=== PATIENT | female | born 1970 | race Caucasian/White ===

== ENCOUNTER 2017-12-21 13:07 | Emergency (ER) | payer MEDICAID, MEDICARE ==
[~2017-12-21] VITALS: Ht 167.6 cm; Wt 68.0 kg
[~2017-12-21 13:07] MED LIST: ACHD5005 PO; ALBU8.5H2 IH; ARIP15TA4 PO; AZIT-21 PO; BCL10T PO; CYCL10TA9 PO; DCS100C PO; DIAZ-345 PO; DICL75TA2 PO; DOXY100C2 PO; DULO30CA3 PO; GABA800T PO; GBPN100C PO; GEMF600T3 PO; MELO15TA14 PO; METH4TAB PO; METO25TA PO; MORP30TA28 PO; MORP50CA PO; NITR-65 PO; OMEP20CA12 PO; ONDA8TAB13 PO; OXYC1TAB12 PO; PHEN-640 PO; POLY119P PO; QUET100T PO; VENL100T PO; [UNRECOGNIZED DRUG - OTHER] PO
[2017-12-21] MEDS ORDERED: HYDROcodone/APAP 5 MG/325 MG (LORTAB) TAB PO ONE (14:00)
--- NOTE | 2017-12-21 14:09 | ED Neck-Back Pain/Injury ---
General Chief Complaint: Head/Cervical Problems Stated Complaint: NECK PAIN Nursing Triage Note: PT PRESENTS TO ER WITH COMPLAINT OF NECK PAIN. PT STATES SHE HAD NECK SX TWO YEARS AGO. STATES SHE IS DROPPING THINGS OUT OF HER RIGHT HAND. FEELS LIKE THERE IS A BUZZING IN HER NECK. Nursing Sepsis Screen: No Definite Risk Source of Information: Patient Exam Limitations: No Limitations History of Present Illness Date Seen by Provider: Dec 21, 2017 Time Seen by Provider: 14:05 Initial Comments Patient is a 47-year-old female who presents to the emergency room with chronic neck pain. She has numbness and tingling to her right arm and she is dropping things out of her hand. She states this is always an issue has become worse over the past month. She reports that she did injure her neck approximately a month and half ago when she fell down 5 stairs landing on her right side hitting her neck. She reports that she was seen by her primary care physician and has been referred to pain management for the chronic neck pain for the past 2 days has become worse and intolerable. Location: C-Spine Timing/Duration: Other (chronic) Pain/Injury Location: Neck Radiation: Other (right arm) Method of Injury: Fall Modifying Factors: Improves With Movement Associated Symptoms: denies symptoms Allergies and Home Medications Allergies Coded Allergies: amoxicillin trihydrate (Verified Allergy, Unknown, 06/22/14) RASH, BUT IS ABLE TO TAKE PCN INJECTION baclofen (Unverified Allergy, Unknown, RASH, 11/02/14) paroxetine HCl (Verified Allergy, Unknown, 06/22/14) potassium clavulanate (Verified Allergy, Unknown, 06/22/14) RASH, BUT IS ABLE TO TAKE PCN INJECTION Home Medications Aripiprazole 15 Mg Tablet, 15 MG PO HS, (Reported) Cyclobenzaprine Hcl 10 Mg Tablet, 10 MG PO TID, (Reported) Docusate Sodium 100 Mg Cap, 200 MG PO BID, (Reported) TAKE 2 (100MG) TABS Duloxetine Hcl 30 Mg Cap, 60 MG PO BID, (Reported) TAKE 2 (30MG) TABS Gabapentin 800 Mg Tablet, 800 MG PO QID, (Reported) Gemfibrozil 600 Mg Tablet, 600 MG PO BID, (Reported) Hydrocodone Bit/Acetaminophen 1 Each Tablet, 2 EACH PO Q6H PRN for PAIN, ( Reported) Hydrocodone Bit/Acetaminophen 1 Tab Tab, 1 EACH PO Q6H PRN for PAIN Prescribed by: MOLLY FORTE on 12/21/17 1456 Omeprazole 20 Mg Capsule.dr, 20 MG PO BID Prescribed by: STALIN CARMONA on 09/20/15 1404 Ondansetron 8 Mg Tab.rapdis, 8 MG PO Q6H PRN for NAUSEA Prescribed by: GERARDO COLON on 06/27/14 1334 Phenazopyridine HCl 200 Mg Tablet, 1 TAB PO Q8H PRN for PAIN Prescribed by: GERARDO COLON on 01/15/16 1314 Polyethylene Glycol 119 Gm Btl, 17 GM PO DAILY, (Reported) Prednisone 20 Mg Tab, 40 MG PO DAILY Prescribed by: RIGO DAS on 12/22/17 2137 Quetiapine Fumarate 100 Mg Tablet, 200 MG PO HS, (Reported) Patient Home Medication List Home Medication List Reviewed: Yes Constitutional: see HPI; No chills, No fever, No malaise, No weakness Musculoskeletal: see HPI, neck pain (right-sided neck pain, numbness that shoots down the right arm.) All Other Systems Reviewed Negative Unless Noted: Yes Past Lsdotgf-Bugtzw-Nzzofr Hx Past Med/Social Hx: Reviewed Nursing Past Med/Soc Hx Patient Social History Alcohol Use: Denies Use Recreational Drug Use: No Smoking Status: Current Everyday Smoker Type Used: Cigarettes Former Smoker, Quit: Jan 27, 2015 Recent Foreign Travel: No Contact w/Someone Who Travel: No Recent Infectious Disease Expo: No Recent Hopitalizations: No Immunizations Up To Date Tetanus Booster (TDap): More than 5yrs PED Vaccines UTD: Yes Past Medical History Surgeries: Yes (lumbar spine sx x2, neck sx x1, breast augmentation, tummy tuck , R carpal t) Breast, 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, Orthopedic Respiratory: Yes Asthma Cardiac: Yes (hx of TACHYCARDIA) Irregular Heartbeat Neurological: Yes (LUMBAR STENOSIS) 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: 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 Gastrointestinal: Yes Chronic Constipation, Gall Bladder Disease Musculoskeletal: Yes Back Injury, Chronic Back Pain Endocrine: No Loss of Vision: Bilateral Cancer: No Psychosocial: Yes Depression Integumentary: No Blood Disorders: Yes (HEP C) Adverse Reaction/Blood Tranf: No Family Medical History Reviewed Nursing Family Hx Aphasia Arthritis 19 MOTHER Cardiovascular disease 19 MOTHER Diabetes mellitus 19 MOTHER FH: Meniere's disease 19 FATHER FH: atrial fibrillation 19 MOTHER FH: back pain 19 FATHER 19 MOTHER FHx: AAA 19 MOTHER Hypertension 19 FATHER 19 MOTHER Osteoporosis 19 MOTHER Thyroid disease G8 SISTER No Pertinent Family Hx Physical Exam Vital Signs Vital Signs - First Documented 12/21/17 13:19 Pulse 104 Resp 20 B/P (MAP) 122/92 (102) Pulse Ox 96 O2 Delivery Room Air Capillary Refill : Less Than 3 Seconds Height, Weight, BMI Height: 5'6.00" Weight: 150lbs. 0.0oz. 68.001434gx; 24.2 BMI Method:Stated General Appearance: No Apparent Distress, WD/WN Neck: Full Range of Motion, Normal Inspection, Supple, Tender Lateral (right lateral), Tender Midline Cardiovascular: Regular Rate, Rhythm, No Edema, No Gallop, No JVD, No Murmur, Normal Peripheral Pulses Respiratory: Chest Non Tender, Lungs Clear, Normal Breath Sounds, No Accessory Muscle Use, No Respiratory Distress Extremity: Normal Capillary Refill, Normal Inspection, Normal Range of Motion, Non Tender, No Calf Tenderness, No Pedal Edema, Other Neurologic/Psychiatric: Alert, Oriented x3, Normal Mood/Affect Progress/Results/Core Measures Results/Orders My Orders Orders - MOLLY FORTE Ct Cervical Spine Wo (12/21/17 13:54) Hydrocodone/Apap 5/325 Tablet (Lortab 5 (12/21/17 14:00) Medications Given in ED Vital Signs/I&O 12/21/17 12/21/17 13:19 15:17 Pulse 104 104 Resp 20 20 B/P (MAP) 122/92 (102) 122/92 (102) Pulse Ox 96 96 O2 Delivery Room Air Blood Pressure Mean: 102 Progress Progress Note : Progress Note I seen and evaluated the patient. I have told her that there are no changes seen on imaging studies. She agrees with close follow-up with her pain doctor and her primary care physician. She agrees with plans of discharge. 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 TECHNIQUE: Multiple contiguous axial images were obtained through the cervical spine without the use of intravenous contrast. Sagittal and coronal reformations were then performed. INDICATION: The patient sustained a fall 4 weeks ago and has persistent left-sided neck pain and some tingling. Exam compared to 09/20/2015 ACDF C5-C6 and C7 is a redemonstrated finding. Bony alignment across, above and below the levels of fusion stable. No osseous or hardware fracture deformity is identified. No findings to suggest hardware loosening or migration. The plate has appeared well opposed to the anterior cortices. No displacement of the interbody device. Interbody device does appear to be incorporated into the adjacent articular endplates however endplate fusion is partial and posteriorly at the C5-6 level and not identified at the C6-C7 level. This is unchanged. No fracture or traumatic malalignment. The facet is stable. IMPRESSION: Unchanged postsurgical changes of mid to lower ACDF, incomplete fusion of the 6-7 level stable. No fracture, malalignment, hardware disruption or acute abnormality. No change from previous. No substantial stenosis apparent. Dictated by: Dictated on workstation # [id number] Dict: 12/21/17 1439 Trans: 12/21/17 1656 Interpreted by: CARRINGTON HENDRIX Electronically signed by: CARRINGTON HENDRIX 12/21/17 1656 Departure Impression Primary Impression: Chronic neck pain Disposition: 01 HOME, SELF-CARE Condition: Stable/Unchanged Departure-Patient Inst. Decision time for Depature: 14:51 Referrals: JAVIER REEDER DO (PCP) Primary Care Physician Patient Instructions: Chronic Neck Pain (DC) Add. Discharge Instructions: Take medication as directed. Keep your appointment with pain management as scheduled on 01/01/18. Follow-up with your doctor within 1 week for recheck. Return back to the emergency room for any concerns as needed. All discharge instructions reviewed with patient and/or family. Voiced understanding. Scripts Hydrocodone Bit/Acetaminophen (Hydrocodone/Acetaminophen 5/325mg Tablet) 1 Tab Tab 1 EACH PO Q6H PRN for PAIN, #10 TAB Prov: MOLLY FORTE 12/21/17 MOLLY FORTE Dec 21, 2017 14:09
--- NOTE | 2017-12-21 14:44 | Diagnostic Imaging Report ---
PROCEDURE: CT cervical spine without contrast. TECHNIQUE: Multiple contiguous axial images were obtained through the cervical spine without the use of intravenous contrast. Sagittal and coronal reformations were then performed. INDICATION: The patient sustained a fall 4 weeks ago and has persistent left-sided neck pain and some tingling. Exam compared to 09/20/2015 ACDF C5-C6 and C7 is a redemonstrated finding. Bony alignment across, above and below the levels of fusion stable. No osseous or hardware fracture deformity is identified. No findings to suggest hardware loosening or migration. The plate has appeared well opposed to the anterior cortices. No displacement of the interbody device. Interbody device does appear to be incorporated into the adjacent articular endplates however endplate fusion is partial and posteriorly at the C5-6 level and not identified at the C6-C7 level. This is unchanged. No fracture or traumatic malalignment. The facet is stable. IMPRESSION: Unchanged postsurgical changes of mid to lower ACDF, incomplete fusion of the 6-7 level stable. No fracture, malalignment, hardware disruption or acute abnormality. No change from previous. No substantial stenosis apparent. Dictated by: Dictated on workstation # [id number]
[2017-12-21] MEDS ORDERED: ACHD5005 PO (14:56)
[2017-12-21 15:17] VITALS: BP 122/92
[2017-12-22] MEDS ORDERED: METH-313 PO (21:37)
[2017-12-22] MEDS ORDERED: PRD20T PO (21:37)
== END 2017-12-21 15:17 | disposition home or self-care (01) ==
LOC: EDUNIT# 13:07 → ER 13:09
DX: M54.2 Cervicalgia (principal); G89.18 Other acute postprocedural pain; J45.909 Unspecified asthma, uncomplicated; F32.9 Major depressive disorder, single episode, unspecified; B19.20 Unspecified viral hepatitis C without hepatic coma; F17.210 Nicotine dependence, cigarettes, uncomplicated; Z95.1 Presence of aortocoronary bypass graft; Z87.19 Personal history of other diseases of the digestive system; Z82.49 Family history of ischemic heart disease and other diseases of the circulatory system; Z90.710 Acquired absence of both cervix and uterus; Z88.1 Allergy status to other antibiotic agents; Z88.8 Allergy status to other drugs, medicaments and biological substances
CPT/HCPCS: 72125

== ENCOUNTER 2017-12-22 18:15 | Emergency (ER) | payer MEDICARE ==
[2017-12-22] MEDS ORDERED: PRD20T PO (21:37)
[2017-12-22] MEDS ORDERED: METH-313 PO (21:37)
== END 2017-12-22 18:37 | disposition left against medical advice (07) ==
LOC: EDUNIT# 18:15 → ER 18:16
DX: M54.9 Dorsalgia, unspecified (principal)

== ENCOUNTER 2017-12-22 20:21 | Emergency (ER) | payer MEDICARE ==
[~2017-12-22] VITALS: Ht 167.6 cm; Wt 68.0 kg
--- NOTE | 2017-12-22 20:54 | ED Back Pain ---
General Chief Complaint: Back Problems Stated Complaint: BACK PAIN Nursing Triage Note: c/o worsening chronic back pain Nursing Sepsis Screen: No Definite Risk Source of Information: Patient Exam Limitations: No Limitations History of Present Illness Date Seen by Provider: Dec 22, 2017 Time Seen by Provider: 20:51 Initial Comments to ER with midline low back pain. This radiates down both legs as an aching sensation. She has a history of chronic neck and back pain. She was seen here yesterday for worsening neck pain. She was given 10 hydrocodone she states she' s been taking them but they've not been helping. She has a spinal stimulator in place She denies any recent trauma to the back.She states that normally she does not take anything for pain. Location: Lumbar Spine, Paraspinous Muscles Timing/Duration: 1-2 Days Severity: Moderate Pain/Injury Location: Back Associated Symptoms: lower back pain Allergies and Home Medications Allergies Coded Allergies: amoxicillin trihydrate (Verified Allergy, Unknown, 06/22/14) RASH, BUT IS ABLE TO TAKE PCN INJECTION baclofen (Unverified Allergy, Unknown, RASH, 11/02/14) paroxetine HCl (Verified Allergy, Unknown, 06/22/14) potassium clavulanate (Verified Allergy, Unknown, 06/22/14) RASH, BUT IS ABLE TO TAKE PCN INJECTION Home Medications Aripiprazole 15 Mg Tablet, 15 MG PO HS, (Reported) Cyclobenzaprine Hcl 10 Mg Tablet, 10 MG PO TID, (Reported) Docusate Sodium 100 Mg Cap, 200 MG PO BID, (Reported) TAKE 2 (100MG) TABS Duloxetine Hcl 30 Mg Cap, 60 MG PO BID, (Reported) TAKE 2 (30MG) TABS Gabapentin 800 Mg Tablet, 800 MG PO QID, (Reported) Gemfibrozil 600 Mg Tablet, 600 MG PO BID, (Reported) Hydrocodone Bit/Acetaminophen 1 Each Tablet, 2 EACH PO Q6H PRN for PAIN, ( Reported) Hydrocodone Bit/Acetaminophen 1 Tab Tab, 1 EACH PO Q6H PRN for PAIN Prescribed by: MOLLY FORTE on 12/21/17 1456 Methocarbamol 750 Mg Tablet, 750 MG PO Q6H PRN for PAIN-SEVERE Prescribed by: RIGO DAS on 12/22/172136 Omeprazole 20 Mg Capsule.dr, 20 MG PO BID Prescribed by: STALIN CARMONA on 09/20/15 1404 Ondansetron 8 Mg Tab.rapdis, 8 MG PO Q6H PRN for NAUSEA Prescribed by: GERARDO COLON on 06/27/14 1334 Phenazopyridine HCl 200 Mg Tablet, 1 TAB PO Q8H PRN for PAIN Prescribed by: GERARDO COLON on 01/15/16 1314 Polyethylene Glycol 119 Gm Btl, 17 GM PO DAILY, (Reported) Prednisone 20 Mg Tab, 40 MG PO DAILY Prescribed by: RIGO DAS on 12/22/17 2137 Quetiapine Fumarate 100 Mg Tablet, 200 MG PO HS, (Reported) Patient Home Medication List Home Medication List Reviewed: Yes Constitutional: see HPI EENTM: see HPI Respiratory: no symptoms reported Cardiovascular: no symptoms reported Musculoskeletal: see HPI, back pain Skin: no symptoms reported Psychiatric/Neurological: No Symptoms Reported Past Nbnimdq-Zpkxgx-Dqooae Hx Patient Social History Alcohol Use: Denies Use Recreational Drug Use: No Smoking Status: Former Smoker Type Used: Cigarettes Former Smoker, Quit: Jan 27, 2015 Recent Foreign Travel: No Contact w/Someone Who Travel: No Recent Infectious Disease Expo: No Recent Hopitalizations: No Physical Abuse: No Sexual Abuse: No Immunizations Up To Date Tetanus Booster (TDap): More than 5yrs PED Vaccines UTD: Yes Past Medical History Surgeries: Yes (lumbar spine sx x2, neck sx x1, breast augmentation, tummy tuck , R carpal t) Breast, 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, Orthopedic Respiratory: Yes Asthma Cardiac: Yes (hx of TACHYCARDIA) Irregular Heartbeat Neurological: Yes (LUMBAR STENOSIS) 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 Gastrointestinal: Yes Chronic Constipation, Gall Bladder Disease Musculoskeletal: Yes Back Injury, Chronic Back Pain Endocrine: No Loss of Vision: Bilateral Cancer: No Psychosocial: Yes Depression Nursing Suicide Risk Score: 0 Integumentary: No Blood Disorders: Yes (HEP C) Adverse Reaction/Blood Tranf: No Family Medical History Aphasia Arthritis 19 MOTHER Cardiovascular disease 19 MOTHER Diabetes mellitus 19 MOTHER FH: Meniere's disease 19 FATHER FH: atrial fibrillation 19 MOTHER FH: back pain 19 FATHER 19 MOTHER FHx: AAA 19 MOTHER Hypertension 19 FATHER 19 MOTHER Osteoporosis 19 MOTHER Thyroid disease G8 SISTER No Pertinent Family Hx Physical Exam Vital Signs Vital Signs - First Documented 12/22/17 20:36 Temp 98.5 Pulse 109 Resp 18 B/P (MAP) 132/92 (105) Pulse Ox 98 Capillary Refill : Less Than 3 Seconds Height, Weight, BMI Height: 5'6.00" Weight: 150lbs. 0.0oz. 68.587481nk; 24.2 BMI Method:Stated General Appearance: No Apparent Distress, WD/WN, Other (tearful) HEENT: PERRL/EOMI, TMs Normal Respiratory: No Accessory Muscle Use, No Respiratory Distress Gastrointestinal: Normal Bowel Sounds, Non Tender, Soft Back: Normal Inspection Extremity: Normal Capillary Refill, Normal Inspection Neurologic/Psychiatric: Alert, Oriented x3 Skin: Normal Color, Warm/Dry Progress/Results/Core Measures Results/Orders Lab Results Laboratory Tests Test 12/22/17 19:55 12/22/17 21:00 Range/Units Urine Color YELLOW Urine Clarity CLEAR Urine pH 6 5-9 Urine Specific [place] 1.010 L 1.016-1.022 Urine Protein NEGATIVE NEGATIVE Urine Glucose (UA) NEGATIVE NEGATIVE Urine Ketones NEGATIVE NEGATIVE Urine Nitrite NEGATIVE NEGATIVE Urine Bilirubin NEGATIVE NEGATIVE Urine Urobilinogen NORMAL NORMAL MG/DL Urine Leukocyte Esterase NEGATIVE NEGATIVE Urine RBC (Auto) NEGATIVE NEGATIVE Urine RBC NONE /HPF Urine WBC 0-2 /HPF Urine Squamous Epithelial Cells 0-2 /HPF Urine Renal Epithelial Cells NONE /HPF Urine Crystals NONE /LPF Urine Bacteria NEGATIVE /HPF Urine Casts NONE /LPF Urine Mucus NEGATIVE /LPF Urine Culture Indicated NO Urine Opiates Screen POSITIVE H NEGATIVE Urine Oxycodone Screen NEGATIVE NEGATIVE Urine Methadone Screen NEGATIVE NEGATIVE Urine Propoxyphene Screen NEGATIVE NEGATIVE Urine Barbiturates Screen NEGATIVE NEGATIVE Ur Tricyclic Antidepressants Screen POSITIVE H NEGATIVE Urine Phencyclidine Screen NEGATIVE NEGATIVE Urine Amphetamines Screen NEGATIVE NEGATIVE Urine Methamphetamines Screen NEGATIVE NEGATIVE Urine Benzodiazepines Screen NEGATIVE NEGATIVE Urine Cocaine Screen NEGATIVE NEGATIVE Urine Cannabinoids Screen NEGATIVE NEGATIVE White Blood Count 4.8 4.3-11.0 10^3/uL Red Blood Count 4.60 4.35-5.85 10^6/uL Hemoglobin 13.9 11.5-16.0 G/DL Hematocrit 41 35-52 % Mean Corpuscular Volume 90 80-99 FL Mean Corpuscular Hemoglobin 30 25-34 PG Mean Corpuscular Hemoglobin Concent 34 32-36 G/DL Red Cell Distribution Width 13.6 10.0-14.5 % Platelet Count 229 130-400 10^3/uL Mean Platelet Volume 9.0 7.4-10.4 FL Neutrophils (%) (Auto) 46 42-75 % Lymphocytes (%) (Auto) 42 12-44 % Monocytes (%) (Auto) 9 0-12 % Eosinophils (%) (Auto) 3 0-10 % Basophils (%) (Auto) 0 0-10 % Neutrophils # (Auto) 2.2 1.8-7.8 X 10^3 Lymphocytes # (Auto) 2.1 1.0-4.0 X 10^3 Monocytes # (Auto) 0.4 0.0-1.0 X 10^3 Eosinophils # (Auto) 0.1 0.0-0.3 10^3/uL Basophils # (Auto) 0.0 0.0-0.1 10^3/uL Sodium Level 139 135-145 MMOL/L Potassium Level 4.2 3.6-5.0 MMOL/L Chloride Level 103 98-107 MMOL/L Carbon Dioxide Level 25 21-32 MMOL/L Anion Gap 11 5-14 MMOL/L Blood Urea Nitrogen 10 7-18 MG/DL Creatinine 0.75 0.60-1.30 MG/DL Estimat Glomerular Filtration Rate > 60 BUN/Creatinine Ratio 13 Glucose Level 100 70-105 MG/DL Calcium Level 9.8 8.5-10.1 MG/DL My Orders Orders - RIGO DAS APRN Drug Screen Stat (Urine) (12/22/17 20:46) Ua Culture If Indicated (12/22/17 20:46) Cbc With Automated Diff (12/22/17 20:50) Erythrocyte Sedimentation Rate (12/22/17 20:50) Basic Metabolic Panel (12/22/17 20:50) Ketorolac Injection (Toradol Injection) (12/22/17 21:00) Orphenadrine Injection (Norflex Injectio (12/22/17 21:00) Medications Given in ED Current Medications Medications Dose Ordered Sig/Michael Route Start Time Stop Time Status Last Admin Dose Admin Ketorolac Tromethamine 60 mg ONCE ONCE IM 12/22/17 21:00 12/22/17 21:01 DC 12/22/17 20:59 60 MG Orphenadrine Citrate 60 mg ONCE ONCE IM 12/22/17 21:00 12/22/17 21:01 DC 12/22/17 20:59 60 MG Vital Signs/I&O 12/22/17 20:36 Temp 98.5 Pulse 109 Resp 18 B/P (MAP) 132/92 (105) Pulse Ox 98 Blood Pressure Mean: 105 Departure Communication (Admissions) 2144- resting in bed sleeping at this time. Impression Primary Impression: Chronic back pain Disposition: HOME, SELF-CARE Condition: Stable Departure-Patient Inst. Decision time for Depature: 21:36 Referrals: JAVIER REEDER DO (PCP/Family) Primary Care Physician Patient Instructions: Low Back Pain (DC) Add. Discharge Instructions: 11. Medication as directed 2. Follow-up with your doctor later this week for recheck 3.All discharge instructions reviewed with patient and/or family. Voiced understanding. Scripts Prednisone (Prednisone) 20 Mg Tab 40 MG PO DAILY, #8 TAB Prov: RIGO DAS APRN 12/22/17 RIGO DAS APRN Dec 22, 2017 20:53
[2017-12-22] MEDS ORDERED: ORPHENADRINE 60 MG/2 ML (NORFLEX) AMP IM ONE (21:00)
[2017-12-22] MEDS ORDERED: KETOROLAC 60 MG/2 ML VIAL IM ONE (21:00)
[2017-12-22 21:13] LABS: BILIRUBIN,URINE NEGATIVE (NEGATIVE); CLARITY,URINE CLEAR; COLOR,URINE YELLOW; GLUCOSE, URINE (UA) NEGATIVE (NEGATIVE); KETONES,URINE NEGATIVE (NEGATIVE); LEUKOCYTE ESTERASE ,URINE NEGATIVE (NEGATIVE); NITRITE,URINE NEGATIVE (NEGATIVE); PH,URINE 6 (5-9); PROTEIN,URINE NEGATIVE (NEGATIVE); UROBILINOGEN,URINE NORMAL (NORMAL)
[2017-12-22 21:14] LABS: BASOPHILS % (AUTO) 0 % (0-10); EOSINOPHILS # (AUTO) 0.1 10^3/uL (0.0-0.3); EOSINOPHILS % (AUTO) 3 % (0-10); HEMATOCRIT 41 % (35-52); HEMOGLOBIN 13.9 G/DL (11.5-16.0); LYMPHOCYTES # (AUTO) 2.1 X 10^3 (1.0-4.0); LYMPHOCYTES % (AUTO) 42 % (12-44); MEAN CORPUSCULAR HEMOGLOBIN 30 PG (25-34); MEAN CORPUSCULAR HGB CONC 34 G/DL (32-36); MEAN CORPUSCULAR VOLUME 90 FL (80-99); MONOCYTES # (AUTO) 0.4 X 10^3 (0.0-1.0); MONOCYTES % (AUTO) 9 % (0-12); NEUTROPHILS # (AUTO) 2.2 X 10^3 (1.8-7.8); NEUTROPHILS % (AUTO) 46 % (42-75); PLATELET COUNT 229 10^3/uL (130-400); RED CELL DISTRIBUTION WIDTH 13.6 % (10.0-14.5); WHITE BLOOD COUNT 4.8 10^3/uL (4.3-11.0)
[2017-12-22 21:23] LABS: BACTERIA,URINE NEGATIVE /HPF; SQUAMOUS EPITHELIAL CELL,UR 0-2 /HPF; WBC,URINE 0-2 /HPF
[2017-12-22 21:27] LABS: AMPHETAMINE SCREEN, URINE NEGATIVE (NEGATIVE); BARBITURATE SCREEN URINE NEGATIVE (NEGATIVE); BENZODIAZEPINES SCREEN URINE NEGATIVE (NEGATIVE); CANNABINOID SCREEN, URINE NEGATIVE (NEGATIVE); COCAINE SCREEN URINE NEGATIVE (NEGATIVE); METHADONE STAT NEGATIVE (NEGATIVE); METHAMPHETAMINE SCREEN URINE S NEGATIVE (NEGATIVE); OPIATE SCREEN URINE POSITIVE (NEGATIVE); OXYCODONE STAT NEGATIVE (NEGATIVE); PROPOXYPHENE STAT NEGATIVE (NEGATIVE); TRICYCLIC ANTIDEPRESSANTS SCRE POSITIVE (NEGATIVE)
[2017-12-22 21:31] LABS: BUN/CREATININE RATIO 13; CALCIUM 9.8 MG/DL (8.5-10.1); CARBON DIOXIDE 25 MMOL/L (21-32); CHLORIDE 103 MMOL/L (98-107); CREATININE SERUM 0.75 MG/DL (0.60-1.30); GFR ESTIMATED > 60; GLUCOSE 100 MG/DL (70-105); POTASSIUM 4.2 MMOL/L (3.6-5.0); SODIUM 139 MMOL/L (135-145)
[2017-12-22] MEDS ORDERED: PRD20T PO (21:37)
[2017-12-22] MEDS ORDERED: METH-313 PO (21:37)
[2017-12-22 21:44] VITALS: BP 132/92
[2017-12-22 21:44] LABS: ERYTHROCYTE SEDIMENTATION RATE 6 MM/HR (0-20)
== END 2017-12-22 21:45 | disposition home or self-care (01) ==
LOC: EDUNIT# 20:21 → ER 20:22
DX: M54.5 Low back pain (principal); G89.29 Other chronic pain; J45.909 Unspecified asthma, uncomplicated; F32.9 Major depressive disorder, single episode, unspecified; Z87.19 Personal history of other diseases of the digestive system; Z90.710 Acquired absence of both cervix and uterus; Z87.891 Personal history of nicotine dependence; Z88.1 Allergy status to other antibiotic agents; Z88.8 Allergy status to other drugs, medicaments and biological substances
CPT/HCPCS: 36415; 80048; 80306; 81000; 85025; 85652; 96372; 99284

== ENCOUNTER 2018-02-14 06:54 | Day surgery (SDC) | payer MEDICARE ==
[2018-02-14] VITALS (7 sets, daily range): BP systolic 91–101; BP diastolic 72–80
[~2018-02-14] VITALS: Ht 170.2 cm; Wt 65.8 kg
[~2018-02-14 06:54] MED LIST changes: +METH-313 PO; +PRD20T PO
--- OUTSIDE RECORDS SUMMARY | 2018-02-14 07:04 | XMS REPORT ---
Author Author JUSTIN ASTUDILLO [facility] e[employer] Address Unknown Phone Unavailable Care Team Providers Care Concrete Precast [place]oulder Name Role Phone JUSTIN ASTUDILLO Unavailable Allergies No Known Allergies Problems Problem Type Condition Code Onset Dates Condition Status Problem Hepatitis C antibody test positive R76.8 Active Assessment Generalized anxiety disorder F41.1 Active Problem Controlled substance agreement terminated Z92.89 Active Assessment Major depressive disorder, recurrent episode, severe, with psychotic behavior F33.3 Active Medications Medication Code System Code Instructions Start Date End Date Status Dosage Cymbalta [facility] [address]-36 60 MG Orally Twice a day Feb 10, 2015 1 capsule Abilify [facility] [address]-21 10 MG Orally Once a day December 08, 2015 1 tablet Lopid [facility] [address]-11 600 mg Jul 10, 2014 1 Tablet by Oral route 2 times per day Hydrocodone-Acetaminophen [facility] [address]-81 10-325 MG Orally every 6 hrs 1 tablet as needed Bitoin Plus/Calcium/Vit D3 [facility] [address]65 - Orally not defined Cholecalciferol [facility] [address]-50 1000 UNIT Orally Once a day 1 capsule Prazosin HCl [facility] [address]-14 1 MG Orally Once a day Mar 01, 2016 1 capsule at bedtime Seroquel XR [facility] [address]-01 150 MG Orally Once a day 1 tablet in the evening Prevacid [facility] [address]-12 15 MG Orally Once a day 1 capsule Folic Acid [facility] [address]-04 1 MG Orally Once a day 1 tablet Gabapentin [facility] [address]-40 800 mg Orally 4 times a day Jul 10, 2014 1 Tablet by Oral route 4 times per day Multi Vitamin Daily [facility] [address] - Orally Once a day 1 tablet MiraLax [facility] [address]-26 17 gm/dose Orally Once a day 17 grams mixed in 8 oz of water or juice cyclobenzaprine [facility] [address]-33 10 mg by oral route 2 times a day August 26, 2014 1 Tablet by Oral route 3 times per day PRN Mobic [facility] [address]-99 15 MG Orally Once a day 1 tablet Ondansetron [facility] [address]-27 8 MG Orally not defined Procedures Procedure Coding System Code Date MH Office Visit, Est Pt., Level 3 CPT-4 18356 Mar 01, 2016 Vital Signs Date/Time: Mar 01, 2016 Cardiac Monitoring Heart Rate 104 bpm Weight 160 lbs Height 66 in BMI 25.82 Index Blood Pressure Diastolic 64 mmHg Blood Pressure Systolic 128 mmHg Results No Known Results Summary Purpose eClinical[employer] Submission
--- OUTSIDE RECORDS SUMMARY | 2018-02-14 07:04 | XMS REPORT ---
Author Author EVELIA SAMANO Organization [facility] Address [address] [place] [address] Care Team Providers Care Perforator Operator Name Role Phone EVELIA SAMANO Unavailable PROBLEMS Type Condition ICD9-CM Code [id number] Code Onset Dates Condition Status SNOMED Code Problem Major depressive disorder, recurrent episode, severe, with psychotic behavior F33.3 Active 545379593 Problem Major depressive disorder, recurrent, severe with psychotic symptoms F33.3 Active 71743704 Problem Controlled substance agreement terminated Z92.89 Active 875922889 Problem Hepatitis C antibody test positive R76.8 Active 951343625 Problem Major depressive disorder, recurrent episode, moderate F33.1 Active 314440404 Problem Generalized anxiety disorder F41.1 Active 63027113 ALLERGIES Unknown Allergies SOCIAL HISTORY No smoking Hx information available PLAN OF CARE Activity Details Follow Up 4 Weeks Reason:depression, anxiety VITAL SIGNS MEDICATIONS Unknown Medications RESULTS No Results PROCEDURES Procedure Date Ordered Related Diagnosis Body Site Psychotherapy, patient &/family, 30 minutes, established patient May 01, 2016 IMMUNIZATIONS No Known Immunizations
--- OUTSIDE RECORDS SUMMARY | 2018-02-14 07:04 | XMS REPORT ---
Author Author ANDRZEJ LIN [facility] Address [address] [place] [address] Phone Unavailable Care Team Providers Care Retail Shift Leader Name Role Phone ANDRZEJ LIN Unavailable Unavailable PROBLEMS Type Condition ICD9-CM Code HLN50-NO Code Onset Dates Condition Status SNOMED Code Problem Hepatitis C antibody test positive R76.8 Active 298140247 Problem Generalized anxiety disorder F41.1 Active 85386961 Problem Controlled substance agreement terminated Z92.89 Active 273890715 Problem Mood disorder F39 Active 61654933 Problem Methamphetamine use disorder, moderate F15.20 Active 838996031 Problem Major depressive disorder, recurrent, severe with psychotic symptoms F33.3 Active 27236811 Problem Major depressive disorder, recurrent episode, moderate F33.1 Active 858841902 Problem Opiate abuse, episodic F11.10 Active 4137829 Problem Major depressive disorder, recurrent episode, severe, with psychotic behavior F33.3 Active 794573415 ALLERGIES Substance Reaction Event Type Date Status Tizanidine HCl hives Drug Allergy Sep, Active Paxil hives Drug Allergy Sep, Active Baclofen blistering rash Drug Allergy Sep, Active Augmentin rash Drug Allergy Sep, Active Bee stings Unknown Non Drug Allergy Sep, Active Hydrocodone Failed UDS Non Drug Allergy Sep, Active Benzodiazepines Failed UDS Non Drug Allergy Sep, Active ENCOUNTERS Encounter Location Date Diagnosis [facility] [address] [address] Jan, [facility] [id number] [place] [address] Dec, Methamphetamine use disorder, moderate F15.20 ; Opiate abuse , episodic F11.10 and Mood disorder F39 [facility] [address] [address] Sep, Sore throat J02.9 [facility] [address] [address] Apr, [facility] [id number] [place] [address] 3842 Apr, [facility] [address] [address] Mar, High risk medication use Z79.899 ; Methamphetamine use disorder, moderate F15.20 and Opiate abuse, episodic F11.10 [facility] [address] [address] Dec, [place] [id number] [place] [address]190- [address] Dec, Generalized anxiety disorder F41.1 and Major depressive disorder, recurrent episode, severe, with psychotic behavior F33.3 [facility] [address] [address] Nov, Abdominal pain R10.9 and Acute cystitis with hematuria N30.01 [facility] [address] [address] October, Major depressive disorder, recurrent, severe with psychotic symptoms F33.3 and Generalized anxiety disorder F41.1 [place] [address] [address] Sep, Generalized anxiety disorder F41.1 and Major depressive disorder, recurrent, severe with psychotic symptoms F33.3 [facility] [address] [address] Sep, Generalized anxiety disorder F41.1 and Major depressive disorder, recurrent, severe with psychotic symptoms F33.3 [place] [address] [place] [address]78- [address] Aug, Major depressive disorder, recurrent episode, moderate F33.1 and Generalized anxiety disorder F41.1 [place] [id number] [place] [address]8862- [address]145 Aug, Major depressive disorder, recurrent episode, moderate F33.1 and Generalized anxiety disorder F41.1 [facility] [id number] [place] [address] Jul, Urinary frequency R35.0 and Gastroenteritis and colitis, viral A08.4 [place] [address] [address] Jul, Major depressive disorder, recurrent episode, moderate F33.1 and Generalized anxiety disorder F41.1 [facility] [id number] [place] [address] Jun, Bronchitis J40 [place] [address] [address] May, Major depressive disorder, recurrent episode, severe, with psychotic behavior F33.3 and Generalized anxiety disorder F41.1 [place] [address] [address] Apr, Major depressive disorder, recurrent episode, severe, with psychotic behavior F33.3 and Generalized anxiety disorder F41.1 [place] [id number] [place] [address] 69283- 1145 Apr, Generalized anxiety disorder F41.1 and Major depressive disorder, recurrent episode, severe, with psychotic behavior F33.3 [place] [id number] [place] [address] 84368- 8523 Apr, Severe episode of recurrent major depressive disorder, with psychotic features F33.3 [facility] [id number] [place] [address] Apr, Bronchitis J40 [place] [address] [address]- [address] 31 Mar, 2016 [facility] [id number] [place] [address]63 14 Mar, 2016 Vaginal discharge N89.8 and Trichomonas infection A59.9 [place] [address] [address] Mar, Severe episode of recurrent major depressive disorder, with psychotic features F33.3 [facility] [id number] [place] [address] 59053- 5947 Feb, Generalized anxiety disorder F41.1 and Major depressive disorder, recurrent episode, severe, with psychotic behavior F33.3 [facility] [id number] [place] [address] 54131- 9798 Feb, Severe episode of recurrent major depressive disorder, with psychotic features F33.3 [place] [id number] [place] [address] 05393- 5289 Jan, Severe episode of recurrent major depressive disorder, with psychotic features F33.3 [place] [id number] [place] [address] 86467- 2369 Dec, Generalized anxiety disorder F41.1 and Major depressive disorder, recurrent episode, severe, with psychotic behavior F33.3 [place] [address] [place] [address] 50038- 2326 Nov, Major depressive disorder, recurrent episode, severe, with psychotic behavior F33.3 [place] [id number] [place] [address] 03257- 6264 Nov, Major depressive disorder, recurrent episode, severe, with psychotic behavior F33.3 [place] [address] [place] [address] 34907- 5360 Sep, Controlled substance agreement terminated Z92.89 [facility] [address] [place] [address]23- [address]84 Sep, Major depressive disorder, recurrent episode, severe, with psychotic behavior F33.3 [facility] [address] [place] [address] 07758- 8829 Sep, Major depressive disorder, recurrent episode, severe, with psychotic behavior F33.3 [place] [id number] [place] [address] 23558- 5752 Sep, Generalized anxiety disorder F41.1 and Major depressive disorder, recurrent, severe with psychotic symptoms F33.3 [facility] [id number] [place] [address] 39581- 8991 Sep, [facility] [id number] [place] [address] 50786- 6996 Sep, Major depressive disorder, recurrent episode, severe, with psychotic behavior F33.3 [facility] [id number] [place] [address] 24163- 3247 Aug, Major depressive disorder, recurrent, severe with psychotic symptoms F33.3 and Generalized anxiety disorder F41.1 [place] [id number] [place] [address] 79941- 9685 Jun, Generalized anxiety disorder F41.1 and Major depressive disorder, recurrent, severe with psychotic symptoms F33.3 [place] [address] [address]137- [address] Jun, [facility] [id number] [place] [address] 70375- 1800 Mar, [facility] [id number] [place] [address] 35880- 1490 Mar, Generalized anxiety disorder F41.1 and Major depressive disorder, recurrent, severe with psychotic symptoms F33.3 [facility] [id number] [place] [address] 82176- 1020 Feb, Generalized anxiety disorder 300.02 ; Major depression, recurrent 296.30 and 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 [facility] [id number] [place] [address] 60225- 9558 October, Major depressive disorder, recurrent episode, moderate 296.32 and Generalized anxiety disorder 300.02 [facility] [id number] [place] [address] 61232- 9479 Sep, [facility] [address] [address] Sep, [facility] [place] [facility] [address] [id number] [place] [address] Aug, [facility] [place] [facility] [address] [id number] [place] [address]- 96[address] Aug, [facility] [place] [facility] [address] [facility] [id number] [place] [address]- [address] 16 Jul, 2014 [facility] [place] [facility] [address] [id number] [place] [address]- 5293 16 Jul, 2014 [facility] [place] [facility] [address] [id number] [place] [address]- [address]245 Jul, 2014 [facility] [place] [facility] [address] [facility] [id number] [place] [address]- [address]309 Jul, 2014 [facility] [place] [facility] [address] [facility] [id number] [place] [address]- 9839 Jul, 2014 [facility] [place] [facility] [address] [facility] [id number] [place] [address]- 9[address] 06 Jul, 2014 [facility] [place] [facility] [address] [facility] [id number] [place] [address]- 77[address] 06 Jul, 2014 [facility] [place] [facility] [address] [facility] [id number] [place] [address]- 6971 Feb, [facility] [place] [facility] [address] [facility] [id number] [place] [address]- 8164 Feb, [facility] [place] [facility] [address] [facility] [id number] [place] [address]- 2065 Nov, [facility] [place] [facility] [address] [id number] [place] [address]- 3045 Nov, [facility] [place] [facility] [address] [facility] [id number] [place] [address]- 1547 Sep, [facility] [place] [facility] [address] [facility] [id number] [place] [address]- 9458 Aug, [facility] [place] [facility] [address] [id number] [place] [address]- 5328 Aug, [facility] [place] [facility] [address] [id number] [place] [address]- 1115 Aug, [facility] [place] [facility] [address] [id number] [place] [address]- 0509 Aug, [facility] [place] [facility] [address] [id number] [place] [address]- 1034 Jul, [facility] [place] [facility] [address] [id number] [place] [address]- 4606 Jul, 2013 [facility] [place] [facility] [address] [id number] [place] [address]- 6517 Jul, 2013 [facility] [place] [facility] [address] [facility] [id number] [place] [address]- 1308 Jul, 2013 [facility] [place] [facility] [address] [id number] [place] [address]- 7014 Jul, [facility] [place] [facility] [address] [id number] [place] [address]- 9896 Jul, [facility] [place] [facility] [address] [facility] [id number] [place] [address]- 1904 Mar, [facility] [place] [facility] [address] [id number] [address] 8434 Mar, [facility] [place] [facility] [address] [id number] [place] [address]- 2484 08 Mar, 2013 [facility] [place] [facility] [address] [id number] [place] [address]- 7028 Mar, [facility] [place] [facility] [address] [id number] [place] [address]- 0383 12 Feb, 2013 [facility] [place] [facility] [address] [id number] [place] [address]- 3459 11 Feb, 2013 [facility] [place] [facility] [address] [id number] [place] [address]- [address] Jan, IMMUNIZATIONS No Known Immunizations SOCIAL HISTORY Never Assessed REASON FOR VISIT sore throat Pt has had a sore throat for 2-3 days, has had some sinus drainage and some fever [facility] [place] PLAN OF CARE VITAL SIGNS Height 66 in 2017-09-10 Weight 150.6 lbs 2017-09-10 Temperature 98.7 degrees Fahrenheit 2017-09-10 Heart Rate 88 bpm 2017-09-10 Respiratory Rate 18 2017-09-10 BMI 24.30 kg/m2 2017-09-10 Blood pressure systolic 120 mmHg 2017-09-10 Blood pressure diastolic 70 mmHg 2017-09-10 MEDICATIONS Medication Instructions Dosage Frequency Start Date End Date Duration Status Prevacid 15 MG Orally Once a day 1 capsule 24h Active Seroquel 25 MG Orally three times a day as needed for anxiety 1 tablet Dec, 30 days Active Estrace 0.1 MG/GM Active Flonase 50 MCG/DOSE Nasally Once a day 1 spray in each nostril 24h Active Prazosin HCl 1 MG Orally Once a day 1 capsule at bedtime 24h 30 days Active Azithromycin 250 MG Orally Once a day 2 tablets on the first day, then 1 tablet daily for 4 days 24h Sep, Sep, 5 day(s) Active Butrans 5 MCG/HR 1 patch to skin Not-Taking Folic Acid 1 MG Orally Once a day 1 tablet 24h Not-Taking Benztropine Mesylate 1 MG Orally Once a day 1 tablet at bedtime 24h Dec 30 days Active Seroquel 300 MG Orally at bedtime 1 tablet Sep, 30 days Active BusPIRone HCl 10 mg Orally as needed Three times a day 1 tablet 8h Sep, 30 days Active Lopid 600 mg 1 Tablet by Oral route 2 times per day Jul, Active Biotin Plus/Calcium/Vit D3 - Not-Taking Gabapentin 800 mg Orally 4 times a day 1 Tablet by Oral route 4 times per day 6h Jul, Active Loratadine 10 MG Orally Once a day 1 tablet 24h Active Multi Vitamin Daily - Orally Once a day 1 tablet 24h Not-Taking cyclobenzaprine 10 mg by oral route 2 times a day 1 Tablet by Oral route 3 times per day PRN 12h Aug, Active Cymbalta 60 MG Orally every morning 2 capsules Feb, 30 days Active RESULTS Name Result Date Reference Range STREP A (IN HOUSE) 2017-09-10 STREP A positive Control + Lot # [id number] Exp date 03-15-2020 PROCEDURES Procedure Date Ordered Result Body Site STREP A ASSAY W/OPTIC September 10, 2017 INSTRUCTIONS MEDICATIONS ADMINISTERED No Known Medications MEDICAL (GENERAL) HISTORY Type Description Date Medical History depression Medical History anxiety Medical History hyperlipidemia Medical History degenerative disc disease Medical History bulging disc(s) Medical History herniated disc Medical History spinal stenosis Medical History cholelithiasis Medical History hepatitis C Medical History Major depressive disorder, recurrent episode, severe, with psychotic behavior Surgical History Back Surgery Spinal Fusion and Rods in back 11/2014 Surgical History Carpal Tunnel Release--right hand 01/2015 Surgical History hysterectomy, vaginal 1992 Surgical History oopherectomy 2001 Surgical History breast augmentation Surgical History laminectomy Surgical History Neurotransmitter placed 03/2016 Hospitalization History surgery Hospitalization History [facility]
--- OUTSIDE RECORDS SUMMARY | 2018-02-14 07:04 | XMS REPORT ---
Author Author JUSTIN Caban Organization [facility] Address Unknown Care Team Providers Care Brewery Technician Name Role Phone JUSTIN Caban Unavailable PROBLEMS Type Condition ICD9-CM Code [id number] Code Onset Dates Condition Status SNOMED Code Problem Controlled substance agreement terminated Z92.89 Active 209177413 Problem Hepatitis C antibody test positive R76.8 Active 505322152 Problem Methamphetamine use disorder, moderate F15.20 Active 818301747 Problem Opiate abuse, episodic F11.10 Active 5266325 Problem Major depressive disorder, recurrent episode, moderate F33.1 Active 653564050 Problem Generalized anxiety disorder F41.1 Active 02598232 Problem Major depressive disorder, recurrent episode, severe, with psychotic behavior F33.3 Active 187032791 Problem Major depressive disorder, recurrent, severe with psychotic symptoms F33.3 Active 53111362 ALLERGIES No Information ENCOUNTERS Encounter Location Date Diagnosis [facility] [address] [address] Apr, [facility] [address] [address] Apr, [facility] [address] [address] Mar, High risk medication use Z79.899 ; Methamphetamine use disorder, moderate F15.20 and Opiate abuse, episodic F11.10 [facility] [address] [address] Dec, [facility] [address] [address] Dec, Generalized anxiety disorder F41.1 and Major depressive disorder, recurrent episode, severe, with psychotic behavior F33.3 [facility] [address] [place] [address] 15 Nov, 2016 Abdominal pain R10.9 and Acute cystitis with hematuria N30.01 [place] [address] [address] October, Major depressive disorder, recurrent, severe with psychotic symptoms F33.3 and Generalized anxiety disorder F41.1 [place] [address] [address] Sep, Generalized anxiety disorder F41.1 and Major depressive disorder, recurrent, severe with psychotic symptoms F33.3 [place] [address] [address] Sep, Generalized anxiety disorder F41.1 and Major depressive disorder, recurrent, severe with psychotic symptoms F33.3 [place] [address] [address] Aug, Major depressive disorder, recurrent episode, moderate F33.1 and Generalized anxiety disorder F41.1 [place] [address] [place] [id number] [place] [address] Aug, Major depressive disorder, recurrent episode, moderate F33.1 and Generalized anxiety disorder F41.1 [facility] [place] [address] [place] [id number] [place] [address] Jul, Urinary frequency R35.0 and Gastroenteritis and colitis, viral A08.4 [place] [address] [place] [id number] [place] [address] Jul, Major depressive disorder, recurrent episode, moderate F33.1 and Generalized anxiety disorder F41.1 [facility] [address] [place] [id number] [place] [address] Jun, Bronchitis J40 [place] [address] [address] [place] [id number] [place] [address] May, Major depressive disorder, recurrent episode, severe, with psychotic behavior F33.3 and Generalized anxiety disorder F41.1 [place] [address] [address] Apr, Major depressive disorder, recurrent episode, severe, with psychotic behavior F33.3 and Generalized anxiety disorder F41.1 [facility] [address] [place] [id number] [place] [address] Apr, Generalized anxiety disorder F41.1 and Major depressive disorder, recurrent episode, severe, with psychotic behavior F33.3 [place] [address] [place] [id number] [place] [address] Apr, Severe episode of recurrent major depressive disorder, with psychotic features F33.3 [facility] [address] [place] [id number] [place] [address] Apr, Bronchitis J40 [facility] [address] [place] [id number] [place] [address] Mar, [facility] [address] [place] [id number] [place] [address] Mar, Vaginal discharge N89.8 and Trichomonas infection A59.9 [place] [address] [address] [place] [id number] [place] [address] Mar, Severe episode of recurrent major depressive disorder, with psychotic features F33.3 [place] [address] [place] [address] Feb, Generalized anxiety disorder F41.1 and Major depressive disorder, recurrent episode, severe, with psychotic behavior F33.3 [facility] [id number] [place] [address] Feb, Severe episode of recurrent major depressive disorder, with psychotic features F33.3 [place] [address] [place] [id number] [place] [address] Jan, Severe episode of recurrent major depressive disorder, with psychotic features F33.3 [place] [id number] [place] [address] Dec, Generalized anxiety disorder F41.1 and Major depressive disorder, recurrent episode, severe, with psychotic behavior F33.3 [facility] [address] [place] [address] Nov, Major depressive disorder, recurrent episode, severe, with psychotic behavior F33.3 [facility] [address] [place] [id number] [place] [address] Nov, Major depressive disorder, recurrent episode, severe, with psychotic behavior F33.3 [facility] [address] [place] [id number] [place] [address] Sep, Controlled substance agreement terminated Z92.89 [facility] [address] [place] [id number] [place] [address] Sep, Major depressive disorder, recurrent episode, severe, with psychotic behavior F33.3 [facility] [address] [place] [id number] [place] [address] Sep, Major depressive disorder, recurrent episode, severe, with psychotic behavior F33.3 [facility] [address] [place] [id number] [place] [address] Sep, Generalized anxiety disorder F41.1 and Major depressive disorder, recurrent, severe with psychotic symptoms F33.3 [facility] [address] [place] [address] Sep, [facility] [address] [place] [id number] [place] [address] Sep, Major depressive disorder, recurrent episode, severe, with psychotic behavior F33.3 [facility] [address] [place] [address] Aug, Major depressive disorder, recurrent, severe with psychotic symptoms F33.3 and Generalized anxiety disorder F41.1 [facility] [address] [place] [address] Jun, Generalized anxiety disorder F41.1 and Major depressive disorder, recurrent, severe with psychotic symptoms F33.3 [facility] [address] [address] Jun, [facility] [address] [place] [id number] [place] [address] 1652[address] Mar, [facility] [address] [address] Mar, Generalized anxiety disorder F41.1 and Major depressive disorder, recurrent, severe with psychotic symptoms F33.3 [facility] [address] [place] [id number] [place] [address] 0732[address] Feb, Generalized anxiety disorder 300.02 ; Major depression, recurrent 296.30 and 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 [facility] [address] [place] [id number] [place] [address] 6648[address] October, Major depressive disorder, recurrent episode, moderate 296.32 and Generalized anxiety disorder 300.02 [facility] [address] [place] [id number] [place] [address] Sep, [facility] [id number] [place] [address] Sep, [facility] [id number] [place] [address] Aug, [facility] [address] [address] Aug, [facility] [id number] [place] [address] Jul, [facility] [address] [address] Jul, [facility] [address] [place] [id number] [place] [address] 304[address] Jul, [facility] [address] Jul, [facility] [address] [place] [id number] [place] [address] Jul, [facility] [place] [facility] [address] [id number] [place] [address] Jul, [facility] [place] [facility] [address] [id number] [place] [address] Jul, [facility] [place] [facility] [address] [facility] [id number] [place] [address] Feb, [facility] [place] [facility] [address] [id number] [place] [address] Feb, [facility] [place] [facility] [address] [id number] [place] [address] Nov, [facility] [place] [facility] [address] [facility] [id number] [place] [address] Nov, [facility] [place] [facility] [address] [facility] [id number] [place] [address] Sep, [facility] [place] [facility] [address] [facility] [id number] [place] [address] Aug, [facility] [place] [facility] [address] [facility] [id number] [place] [address] Aug, [facility] [place] [facility] [address] [facility] [id number] [place] [address] Aug, [facility] [place] [facility] [address] [facility] [id number] [place] [address] Aug, [facility] [place] [facility] [address] [facility] [id number] [place] [address] Jul, [facility] [place] [facility] [address] [id number] [place] [address] Jul, [facility] [place] [facility] [address] [facility] [id number] [place] [address] Jul, [facility] [place] [facility] [address] [facility] [id number] [place] [address] Jul, [facility] [address] [facility] [id number] [address] Jul, [facility] [address] [place] [id number] [address] Jul, [facility] [address] [place] [id number] [address] Mar, [facility] [address], [place] [address] Mar, [facility] [address] [place] [address] Mar, [facility] [address] [place] [address] Mar, [facility] [address] [place] [address] Feb, [facility] [address], [place] [address] Feb, [facility] [address] [place] [id number] [address] Jan, IMMUNIZATIONS No Known Immunizations SOCIAL HISTORY Never Assessed REASON FOR VISIT f/u PLAN OF CARE Activity Details Follow Up 2 Months Reason: VITAL SIGNS Height 66 in 2016-12-11 Weight 149.8 lbs 2016-12-11 Heart Rate 84 bpm 2016-12-11 Respiratory Rate 18 2016-12-11 BMI 24.18 kg/m2 2016-12-11 Blood pressure systolic 118 mmHg 2016-12-11 Blood pressure diastolic 78 mmHg 2016-12-11 MEDICATIONS Medication Instructions Dosage Frequency Start Date End Date Duration Status Seroquel 200 MG Orally Once a day 1 tablet at bedtime 24h Sep, 30 days Active cyclobenzaprine 10 mg by oral route 2 times a day 1 Tablet by Oral route 3 times per day PRN 12h Aug, Active BusPIRone HCl 10 MG Orally as needed Three times a day 1 tablet 8h 10 Sep, 2016 30 days Active Lopid 600 mg 1 Tablet by Oral route 2 times per day Jul, Active Prevacid 15 MG Orally Once a day 1 capsule 24h Active Estrace 0.1 MG/GM Active Cymbalta 60 MG Orally Twice a day 1 capsule 12h Feb, 30 days Active Prazosin HCl 1 MG Orally Once a day 1 capsule at bedtime 24h 30 days Active Loratadine 10 MG Orally Once a day 1 tablet 24h Active Gabapentin 800 mg Orally 4 times a day 1 Tablet by Oral route 4 times per day 6h Jul, Active Seroquel 25 MG Orally as needed for anxiety twice a day 1 tablet 12h Dec 30 day(s) Active Benztropine Mesylate 1 MG Orally Once a day 1 tablet at bedtime 24h Dec 30 day(s) Active Abilify 15 MG Orally Once a day 1 tablet 24h Dec, 30 day(s) Active Flonase 50 MCG/DOSE Nasally Once a day 1 spray in each nostril 24h Active Abilify 10 MG Orally Once a day 1 tablet 24h Dec, 30 days Active RESULTS No Results PROCEDURES No Known procedures INSTRUCTIONS MEDICATIONS ADMINISTERED No Known Medications MEDICAL [...] placed 03/2016 Hospitalization History surgery Hospitalization History [facility]
--- OUTSIDE RECORDS SUMMARY | 2018-02-14 07:04 | XMS REPORT ---
Author Author JUSTIN ASTUDILLO [facility] eClinicalWorks Address Unknown Phone Unavailable Care Team Providers Care Ship'S Electronic Warfare Officer Name Role Phone JUSTIN ASTUDILLO CP Unavailable Allergies, Adverse Reactions, Alerts Substance Reaction Event Type Paxil hives Drug Allergy Baclofen blistering rash Drug Allergy Augmentin rash Drug Allergy Hydrocodone Failed UDS Non Drug Allergy Benzodiazepines Failed UDS Non Drug Allergy Problems Problem Type Condition Code Onset Dates Condition Status Problem Other, multiple, and unspecified sites, insect bite, nonvenomous, infected 919.5 Active Problem Unspecified disorder of skin and subcutaneous tissue 709.9 Active Problem Other specified disease of hair and hair follicles 704.8 Active Assessment Major depressive disorder, recurrent, severe with psychotic symptoms F33.3 Active Assessment Generalized anxiety disorder F41.1 Active Problem Depressive disorder, not elsewhere classified 311 Active Problem Unspecified fall E888.9 Active Problem Anxiety state, unspecified 300.00 Active Problem Major depressive disorder, recurrent episode, moderate 296.32 Active Problem Generalized anxiety disorder 300.02 Active Problem Sciatica 724.3 Active Problem Unspecified backache 724.5 Active Medications Medication Code System Code Instructions Start Date End Date Status Dosage cyclobenzaprine [facility] [address]-97 10 mg August 26, 2014 1 Tablet by Oral route 3 times per day PRN Diazepam [facility] [address]-65 5 mg August 26, 2014 1 Tablet by Oral route 2 times [address] [facility] [address]-84 1 % Mar 10, 2013 apply 2 gram to the affected area(s) by topical route 4 times per day Gabap[address] [facility] [address]-07 800 mg Jul 10, 2014 1 Tablet by Oral route 4 times per day L[address]id [facility] [address]-25 600 mg Jul 10, 2014 1 Tablet by Oral route 2 times [address] [facility] [address]-67 15 MG Orally Once a day [address] [facility] [address]-47 100 MG Orally Once a day August 26, 2014 1 1/[address] [facility] [address]-03 10-325 mg August 13, 2013 1 Tablet by Oral route 4 times per day C[address] [facility] [address]-80 60 MG Orally Twice a day Feb 10, 2015 1 capsule morphine [place] 0 50 mg August 26, 2014 1 Capsule by Oral route 1 time per day Procedures Procedure Coding System Code Date Office Visit, Est Pt., Level 3 CPT-4 22308 Mar 05, 2015 Vital Signs Date/Time: Mar 05, 2015 Cardiac Monitoring Heart Rate 88 bpm Weight 161 lbs Height 66 in BMI 25.98 Index Blood Pressure Diastolic 66 mmHg Blood Pressure Systolic 100 mmHg Results No Known Results Summary Purpose eClinicalWorks Submission
--- OUTSIDE RECORDS SUMMARY | 2018-02-14 07:04 | XMS REPORT ---
Author Author YOBANI MARLENA Organization [facility] Address [address] [place] [address] Care Team Providers Care Data Processing Specialist Name Role Phone LESLYDELIA BROWNA Unavailable PROBLEMS Type Condition ICD9-CM Code AIH99-CE Code Onset Dates Condition Status SNOMED Code Problem Hepatitis C antibody test positive R76.8 Active 004470970 Problem Generalized anxiety disorder F41.1 Active 38941412 Problem Controlled substance agreement terminated Z92.89 Active 407800683 Problem Mood disorder F39 Active 97995402 Problem Methamphetamine use disorder, moderate F15.20 Active 677329065 Problem Major depressive disorder, recurrent, severe with psychotic symptoms F33.3 Active 43568183 Problem Major depressive disorder, recurrent episode, moderate F33.1 Active 627238343 Problem Opiate abuse, episodic F11.10 Active 7387082 Problem Major depressive disorder, recurrent episode, severe, with psychotic behavior F33.3 Active 582891230 ALLERGIES Substance Reaction Event Type Date Status Tizanidine HCl hives Drug Allergy Dec, Active Paxil hives Drug Allergy Dec, Active Baclofen blistering rash Drug Allergy Dec, Active Augmentin rash Drug Allergy Dec, Active Bee stings Unknown Non Drug Allergy Dec, Active Hydrocodone Failed UDS Non Drug Allergy Dec, Active Benzodiazepines Failed UDS Non Drug Allergy Dec, Active ENCOUNTERS Encounter Location Date Diagnosis [facility] [address] [facility] [id number] [address] Dec, Methamphetamine use disorder, moderate F15.20 ; Opiate abuse , episodic F11.10 and Mood disorder F39 [facility] [address] [facility] [id number], [place] [address] Sep, Sore throat J02.9 [facility] [address] [id number] [address] Apr, [facility] [address] [address] Apr, [place] [id number] [place] [address] Mar, High risk medication use Z79.899 ; Methamphetamine use disorder, moderate F15.20 and Opiate abuse, episodic F11.10 [place] [id number] [place] [address] Dec, [place] [id number] [place] [address] Dec, Generalized anxiety disorder F41.1 and Major depressive disorder, recurrent episode, severe, with psychotic behavior F33.3 [facility] [id number] [place] [address] Nov, Abdominal pain R10.9 and Acute cystitis with hematuria N30.01 [place] [address] [place] [address] October, Major depressive disorder, recurrent, severe with psychotic symptoms F33.3 and Generalized anxiety disorder F41.1 [place] [id number] [place] [address]35[address] 2614 Sep, Generalized anxiety disorder F41.1 and Major depressive disorder, recurrent, severe with psychotic symptoms F33.3 [place] [address] [address] Sep, Generalized anxiety disorder F41.1 and Major depressive disorder, recurrent, severe with psychotic symptoms F33.3 [place] [address] [place] [address] Aug, Major depressive disorder, recurrent episode, moderate F33.1 and Generalized anxiety disorder F41.1 [place] [address] [place] [address] Aug, Major depressive disorder, recurrent episode, moderate F33.1 and Generalized anxiety disorder F41.1 [facility] [address] [place] [address] 25 Jul, 2016 Urinary frequency R35.0 and Gastroenteritis and colitis, viral A08.4 [place] [id number] [place] [address] 08142- [address] 07 Jul, 2016 Major depressive disorder, recurrent episode, moderate F33.1 and Generalized anxiety disorder F41.1 [facility] [address] [address] Jun, Bronchitis J40 [place] [id number] [place] [address]23- [address] May, Major depressive disorder, recurrent episode, severe, with psychotic behavior F33.3 and Generalized anxiety disorder F41.1 [place] [id number] [place] [address] 29246- 5266 Apr, Major depressive disorder, recurrent episode, severe, with psychotic behavior F33.3 and Generalized anxiety disorder F41.1 [place] [id number] [place] [address]80- 8790 Apr, Generalized anxiety disorder F41.1 and Major depressive disorder, recurrent episode, severe, with psychotic behavior F33.3 [place] [id number] [place] [address]70- 6665 Apr, Severe episode of recurrent major depressive disorder, with psychotic features F33.3 [facility] [id number] [place] [address] 02 Apr, 2016 Bronchitis J40 [place] [id number] [place] [address] 83354- [address] 31 Mar, 2016 [facility] [id number] [place] [address] 14 Mar, 2016 Vaginal discharge N89.8 and Trichomonas infection A59.9 [place] [id number] [place] [address]43[address]678 Mar, Severe episode of recurrent major depressive disorder, with psychotic features F33.3 [facility] [address] [place] [address] 65682- [address] Feb, Generalized anxiety disorder F41.1 and Major depressive disorder, recurrent episode, severe, with psychotic behavior F33.3 [facility] [id number] [place] [address] 63569- [address]85 Feb, Severe episode of recurrent major depressive disorder, with psychotic features F33.3 [facility] [id number] [place] [address]80- 1217 Jan, Severe episode of recurrent major depressive disorder, with psychotic features F33.3 [facility] [id number] [place] [address] 7[address]59- [address]394 Dec, Generalized anxiety disorder F41.1 and Major depressive disorder, recurrent episode, severe, with psychotic behavior F33.3 [place] [id number] [place] [address] 6[address]- [address]199 Nov, Major depressive disorder, recurrent episode, severe, with psychotic behavior F33.3 [place] [id number] [place] [address] 77869- [address] Nov, Major depressive disorder, recurrent episode, severe, with psychotic behavior F33.3 [facility] [id number] [place] [address]27- 7436 Sep, Controlled substance agreement terminated Z92.89 [facility] [id number] [place] [address] 28842- 4717 Sep, Major depressive disorder, recurrent episode, severe, with psychotic behavior F33.3 [facility] [id number] [place] [address] 17649- 7836 Sep, Major depressive disorder, recurrent episode, severe, with psychotic behavior F33.3 [facility] [address] [place] [address] 24078- 4163 Sep, Generalized anxiety disorder F41.1 and Major depressive disorder, recurrent, severe with psychotic symptoms F33.3 [facility] [address] [address] Sep, [facility] [id number] [place] [address]46- 489[address] Sep, Major depressive disorder, recurrent episode, severe, with psychotic behavior F33.3 [facility] [id number] [place] [address] 58152- 6099 Aug, Major depressive disorder, recurrent, severe with psychotic symptoms F33.3 and Generalized anxiety disorder F41.1 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 [id number] [place] [address]1300- [address] Jun, [facility] [id number] [place] [address]- 1413 Mar, [facility] [id number] [place] [address] 85525- 9183 Mar, Generalized anxiety disorder F41.1 and Major depressive disorder, recurrent, severe with psychotic symptoms F33.3 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 [address] [place] [address] 89201- 8704 October, Major depressive disorder, recurrent episode, moderate 296.32 and Generalized anxiety disorder 300.02 [facility] [id number] [place] [address] 82499- [address]285 14 Sep, 2014 [facility] [id number] [place] [address] 95441- 8501 Sep, [facility] [id number] [place] [address], [place] [address] Aug, [facility] [place] [facility] [address] [id number] [place] [address]- [address] Aug, 2014 [facility] [place] [facility] [address] [id number] [place] 16 Jul, 2014 [facility] [place] [facility] [address] [id number] [place] [address]- 79[address] 16 Jul, 2014 [facility] [place] [facility] [address] [id number] [place] [address]- 7[address] Jul, 2014 [facility] [place] [facility] [address] [id number] [place] [address]- 8296 Jul, 2014 [facility] [place] [facility] [address] [facility] [id number] [place] [address]- 4[address] Jul, 2014 [facility] [place] [facility] [address] [facility] [id number] [place] [address]- 8815 Jul, 2014 [facility] [place] [facility] [address] [id number] [place] [address]- 2414 06 Jul, 2014 [facility] [place] [facility] [address] [facility] [id number] [place] [address]- [address]65 Feb, [facility] [place] [facility] [address] [facility] [id number] [place] [address]- [address] Feb, [facility] [place] [facility] [address] [id number] [place] [address]- 6570 Nov, [facility] [place] [facility] [address] [id number] [place] [address]- 2544 Nov, [facility] [place] [facility] [address] [id number] [place] [address]- 4720 Sep, [facility] [place] [facility] [address] [id number] [place] [address]- 7646 Aug, [facility] [place] [facility] [address] [id number] [place] [address]- 9498 Aug, [facility] [address] [facility] [id number] [place] [address]- 7986 Aug, [facility] [address] [facility] [id number] [place] [address]- 0846 Aug, [facility] [address] [facility] [id number] [place] [address]- 0656 Jul, [facility] [address] [facility] [id number] [place] [address]- 3256 Jul, [facility] [address] [facility] [id number] [place] [address]- 0066 Jul, [facility] [address] [facility] [id number] [place] [address]- 2928 Jul, [facility] [address] [facility] [id number] [place] [address]- 2005 Jul, [facility] [address] [facility] [id number] [place] [address]- 8770 Jul, [facility] [address] [facility] [id number] [place] [address]- 6[address] Mar, [facility] [address] [facility] [id number] [place] [address]- 7250 Mar, [facility] [address] [facility] [id number], [place] [address] Mar, [facility] [address] [facility] [id number], [place] [address]- 75[address] Mar, [facility] [address] [facility] [id number], [place] [address] Feb, [facility] [address] [facility] [id number], [place] [address] Feb, [facility] [address] [id number], [place] [address] Jan, IMMUNIZATIONS No Known Immunizations SOCIAL HISTORY Never Assessed REASON FOR VISIT blake/twila Bennett MA PLAN OF CARE Activity Details Follow Up 4 Weeks Reason: VITAL SIGNS Height 66 in 2017-12-10 Weight 147.8 lbs 2017-12-10 Heart Rate 109 bpm 2017-12-10 Respiratory Rate 20 2017-12-10 Oximetry on room air:99 % 2017-12-10 BMI 23.85 kg/m2 2017-12-10 Blood pressure systolic 128 mmHg 2017-12-10 Blood pressure diastolic 72 mmHg 2017-12-10 MEDICATIONS Medication Instructions Dosage Frequency Start Date End Date Duration Status Gabapentin 800 mg Orally 4 times a day 1 Tablet by Oral route 4 times per day 6h Jul, Active Benztropine Mesylate 1 MG Orally Once a day 1 tablet at bedtime 24h Dec Active Lidoderm Active Estrace 0.1 MG/GM Active Loratadine 10 MG Orally Once a day 1 tablet 24h Active Tizanidine HCl Active BusPIRone HCl 10 MG Orally Three times a day 1 tablet 8h Sep, Active Butrans 5 MCG/HR 1 patch to skin Not-Taking Multi Vitamin Daily - Orally Once a day 1 tablet 24h Not-Taking Seroquel 300 MG Orally at bedtime 1 tablet Sep, 30 days Not- Taking cyclobenzaprine 10 mg by oral route 2 times a day 1 Tablet by Oral route 3 times per day PRN 12h Aug, Not-Taking Prazosin HCl 1 MG Orally Once a day 1 capsule at bedtime 24h 30 days Not-Taking Abilify 5 MG Orally Once a day 1 tablet 24h Dec, 30 day(s) Active Folic Acid 1 MG Orally Once a day 1 tablet 24h Not-Taking Flonase 50 MCG/DOSE Nasally Once a day 1 spray in each nostril 24h Active Prevacid 15 MG Orally Once a day 1 capsule 24h Active Seroquel 25 MG Orally three times a day as needed for anxiety 1 tablet Dec, 30 days Not-Taking Cymbalta 60 MG Orally every morning 2 capsules Feb, Active Lopid 600 mg 1 Tablet by Oral route 2 times per day Jul, Active Biotin Plus/Calcium/Vit D3 - Not-Taking RESULTS No Results PROCEDURES Procedure Date Ordered Result Body Site [facility] VISIT ESTABLISHED PATIENT December 10, 2017 INSTRUCTIONS MEDICATIONS ADMINISTERED No Known [...] placed 03/2016 Hospitalization History surgery Hospitalization History [facility]
--- OUTSIDE RECORDS SUMMARY | 2018-02-14 07:05 | XMS REPORT ---
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 Active 46301600 Problem Controlled substance agreement terminated Z92.89 Active 807226985 Problem Hepatitis C antibody test positive R76.8 Active 799577085 Problem Major depressive disorder, recurrent episode, moderate F33.1 Active 922766084 Problem Generalized anxiety disorder F41.1 Active 30532830 ALLERGIES Unknown Allergies SOCIAL HISTORY No smoking Hx information available PLAN OF CARE Activity Details Follow Up 4 Weeks Reason:depression, anxiety VITAL SIGNS MEDICATIONS Unknown Medications RESULTS No Results PROCEDURES Procedure Date Ordered Related Diagnosis Body Site Psychotherapy, patient &/family, 30 minutes, established patient May 31, 2016 IMMUNIZATIONS No Known Immunizations
--- OUTSIDE RECORDS SUMMARY | 2018-02-14 07:05 | XMS REPORT ---
Author Author EVELIA SAMANO Organization [facility] Address [address] [place] [address] Care Team Providers Care Fire Crew Specialist Name Role Phone EVELIA SAMANO Unavailable PROBLEMS Type Condition ICD9-CM Code [id number] Code Onset Dates Condition Status SNOMED Code Problem Major depressive disorder, recurrent episode, severe, with psychotic behavior F33.3 Active 598517951 Problem Major depressive disorder, recurrent, severe with psychotic symptoms F33.3 Active 37059790 Problem Controlled substance agreement terminated Z92.89 Active 242211276 Problem Hepatitis C antibody test positive R76.8 Active 151798278 Problem Major depressive disorder, recurrent episode, moderate F33.1 Active 227620209 Problem Generalized anxiety disorder F41.1 Active 82326375 ALLERGIES Unknown Allergies SOCIAL HISTORY No smoking Hx information available PLAN OF CARE Activity Details Follow Up 4 Weeks Reason:depression & anxiety VITAL SIGNS MEDICATIONS Unknown Medications RESULTS No Results PROCEDURES Procedure Date Ordered Related Diagnosis Body Site Psychotherapy, patient &/family, 30 minutes, established patient Jul 11, 2016 IMMUNIZATIONS No Known Immunizations
--- OUTSIDE RECORDS SUMMARY | 2018-02-14 07:05 | XMS REPORT ---
Author Author EVELIA SAMANO Organization [employer] Address Unknown Phone Unavailable Care Team Providers Care Natural Gas Engineer Name Role Phone EVELIA SAMANO CP Unavailable Allergies No Known Allergies Problems Problem Type Condition Code Onset Dates Condition Status Problem Major depressive disorder, recurrent episode, severe, with psychotic behavior F33.3 Active Problem Controlled substance agreement terminated Z92.89 Active Problem Generalized anxiety disorder F41.1 Active Problem Hepatitis C antibody test positive R76.8 Active Assessment Severe episode of recurrent major depressive disorder, with psychotic features F33.3 Active Medications No Known Medications Procedures Procedure Coding System Code Date Psychotherapy, patient &/family, 30 minutes, established patient CPT-4 40982 Apr 14, 2016 Results No Known Results Summary Purpose [employer] Submission
--- OUTSIDE RECORDS SUMMARY | 2018-02-14 07:05 | XMS REPORT ---
Author Author JUSTIN ASTUDILLO Organization [employer] Address Unknown Phone Unavailable Care Team Providers Care Landscape And Yardwork Laborer Name Role Phone JUSTIN ASTUDILLO Unavailable Allergies No Known Allergies Problems Problem Type Condition Code Onset Dates Condition Status Problem Other, multiple, and unspecified sites, insect bite, nonvenomous, infected 919.5 Active Problem Unspecified disorder of skin and subcutaneous tissue 709.9 Active Problem Other specified disease of hair and hair follicles 704.8 Active Problem Depressive disorder, not elsewhere classified 311 Active Problem Unspecified fall E888.9 Active Problem Anxiety state, unspecified 300.00 Active Problem Major depressive disorder, recurrent episode, moderate 296.32 Active Problem Generalized anxiety disorder 300.02 Active Problem Sciatica 724.3 Active Problem Unspecified backache 724.5 Active Medications Medication Code System Code Instructions Start Date End Date Status Dosage Cymbalta [facility] [address]-74 60 MG Orally Twice a day Feb 10, 2015 1 capsule Results No Known Results Summary Purpose [employer] Submission
--- OUTSIDE RECORDS SUMMARY | 2018-02-14 07:05 | XMS REPORT ---
Author Author LEIA STRANGE [facility] [employer] Address Unknown Phone Unavailable Care Team Providers Care Senior Advocate Name Role Phone LEIA STRANGE Unavailable Allergies, Adverse Reactions, Alerts Substance Reaction Event Type Paxil hives Drug Allergy Baclofen blistering rash Drug Allergy Augmentin rash Drug Allergy Hydrocodone Failed UDS Non Drug Allergy Benzodiazepines Failed UDS Non Drug Allergy Bee stings Info Not Available Non Drug Allergy Problems Problem Type Condition Code Onset Dates Condition Status Problem Other, multiple, and unspecified sites, insect bite, nonvenomous, infected 919.5 Active Assessment Controlled substance agreement terminated Z92.89 Active Problem Major depressive disorder, recurrent episode, severe, with psychotic behavior F33.3 Active Problem Unspecified fall E888.9 Active Problem Controlled substance agreement terminated Z92.89 Active Problem Unspecified disorder of skin and subcutaneous tissue 709.9 Active Problem Other specified disease of hair and hair follicles 704.8 Active Problem Sciatica 724.3 Active Problem Unspecified backache 724.5 Active Medications Medication Code System Code Instructions Start Date End Date Status Dosage Percocet [facility] [address]-17 10-325 mg August 13, 2013 1 Tablet by Oral route 4 times per day cyclobenzaprine [facility] [address]-55 10 mg August 26, 2014 1 Tablet by Oral route 3 times per day PRN Seroquel [facility] [address]-04 200 MG Orally Once a day September 22, 2015 1 tablet at bedtime Cymbalta [facility] [address]-96 60 MG Orally Twice a day Feb 10, 2015 1 capsule Lopid [facility] [address]-74 600 mg Jul 10, 2014 1 Tablet by Oral route 2 times per day Omeprazole [facility] [address]-02 20 mg Orally twice a day 1 capsule Valium [facility] [address]-49 10 mg Orally Once a day at bedtime 1 tablet Gabapentin [facility] [address]-95 800 mg Jul 10, 2014 1 Tablet by Oral route 4 times per day [facility] [address]-86 15 MG Orally Once a day 1 tablet Procedures Procedure Coding System Code Date Office Visit, Est Pt., Level 3 CPT-4 77964 September 28, 2015 Vital Signs Date/Time: September 28, 2015 Temperature 98.4 F Weight 145.1 lbs Height 66 in BMI 23.42 Index Blood Pressure Diastolic 72 mmHg Blood Pressure Systolic 100 mmHg Cardiac Monitoring Heart Rate 82 bpm Results No Known Results Summary Purpose [employer] Submission
--- OUTSIDE RECORDS SUMMARY | 2018-02-14 07:05 | XMS REPORT ---
Author Author JUSTIN ELIZALDE [employer] Address Unknown Phone Unavailable Care Team Providers Care Creative Engagement Director Name Role Phone JUSTIN ELIZALDE Unavailable Allergies, Adverse Reactions, Alerts Substance Reaction Event Type Paxil hives Drug Allergy Baclofen blistering rash Drug Allergy Augmentin rash Drug Allergy Bee stings Info Not Available Non Drug Allergy Hydrocodone Failed UDS Non Drug Allergy Benzodiazepines Failed UDS Non Drug Allergy Problems Problem Type Condition Code Onset Dates Condition Status Problem Controlled substance agreement terminated Z92.89 Active Problem Hepatitis C antibody test positive R76.8 Active Problem Severe episode of recurrent major depressive disorder, with psychotic features F33.3 Active Assessment Vaginal discharge N89.8 Active Assessment Trichomonas infection A59.9 Active Medications Medication Code System Code Instructions Start Date End Date Status Dosage Hydrocodone-Acetaminophen [facility] [address]-89 10-325 MG Orally every 6 hrs 1 tablet as needed Mobic [facility] [address]-54 15 MG Orally Once a day 1 tablet Cholecalciferol [facility] [address]-44 1000 UNIT Orally Once a day 1 capsule Ondansetron [facility] [address]-98 8 MG Orally not defined Butrans [facility] [address]-43 15 MCG/HR Transdermal 1 patch to skin Bitoin Plus/Calcium/Vit D3 [facility] [address] - Orally not defined Lopid [facility] [address]-42 600 mg Jul 10, 2014 1 Tablet by Oral route 2 times per day Cefdinir [facility] [address]-14 300 MG Orally every 12 hrs 1 capsule Multi Vitamin Daily [facility] 483[address] - Orally Once a day 1 tablet Abilify [facility] [address]-75 10 MG Orally Once a day December 08, 2015 1 tablet Seroquel XR [facility] [address]-74 150 MG Orally Once a day 1 tablet in the evening Prazosin HCl [facility] [address]-88 1 MG Orally Once a day Mar 01, 2016 1 capsule at bedtime Cymbalta [facility] [address]-47 60 MG Orally Twice a day Feb 10, 2015 1 capsule cyclobenzaprine [facility] [address]-79 10 mg by oral route 2 times a day August 26, 2014 1 Tablet by Oral route 3 times per day PRN Prevacid [facility] [address]-01 15 MG Orally Once a day 1 capsule Flagyl [facility] [address]-22 500 MG Orally one time dose Mar 17, 2016 Mar 18, 2016 4 tablet Gabapentin [facility] [address]-34 800 mg Orally 4 times a day Jul 10, 2014 1 Tablet by Oral route 4 times per day MiraLax [facility] [address]-64 17 gm/dose Orally Once a day 17 grams mixed in 8 oz of water or juice Folic Acid [facility] [address]-00 1 MG Orally Once a day 1 tablet Procedures Procedure Coding System Code Date LAB NOT BILLED BY [facility] CPT-4 NOBLL Mar 17, 2016 No Charge CPT-4 74685 Mar 17, 2016 AVILA VAG, DNA, DIR PROBE CPT-4 89243 Mar 17, 2016 Office Visit, Est Pt., Level 3 CPT-4 21466 Mar 17, 2016 Vital Signs Date/Time: Mar 17, 2016 Cardiac Monitoring Heart Rate 94 bpm Weight 156.4 lbs Height 66 in BMI 25.24 Index Blood Pressure Diastolic 70 mmHg Blood Pressure Systolic 100 mmHg Results Name Result Date Reference Range Unit Abnormality Flag CULTURE, GENITAL ----Genital Culture, Routine Final report [id number] TRICHOMONAS (IN HOUSE) ----TRICHOMONAS positive [id number] ----Control + [id number] ----Lot # [id number] ----Exp date [id number] BACTERIAL VAGINOSIS (IN HOUSE) ----Exp date [id number] ----Control + [id number] ----Lot # [id number] ----RESULTS negative [id number] Summary Purpose eClinicalWorks Submission
--- OUTSIDE RECORDS SUMMARY | 2018-02-14 07:05 | XMS REPORT ---
Author Author EVELIA SAMANO Organization [facility] Address [address] [place] [address] Care Team Providers Care License Distributor Name Role Phone EVELIA SAMANO Unavailable PROBLEMS Type Condition ICD9-CM Code [id number] Code Onset Dates Condition Status SNOMED Code Problem Major depressive disorder, recurrent episode, severe, with psychotic behavior F33.3 Active 830124819 Problem Major depressive disorder, recurrent, severe with psychotic symptoms F33.3 Active 36838144 Problem Controlled substance agreement terminated Z92.89 Active 967155057 Problem Hepatitis C antibody test positive R76.8 Active 693494618 Problem Major depressive disorder, recurrent episode, moderate F33.1 Active 856301298 Problem Generalized anxiety disorder F41.1 Active 84731430 ALLERGIES No Information SOCIAL HISTORY Never Assessed PLAN OF CARE Activity Details Follow Up 2 Weeks Reason:anxiety, depression VITAL SIGNS MEDICATIONS Unknown Medications RESULTS No Results PROCEDURES Procedure Date Ordered Result Body Site Psychotherapy, patient &/family, 30 minutes, established patient August 09, 2016 IMMUNIZATIONS No Known Immunizations MEDICAL (GENERAL) HISTORY Type Description Date Medical [...] placed 03/2016 Hospitalization History surgery Hospitalization History [facility]
--- OUTSIDE RECORDS SUMMARY | 2018-02-14 07:05 | XMS REPORT ---
Author Author JUSTIN ASTUDILLO Organization [employer] Address Unknown Phone Unavailable Care Team Providers Care Farm Equipment Operator Name Role Phone JUSTIN ASTUDILLO CP Unavailable Allergies No Known Allergies Problems Problem Type Condition Code Onset Dates Condition Status Problem Unspecified fall E888.9 Active Problem Sciatica 724.3 Active Problem Major depressive disorder, recurrent episode, severe, with psychotic behavior F33.3 Active Problem Other specified disease of hair and hair follicles 704.8 Active Problem Other, multiple, and unspecified sites, insect bite, nonvenomous, infected 919.5 Active Problem Unspecified backache 724.5 Active Problem Unspecified disorder of skin and subcutaneous tissue 709.9 Active Medications No Known Medications Results No Known Results Summary Purpose eClinicalWorks Submission
--- OUTSIDE RECORDS SUMMARY | 2018-02-14 07:05 | XMS REPORT ---
Author Author JUSTIN ASTUDILLO [facility] eClinicalWorks Address Unknown Phone Unavailable Care Team Providers Care Virtual Reality Specialist Name Role Phone JUSTIN ASTUDILLO CP Unavailable Allergies, Adverse Reactions, Alerts Substance Reaction Event Type Paxil hives Drug Allergy Baclofen blistering rash Drug Allergy Augmentin rash Drug Allergy Bee stings Info Not Available Non Drug Allergy Hydrocodone Failed UDS Non Drug Allergy Benzodiazepines Failed UDS Non Drug Allergy Problems Problem Type Condition Code Onset Dates Condition Status Assessment Major depressive disorder, recurrent, severe with psychotic symptoms F33.3 Active Problem Other, multiple, and unspecified sites, insect bite, nonvenomous, infected 919.5 Active Assessment Generalized anxiety disorder F41.1 Active Problem Major depressive disorder, recurrent episode, [...] Instructions Start Date End Date Status Dosage Gabapentin [facility] [address]-11 800 mg Jul 10, 2014 1 Tablet by Oral route 4 times per day Mobic [facility] [address]-39 15 MG Orally Once a day 1 tablet Seroquel [facility] [address]-86 200 MG Orally Once a day September 22, 2015 1 tablet at bedtime Lopid [facility] [address]-27 600 mg Jul 10, 2014 1 Tablet by Oral route 2 times per day Cymbalta [facility] [address]-32 60 MG Orally Twice a day Feb 10, 2015 1 capsule cyclobenzaprine [facility] [address]-78 10 mg August 26, 2014 1 Tablet by Oral route 3 times per day PRN Percocet [facility] [address]-86 10-325 mg August 13, 2013 1 Tablet by Oral route 4 times per day Procedures Procedure Coding System Code Date Office Visit, Est Pt., Level 3 CPT-4 17907 September 22, 2015 Vital Signs Date/Time: September 22, 2015 Cardiac Monitoring Heart Rate 108 bpm Weight 142.0 lbs Height 66 in BMI 22.92 Index Blood Pressure Diastolic 70 mmHg Blood Pressure Systolic 90 mmHg Results No Known Results Summary Purpose eClinicalWorks Submission
--- OUTSIDE RECORDS SUMMARY | 2018-02-14 07:05 | XMS REPORT ---
Author Author EVELIA SAMANO Organization [facility] Address [address] [place] [address] Care Team Providers Care Information Systems Analyst Name Role Phone EVELIA SAMANO Unavailable PROBLEMS Type Condition ICD9-CM Code MEV81-DB Code Onset Dates Condition Status SNOMED Code Problem Controlled substance agreement terminated Z92.89 Active 065270954 Problem Hepatitis C antibody test positive R76.8 Active 824953261 Problem Methamphetamine use disorder, moderate F15.20 Active 868607083 Problem Opiate abuse, episodic F11.10 Active 3455744 Problem Major depressive disorder, recurrent episode, moderate F33.1 Active 364939459 Problem Generalized anxiety disorder F41.1 Active 73697325 Problem Major depressive disorder, recurrent episode, severe, with psychotic behavior F33.3 Active 797808398 Problem Major depressive disorder, recurrent, severe with psychotic symptoms F33.3 Active 36115852 ALLERGIES No Information SOCIAL HISTORY Never Assessed PLAN OF CARE Activity Details Follow Up 2 Weeks Reason:depression, anxiety VITAL SIGNS MEDICATIONS Unknown Medications RESULTS No Results PROCEDURES Procedure Date Ordered Result Body Site Psychotherapy, patient &/family, 30 minutes, established patient October 03, 2016 IMMUNIZATIONS No Known Immunizations MEDICAL (GENERAL) [...] placed 03/2016 Hospitalization History surgery Hospitalization History [facility]
--- OUTSIDE RECORDS SUMMARY | 2018-02-14 07:05 | XMS REPORT ---
Author Author IDRIS CYR [facility] Address [address] [place] [address] Care Team Providers Care Student Accounts Coordinator Name Role Phone IDRIS CYR Unavailable PROBLEMS Type Condition ICD9-CM Code VLL11-ZS Code Onset Dates Condition Status SNOMED Code Problem Major depressive disorder, recurrent episode, severe, with psychotic behavior F33.3 Active 051955762 Problem Major depressive disorder, recurrent, severe with psychotic symptoms F33.3 Active 79240002 Problem Controlled substance agreement terminated Z92.89 Active 534740195 Problem Hepatitis C antibody test positive R76.8 Active 685481640 Problem Major depressive disorder, recurrent episode, moderate F33.1 Active 211082658 Problem Generalized anxiety disorder F41.1 Active 21228284 ALLERGIES Substance Reaction Event Type Date Status Paxil hives Drug Allergy Jun, Active Baclofen blistering rash Drug Allergy Jun, Active Augmentin rash Drug Allergy Jun, Active Hydrocodone Failed UDS Non Drug Allergy Jun, Active Bee stings Unknown Non Drug Allergy Jun, Active Benzodiazepines Failed UDS Non Drug Allergy Jun, Active SOCIAL HISTORY No smoking Hx information available PLAN OF CARE VITAL SIGNS Height 66 in 2016-06-07 Weight 161.2 lbs 2016-06-07 Temperature 97.8 degrees Fahrenheit 2016-06-07 Heart Rate 88 bpm 2016-06-07 Respiratory Rate 20 2016-06-07 BMI 26.02 kg/m2 2016-06-07 Blood pressure systolic 122 mmHg 2016-06-07 Blood pressure diastolic 74 mmHg 2016-06-07 MEDICATIONS Medication Instructions Dosage Frequency Start Date End Date Duration Status PredniSONE 20 mg Orally Once a day 2 tablets 24h Jun, Jun, 05 days Active Gabapentin 800 mg Orally 4 times a day 1 Tablet by Oral route 4 times per day 6h Jul, Active Seroquel 200 MG Orally Once a day 1 tablet at bedtime 24h 20 Sep, 2015 30 days Active Prazosin HCl 1 MG Orally Once a day 1 capsule at bedtime 24h 30 days Active Mobic 15 MG Orally Once a day 1 tablet 24h Active Bitoin Plus/Calcium/Vit D3 - Active Prevacid 15 MG Orally Once a day 1 capsule 24h Active cyclobenzaprine 10 mg by oral route 2 times a day 1 Tablet by Oral route 3 times per day PRN 12h Aug, Active Lopid 600 mg 1 Tablet by Oral route 2 times per day Jul, Active Multi Vitamin Daily - Orally Once a day 1 tablet 24h Active Cymbalta 60 MG Orally Twice a day 1 capsule 12h Feb, 30 days Active BuSpar Active Seroquel 25 MG Orally Once a day 1 tablet 24h Apr, 30 day(s) Active Zithromax Z-Preet 250 MG Orally Once a day 2 tablets on the first day, then 1 tablet daily for 4 days 24h Jun, Jun, 5 day(s) Active Folic Acid 1 MG Orally Once a day 1 tablet 24h Active Abilify 10 MG Orally Once a day 1 tablet 24h Dec, 30 days Active Butrans 15 MCG/HR 1 patch to skin Active RESULTS No Results PROCEDURES Procedure Date Ordered Related Diagnosis Body Site Office Visit, Est Pt., Level 3 Jun 07, 2016 IMMUNIZATIONS No Known Immunizations
--- OUTSIDE RECORDS SUMMARY | 2018-02-14 07:06 | XMS REPORT ---
Author Author JUSTIN ASTUDILLO [facility] Address Unknown Care Team Providers Care Senior Microsoft Net Developer Name Role Phone WILDA JUSTIN Unavailable PROBLEMS Type Condition ICD9-CM Code ZDH67-PD Code Onset Dates Condition Status SNOMED Code Problem Generalized anxiety disorder F41.1 Active 77366728 Problem Major depressive disorder, recurrent episode, severe, with psychotic behavior F33.3 Active 348582506 Assessment Generalized anxiety disorder F41.1 Apr, Active 72546449 Problem Controlled substance agreement terminated Z92.89 Active 580660381 Problem Hepatitis C antibody test positive R76.8 Active 431529344 ALLERGIES Unknown Allergies SOCIAL HISTORY No smoking Hx information available PLAN OF CARE VITAL SIGNS Height 66 in 2016-05-01 Weight 164.5 lbs 2016-05-01 Heart Rate 92 bpm 2016-05-01 Respiratory Rate 18 2016-05-01 BMI 26.55 kg/m2 2016-05-01 Blood pressure systolic 112 mmHg 2016-05-01 Blood pressure diastolic 64 mmHg 2016-05-01 MEDICATIONS Medication Instructions Dosage Frequency Start Date End Date Duration Status Prazosin HCl 1 MG Orally Once a day 1 capsule at bedtime 24h 30 days Active Gabapentin 800 mg Orally 4 times a day 1 Tablet by Oral route 4 times per day 6h Jul, Active Seroquel 25 MG Orally Once a day 1 tablet 24h Apr, 30 day(s) Active Abilify 10 MG Orally Once a day 1 tablet 24h Dec, 30 days Active Seroquel XR 150 MG Orally Once a day 1 tablet in the evening 24h 30 days Active Folic Acid 1 MG Orally Once a day 1 tablet 24h Active Prevacid 15 MG Orally Once a day 1 capsule 24h Active cyclobenzaprine 10 mg by oral route 2 times a day 1 Tablet by Oral route 3 times per day PRN 12h 25 Aug, 2014 Active Bitoin Plus/Calcium/Vit D3 - Active Multi Vitamin Daily - Orally Once a day 1 tablet 24h Active Butrans 15 MCG/HR 1 patch to skin Active Lopid 600 mg 1 Tablet by Oral route 2 times per day Jul, Active Cymbalta 60 MG Orally Twice a day 1 capsule 12h Feb, 30 days Active Mobic 15 MG Orally Once a day 1 tablet 24h Active BuSpar Active RESULTS No Results PROCEDURES Procedure Date Ordered Related Diagnosis Body Site Office Visit, Est Pt., Level 3 May 01, 2016 IMMUNIZATIONS No Known Immunizations
--- OUTSIDE RECORDS SUMMARY | 2018-02-14 07:06 | XMS REPORT ---
Author Author EVELIA SAMANO Organization [employer] Address Unknown Phone Unavailable Care Team Providers Care Eligibility Specialist Name Role Phone EVELIA SAMANO CP Unavailable Allergies No Known Allergies Problems Problem Type Condition Code Onset Dates Condition Status Problem Other, multiple, and unspecified sites, insect bite, nonvenomous, infected 919.5 Active Assessment Major depressive disorder, recurrent episode, severe, with psychotic behavior F33.3 Active Problem Major depressive disorder, recurrent episode, severe, with psychotic behavior F33.3 Active Problem Unspecified fall E888.9 Active Problem Controlled substance agreement terminated Z92.89 Active Problem Unspecified disorder of skin and subcutaneous tissue 709.9 Active Problem Other specified disease of hair and hair follicles 704.8 Active Problem Sciatica 724.3 Active Problem Unspecified backache 724.5 Active Medications No Known Medications Procedures Procedure Coding System Code Date Psychotherapy, patient &/family, 30 minutes, established patient CPT-4 36892 September 28, 2015 Results No Known Results Summary Purpose eClinicalWorks Submission
--- OUTSIDE RECORDS SUMMARY | 2018-02-14 07:06 | XMS REPORT ---
Author Author JUSTIN ASTUDILLO [facility] eClinicalWorks Address Unknown Phone Unavailable Care Team Providers Care Medical Billing Representative Name Role Phone JUSTIN ASTUDILLO Unavailable Allergies, Adverse Reactions, Alerts Substance Reaction Event Type Paxil hives Drug Allergy Baclofen blistering rash Drug Allergy Augmentin rash Drug Allergy Hydrocodone Failed UDS Non Drug Allergy Benzodiazepines Failed UDS Non Drug Allergy Problems Problem Type Condition ICD-9 Code Onset Dates Condition Status Problem Other, [...] 724.3 Active Problem Unspecified backache 724.5 Active Assessment 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 Assessment Major depression, recurrent 296.30 Active Assessment Generalized anxiety disorder 300.02 Active Medications Medication Code System Code Instructions Start Date End Date Status Dosage Cymbalta [facility] [address]-70 60 MG Orally Twice a day Feb 10, 2015 1 capsule Gabapentin [facility] [address]-23 800 mg Jul 10, 2014 1 Tablet by Oral route 4 times per day Lopid [facility] [address]-94 600 mg Jul 10, 2014 1 Tablet by Oral route 2 times per day Seroquel [facility] [address]-34 100 MG Orally 1/2 tablet in am and two tablets at bedtime Feb 10, 2015 1 tablet Diazepam [facility] [address]-40 5 mg August 26, 2014 1 Tablet by Oral route 2 times per day Seroquel [facility] [address]-16 100 mg August 26, 2014 1.5 tablet by Oral route 1 time per day Percocet [facility] [address]-22 10-325 mg August 13, 2013 1 Tablet by Oral route 4 times per day cyclobenzaprine [facility] [address]-30 10 mg August 26, 2014 1 Tablet by Oral route 3 times per day PRN morphine [facility] 0 50 mg August 26, 2014 1 Capsule by Oral route 1 time per day PredniSONE [facility] [address]-72 10 MG Orally Once a day 1 tablet with food or milk Voltaren [facility] [address]-26 1 % Mar 10, 2013 apply 2 gram to the affected area(s) by topical route 4 times per day Procedures Procedure Coding System Code Date Office Visit, Est Pt., Level 3 CPT-4 38255 Feb 10, 2015 Vital Signs Date/Time: Feb 10, 2015 Temperature 99.0 F Weight 153.9 lbs Height 66 in BMI 24.84 Index Blood Pressure Diastolic 80 mmHg Blood Pressure Systolic 120 mmHg Cardiac Monitoring Heart Rate 84 bpm Results No Known Results Summary Purpose eClinicalWorks Submission
--- OUTSIDE RECORDS SUMMARY | 2018-02-14 07:06 | XMS REPORT ---
Author Author CIARA CESAR Organization [facility] Address [address] [place] [address] Care Team Providers Care Commercial Technician Name Role Phone CIARA CESAR Unavailable PROBLEMS Type Condition ICD9-CM Code FSW79-WO Code Onset Dates Condition Status SNOMED Code Problem Major depressive disorder, recurrent episode, severe, with psychotic behavior F33.3 Active 209601474 Problem Major depressive disorder, recurrent, severe with psychotic symptoms F33.3 Active 67045905 Problem Controlled substance agreement terminated Z92.89 Active 250123310 Problem Hepatitis C antibody test positive R76.8 Active 424885176 Problem Major depressive disorder, recurrent episode, moderate F33.1 Active 001056389 Problem Generalized anxiety disorder F41.1 Active 88037415 ALLERGIES Substance Reaction Event Type Date Status Paxil hives Drug Allergy Jul, Active Baclofen blistering rash Drug Allergy Jul, Active Augmentin rash Drug Allergy Jul, Active Bee stings Unknown Non Drug Allergy Jul, Active Hydrocodone Failed UDS Non Drug Allergy Jul, Active Benzodiazepines Failed UDS Non Drug Allergy Jul, Active SOCIAL HISTORY Never Assessed PLAN OF CARE Activity Details Follow Up prn Reason: VITAL SIGNS Height 66 in 2016-07-29 Weight 155.2 lbs 2016-07-29 Temperature 96.7 degrees Fahrenheit 2016-07-29 Heart Rate 120 bpm 2016-07-29 Respiratory Rate 22 2016-07-29 BMI 25.05 kg/m2 2016-07-29 Blood pressure systolic 100 mmHg 2016-07-29 Blood pressure diastolic 60 mmHg 2016-07-29 MEDICATIONS Medication Instructions Dosage Frequency Start Date End Date Duration Status Seroquel 200 MG Orally Once a day 1 tablet at bedtime 24h Sep, 30 days Active Bitoin Plus/Calcium/Vit D3 - Active Prazosin HCl 1 MG Orally Once a day 1 capsule at bedtime 24h 30 days Active Seroquel 25 MG Orally Once a day 1 tablet 24h Apr, 30 day(s) Active Mobic 15 MG Orally Once a day 1 tablet 24h Active Folic Acid 1 MG Orally Once a day 1 tablet 24h Active Prevacid 15 MG Orally Once a day 1 capsule 24h Active cyclobenzaprine 10 mg by oral route 2 times a day 1 Tablet by Oral route 3 times per day PRN 12h 25 Aug, 2014 Active Multi Vitamin Daily - Orally Once a day 1 tablet 24h Active Gabapentin 800 mg Orally 4 times a day 1 Tablet by Oral route 4 times per day 6h Jul, Active Butrans 15 MCG/HR 1 patch to skin Active Lopid 600 mg 1 Tablet by Oral route 2 times per day Jul, Active Abilify 10 MG Orally Once a day 1 tablet 24h Dec, 30 days Active Cymbalta 60 MG Orally Twice a day 1 capsule 12h Feb, 30 days Active BuSpar Active RESULTS Name Result Date Reference Range UA LONG DIP (IN HOUSE) 2016-07-29 Lot # [id number] Exp date 2017-07-04 Clarity clear Color yellow Odor none GLU negative MARYLU negative KET negative SG 1.020 BLO negative pH 6.5 Protein negative URO 0.2 NIT negative TRACEE negative Lot # [id number] Exp date 2017-07 PROCEDURES Procedure Date Ordered Result Body Site URINALYSIS, AUTO, W/O SCOPE Jul 29, 2016 IMMUNIZATIONS No Known Immunizations MEDICAL (GENERAL) [...] placed 03/2016 Hospitalization History surgery Hospitalization History [facility]
--- OUTSIDE RECORDS SUMMARY | 2018-02-14 07:06 | XMS REPORT ---
Author Author JUSTIN ASTUDILLO Organization [employer] Address Unknown Phone Unavailable Care Team Providers Care Occupational Therapy Technician Name Role Phone JUSTIN ASTUDILLO CP Unavailable Allergies No Known Allergies Problems Problem Type Condition Code Onset Dates Condition Status Problem Controlled substance agreement terminated Z92.89 Active Problem Hepatitis C antibody test positive R76.8 Active Problem Severe episode of recurrent major depressive disorder, with psychotic features F33.3 Active Medications No Known Medications Results No Known Results Summary Purpose eClinicalWorks Submission
--- OUTSIDE RECORDS SUMMARY | 2018-02-14 07:06 | XMS REPORT ---
Author Author IDRIS CYR Organization [employer] Address Unknown Phone Unavailable Care Team Providers Care Special Events Fundraiser Name Role Phone IDRIS CYR CP Unavailable Allergies, Adverse Reactions, Alerts Substance [...] disorder, with psychotic features F33.3 Active Assessment Bronchitis J40 Active Medications Medication Code System Code Instructions Start Date End Date Status Dosage Lopid [facility] [address]-12 600 mg Jul 10, 2014 1 Tablet by Oral route 2 times per day cyclobenzaprine [facility] [address]-03 10 mg by oral route 2 times a day August 26, 2014 1 Tablet by Oral route 3 times per day PRN Ondansetron [facility] [address]-86 8 MG Orally not defined Multi Vitamin Daily [facility] 473[address]-52410 - Orally Once a day 1 tablet Butrans [facility] [address]-12 15 MCG/HR Transdermal 1 patch to skin Folic Acid [facility] [address]-74 1 MG Orally Once a day 1 tablet Gabapentin [facility] [address]-41 800 mg Orally 4 times a day Jul 10, 2014 1 Tablet by Oral route 4 times per day Cefdinir [facility] [address]-94 300 MG Orally every 12 hrs 1 capsule Cholecalciferol [facility] [address]-46 1000 UNIT Orally Once a day 1 capsule Prazosin HCl [facility] 38749304552 1 MG Orally Once a day 1 capsule at bedtime Doxycycline Hyclate [facility] [address]-72 100 MG Orally every 12 hrs Apr 05, 2016 Apr 15, 2016 1 capsule Prevacid [facility] [address]-17 15 MG Orally Once a day 1 capsule Seroquel XR [facility] [address]-04 150 MG Orally Once a day 1 tablet in the evening Mobic [facility] [address]-43 15 MG Orally Once a day 1 tablet Hydrocodone-Acetaminophen [facility] [address]-66 10-325 MG Orally every 6 hrs 1 tablet as needed Abilify [facility] [address]-40 10 MG Orally Once a day December 08, 2015 1 tablet MiraLax [facility] [address]-37 17 gm/dose Orally Once a day 17 grams mixed in 8 oz of water or juice Bitoin Plus/Calcium/Vit D3 [facility] 82689-07234 - Orally not defined Cymbalta [facility] [address]-03 60 MG Orally Twice a day Feb 10, 2015 1 capsule Procedures Procedure Coding System Code Date Office Visit, Est Pt., Level 3 CPT-4 65213 Apr 05, 2016 Vital Signs Date/Time: Apr 05, 2016 Cardiac Monitoring Heart Rate 86 bpm Weight 162.4 lbs Height 66 in BMI 26.21 Index Blood Pressure Diastolic 68 mmHg Blood Pressure Systolic 102 mmHg Results No Known Results Summary Purpose [employer] Submission
--- OUTSIDE RECORDS SUMMARY | 2018-02-14 07:06 | XMS REPORT ---
Author Author JUSTIN ASTUDILLO Organization [employer] Address Unknown Phone Unavailable Care Team Providers Care Building Specialist Name Role Phone JUSTIN ASTUDILLO CP [...] backache 724.5 Active Medications No Known Medications Results No Known Results Summary Purpose [employer] Submission
--- OUTSIDE RECORDS SUMMARY | 2018-02-14 07:06 | XMS REPORT ---
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
--- OUTSIDE RECORDS SUMMARY | 2018-02-14 07:06 | XMS REPORT ---
Author Author JUSTIN ASTUDILLO [facility] [employer] Address Unknown Phone Unavailable Care Team Providers Care Document Processor Name Role Phone JUSTIN ASTUDILLO CP Unavailable Allergies, Adverse Reactions, Alerts Substance Reaction Event Type Paxil hives Drug Allergy Baclofen blistering rash Drug Allergy Augmentin rash Drug Allergy Bee stings Info Not Available Non Drug Allergy Hydrocodone Failed UDS Non Drug Allergy Benzodiazepines Failed UDS Non Drug Allergy Problems Problem Type Condition Code Onset Dates Condition Status Assessment Generalized anxiety disorder F41.1 Active Problem Other specified disease of hair and hair follicles 704.8 Active Problem Other, multiple, and unspecified sites, insect bite, nonvenomous, infected 919.5 Active Assessment Major depressive disorder, recurrent episode, severe, with psychotic behavior F33.3 Active Problem Major depressive disorder, recurrent episode, severe, with psychotic behavior F33.3 Active Problem Hepatitis C antibody test positive R76.8 Active Problem Controlled substance agreement terminated Z92.89 Active Problem Unspecified backache 724.5 Active Problem Unspecified disorder of skin and subcutaneous tissue 709.9 Active Problem Unspecified fall E888.9 Active Problem Sciatica 724.3 Active Medications Medication Code System Code Instructions Start Date End Date Status Dosage Abilify [facility] [address]-00 10 MG Orally Once a day December 08, 2015 1 tablet Percocet [facility] [address]-05 10-325 mg Orally every 6 hrs August 13, 2013 1 Tablet by Oral route 4 times per day cyclobenzaprine [facility] [address]-16 10 mg by oral route 2 times a day August 26, 2014 1 Tablet by Oral route 3 times per day PRN Cymbalta [facility] [address]-69 60 MG Orally Twice a day Feb 10, 2015 1 capsule Gabapentin [facility] [address]-60 800 mg Orally 3 times a day Jul 10, 2014 1 Tablet by Oral route 4 times per day Cholecalciferol [facility] [address]-39 1000 UNIT Orally Once a day 1 capsule MiraLax [facility] [address]-39 17 gm/dose Orally Once a day 17 grams mixed in 8 oz of water or juice Seroquel XR [facility] [address]-93 150 MG Orally Once a day 1 tablet in the evening Lopid [facility] [address]-89 600 mg Jul 10, 2014 1 Tablet by Oral route 2 times per day Daklinza [facility] [address]-47 60 MG Orally Once a day 1 tablet Prevacid [facility] [address]-49 15 MG Orally Once a day 1 capsule Sovaldi [facility] [address]-78 400 MG Orally Once a day 1 tablet Cymbalta [facility] [address]-51 30 MG Orally Twice a day 1 capsule Folic Acid [facility] [address]-76 1 MG Orally Once a day 1 tablet Valium [facility] [address]-98 10 mg Orally Once a day at bedtime 1 tablet Mobic [facility] [address]-08 15 MG Orally Once a day 1 tablet Hydrocodone-Acetaminophen [facility] [address]-29 10-325 MG Orally every 6 hrs 1 tablet as needed Multi Vitamin Daily [facility] 98109-17711 - Orally Once a day 1 tablet Ondansetron [facility] [address]-82 8 MG Orally not defined Seroquel [facility] [address]-88 200 MG Orally Once a day September 22, 2015 1 tablet at bedtime Bactrim DS [facility] [address]-74 800-160 MG Orally Twice a day 1 tablet Bitoin Plus/Calcium/Vit D3 [facility] 99214-[address]654 - Orally not defined Procedures Procedure Coding System Code Date MH Office Visit, Est Pt., Level 3 CPT-4 70092 December 08, 2015 Vital Signs Date/Time: December 08, 2015 Cardiac Monitoring Heart Rate 93 bpm Weight 150.9 lbs Height 66 in Blood Pressure Diastolic 74 mmHg Blood Pressure Systolic 100 mmHg Results No Known Results Summary Purpose [employer] Submission
--- OUTSIDE RECORDS SUMMARY | 2018-02-14 07:07 | XMS REPORT ---
Author Author JUSTIN ASTUDILLO [facility] e[employer] Address Unknown Phone Unavailable Care Team Providers Care Farm Rancher Name Role Phone JUSTIN ASTUDILLO CP Unavailable [...] Instructions Start Date End Date Status Dosage Diazepam [facility] [address]-25 5 mg August 26, 2014 1 Tablet by Oral route 2 times per day Percocet [facility] [address]-36 10-325 mg August 13, 2013 1 Tablet by Oral route 4 times per day Lopid [facility] [address]-52 600 mg Jul 10, 2014 1 Tablet by Oral route 2 times per day morphine [place] 0 50 mg August 26, 2014 1 Capsule by Oral route 1 time per day Cymbalta [facility] [address]-54 60 MG Orally Twice a day Feb 10, 2015 1 capsule Gabapentin [facility] [address]-48 800 mg Jul 10, 2014 1 Tablet by Oral route 4 times per day cyclobenzaprine [facility] [address]-90 10 mg August 26, 2014 1 Tablet by Oral route 3 times per day PRN Mobic [facility] [address]-35 15 MG Orally Once a day 1 tablet Voltaren [facility] [address]-55 1 % Mar 10, 2013 apply 2 gram to the affected area(s) by topical route 4 times per day Seroquel [facility] [address]-53 200 MG Orally Once a day Jun 30, 2015 1 tablet at bedtime Procedures Procedure Coding System Code Date Office Visit, Est Pt., Level 3 CPT-4 51138 Jun 30, 2015 Vital Signs Date/Time: Jun 30, 2015 Cardiac Monitoring Heart Rate 82 bpm Weight 143.2 lbs Height 66 in BMI 23.11 Index Blood Pressure Diastolic 62 mmHg Blood Pressure Systolic 120 mmHg Results No Known Results Summary Purpose [employer] Submission
--- OUTSIDE RECORDS SUMMARY | 2018-02-14 07:09 | XMS REPORT | Continuity of Care Document ---
Author Author [facility] Address Unknown Phone Unavailable Allergies Active Description Code Type Severity Reaction Onset Reported/Identified Relationship to Patient Clinical Status Yes amoxicillin trihydrate [id number] Drug Allergy Unknown N/A 06/22/2014 Yes paroxetine HCl [id number] Drug Allergy Unknown N/A 06/22/2014 Yes potassium clavulanate [id number] Drug Allergy Unknown N/A 06/22/2014 Yes baclofen [id number] Drug Allergy Unknown RASH 11/02/2014 Medications There is no data. Problems Date Dx Coded Attending Type Code Diagnosis Diagnosed By 09/20/2011 Ot 078.3 CAT-SCRATCH DISEASE 09/20/2011 Ot 914.4 INSECT BITE HAND 09/20/2011 Ot E000.8 OTHER EXTERNAL CAUSE STATUS 09/20/2011 Ot E849.0 ACCIDENT IN HOME 09/20/2011 Ot E906.4 NONVENOM ARTHROPOD BITE 01/31/2013 704.8 OTHER SPECIFIED DISEASES OF HAIR AND HAIR FOLLICLES 01/31/2013 919.5 INSECT BITE NONVENOMOUS OF OTHER MULTIPLE AND UNSPECIFIED SITES INFECTED 01/31/2013 704.8 OTHER SPECIFIED DISEASES OF HAIR AND HAIR FOLLICLES 01/31/2013 919.5 INSECT BITE NONVENOMOUS OF OTHER MULTIPLE AND UNSPECIFIED SITES INFECTED 01/31/2013 ROBERTH GOTTI DO 704.8 OTHER SPECIFIED DISEASES OF HAIR AND HAIR FOLLICLES 01/31/2013 ROBERTH GOTTI DO 919.5 INSECT BITE NONVENOMOUS OF OTHER MULTIPLE AND UNSPECIFIED SITES INFECTED 01/31/2013 [facility] 704.8 OTHER SPECIFIED DISEASES OF HAIR AND HAIR FOLLICLES 01/31/2013 SELWYN EARL TIM 919.5 INSECT BITE NONVENOMOUS OF OTHER MULTIPLE AND UNSPECIFIED SITES INFECTED 01/31/2013 DOMINGA LE APRN 704.8 OTHER SPECIFIED DISEASES OF HAIR AND HAIR FOLLICLES 01/31/2013 DOMINGA LE APRN 919.5 INSECT BITE NONVENOMOUS OF OTHER MULTIPLE AND UNSPECIFIED SITES INFECTED 01/31/2013 LENATI MONTESDOMINGAH 704.8 OTHER SPECIFIED DISEASES OF HAIR AND HAIR FOLLICLES 01/31/2013 LE JYOTIDOMINGA 919.5 INSECT BITE NONVENOMOUS OF OTHER MULTIPLE AND UNSPECIFIED SITES INFECTED 01/31/2013 WILDA CNS, JUSTIN M 704.8 OTHER SPECIFIED DISEASES OF HAIR AND HAIR FOLLICLES 01/31/2013 WILDA SCHULZ JUSTIN M 919.5 INSECT BITE NONVENOMOUS OF OTHER MULTIPLE AND UNSPECIFIED SITES INFECTED 01/31/2013 WILDA CNS, JUSTIN M 704.8 OTHER SPECIFIED DISEASES OF HAIR AND HAIR FOLLICLES 01/31/2013 WILDA CNS, JUSTIN M 919.5 INSECT BITE NONVENOMOUS OF OTHER MULTIPLE AND UNSPECIFIED SITES INFECTED 02/13/2013 709.9 UNSPECIFIED DISORDER OF SKIN AND SUBCUTANEOUS TISSUE 02/13/2013 ROBERTH GOTTI DO K 709.9 UNSPECIFIED DISORDER OF SKIN AND SUBCUTANEOUS TISSUE 02/13/2013 [facility], EARL R 709.9 UNSPECIFIED DISORDER OF SKIN AND SUBCUTANEOUS TISSUE 02/13/2013 REY MONTES DOMINGA CARVERH 709.9 UNSPECIFIED DISORDER OF SKIN AND SUBCUTANEOUS TISSUE 02/13/2013 REY MONTES DOMINGA CURLY 709.9 UNSPECIFIED DISORDER OF SKIN AND SUBCUTANEOUS TISSUE 02/13/2013 WILDA SCHULZ JUSTIN M 709.9 UNSPECIFIED DISORDER OF SKIN AND SUBCUTANEOUS TISSUE 02/13/2013 JUSTIN GANDHI M 709.9 UNSPECIFIED DISORDER OF SKIN AND SUBCUTANEOUS TISSUE 03/10/2013 GOTTI DO ROBERTH K 724.3 SCIATICA 03/10/2013 GOTTI DO ROBERTH K 724.5 BACKACHE UNSPECIFIED 03/10/2013 GOTTI DO ROBERTH K E888.9 UNSPECIFIED ACCIDENTAL FALL 03/10/2013 [facility], EARL R 724.3 SCIATICA 03/10/2013 [facility], EARL R 724.5 BACKACHE UNSPECIFIED 03/10/2013 [facility], EARL R E888.9 UNSPECIFIED ACCIDENTAL FALL 03/10/2013 REY MONTES DOMINGA CURLY 724.3 SCIATICA 03/10/2013 REY MONTES DOMINGA CURLY 724.5 BACKACHE UNSPECIFIED 03/10/2013 DOMINGA LE APRN E888.9 UNSPECIFIED ACCIDENTAL FALL 03/10/2013 DOMINGA LE APRN 724.3 SCIATICA 03/10/2013 DOMINGA LE APRN 724.5 BACKACHE UNSPECIFIED 03/10/2013 DOMINGA LE APRN E888.9 UNSPECIFIED ACCIDENTAL FALL 03/10/2013 WILDA CASHIER HOST/HOSTESS, JUSTIN M 724.3 SCIATICA 03/10/2013 WILDA CASHIER HOST/HOSTESS, JUSTIN M 724.5 BACKACHE UNSPECIFIED 03/10/2013 WILDA CASHIER HOST/HOSTESS, JUSTIN M E888.9 UNSPECIFIED ACCIDENTAL FALL 03/10/2013 WILDA CASHIER HOST/HOSTESS, JUSTIN M 724.3 SCIATICA 03/10/2013 WIDLA CASHIER HOST/HOSTESS, JUSTIN M 724.5 BACKACHE UNSPECIFIED 03/10/2013 WILDA CASHIER HOST/HOSTESS, JUSTIN M E888.9 UNSPECIFIED ACCIDENTAL FALL 07/11/2013 [facility], EARL R 300.00 AN ANXIETY UNSPEC 07/11/2013 [facility], EARL R 311 DEPRESSIVE DISORDER NOS 07/11/2013 DOMINGA LE APRN 300.00 AN ANXIETY UNSPEC 07/11/2013 DOMINGA LE APRN 311 DEPRESSIVE DISORDER NOS 07/11/2013 DOMINGA LE APRN 300.00 AN ANXIETY UNSPEC 07/11/2013 REY MONTES, DOMINGA RAWLS 311 DEPRESSIVE DISORDER NOS 07/11/2013 WILDA CASHIER HOST/HOSTESS, JUSTIN M 300.00 AN ANXIETY UNSPEC 07/11/2013 WILDA CASHIER HOST/HOSTESSJUSTIN M 311 DEPRESSIVE DISORDER NOS 07/11/2013 WILDA CASHIER HOST/HOSTESS, JUSTIN M 300.00 AN ANXIETY UNSPEC 07/11/2013 WILDA CASHIER HOST/HOSTESS, JUSTIN M 311 DEPRESSIVE DISORDER NOS 08/13/2013 DOMINGA LE APRN 296.32 MO DEPRESSIVE RECURRENT MODERATE 08/13/2013 DOMINGA LE APRN 300.02 AN GEN ANXIETY 08/13/2013 DOMINGA LE APRN 296.32 MO DEPRESSIVE RECURRENT MODERATE 08/13/2013 DOMINGA LE APRN 300.02 AN GEN ANXIETY 08/13/2013 WILDA CASHIER HOST/HOSTESS, JUSTIN M 296.32 MO DEPRESSIVE RECURRENT MODERATE 08/13/2013 WILDA CASHIER HOST/HOSTESS, JUSTIN M 300.02 AN GEN ANXIETY 08/13/2013 WILDA CASHIER HOST/HOSTESSELIELJUSTIN Titi 296.32 MO DEPRESSIVE RECURRENT MODERATE 08/13/2013 JUSTIN GANDHI 300.02 AN GEN ANXIETY 06/03/2014 STALIN PENA Ot 722.10 06/05/2014 STALIN PENA Ot 722.10 06/05/2014 STALIN PENA Ot 722.10 06/23/2014 DAY BRYSON MD Ot 305.1 TOBACCO USE DISORDER 06/23/2014 DAY BRYSON MD Ot 311 DEPRESSIVE DISORDER NEC 06/23/2014 DAY BRYSON MD Ot 721.1 CERV SPONDYL W MYELOPATH 06/27/2014 GERARDO MAYO Ot 338.18 OTHER ACUTE POSTOPERATIVE PAIN 06/27/2014 GERARDO MAYO Ot 518.0 PULMONARY COLLAPSE 06/27/2014 GERARDO MAYO Ot 998.12 HEMATOMA COMPLIC A PROC 07/13/2014 DAY BRYSON MD Ot 722.0 07/13/2014 DAY BRYSON MD Ot V72.63 07/13/2014 DAY BRYSON MD, Ot V74.8 08/22/2014 Ot 721.3 09/14/2014 Ot 721.3 11/13/2014 DAY BRYSON MD Ot 304.90 DRUG DEPEND NOS-UNSPEC 11/13/2014 DAY BRYSON MD Ot 311 DEPRESSIVE DISORDER NEC 11/13/2014 DAY BRYSON MD Ot 458.9 HYPOTENSION NOS 11/13/2014 DAY BRYSON MD Ot 530.81 ESOPHAGEAL REFLUX 11/13/2014 DAY BRYSON MD Ot 564.00 UNSPEC CONSTIPATION 11/13/2014 DAY BRYSON MD Ot 724.02 SPINAL STENOSIS, LUMBAR REG, W/OUT NEURO 11/13/2014 DAY BRYSON MD Ot 724.4 LUMBOSACRAL NEURITIS NOS 11/13/2014 DAY BRYSON MD Ot 785.0 TACHYCARDIA NOS 11/13/2014 DAY BRYSON MD Ot V15.82 HISTORY OF TOBACCO USE 12/08/2014 DAY BRYSON MD Ot 724.02 12/08/2014 DAY BRYSON MD, Ot V72.63 12/08/2014 DAY BRYSON MD Ot V74.8 05/18/2015 DAY BRYSON MD Ot 724.02 05/18/2015 DAY BRYSON MD Ot V72.63 05/18/2015 DAY BRYSON MD Ot V74.8 06/10/2015 DAY BRYSON MD Ot M54.2 07/27/2015 JOYCE SPEARS DO Ot B19.20 09/20/2015 STALIN SAAVEDRA MD Ot I95.1 ORTHOSTATIC HYPOTENSION 09/20/2015 STALIN SAAVEDRA MD Ot K80.20 CALCULUS OF GALLBLADDER W/O CHOLECYSTITI 09/20/2015 STALIN SAAVEDRA MD Ot N39.0 URINARY TRACT INFECTION, SITE NOT SPECIF 09/20/2015 STALIN SAAVEDRA MD Ot R10.84 GENERALIZED ABDOMINAL PAIN 09/20/2015 STALIN SAAVEDRA MD Ot R19.7 DIARRHEA, UNSPECIFIED 09/20/2015 STALIN SAAVEDRA MD T Ot Z98.1 ARTHRODESIS STATUS 09/22/2015 STALIN SAAVEDRA MD T Ot I95.1 ORTHOSTATIC HYPOTENSION 09/22/2015 STALIN SAAVEDRA MD Ot K80.20 CALCULUS OF GALLBLADDER W/O CHOLECYSTITI 09/22/2015 STALIN SAAVEDRA MD Ot N39.0 URINARY TRACT INFECTION, SITE NOT SPECIF 09/22/2015 STALIN SAAVEDRA MD Ot R10.84 GENERALIZED ABDOMINAL PAIN 09/22/2015 STALIN SAAVEDRA MD Ot R19.7 DIARRHEA, UNSPECIFIED 09/22/2015 STALIN SAAVEDRA MD Ot Z98.1 ARTHRODESIS STATUS 09/22/2015 STALIN SAAVEDRA MD T Ot I95.1 ORTHOSTATIC HYPOTENSION 09/22/2015 STALIN SAAVEDRA MD Ot K80.20 CALCULUS OF GALLBLADDER W/O CHOLECYSTITI 09/22/2015 STALIN SAAVEDRA MD Ot N39.0 URINARY TRACT INFECTION, SITE NOT SPECIF 09/22/2015 STALIN SAAVEDRA MD Ot R10.84 GENERALIZED ABDOMINAL PAIN 09/22/2015 QUENTIN REYES, STALIN Raines Ot R19.7 DIARRHEA, UNSPECIFIED 09/22/2015 QUENTIN REYES, STALIN Raines Ot Z98.1 ARTHRODESIS STATUS 11/05/2015 JOYCE SPEARS DO Ot B19.20 UNSPECIFIED VIRAL HEPATITIS C WITHOUT HE 01/15/2016 GERARDO MAYO Ot N39.0 URINARY TRACT INFECTION, SITE NOT SPECIF 01/15/2016 GERARDO MAYO Ot R30.0 DYSURIA 01/21/2016 DAY BRYSON MD Ot M54.16 RADICULOPATHY, LUMBAR REGION 01/22/2016 DAY BRYSON MD Ot 724.02 SPINAL STENOSIS, LUMBAR REG, W/OUT NEURO 01/22/2016 DAY BRYSON MD Ot V72.63 PRE-PROCEDURAL LABORATORY EXAMINATION 01/22/2016 DAY BRYSON MD Ot V74.8 SCREEN-BACTERIAL DIS NEC 01/22/2016 DAY BRYSON MD Ot M54.2 CERVICALGIA 01/22/2016 JOYCE SPEARS DO Ot B19.20 UNSPECIFIED VIRAL HEPATITIS C WITHOUT HE 01/22/2016 DAY BRYSON MD Ot M54.16 RADICULOPATHY, LUMBAR REGION 01/26/2016 RAFI YOUNG MD Ot G89.4 CHRONIC PAIN SYNDROME 01/26/2016 RAFI YOUNG MD Ot M96.1 POSTLAMINECTOMY SYNDROME, NOT ELSEWHERE 01/26/2016 RAFI YOUNG MD Ot Z01.818 ENCOUNTER FOR OTHER PREPROCEDURAL EXAMIN 01/26/2016 RAFI YOUNG MD Ot Z11.2 ENCOUNTER FOR SCREENING FOR OTHER BACTER 01/28/2016 RAFI YOUNG MD Ot G89.4 CHRONIC PAIN SYNDROME 01/28/2016 RAFI YOUNG MD Ot M96.1 POSTLAMINECTOMY SYNDROME, NOT ELSEWHERE 01/28/2016 RAFI YOUNG MD Ot Z01.818 ENCOUNTER FOR OTHER PREPROCEDURAL EXAMIN 01/28/2016 RAFI YOUNG MD Ot Z11.2 ENCOUNTER FOR SCREENING FOR OTHER BACTER 01/28/2016 RAFI YOUNG MD Ot G89.4 CHRONIC PAIN SYNDROME 01/28/2016 RAFI YOUNG MD Ot M54.5 LOW BACK PAIN 01/28/2016 RAFI YOUNG MD Ot M96.1 POSTLAMINECTOMY SYNDROME, NOT ELSEWHERE 02/03/2016 RAFI YOUNG MD Ot G89.4 CHRONIC PAIN SYNDROME 02/03/2016 RAFI YOUNG MD Ot M54.5 LOW BACK PAIN 02/03/2016 RAFI YOUNG MD Ot M96.1 POSTLAMINECTOMY SYNDROME, NOT ELSEWHERE 02/22/2016 DAY BRYSON MD Ot M54.16 RADICULOPATHY, LUMBAR REGION 12/21/2017 DAY BRYSON MD Ot 724.02 SPINAL STENOSIS, LUMBAR REG, W/OUT NEURO 12/21/2017 DAY BRYSON MD Ot V72.63 PRE-PROCEDURAL LABORATORY EXAMINATION 12/21/2017 DAY BRYSON MD Ot V74.8 SCREEN-BACTERIAL DIS NEC 12/21/2017 DAY BRYSON MD Ot M54.2 CERVICALGIA 12/21/2017 DO, JOYCE C Ot B19.20 UNSPECIFIED VIRAL HEPATITIS C WITHOUT HE 12/21/2017 DAY BRYSON MD Ot M54.16 RADICULOPATHY, LUMBAR REGION 12/21/2017 MOLLY FORTE Ot B19.20 UNSPECIFIED VIRAL HEPATITIS C WITHOUT HE 12/21/2017 MOLLY FORTE Ot F17.210 NICOTINE DEPENDENCE, CIGARETTES, UNCOMPL 12/21/2017 MOLLY FORTE Ot F32.9 MAJOR DEPRESSIVE DISORDER, SINGLE EPISOD 12/21/2017 MOLLY FORTE Ot G89.18 OTHER ACUTE POSTPROCEDURAL PAIN 12/21/2017 MOLLY FORTE Ot J45.909 UNSPECIFIED ASTHMA, UNCOMPLICATED 12/21/2017 MOLLY FORTE Ot M54.2 CERVICALGIA 12/21/2017 MOLLY FORTE Ot Z82.49 FAMILY HX OF ISCHEM HEART DIS AND OTH DI 12/21/2017 MOLLY FORTE Ot Z87.19 PERSONAL HISTORY OF OTHER DISEASES OF TH 12/21/2017 MOLLY FORTE Ot Z88.1 ALLERGY STATUS TO OTHER ANTIBIOTIC AGENT 12/21/2017 MOLLY FORTE Ot Z88.8 ALLERGY STATUS TO OTH DRUG/MEDS/BIOL SUB 12/21/2017 MOLLY FORTE Ot Z90.710 ACQUIRED ABSENCE OF BOTH CERVIX AND UTER 12/21/2017 MOLLY FORTE Ot Z95.1 PRESENCE OF AORTOCORONARY BYPASS GRAFT 12/22/2017 MYRNA CARRILLO, MINDY K Ot M54.9 DORSALGIA, UNSPECIFIED 12/22/2017 RIGO DAS APRN Ot F32.9 MAJOR DEPRESSIVE DISORDER, SINGLE EPISOD 12/22/2017 RIGO DAS APRN Ot G89.29 OTHER CHRONIC PAIN 12/22/2017 RIGO DAS APRN Ot J45.909 UNSPECIFIED ASTHMA, UNCOMPLICATED 12/22/2017 RIGO DAS APRN Ot M54.5 LOW BACK PAIN 12/22/2017 RIGO DAS APRN Ot Z87.19 PERSONAL HISTORY OF OTHER DISEASES OF TH 12/22/2017 RIGO DAS APRN Ot Z87.891 PERSONAL HISTORY OF NICOTINE DEPENDENCE 12/22/2017 RIGO DAS STAFF FORESTER Ot Z88.1 ALLERGY STATUS TO OTHER ANTIBIOTIC AGENT 12/22/2017 RIGO DAS STAFF FORESTER Ot Z88.8 ALLERGY STATUS TO OTH DRUG/MEDS/BIOL SUB 12/22/2017 RIGO DAS APRN Ot Z90.710 ACQUIRED ABSENCE OF BOTH CERVIX AND UTER 12/24/2017 MINDY NORRIS DO K Ot M54.9 DORSALGIA, UNSPECIFIED 12/24/2017 RIGO DAS APRN Ot F32.9 MAJOR DEPRESSIVE DISORDER, SINGLE EPISOD 12/24/2017 RIGO DAS APRN Ot G89.29 OTHER CHRONIC PAIN 12/24/2017 RIGO DAS APRN Ot J45.909 UNSPECIFIED ASTHMA, UNCOMPLICATED 12/24/2017 RIGO DAS APRN Ot M54.5 LOW BACK PAIN 12/24/2017 RIGO DAS STAFF FORESTER Ot Z87.19 PERSONAL HISTORY OF OTHER DISEASES OF TH 12/24/2017 RIGO DAS STAFF FORESTER Ot Z87.891 PERSONAL HISTORY OF NICOTINE DEPENDENCE 12/24/2017 RIGO DAS STAFF FORESTER Ot Z88.1 ALLERGY STATUS TO OTHER ANTIBIOTIC AGENT 12/24/2017 RIGO DAS STAFF FORESTER Ot Z88.8 ALLERGY STATUS TO OTH DRUG/MEDS/BIOL SUB 12/24/2017 RIGO DAS STAFF FORESTER Ot Z90.710 ACQUIRED ABSENCE OF BOTH CERVIX AND UTER 12/24/2017 MOLLY FORTE Ot B19.20 UNSPECIFIED VIRAL HEPATITIS C WITHOUT HE 12/24/2017 MOLLY FORTE Ot F17.210 NICOTINE DEPENDENCE, CIGARETTES, UNCOMPL 12/24/2017 LITTLE FORTEIS Ot F32.9 MAJOR DEPRESSIVE DISORDER, SINGLE EPISOD 12/24/2017 LITTLE FORTEIS Ot G89.18 OTHER ACUTE POSTPROCEDURAL PAIN 12/24/2017 MOLLY FORTE Ot J45.909 UNSPECIFIED ASTHMA, UNCOMPLICATED 12/24/2017 HORACIOVINNIE MOLLY Ot M54.2 CERVICALGIA 12/24/2017 MOLLY FORTE Ot Z82.49 FAMILY HX OF ISCHEM HEART DIS AND OTH DI 12/24/2017 LITTLE FORTEIS Ot Z87.19 PERSONAL HISTORY OF OTHER DISEASES OF TH 12/24/2017 JANN MOLLY Ot Z88.1 ALLERGY STATUS TO OTHER ANTIBIOTIC AGENT 12/24/2017 HORACIOVINNIE MOLLY Ot Z88.8 ALLERGY STATUS TO OTH DRUG/MEDS/BIOL SUB 12/24/2017 LITTLE FORTEIS Ot Z90.710 ACQUIRED ABSENCE OF BOTH CERVIX AND UTER 12/24/2017 JANN MOLLY Ot Z95.1 PRESENCE OF AORTOCORONARY BYPASS GRAFT 02/13/2018 STALIN PENA Ot 722.10 LUMBAR DISC DISPLACEMENT 02/13/2018 DAY BRYSON MD Ot 722.0 CERVICAL DISC DISPLACMNT 02/13/2018 DAY BRYSON MD Ot V72.63 PRE-PROCEDURAL LABORATORY EXAMINATION 02/13/2018 DAY BRYSON MD Ot V74.8 SCREEN-BACTERIAL DIS NEC 02/13/2018 Ot 721.3 LUMBOSACRAL SPONDYLOSIS 02/13/2018 DAY BRYSON MD Ot 724.02 SPINAL STENOSIS, LUMBAR REG, W/OUT NEURO 02/13/2018 DAY BRYSON MD Ot V72.63 PRE-PROCEDURAL LABORATORY EXAMINATION 02/13/2018 DAY BRYSON MD Ot V74.8 SCREEN-BACTERIAL DIS NEC 02/13/2018 DAY BRYSON MD Ot M54.2 CERVICALGIA 02/13/2018 JOYCE SPEARS DO Ot B19.20 UNSPECIFIED VIRAL HEPATITIS C WITHOUT HE 02/13/2018 DAY BRYSON MD Ot M54.16 RADICULOPATHY, LUMBAR REGION 02/13/2018 STALIN PENA Ot 722.10 LUMBAR DISC DISPLACEMENT 02/13/2018 DAY BRYSON MD Ot 722.0 CERVICAL DISC DISPLACMNT 02/13/2018 DAY BRYSON MD, Ot V72.63 PRE-PROCEDURAL LABORATORY EXAMINATION 02/13/2018 DAY BRYSON MD Ot V74.8 SCREEN-BACTERIAL DIS NEC 02/13/2018 Ot 721.3 LUMBOSACRAL SPONDYLOSIS 02/13/2018 DAY BRYSON MD Ot 724.02 SPINAL STENOSIS, LUMBAR REG, W/OUT NEURO 02/13/2018 DAY BRYSON MD, Ot V72.63 PRE-PROCEDURAL LABORATORY EXAMINATION 02/13/2018 DAY BRYSON MD, Ot V74.8 SCREEN-BACTERIAL DIS NEC 02/13/2018 DAY BRYSON MD, Ot M54.2 CERVICALGIA 02/13/2018 JOYCE SPEARS DO Ot B19.20 UNSPECIFIED VIRAL HEPATITIS C WITHOUT HE 02/13/2018 DAY BRYSON MD, Ot M54.16 RADICULOPATHY, LUMBAR REGION Procedures Code Description [place] [address] MRI SPINE (LUMBAR) W/O CONTRAST 03/10/2013 16390 URINE DRUG SCREEN (IN-HOUSE ) 03/10/2013 55422 PSYCH DIAGNOSTIC EVALUATION 07/11/2013 80.51 EXCISION INTERVERT DISC 06/22/2014 81.02 OTH CERVICAL FUSION OF ANTERIOR COLUMN, 06/22/2014 81.63 FUSION/REFUS OF 4-8 VERTEBRAE 06/22/2014 84.51 INSERTION OF INTERBODY SPINAL FUSION DEV 06/22/2014 77.79 EXCISE BONE FOR GFT NEC 11/09/2014 80.51 EXCISION INTERVERT DISC 11/09/2014 81.06 LUMBAR LUMBOSACRAL FUSION OF ANTERIOR 11/09/2014 81.07 LUMBAR LUMBOSACRAL FUSION OF POSTERIOR 11/09/2014 81.62 FUSION/REFUS OF 2-3 VERTEBRAE 11/09/2014 84.51 INSERTION OF INTERBODY SPINAL FUSION DEV 11/09/2014 Results Test Result Range Complete urinalysis with reflex to culture - 01/15/16 11:38 Urine color determination YELLOW NRG Urine clarity determination SLIGHTLY CLOUDY NRG Urine pH measurement by test strip 5 5-9 Specific gravity of urine by test strip 1.025 1.016- 1.022 Urine protein assay by test strip, semi-quantitative 1+ NEGATIVE Urine glucose detection by automated test strip NEGATIVE NEGATIVE Erythrocytes detection in urine sediment by light microscopy NEGATIVE NEGATIVE Urine ketones detection by automated test strip NEGATIVE NEGATIVE Urine nitrite detection by test strip NEGATIVE NEGATIVE Urine total bilirubin detection by test strip NEGATIVE NEGATIVE Urine urobilinogen measurement by automated test strip (mass/volume) NORMAL NORMAL Urine leukocyte esterase detection by dipstick 3+ NEGATIVE Automated urine sediment erythrocyte count by microscopy (number/high power field) NONE NRG Automated urine sediment leukocyte count by microscopy (number/high power field ) [HPF] NRG Bacteria detection in urine sediment by light microscopy TRACE NRG Squamous epithelial cells detection in urine sediment by light microscopy 25-50 NRG Crystals detection in urine sediment by light microscopy NONE NRG Casts detection in urine sediment by light microscopy NONE NRG Mucus detection in urine sediment by light microscopy NEGATIVE NRG Complete urinalysis with reflex to culture YES NRG Bacterial urine culture - 01/15/16 11:38 Bacterial urine culture [id number] NRG COLONY COUNT <10,000 NRG Methicillin resistant Staphylococcus aureus (MRSA) screening culture - 13:20 MRSA SCREEN RESULT MRSA ISOLATED NRG HSV Culture and Typing - 03/17/16 15:59 HSV Culture/Type Comment Genital Culture, Routine - 03/17/16 15:59 Genital Culture, Routine Note Urine Culture, Routine - 11/16/16 13:21 Urine Culture, Routine Note Complete urinalysis with reflex to culture - 12/22/17 19:55 Urine color determination YELLOW NRG Urine clarity determination CLEAR NRG Urine pH measurement by test strip 6 5-9 Specific gravity of urine by test strip 1.010 1.016- 1.022 Urine protein assay by test strip, semi-quantitative NEGATIVE NEGATIVE Urine glucose detection by automated test strip NEGATIVE NEGATIVE Erythrocytes detection in urine sediment by light microscopy NEGATIVE NEGATIVE Urine ketones detection by automated test strip NEGATIVE NEGATIVE Urine nitrite detection by test strip NEGATIVE NEGATIVE Urine total bilirubin detection by test strip NEGATIVE NEGATIVE Urine urobilinogen measurement by automated test strip (mass/volume) NORMAL NORMAL Urine leukocyte esterase detection by dipstick NEGATIVE NEGATIVE Automated urine sediment erythrocyte count by microscopy (number/high power field) NONE NRG Automated urine sediment leukocyte count by microscopy (number/high power field ) [HPF] NRG Bacteria detection in urine sediment by light microscopy NEGATIVE NRG Squamous epithelial cells detection in urine sediment by light microscopy 0-2 NRG Crystals detection in urine sediment by light microscopy NONE NRG Casts detection in urine sediment by light microscopy NONE NRG Mucus detection in urine sediment by light microscopy NEGATIVE NRG Complete urinalysis with reflex to culture NO NRG Renal epithelial cells detection in urine sediment by light microscopy NONE NRG Urine drug screening test - 12/22/17 19:55 Urine phencyclidine detection by screening method NEGATIVE NEGATIVE Urine benzodiazepines detection by screening method NEGATIVE NEGATIVE Urine cocaine detection NEGATIVE NEGATIVE Urine amphetamines detection by screening method NEGATIVE NEGATIVE Urine methamphetamine detection by screening method NEGATIVE NEGATIVE Urine cannabinoids detection by screening method NEGATIVE NEGATIVE Urine opiates detection by screening method POSITIVE NEGATIVE Urine barbiturates detection NEGATIVE NEGATIVE Screening urine tricyclic antidepressants detection POSITIVE NEGATIVE Urine methadone detection by screening method NEGATIVE NEGATIVE Urine oxycodone detection NEGATIVE NEGATIVE Urine propoxyphene detection NEGATIVE NEGATIVE Whole blood basic metabolic panel - 12/22/17 21:00 Serum or plasma sodium measurement (moles/volume) 139 mmol/L 135-145 Serum or plasma potassium measurement (moles/volume) 4.2 mmol/L 3.6-5.0 Serum or plasma chloride measurement (moles/volume) 103 mmol/L 98-107 Carbon dioxide 25 mmol/L 21-32 Serum or plasma anion gap determination (moles/volume) 11 mmol/L 5-14 Serum or plasma urea nitrogen measurement (mass/volume) 10 mg/dL 7-18 Serum or plasma creatinine measurement (mass/volume) 0.75 mg/dL 0.60-1.30 Serum or plasma urea nitrogen/creatinine mass ratio 13 NRG Serum or plasma creatinine measurement with calculation of estimated glomerular filtration rate > NRG Serum or plasma glucose measurement (mass/volume) 100 mg/dL 70-105 Serum or plasma calcium measurement (mass/volume) 9.8 mg/dL 8.5-10.1 Complete blood count (CBC) with automated white blood cell (WBC) differential - 12/22/17 21:00 Blood leukocytes automated count (number/volume) 4.8 10*3/uL 4.3-11.0 Blood erythrocytes automated count (number/volume) 4.60 10*6/uL 4.35-5.85 Venous blood hemoglobin measurement (mass/volume) 13.9 g/dL 11.5-16.0 Blood hematocrit (volume fraction) 41 % 35-52 Automated erythrocyte mean corpuscular volume 90 [foz_us] 80-99 Automated erythrocyte mean corpuscular hemoglobin (mass per erythrocyte) 30 pg 25-34 Automated erythrocyte mean corpuscular hemoglobin concentration measurement ( mass/volume) 34 g/dL 32-36 Automated erythrocyte distribution width ratio 13.6 % 10.0-14.5 Automated blood platelet count (count/volume) 229 10*3/uL 130-400 Automated blood platelet mean volume measurement 9.0 [foz_us] 7.4-10.4 Automated blood neutrophils/100 leukocytes 46 % 42-75 Automated blood lymphocytes/100 leukocytes 42 % 12-44 Blood monocytes/100 leukocytes 9 % 0-12 Automated blood eosinophils/100 leukocytes 3 % 0-10 Automated blood basophils/100 leukocytes 0 % 0-10 Blood neutrophils automated count (number/volume) 2.2 10*3 1.8-7.8 Blood lymphocytes automated count (number/volume) 2.1 10*3 1.0-4.0 Blood monocytes automated count (number/volume) 0.4 10*3 0.0-1.0 Automated eosinophil count 0.1 10*3/uL 0.0-0.3 Automated blood basophil count (count/volume) 0.0 10*3/uL 0.0-0.1 Erythrocyte sedimentation rate by westergren method - 12/22/17 21:00 Erythrocyte sedimentation rate by westergren method 6 mm 0-20 Encounters ACCT No. Visit Date/Time Discharge Status Pt. Type Provider Facility Loc./Unit Complaint [id number] 08/26/2014 14:10:00 08/26/2014 23:59:59 [facility] Outpatient JUSTIN GANDHI [id number] 07/10/2014 14:27:00 07/10/2014 23:59:59 [facility] Outpatient JUSTIN GANDHI [id number] 02/11/2014 16:41:00 02/11/2014 23:59:59 [facility] Outpatient DOMINGA LE APRN [id number] 08/13/2013 12:53:00 08/13/2013 23:59:59 C[facility] Outpatient DOMINGA LE APRN [id number] 07/11/2013 11:29:00 07/11/2013 23:59:59 CLS Outpatient EARL MIDDLETON [id number] 03/10/2013 17:08:00 03/10/2013 23:59:59 CLS Outpatient ROBERTH GOTTI DO [id number] 02/13/2013 15:49:00 Document Registration [id number] 01/31/2013 15:31:00 Document Registration [id number] 12/22/2017 20:22:00 12/22/2017 21:45:00 DIS Emergency RIGO DAS Shyam SALCEDON [facility] ER BACK PAIN [id number] 12/22/2017 18:16:00 12/22/2017 18:37:00 DIS Emergency MINDY NORRIS DO [facility] ER BACK PAIN [id number] 12/21/2017 13:09:00 12/21/2017 15:17:00 DIS Emergency MOLLY FORTE [facility] ER NECK PAIN [id number] 01/28/2016 07:44:00 01/28/2016 11:20:00 DIS Outpatient RAFI YOUNG MD [facility] SDC CPS;PLS [id number] 01/26/2016 13:03:00 01/26/2016 13:28:00 DIS Outpatient RAFI YOUNG MD [facility] PREOP CPS;PLS [id number] 01/20/2016 13:33:00 01/20/2016 23:59:59 CLS Outpatient DAY BRYSON MD [facility] RAD M54.16 [id number] 01/15/2016 11:35:00 01/15/2016 13:49:00 DIS Emergency GERARDO MAYO [facility] ER UTI [id number] 09/20/2015 09:35:00 09/20/2015 14:24:00 DIS Emergency STALIN SAAVEDRA MD [facility] ER VOMITING FALL/ MULTIPLE INJURIES [id number] 06/24/2015 15:27:00 06/24/2015 23:59:59 CLS Outpatient JOYCE SPEARS DO [facility] LAB HCGENO [id number] 05/18/2015 11:35:00 05/18/2015 23:59:59 CLS Outpatient DAY BRYSON MD [facility] RAD CERVICALGIA [id number] 11/21/2014 11:54:00 11/21/2014 23:59:59 CLS Outpatient RITIKA MERA APRN [facility] QUICK LEFT ANKLE PAIN [id number] 11/09/2014 06:00:00 11/13/2014 15:30:00 DIS Inpatient DAY BRYSON MD [facility] SURGICAL LUMBAR STENOSIS [id number] 11/02/2014 11:40:00 11/02/2014 23:59:59 CLS Outpatient DAY BRYSON MD [facility] PREOP LUMBAR STENOSIS [id number] 06/27/2014 09:44:00 06/27/2014 13:46:00 DIS Emergency GERARDO MAYO [facility] ER COUGHING UP BLOOD, HEADACHE [id number] 06/22/2014 09:10:00 06/23/2014 14:04:00 DIS Inpatient DAY BRYSON MD [facility] WS CERVICAL STENOSIS [id number] 06/08/2014 13:05:00 06/08/2014 23:59:59 CLS Outpatient DAY BRYSON MD [facility] PREOP CERVICAL STENOSIS [id number] 03/21/2013 12:30:00 03/21/2013 23:59:59 CLS Outpatient STALIN PENA [facility] RAD LUMBAGO [id number] 02/14/2018 06:54:00 ACT Outpatient DAY BRYSON MD [facility] RAD M54.2 CERVICALGIA [id number] 08/21/2014 09:55:00 Document Registration [id number] 09/20/2011 15:48:00 Document Registration [id number] 11/18/2016 23:06:00 Document Registration [id number] 03/21/2016 13:06:00 Document Registration [id number] 09/10/2017 13:10:00 09/10/2017 23:59:59 C[facility]
[2018-02-14 07:30] LABS: HEMOGLOBIN 13.1 G/DL (11.5-16.0); MEAN PLATELET VOLUME 9.1 FL (7.4-10.4); RED BLOOD COUNT 4.43 10^6/uL (4.35-5.85); RED CELL DISTRIBUTION WIDTH 13.5 % (10.0-14.5)
[2018-02-14 07:38] LABS: INR 0.9 (0.8-1.4); PROTHROMBIN TIME PATIENT 12.1 SEC (12.2-14.7)
[2018-02-14] MEDS ORDERED: IOHEXOL 300 MG/ML 50 ML (OMNIPAQUE 300) VIAL IV ONE (09:45)
[2018-02-14] MEDS ORDERED: ACETAMINOPHEN 500 MG TAB (TYLENOL) PO PRN (09:45)
--- NOTE | 2018-02-14 10:56 | Pre-Procedure Progress Note ---
Pre-Procedure Progress Note H&P Reviewed The H&P was reviewed, patient examined and no changes noted. Date H&P Reviewed: Feb 14, 2018 Time H&P Reviewed: 08:00 Pre-Procedure Diagnosis: Neck Pain JOSE ALBERTO DELA CRUZ MD Feb 14, 2018 10:56
--- NOTE | 2018-02-14 13:36 | Diagnostic Imaging Report ---
PROCEDURE: CT cervical spine with contrast. TECHNIQUE: Axial CT cervical spine was performed with the use of intravenous contrast, the images were reconstructed in sagittal and coronal planes. INDICATION: Neck pain. FINDINGS: Cervical curvature is normal. There are postop changes of ACDF with anterior plate and screws transfixing the C5 through C7 levels. Intervertebral grafts at the C5-C6 and C6-C7 levels are also seen. The hardware appears to be intact. No definite fracture or loosening is identified. C2-C3 level demonstrates central canal and neuroforamina to be widely patent. C3-C4 demonstrates uncovertebral joint degenerative change, particularly on the left, however, no resultant central canal or neuroforaminal stenosis is seen. C4-C5 level is unremarkable. C5-C6 level demonstrates widely patent central canal and neuroforamina. C6-C7 does show some endplate osteophytes indenting the ventral thecal sac. There is very mild narrowing of the canal. Neuroforamina are patent. C7-T1 level is unremarkable. IMPRESSION: Postop changes of C5 through C7 ACDF. Endplate osteophytes are noted at C6-C7 level resulting in very mild central canal narrowing. No neuroforaminal stenosis is seen. Dictated by: Dictated on workstation # [id number]
--- NOTE | 2018-02-14 15:49 | Diagnostic Imaging Report ---
INDICATION: Neck pain. PROCEDURE: Myelogram, cervical. DESCRIPTION OF PROCEDURE: The patient was brought to the fluoroscopy room and placed on the table in the prone position. The skin of the low back was prepped and draped in the usual sterile fashion. A small amount of 1% lidocaine was utilized for local anesthesia. A 21-gauge needle was advanced into the lumbar thecal sac at the L4 level. 10 cc of Omnipaque 300 was injected under fluoroscopy observation. Needle was withdrawn and hemostasis was obtained. The patient was tilted headdown position. Contrast flowed into the thoracic and then the cervical spine. Spot films of the cervical spine were obtained. Patient was then sent to CT for post myelography CT. Preliminary radiograph does show postsurgical changes of the thoracic and lumbar spine. There is a spinal stimulator in the lower thoracic spine at approximately the T8-9 level. There is spinal instrumentation with vertical stabilization rods and pedicle screws on the right transfixing the L4-S1 levels. There are also postop changes of anterior lumbar interbody fusion at the L4-5 and L5-S1 levels. Images over the cervical spine are somewhat limited due to dilute contrast. The patient has had ACDF with anterior plate and screws transfixing the C5-C7 levels. Hardware appears to be intact. Cervical spine will be assessed on sonography CT. IMPRESSION: Cervical myelogram, as described. Dictated by: Dictated on workstation # [id number]
== END 2018-02-14 15:15 | disposition home or self-care (01) ==
LOC: RAD 06:54
PROVIDERS: ATTEND Orthopaedic Surgery Orthopaedic Surgery of the Spine
DX: M48.02 Spinal stenosis, cervical region (principal); M25.78 Osteophyte, vertebrae; Z98.1 Arthrodesis status
CPT/HCPCS: 36415; 62284; 72126; 72240; 77002; 85027; 85610; 85730

== ENCOUNTER 2018-10-28 11:10 | Emergency (ER) | payer MEDICARE ==
[~2018-10-28] VITALS: Ht 170.2 cm; Wt 72.6 kg
--- NOTE | 2018-10-28 11:31 | ED General ---
General Stated Complaint: RASH ON LT ARM AND LT FOOT PAIN Source of Information: Patient Exam Limitations: No Limitations History of Present Illness Date Seen by Provider: October 28, 2018 Time Seen by Provider: 11:25 Initial Comments 47-year-old female who presents to the emergency room with complaints of left toe pain after moving a desk yesterday that caused the distal fall over and landed on her foot. She has ecchymosis and swelling to the first and second toe of the left foot. She is able to ambulate without difficulties. She also has a rash on her left arm that she's had for approximately 2 and half weeks. She's been treated for poison giovanni with no improvement with steroids and topical creams. She reports that she has recently moved into a new home 3 weeks ago. Timing/Duration: 1-2 Days Associated Systoms: Denies Symptoms Allergies and Home Medications Allergies Coded Allergies: amoxicillin trihydrate (Verified Allergy, Unknown, 10/28/18) RASH, BUT IS ABLE TO TAKE PCN INJECTION baclofen (Unverified Allergy, Unknown, RASH, 10/28/18) paroxetine HCl (Verified Allergy, Unknown, 10/28/18) potassium clavulanate (Verified Allergy, Unknown, 10/28/18) RASH, BUT IS ABLE TO TAKE PCN INJECTION Uncoded Allergies: BACTRIM DS (Allergy, Unknown, 10/28/18) Home Medications Aripiprazole 15 Mg Tablet, 15 MG PO HS, (Reported) Cyclobenzaprine Hcl 10 Mg Tablet, 10 MG PO TID, (Reported) Docusate Sodium 100 Mg Cap, 200 MG PO BID, (Reported) TAKE 2 (100MG) TABS Duloxetine Hcl 30 Mg Cap, 60 MG PO BID, (Reported) TAKE 2 (30MG) TABS Gabapentin 800 Mg Tablet, 800 MG PO QID, (Reported) Gemfibrozil 600 Mg Tablet, 600 MG PO BID, (Reported) Hydrocodone Bit/Acetaminophen 1 Each Tablet, 2 EACH PO Q6H PRN for PAIN, (Reported) Hydrocodone Bit/Acetaminophen 1 Tab Tab, 1 EACH PO Q6H PRN for PAIN Prescribed by: MOLLY FORTE on 12/21/17 1456 Omeprazole 20 Mg Capsule.dr, 20 MG PO BID Prescribed by: STALIN CARMONA on 09/20/15 1404 Ondansetron 8 Mg Tab.rapdis, 8 MG PO Q6H PRN for NAUSEA Prescribed by: GERARDO COLON on 06/27/14 1334 Phenazopyridine HCl 200 Mg Tablet, 1 TAB PO Q8H PRN for PAIN Prescribed by: GERARDO COLON on 01/15/16 1314 Polyethylene Glycol 119 Gm Btl, 17 GM PO DAILY, (Reported) Prednisone 20 Mg Tab, 40 MG PO DAILY Prescribed by: RIGO DAS on 12/22/17 2137 Quetiapine Fumarate 100 Mg Tablet, 200 MG PO HS, (Reported) Patient Home Medication List Home Medication List Reviewed: Yes Review of Systems Review of Systems Constitutional: see HPI; No chills, No fever Musculoskeletal: see HPI, joint pain (left foot and toe pain) Skin: see HPI, rash All Other Systems Reviewed Negative Unless Noted: Yes Past Hbehhrm-Hneecn-Bgpejm Hx Past Med/Social Hx: Reviewed Nursing Past Med/Soc Hx Patient Social History Type Used: Cigarettes Former Smoker, Quit: Jan 27, 2015 Recent Foreign Travel: No Contact w/Someone Who Travel: No Recent Hopitalizations: No Immunizations Up To Date Tetanus Booster (TDap): More than 5yrs PED Vaccines UTD: Yes Past Medical History Surgeries: Yes (lumbar spine sx x2, neck sx x1, breast augmentation, tummy tuck, R carpal t) Breast, 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, Orthopedic Respiratory: Yes Asthma Cardiac: Yes (hx of TACHYCARDIA) Irregular Heartbeat Neurological: Yes (LUMBAR STENOSIS) 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 Gastrointestinal: Yes Chronic Constipation, Gall Bladder Disease Musculoskeletal: Yes Back Injury, Chronic Back Pain Endocrine: No Loss of Vision: Bilateral Cancer: No Psychosocial: Yes Depression Integumentary: No Blood Disorders: Yes (HEP C) Adverse Reaction/Blood Tranf: No Family Medical History Reviewed Nursing Family Hx Aphasia Arthritis 19 MOTHER Cardiovascular disease 19 MOTHER Diabetes mellitus 19 MOTHER FH: Meniere's disease 19 FATHER FH: atrial fibrillation 19 MOTHER FH: back pain 19 FATHER 19 MOTHER FHx: AAA 19 MOTHER Hypertension 19 FATHER 19 MOTHER Osteoporosis 19 MOTHER Thyroid disease G8 SISTER No Pertinent Family Hx Physical Exam Vital Signs Vital Signs - First Documented 10/28/18 11:27 Temp 96.9 Pulse 119 Resp 18 B/P (MAP) 133/81 (98) Capillary Refill : Height, Weight, BMI Height: 5'7.00" Weight: 145lbs. 0.0oz. 65.232747td; 24.2 BMI Method:Stated General Appearance: No Apparent Distress, WD/WN Respiratory: Chest Non Tender, Lungs Clear, Normal Breath Sounds, No Accessory Muscle Use, No Respiratory Distress Cardiovascular: Regular Rate, Rhythm, No Edema, No Gallop, No JVD, No Murmur, Normal Peripheral Pulses Extremity: Normal Capillary Refill, Other (ecchymosis and swelling to the first and second toe on the left foot.) Neurologic/Psychiatric: Alert, Oriented x3, Normal Mood/Affect Skin: Normal Color, Warm/Dry, Other ( numerous bite appearing areas to single sides of the extremities.) Progress/Results/Core Measures Suspected Sepsis SIRS Temperature: Pulse: Respiratory Rate: Blood Pressure / Mean: Results/Orders My Orders Orders - MOLLY FORTE Toe(S) (10/28/18 11:24) Vital Signs/I&O 10/28/18 11:27 Temp 96.9 Pulse 119 Resp 18 B/P (MAP) 133/81 (98) Capillary Refill : Diagnostic Imaging Diagonstic Imaging: Xray Comments NAME: ALIX MARTINEZ [facility] REC#: [id number] PT STATUS: REG ER : 1970 PHYSICIAN: MOLLY FORTE ADMIT DATE: 10/28/18/ER Draft Date of Exam:10/28/18 TOE(S) INDICATION: Furniture fell on left toes. First through third toe pain. FINDINGS: Alignment of the foot appears appropriate. There are no findings of an acute fracture. There do, however, appear to be arthritic erosions involving the first metatarsal head. IMPRESSION: 1. No evidence of left foot or left toe fractures or dislocation. There are lucencies involving the first metatarsal head that are likely reflective of arthritic erosions. Dictated on workstation # [id number] Dict: 10/28/18 1136 Trans: 10/28/18 1147 [id number] Interpreted by: PEDRO SHEPHERD MD Electronically signed by: Reviewed: Reviewed by Me Departure Impression Primary Impression: Bed bug bite Additional Impression: Contusion of foot Disposition: 01 HOME, SELF-CARE Condition: Stable/Unchanged Departure-Patient Inst. Decision time for Depature: 11:50 Referrals: JAVIER REEDER DO (PCP/Family) Primary Care Physician Patient Instructions: Bedbugs, Contusion (DC) Add. Discharge Instructions: You may use ibuprofen and Tylenol as directed by the bottle for pain relief. Ice to the sore areas at 20 minute intervals. Be sure you treat your home appropriately for bed bugs to prevent further bites. Follow-up with your primary care provider within 1 week for recheck if no improvement. Return back to the emergency room for worsening symptoms or concerns as needed. MOLLY FORTE October 28, 2018 11:31
--- NOTE | 2018-10-28 11:48 | Diagnostic Imaging Report ---
INDICATION: Furniture fell on left toes. First through third toe pain. FINDINGS: Alignment of the foot appears appropriate. There are no findings of an acute fracture. There do, however, appear to be arthritic erosions involving the first metatarsal head. IMPRESSION: 1. No evidence of left foot or left toe fractures or dislocation. There are lucencies involving the first metatarsal head that are likely reflective of arthritic erosions. Dictated by: Dictated on workstation # [id number]
[2018-10-28 12:01] VITALS: BP 133/81
== END 2018-10-28 12:01 | disposition home or self-care (01) ==
LOC: EDUNIT# 11:10 → ER 11:11
DX: S90.32XA Contusion of left foot, initial encounter (principal); J45.909 Unspecified asthma, uncomplicated; F32.9 Major depressive disorder, single episode, unspecified; B19.20 Unspecified viral hepatitis C without hepatic coma; M48.061 Spinal stenosis, lumbar region without neurogenic claudication; Z87.19 Personal history of other diseases of the digestive system; Z88.0 Allergy status to penicillin; Z88.8 Allergy status to other drugs, medicaments and biological substances; Z82.49 Family history of ischemic heart disease and other diseases of the circulatory system; Z88.1 Allergy status to other antibiotic agents; Z79.52 Long term (current) use of systemic steroids; Z87.891 Personal history of nicotine dependence; Z98.890 Other specified postprocedural states; Z90.710 Acquired absence of both cervix and uterus; W57.XXXA Bitten or stung by nonvenomous insect and other nonvenomous arthropods, initial encounter
CPT/HCPCS: 73660

== ENCOUNTER 2019-02-12 03:15 | Emergency (ER) | payer MEDICARE ==
[~2019-02-12] VITALS: Ht 170.1 cm; Wt 70.0 kg
[~2019-02-12 03:15] MED LIST changes: -OMEP20CA12 PO; +OMEP20CA13 PO
[2019-02-12 03:46] LABS: BASOPHILS % (AUTO) 1 % (0-10); EOSINOPHILS # (AUTO) 0.1 10^3/uL (0.0-0.3); EOSINOPHILS % (AUTO) 2 % (0-10); HEMATOCRIT 45 % (35-52); HEMOGLOBIN 15.4 G/DL (11.5-16.0); LYMPHOCYTES # (AUTO) 2.4 X 10^3 (1.0-4.0); LYMPHOCYTES % (AUTO) 28 % (12-44); MEAN CORPUSCULAR HEMOGLOBIN 30 PG (25-34); MEAN CORPUSCULAR HGB CONC 34 G/DL (32-36); MEAN CORPUSCULAR VOLUME 89 FL (80-99); MEAN PLATELET VOLUME 9.5 FL (7.4-10.4); MONOCYTES # (AUTO) 0.8 X 10^3 (0.0-1.0); MONOCYTES % (AUTO) 9 % (0-12); NEUTROPHILS % (AUTO) 60 % (42-75); PLATELET COUNT 228 10^3/uL (130-400); RED CELL DISTRIBUTION WIDTH 13.5 % (10.0-14.5); WHITE BLOOD COUNT 8.4 10^3/uL (4.3-11.0)
[2019-02-12 03:57] LABS: INR 0.9 (0.8-1.4); PROTHROMBIN TIME PATIENT 12.7 SEC (12.2-14.7)
[2019-02-12] MEDS: ONDANSETRON 4 MG/2 ML (SDV) Z0FRAN IVP ONE (03:57)
[2019-02-12] MEDS: LACTATED RINGERS 1,000 ML IV ONE (03:57)
[2019-02-12 04:03] LABS: ALANINE AMINOTRANSFERASE 10 U/L (0-55); ALBUMIN 4.2 GM/DL (3.2-4.5); ALKALINE PHOSPHATASE 100 U/L (40-136); AMYLASE 57 U/L (25-125); BILIRUBIN,TOTAL 0.3 MG/DL (0.1-1.0); BUN/CREATININE RATIO 15; CALCIUM 9.6 MG/DL (8.5-10.1); CARBON DIOXIDE 26 MMOL/L (21-32); CHLORIDE 101 MMOL/L (98-107); CREATININE SERUM 0.72 MG/DL (0.60-1.30); GFR ESTIMATED > 60; GLUCOSE 92 MG/DL (70-105); LIPASE 37 U/L (8-78); POTASSIUM 3.6 MMOL/L (3.6-5.0); SODIUM 139 MMOL/L (135-145); TOTAL PROTEIN 7.5 GM/DL (6.4-8.2)
[2019-02-12 04:13] LABS: MAGNESIUM 2.2 MG/DL (1.6-2.4)
[2019-02-12 04:52] LABS: BILIRUBIN,URINE NEGATIVE (NEGATIVE); CLARITY,URINE CLEAR; COLOR,URINE YELLOW; GLUCOSE, URINE (UA) NEGATIVE (NEGATIVE); KETONES,URINE NEGATIVE (NEGATIVE); LEUKOCYTE ESTERASE ,URINE 2+ (NEGATIVE); NITRITE,URINE NEGATIVE (NEGATIVE); PH,URINE 7 (5-9); PROTEIN,URINE NEGATIVE (NEGATIVE); UROBILINOGEN,URINE NORMAL (NORMAL)
[2019-02-12 05:05] LABS: AMPHETAMINE SCREEN, URINE POSITIVE (NEGATIVE); BARBITURATE SCREEN URINE NEGATIVE (NEGATIVE); BENZODIAZEPINES SCREEN URINE NEGATIVE (NEGATIVE); CANNABINOID SCREEN, URINE NEGATIVE (NEGATIVE); COCAINE SCREEN URINE NEGATIVE (NEGATIVE); METHADONE STAT NEGATIVE (NEGATIVE); METHAMPHETAMINE SCREEN URINE S POSITIVE (NEGATIVE); OPIATE SCREEN URINE NEGATIVE (NEGATIVE); OXYCODONE STAT NEGATIVE (NEGATIVE); PROPOXYPHENE STAT NEGATIVE (NEGATIVE); TRICYCLIC ANTIDEPRESSANTS SCRE NEGATIVE (NEGATIVE)
[2019-02-12 05:06] LABS: BACTERIA,URINE TRACE /HPF; WBC,URINE RARE /HPF
--- NOTE | 2019-02-12 05:31 | ED General ---
General Chief Complaint: General Problems/Pain Stated Complaint: ABD PAIN, PUSS FILLED BLISTERS ON LEGS,SAUNDERS,CHILLS Nursing Triage Note: PT PRESENTS AMBULATORY TO ROOM 5, STATES SHE HAS FELT FEVERISH AND CHILLS FOR THE LAST 4 DAYS, PT STATES SHE SMOKED METH AROUND THE SAME TIME. PT ALSO REPORTS SEVERAL ABSCESSES TO BILATERAL THIGHS AND UPPER ARMS, WELL HEADACHE Nursing Sepsis Screen: Possible Severe Sepsis Risk Source of Information: Patient (TALKS NON-STOP AT LENGTH, DIFFICULT TO KEEP ON SUBJECT. APPEARS TO BE UNDER THE INFLUENCE OF SOME SUBSTANCE/S) History of Present Illness Date Seen by Provider: Feb 12, 2019 Time Seen by Provider: 03:30 Initial Comments PT ARRIVES VIA POV FROM HOME MULTIPLE COMPLAINTS STATES SHE HAS BEEN SICK "FOR A COUPLE OF WEEKS" "BUT WORSE THE LAST 3 OR 4 DAYS" C/O NAUSEA, NO VOMITING. NO DIARRHEA C/O GENERALIZED WEAKNESS C/O CHILLS, BUT HAS NOT CHECKED TEMP NO URINARY SYMPTOMS C/O ABDOMINAL DISCOMFORT--STATES "IT FEELS LIKE THERE IS SOMETHING IN THERE AND IT'S PUSHING EVERYTHING OUT" PT IS NOT SURE WHAT OR WHEN SHE LAST ATE. NO SICK CONTACTS WITH SIMILAR ALSO C/O MULTIPLE SORES TO LEGS AND ARMS--STATES "I THOUGHT THEY WERE BUG BITES" --NOW THEY ARE HURTING "AND I HURT AROUND MY NEUROSTIMULATOR" --THIS HAS BEEN PRESENT FOR YEARS, HAS THE PAIN AND IS NO DIFFERENT TODAY PT LATER ADMITS THAT SHE LAST SMOKED METH 3-4 DAYS AGO, WHEN ALL THESE SYMPTOMS GOT WORSE PT STATES SHE IS SUPPOSED TO BE ON MULTIPLE PSYCH MEDICATIONS, BUT SHE QUIT TAKING THEM "A LONG TIME AGO" --CANNOT STATE HOW LONG IT HAS BEEN SINCE SHE LAST TOOK ANY OF HER MEDICATIONS--STATES SHE HAS BEEN PRESCRIBED ABILIFY, NEUROONTIN, LOPID, FLEXERIL, MEDICATION FOR GERD, POSSIBLY OTHERS--CAN'T REMEMBER STATES SHE WENT TO [facility] 4-5 DAYS AGO FOR LEFT CHEST PAIN WITH BREATHING. WAS GIVEN RX FOR UNKNOWN ANTIBIOTIC--STATES SHE ONLY TOOK 1 PILL, AND THEN LOST THE REST OF THE PILLS. STATES SHE WAS ALSO PRESCRIBED PREDNISONE, WHICH SHE STATES SHE IS STILL TAKING PCP: NANCY CHAN--STATES SHE HAS NOT SEEN HIM IN OVER A YEAR RECENTLY HAS BEEN TO [facility] Allergies and Home Medications Allergies Coded Allergies: amoxicillin trihydrate (Verified Allergy, Unknown, 10/28/18) RASH, BUT IS ABLE TO TAKE PCN INJECTION baclofen (Unverified Allergy, Unknown, RASH, 10/28/18) paroxetine HCl (Verified Allergy, Unknown, 10/28/18) potassium clavulanate (Verified Allergy, Unknown, 10/28/18) RASH, BUT IS ABLE TO TAKE PCN INJECTION Uncoded Allergies: BACTRIM DS (Allergy, Unknown, 10/28/18) Home Medications Hyoscyamine Sulfate 0.125 Mg Tab.subl, 1-2 TAB SL Q4H Prescribed by: MINDY NORRIS on 02/12/19 0600 Ondansetron 4 Mg Tab.rapdis, 4 MG PO Q4H Prescribed by: MINDY NORRIS on 02/12/19 0600 Prednisone 20 Mg Tab, 40 MG PO DAILY Prescribed by: RIGO DAS on 12/22/17 9335 Patient Home Medication List Home Medication List Reviewed: Yes Review of Systems Review of Systems Constitutional: chills; No fever EENTM: no symptoms reported Respiratory: no symptoms reported; No cough, No short of breath Cardiovascular: see HPI (NO CHEST PAIN NOW) Gastrointestinal: see HPI, abdominal pain; No constipation, No diarrhea; nausea; No vomiting Genitourinary: no symptoms reported Musculoskeletal: see HPI Skin: see HPI Psychiatric/Neurological: No Symptoms Reported Hematologic/Lymphatic: No Symptoms Reported Immunological/Allergic: no symptoms reported Past Gdftapy-Guawcv-Utqqby Hx Patient Social History Alcohol Use: Occasionally Uses Alcohol Beverage of Choice: Beer Recreational Drug Use: Yes (SMOKES METH, THC--DENIES IV USE) Drug of Choice: SMOKES METH, THC--DENIES IV DRUG USE Smoking Status: Current Everyday Smoker (1/2 PPD) Type Used: Cigarettes (1/2 PPD) Recent Foreign Travel: No Contact w/Someone Who Travel: No Recent Infectious Disease Expo: No Recent Hopitalizations: No Physical Abuse: No Sexual Abuse: No Mistreated: No Fear: No Immunizations Up To Date Tetanus Booster (TDap): More than 5yrs PED Vaccines UTD: Yes Past Medical History Surgeries: Yes (LUMBAR SPINE SURGERY/FUSION WITH NEUROSTIMULATOR PLACEMENT; C- SPINE FUSION; BREAST LIFT AND AUGMENTATION; ABDOMINOPLASTY/"TUMMY TUCK" ; RIGHT CARPAL TUNNEL SURGERY; HYST / LATER BSO; EGD'S AND MULTIPLE COLONOSCOPIES ) Breast, 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, Oophorectomy, Orthopedic Respiratory: Yes Asthma Cardiac: Yes (hx of TACHYCARDIA) High Cholesterol, Irregular Heartbeat Neurological: No : No 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 Disorders: No [employer] History: 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 Genitourinary: No Gastrointestinal: Yes (HEPATITIS C--S/P TREATMENT; PT STATES SHE HAS GALLSTONES--NO SURGERY) Gastroesophageal Reflux, Chronic Constipation, Gall Bladder Disease, Irritable Bowel Musculoskeletal: Yes (CHRONIC NECK AND BACK PAIN--S/P CERVICAL SPINE FUSION AND LUMBAR FUSION WITH NEUROSTIMULATOR) Back Injury, Chronic Back Pain Endocrine: No HEENT: No Loss of Vision: Bilateral Cancer: No Psychosocial: Yes Anxiety, Depression Integumentary: No Blood Disorders: Yes (HEP C) Adverse Reaction/Blood Tranf: No Family Medical History Aphasia Arthritis 19 MOTHER Cardiovascular disease 19 MOTHER Diabetes mellitus 19 MOTHER FH: Meniere's disease 19 FATHER FH: atrial fibrillation 19 MOTHER FH: back pain 19 FATHER 19 MOTHER FHx: AAA 19 MOTHER Hypertension 19 FATHER 19 MOTHER Osteoporosis 19 MOTHER Thyroid disease G8 SISTER No Pertinent Family Hx Physical Exam Vital Signs Vital Signs - First Documented 02/12/19 03:20 Temp 35.3 Pulse 99 Resp 20 B/P (MAP) 114/89 (97) Pulse Ox 97 O2 Delivery Room Air Capillary Refill : Less Than 3 Seconds Height, Weight, BMI Height: 5'7.00" Weight: 160lbs. 0.0oz. 72.375512an; 24.00 BMI Method:Stated General Appearance: No Apparent Distress, WD/WN HEENT: PERRL/EOMI Neck: Full Range of Motion, Normal Inspection, Non Tender Respiratory: Normal Breath Sounds, No Accessory Muscle Use, No Respiratory Distress Cardiovascular: Regular Rate, Rhythm, No Edema, No JVD, No Murmur, Normal Peripheral Pulses Gastrointestinal: Normal Bowel Sounds, No Organomegaly, No Pulsatile Mass, Non Tender, Soft Back: No CVA Tenderness Extremity: Normal Capillary Refill, Normal Range of Motion, No Calf Tenderness, No Pedal Edema Neurologic/Psychiatric: Alert, Oriented x3, No Motor/Sensory Deficits, 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 SEVERAL WITH SURROUNDING ERYTHEMA/INDURATION. NO AREAS OF FLUCTUANCE OR DRAINAGE.NO STREAKS) Progress/Results/Core Measures Suspected Sepsis Recent Fever Within 48 Hours: No Infection Criteria Present: Suspected New Infection New/Unexplained Altered Menta: No Sepsis Screen: Possible Severe Sepsis Risk SIRS Temperature: Pulse: 99 Respiratory Rate: 20 Laboratory Tests 02/12/19 03:35: White Blood Count 8.4 Blood Pressure 114 /89 Mean: 97 Laboratory Tests 02/12/19 03:35: Creatinine 0.72, INR Comment 0.9, Platelet Count 228, Total Bilirubin 0.3 Results/Orders Lab Results Laboratory Tests Test 02/12/19 03:35 02/12/19 04:40 Range/Units White Blood Count 8.4 4.3-11.0 10^3/uL Red Blood Count 5.10 4.35-5.85 10^6/uL Hemoglobin 15.4 11.5-16.0 G/DL Hematocrit 45 35-52 % Mean Corpuscular Volume 89 80-99 FL Mean Corpuscular Hemoglobin 30 25-34 PG Mean Corpuscular Hemoglobin Concent 34 32-36 G/DL Red Cell Distribution Width 13.5 10.0-14.5 % Platelet Count 228 130-400 10^3/uL Mean Platelet Volume 9.5 7.4-10.4 FL Neutrophils (%) (Auto) 60 42-75 % Lymphocytes (%) (Auto) 28 12-44 % Monocytes (%) (Auto) 9 0-12 % Eosinophils (%) (Auto) 2 0-10 % Basophils (%) (Auto) 1 0-10 % Neutrophils # (Auto) 5.0 1.8-7.8 X 10^3 Lymphocytes # (Auto) 2.4 1.0-4.0 X 10^3 Monocytes # (Auto) 0.8 0.0-1.0 X 10^3 Eosinophils # (Auto) 0.1 0.0-0.3 10^3/uL Basophils # (Auto) 0.0 0.0-0.1 10^3/uL Prothrombin Time 12.7 12.2-14.7 SEC INR Comment 0.9 0.8-1.4 Activated Partial Thromboplast Time 33 24-35 SEC Sodium Level 139 135-145 MMOL/L Potassium Level 3.6 3.6-5.0 MMOL/L Chloride Level 101 98-107 MMOL/L Carbon Dioxide Level 26 21-32 MMOL/L Anion Gap 12 5-14 MMOL/L Blood Urea Nitrogen 11 7-18 MG/DL Creatinine 0.72 0.60-1.30 MG/DL Estimat Glomerular Filtration Rate > 60 BUN/Creatinine Ratio 15 Glucose Level 92 70-105 MG/DL Calcium Level 9.6 8.5-10.1 MG/DL Corrected Calcium 9.4 8.5-10.1 MG/DL Magnesium Level 2.2 1.6-2.4 MG/DL Total Bilirubin 0.3 0.1-1.0 MG/DL Aspartate Amino Transf (AST/SGOT) 12 5-34 U/L Alanine Aminotransferase (ALT/SGPT) 10 0-55 U/L Alkaline Phosphatase 100 40-136 U/L Total Protein 7.5 6.4-8.2 GM/DL Albumin 4.2 3.2-4.5 GM/DL Amylase Level 57 25-125 U/L Lipase 37 8-78 U/L Serum Alcohol < 10 <10 MG/DL Urine Color YELLOW Urine Clarity CLEAR Urine pH 7 5-9 Urine Specific [place] 1.010 L 1.016-1.022 Urine Protein NEGATIVE NEGATIVE Urine Glucose (UA) NEGATIVE NEGATIVE Urine Ketones NEGATIVE NEGATIVE Urine Nitrite NEGATIVE NEGATIVE Urine Bilirubin NEGATIVE NEGATIVE Urine Urobilinogen NORMAL NORMAL MG/DL Urine Leukocyte Esterase 2+ H NEGATIVE Urine RBC (Auto) NEGATIVE NEGATIVE Urine RBC NONE /HPF Urine WBC RARE /HPF Urine Squamous Epithelial Cells 2-5 /HPF Urine Crystals NONE /LPF Urine Bacteria TRACE /HPF Urine Casts NONE /LPF Urine Mucus NEGATIVE /LPF Urine Culture Indicated NO Urine Opiates Screen NEGATIVE NEGATIVE Urine Oxycodone Screen NEGATIVE NEGATIVE Urine Methadone Screen NEGATIVE NEGATIVE Urine Propoxyphene Screen NEGATIVE NEGATIVE Urine Barbiturates Screen NEGATIVE NEGATIVE Ur Tricyclic Antidepressants Screen NEGATIVE NEGATIVE Urine Phencyclidine Screen NEGATIVE NEGATIVE Urine Amphetamines Screen POSITIVE H NEGATIVE Urine Methamphetamines Screen POSITIVE H NEGATIVE Urine Benzodiazepines Screen NEGATIVE NEGATIVE Urine Cocaine Screen NEGATIVE NEGATIVE Urine Cannabinoids Screen NEGATIVE NEGATIVE My Orders Orders - MINDY NORRIS DO Ed Iv/Invasive Line Start (02/12/19 03:31) Amylase (02/12/19 03:31) Cbc With Automated Diff (02/12/19 03:31) Comprehensive Metabolic Panel (02/12/19 03:31) Lipase (02/12/19 03:31) Protime With Inr (02/12/19 03:31) Partial Thromboplastin Time (02/12/19 03:31) Ua Culture If Indicated (02/12/19 03:31) Drug Screen Stat (Urine) (02/12/19 03:31) Alcohol (02/12/19 03:53) Magnesium (02/12/19 03:53) Ed Iv/Invasive Line Start (02/12/19 03:53) Lactated Ringers (Lr 1000 Ml Iv Solution (02/12/19 03:53) Ondansetron Injection (Zofran Injectio (02/12/19 04:00) Acute Abd Series (02/12/19 04:43) Ct Abd/Pelv W (Appendicitis) (02/12/19 04:43) Medications Given in ED Current Medications Medications Dose Ordered Sig/Michael Route Start Time Stop Time Status Last Admin Dose Admin Lactated Ringer's 1,000 ml @ 0 mls/hr Q0M ONCE IV 02/12/19 03:53 02/12/19 03:55 DC 02/12/19 03:57 1,000 MLS/HR Ondansetron HCl 4 mg ONCE ONCE IVP 02/12/19 04:00 02/12/19 04:01 DC 02/12/19 03:57 4 MG Vital Signs/I&O 02/12/19 03:20 Temp 35.3 Pulse 99 Resp 20 B/P (MAP) 114/89 (97) Pulse Ox 97 O2 Delivery Room Air Capillary Refill : Less Than 3 Seconds Blood Pressure Mean: 97 Progress Note : Progress Note PT RESTED QUIETLY FOR ENTIRE ER STAY NAUSEA RESOLVED WITH ZOFRAN ECG Initial ECG Impression Date: Feb 12, 2019 Diagnostic Imaging Comments ABDOMEN XRAYS--NO ACUTE PROCESS, PENDING RADIOLOGIST REVIEW CT ABDOMEN/PELVIS--MILD CONSTIPATION, MILD MURAL THICKENING OF SEVERAL LOOPS OF SMALL BOWEL WHICH CAN BE SEEN WITH ENTERITIS--PER STAT RAD VIA FAX AT [phone] Reviewed: Reviewed by Me Departure Impression Primary Impression: Gastroenteritis Additional Impression: ILLICIT DRUG USE--METHAMPHETAMINES Disposition: 01 HOME, SELF-CARE Condition: Improved Departure-Patient Inst. Referrals: JAVIER REEDER DO (PCP/Family) Primary Care Physician Patient Instructions: Drug Abuse and Drug Addiction (DC), [id number], Methamphetamine Add. Discharge Instructions: NO DRUGS!! CLEAR LIQUIDS--WATER, BROTH, JELLO, GATORADE WHEN YOUR NAUSEA IS BETTER AND YOU ARE TOLERATING CLEAR LIQUIDS, ADD BRATS DIET TO CLEAR LIQUIDS--BANANAS, RICE, APPLESAUCE, TOAST, SALTINES FOLLOW UP WITH YOUR DR IN 2-3 DAYS IF NO BETTER All discharge instructions reviewed with patient and/or family. Voiced understanding. Scripts Hyoscyamine Sulfate (Levsin-Sl) 0.125 Mg Tab.subl 1-2 TAB SL Q4H for Abdominal Pain, #10 TAB Prov: MINDY NORRIS DO 02/12/19 Ondansetron (Ondansetron Odt) 4 Mg Tab.rapdis 4 MG PO Q4H for Nausea/Vomiting, #10 TAB Prov: MINDY NORRIS DO 02/12/19 MINDY NORRIS DO Feb 12, 2019 05:31
[2019-02-12] MEDS ORDERED: HYOS0.1283 SL ×2 (06:00→06:39)
[2019-02-12] MEDS ORDERED: ONDA4TAB11 PO ×2 (06:00→06:39)
--- NOTE | 2019-02-12 06:14 | Diagnostic Imaging Report ---
EXAMINATION: Single PA view of the chest with AP upright and supine views of the abdomen. INDICATION: Abdominal pain. COMPARISON: Chest radiographs performed on 09/20/2015. FINDINGS: The lungs are clear and the pulmonary vasculature is normal. No pneumothorax or large pleural effusion. The cardiomediastinal silhouette is normal. Partially imaged cervical fusion hardware is demonstrated. Spinal stimulator is demonstrated in the mid to lower thoracic spine. There is a nonobstructive bowel gas pattern. Gas and stool is scattered throughout the colon. There is moderate retained stool throughout the colon. No pneumoperitoneum. There is a 4 mm rounded calcification in the expected region of the left renal collecting system. Suture material is demonstrated in the pelvis. No acute osseous abnormality is appreciated. Lumbar spinal fusion hardware is demonstrated. Spinal stimulator power pack overlies the right lower abdomen. IMPRESSION: No radiographic evidence of acute chest disease. Nonobstructive bowel gas pattern. There is a 4 mm rounded calcification in the expected region of the left renal collecting system, possibly reflecting renal calculus, or related to fecal material in the bowel. Dictated by: Dictated on workstation # [id number]
--- NOTE | 2019-02-12 06:15 | Diagnostic Imaging Report ---
PROCEDURE: CT abdomen and pelvis with contrast, rule out appendicitis. TECHNIQUE: Multiple contiguous axial images were obtained through the abdomen and pelvis after the administration of intravenous contrast. INDICATION: Right lower quadrant abdominal pain. Concern for acute appendicitis. COMPARISON: No prior CT is available for comparison. FINDINGS: The lung bases are clear and the visualized heart is normal in size. Partially visualized bilateral breast implants are demonstrated. The liver, gallbladder, spleen, and pancreas are normal. There is no biliary or pancreatic ductal dilatation. There is a 1.0 x 1.5 cm left adrenal nodule. The right adrenal gland is normal. Kidneys are symmetric in size and demonstrate normal enhancement. There is a 4 mm calculus in the left upper pole collecting system. No renal calculus is demonstrated on the right. There is no hydronephrosis on either side. No ureteral abnormality is appreciated. The stomach is not well distended, limiting evaluation. The small bowel and colon are normal in course and caliber, without evidence of wall thickening or obstruction. The appendix is normal. There is no pneumoperitoneum, abdominal free fluid, or loculated collection. No lymphadenopathy is appreciated. There is mild calcified atherosclerotic plaque involving the abdominal aorta, without aneurysmal dilatation. There is no evidence of venous thrombosis. The bladder is normal. The uterus is surgically absent. No adnexal mass or pelvic free fluid. Abdominal wall is unremarkable. Multilevel degenerative changes involve the spine. The patient is status post fusion at the L4-S1 levels, with pedicle screws and interconnecting rods demonstrated on the right at the L4-S1 levels. Interbody fusion devices are demonstrated at the L4-5 and L5-S1 levels. Bony fusion is not demonstrated across these levels. The patient is also status post multilevel left laminectomy involving the lumbar spine. No acute osseous abnormality is identified. Spinal stimulator is demonstrated, with power pack in the right supragluteal subcutaneous fat soft tissues. IMPRESSION: No acute abdominal or pelvic pathology. No pneumoperitoneum, obstruction, or abscess formation. The appendix is normal. Nonobstructing left renal calculus. Incidental note is made of a left adrenal nodule which measures up to 1.5 cm. Although incompletely characterized, this nodule is probably benign in the absence of a known primary malignancy. Consider 12 month follow-up adrenal CT, per [employer] Incidental Findings Committee white paper management recommendations for adrenal masses. Also, consideration for routine biochemical evaluation recommended (JACR 2017;14:[id number]). Findings are in agreement with initial teleradiology report. Dictated by: Dictated on workstation # [id number]
[2019-02-12 06:20] VITALS: BP 113/79
[2019-02-12] MEDS ORDERED: SULF1TAB35 PO (06:29)
[2019-02-12] MEDS ORDERED: MUPI1OIN6 TP (06:29)
== END 2019-02-12 06:21 | disposition home or self-care (01) ==
LOC: EDUNIT# 03:15 → ER 03:18
DX: K52.9 Noninfective gastroenteritis and colitis, unspecified (principal); F15.90 Other stimulant use, unspecified, uncomplicated; J45.909 Unspecified asthma, uncomplicated; E78.00 Pure hypercholesterolemia, unspecified; B19.20 Unspecified viral hepatitis C without hepatic coma; K21.9 Gastro-esophageal reflux disease without esophagitis; F41.9 Anxiety disorder, unspecified; F32.9 Major depressive disorder, single episode, unspecified; F17.210 Nicotine dependence, cigarettes, uncomplicated; Z88.1 Allergy status to other antibiotic agents; Z88.8 Allergy status to other drugs, medicaments and biological substances; Z79.52 Long term (current) use of systemic steroids; Z98.1 Arthrodesis status; Z90.710 Acquired absence of both cervix and uterus; Z82.49 Family history of ischemic heart disease and other diseases of the circulatory system
CPT/HCPCS: 36415; 74022; 74177; 80053; 80306; 80320; 81000; 82150; 83690; 83735; 85025; 85610; 85730; 96361; 96374

== ENCOUNTER 2019-07-26 19:24 | Emergency (ER) | payer SELFPAY ==
[~2019-07-26] VITALS: Ht 170 cm; Wt 75.0 kg
[~2019-07-26 19:24] MED LIST changes: +HYOS0.1283 SL; +MUPI1OIN6 TP; -OMEP20CA13 PO; +OMEP20CA18 PO; +ONDA4TAB11 PO; +SULF1TAB35 PO
[2019-07-26] MEDS ORDERED: BENZ100C18 PO (20:41)
[2019-07-26] MEDS ORDERED: AZIT250T PO (20:41)
[2019-07-26] MEDS ORDERED: ACYCLOVIR 400 MG TABLET (ZOVIRAX) PO STA (21:12)
[2019-07-26] MEDS ORDERED: ACYC800T PO (21:15)
--- NOTE | 2019-07-26 21:16 | ED Integumentary General ---
General Chief Complaint: Skin/Wound Problems Stated Complaint: PAINFUL BUMPS ON FACE/SIDE Nursing Triage Note: reddened area to right back, burning sensation. reports bumps on jaw. currently being treated for bronchitis History of Present Illness Date Seen by Provider: Jul 27, 2019 Time Seen by Provider: 21:00 Initial Comments 48-year-old female reports burning rash to right flank and indurated area to left jaw. She was recently diagnosed with bronchitis and started on prednisone and erythromycin. She has not received a shingles vaccine. Timing/Duration: getting worse Severity: mild Associated Symptoms: blisters, change in skin texture, rash Allergies and Home Medications Allergies Coded Allergies: amoxicillin trihydrate (Verified Allergy, Unknown, 10/28/18) RASH, BUT IS ABLE TO TAKE PCN INJECTION baclofen (Unverified Allergy, Unknown, RASH, 10/28/18) paroxetine HCl (Verified Allergy, Unknown, 10/28/18) potassium clavulanate (Verified Allergy, Unknown, 10/28/18) RASH, BUT IS ABLE TO TAKE PCN INJECTION Uncoded Allergies: BACTRIM DS (Allergy, Unknown, 10/28/18) Home Medications Acyclovir 800 Mg Tablet, 800 MG PO 5XD Prescribed by: DONI LANGE on 07/26/192114 Azithromycin 250 Mg Tablet, Unknown Dose PO UD, (Reported) TAKE 2 TABLETS TODAY, THEN TAKE 1 TABLET DAILY FOR 4 MORE DAYS Prednisone 20 Mg Tab, 40 MG PO DAILY Prescribed by: RIGO DAS on 12/22/172136 Patient Home Medication List Home Medication List Reviewed: Yes Review of Systems Review of Systems Constitutional: no symptoms reported, see HPI Skin: see HPI, pruritus, rash All Other Systems Reviewed Negative Unless Noted: Yes Past Rxldfmn-Xdooxg-Jbyies Hx Past Med/Social Hx: Reviewed Nursing Past Med/Soc Hx Patient Social History Alcohol Use: Occasionally Uses Number of Drinks Today: AA Alcohol Beverage of Choice: Beer Recreational Drug Use: No Drug of Choice: SMOKES METH, THC--DENIES IV DRUG USE Smoking Status: Current Everyday Smoker Type Used: Cigarettes Recent Foreign Travel: No Contact w/Someone Who Travel: No Recent Infectious Disease Expo: No Recent Hopitalizations: No Physical Abuse: No Sexual Abuse: No Mistreated: No Fear: No Immunizations Up To Date Tetanus Booster (TDap): More than 5yrs PED Vaccines UTD: Yes Seasonal Allergies Seasonal Allergies: No Past Medical History Surgeries: Yes Breast, 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, Oophorectomy, Orthopedic Respiratory: Yes Asthma Cardiac: Yes (hx of TACHYCARDIA) High Cholesterol, Irregular Heartbeat Neurological: No : No 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 Genitourinary: No Gastrointestinal: Yes (HEPATITIS C--S/P TREATMENT; PT STATES SHE HAS GALLSTONES--NO SURGERY) Gastroesophageal Reflux, Chronic Constipation, Gall Bladder Disease, Irritable Bowel Musculoskeletal: Yes Back Injury, Chronic Back Pain Endocrine: No HEENT: No Loss of Vision: Bilateral Cancer: No Psychosocial: Yes Anxiety, Depression Integumentary: No Blood Disorders: Yes (HEP C) Adverse Reaction/Blood Tranf: No Family Medical History Aphasia Arthritis 19 MOTHER Cardiovascular disease 19 MOTHER Diabetes mellitus 19 MOTHER FH: Meniere's disease 19 FATHER FH: atrial fibrillation 19 MOTHER FH: back pain 19 FATHER 19 MOTHER FHx: AAA 19 MOTHER Hypertension 19 FATHER 19 MOTHER Osteoporosis 19 MOTHER Thyroid disease G8 SISTER No Pertinent Family Hx Physical Exam Vital Signs Vital Signs - First Documented 07/26/19 20:38 Temp 36.9 Pulse 113 Resp 22 B/P (MAP) 124/83 (97) Pulse Ox 97 O2 Delivery Room Air Capillary Refill : Less Than 3 Seconds General Appearance: WD/WN, no apparent distress HEENT: PERRL/EOMI, normal ENT inspection, TMs normal, pharynx normal Neck: lymphadenopathy (R), lymphadenopathy (L) (submandibular and submental) Cardiovascular: normal peripheral pulses, regular rate, rhythm Respiratory: chest non-tender, lungs clear, normal breath sounds Gastrointestinal: normal bowel sounds, non tender, soft Neurologic/Psychiatric: no motor/sensory deficits, alert, normal mood/affect, oriented x 3 Skin Problem Location: torso (right flank) Skin Problem Character: vesicular (with burning pain) Progress/Results/Core Measures Results/Orders My Orders Orders - DONI LANGE Acyclovir Capsule/Tablet (Zovirax Caps (07/26/19 21:12) Vital Signs/I&O 07/26/19 07/26/19 20:38 21:30 Temp 36.9 36.9 Pulse 113 113 Resp 22 22 B/P (MAP) 124/83 (97) 124/83 (97) Pulse Ox 97 97 O2 Delivery Room Air Blood Pressure Mean: 97 Departure Impression Primary Impression: Shingles Qualified Codes: B02.7 - Disseminated zoster Additional Impression: Bronchitis Disposition: 01 HOME, SELF-CARE Condition: Improved Departure-Patient Inst. Decision time for Depature: 21:10 Referrals: [facility]/JAVIER NAVAS DO (PCP) Primary Care Physician Patient Instructions: Alicja (DC) Add. Discharge Instructions: Take acyclovir as prescribed. Continue to use her medication prescribed for bronchitis. Apply warm moist compresses to chin as needed. Increase water intake, 16 ounces every 2 hours while awake. You may take Benadryl milligrams every 8 hours as needed for itching. Follow-up with your primary care provider if symptoms are not improving or worsen in the next 2-3 days. Return to the emergency department for new, urgent health care needs. All discharge instructions reviewed with patient and/or family. Voiced understanding. Scripts Acyclovir (Acyclovir) 800 Mg Tablet 800 MG PO 5XD, #35 TAB 0 Refills Prov: DONI LANGE 07/26/19 DONI LANGE Jul 26, 2019 21:16
[2019-07-26 21:30] VITALS: BP 124/83
== END 2019-07-26 21:30 | disposition home or self-care (01) ==
LOC: EDUNIT# 19:24 → ER 19:26
DX: B02.9 Zoster without complications (principal); J45.909 Unspecified asthma, uncomplicated; F17.210 Nicotine dependence, cigarettes, uncomplicated; Z88.0 Allergy status to penicillin; Z88.8 Allergy status to other drugs, medicaments and biological substances; Z88.1 Allergy status to other antibiotic agents; Z79.52 Long term (current) use of systemic steroids; Z82.49 Family history of ischemic heart disease and other diseases of the circulatory system
CPT/HCPCS: 99283

== ENCOUNTER 2019-09-22 19:36 | Emergency (ER) | payer MEDICARE ==
[~2019-09-22] VITALS: Ht 170 cm; Wt 75.0 kg
[2019-09-22] VITALS (9 sets, daily range): BP systolic 96–114; BP diastolic 59–87
[~2019-09-22 19:36] MED LIST changes: +ACYC800T PO; +AZIT250T PO; +BENZ100C18 PO
[2019-09-22 20:35] LABS: BILIRUBIN,URINE NEGATIVE (NEGATIVE); COLOR,URINE YELLOW; GLUCOSE, URINE (UA) NEGATIVE (NEGATIVE); KETONES,URINE NEGATIVE (NEGATIVE); LEUKOCYTE ESTERASE ,URINE 3+ (NEGATIVE); NITRITE,URINE NEGATIVE (NEGATIVE); PROTEIN,URINE 2+ (NEGATIVE)
[2019-09-22 20:36] LABS: BASOPHILS % (AUTO) 0 % (0-10); EOSINOPHILS # (AUTO) 0.1 10^3/uL (0.0-0.3); EOSINOPHILS % (AUTO) 1 % (0-10); HEMATOCRIT 42 % (35-52); HEMOGLOBIN 14.2 G/DL (11.5-16.0); LYMPHOCYTES # (AUTO) 2.2 X 10^3 (1.0-4.0); LYMPHOCYTES % (AUTO) 21 % (12-44); MEAN CORPUSCULAR HEMOGLOBIN 31 PG (25-34); MEAN CORPUSCULAR HGB CONC 34 G/DL (32-36); MEAN CORPUSCULAR VOLUME 91 FL (80-99); MEAN PLATELET VOLUME 9.4 FL (7.4-10.4); MONOCYTES % (AUTO) 9 % (0-12); NEUTROPHILS # (AUTO) 7.4 X 10^3 (1.8-7.8); NEUTROPHILS % (AUTO) 69 % (42-75); PLATELET COUNT 228 10^3/uL (130-400); RED CELL DISTRIBUTION WIDTH 13.6 % (10.0-14.5); WHITE BLOOD COUNT 10.7 10^3/uL (4.3-11.0)
[2019-09-22 20:40] LABS: CLARITY,URINE SL CLOUDY
[2019-09-22 20:41] LABS: BACTERIA,URINE MODERATE /HPF; RBC,URINE 25-50 /HPF; SQUAMOUS EPITHELIAL CELL,UR 0-2 /HPF; WBC,URINE 25-50 /HPF
[2019-09-22 20:46] LABS: ALBUMIN 3.6 GM/DL (3.2-4.5); CHLORIDE 104 MMOL/L (98-107); POTASSIUM 4.2 MMOL/L (3.6-5.0); SODIUM 139 MMOL/L (135-145)
--- NOTE | 2019-09-22 20:47 | Diagnostic Imaging Report ---
INDICATION: Cough and congestion, headache. TECHNIQUE: Single view chest 8:38 PM. CORRELATION STUDY: 02/12/2019 FINDINGS: The heart size, mediastinal configuration and pulmonary vascularity are within normal limits. The lungs are clear with no consolidating infiltrate. There is no significant effusion or pneumothorax. Mid thoracic spine stimulator as well as fusion hardware of the cervical thoracic spine is present. IMPRESSION: 1. Negative for acute abnormality of the chest. Dictated by: Dictated on workstation # [id number]
[2019-09-22 20:48] LABS: GLUCOSE 112 MG/DL (70-105); TOTAL PROTEIN 6.6 GM/DL (6.4-8.2)
[2019-09-22 20:50] LABS: BILIRUBIN,TOTAL 0.3 MG/DL (0.1-1.0); CARBON DIOXIDE 25 MMOL/L (21-32)
[2019-09-22 20:52] LABS: ALKALINE PHOSPHATASE 83 U/L (40-136); GFR ESTIMATED 53
[2019-09-22 20:53] LABS: BUN/CREATININE RATIO 11
[2019-09-22 20:55] LABS: ALANINE AMINOTRANSFERASE 25 U/L (0-55)
--- NOTE | 2019-09-22 20:58 | ED General ---
General Chief Complaint: Cough/Cold/Flu Symptoms Stated Complaint: FEVER/COUGH/SOB Nursing Triage Note: TO ED VIA POV. PER STATEMENTS OF HX OF FEVER, COUGH, SOA PT WAS SENT TO [address]. PT STATES SHE HAS BEEN SICK FOR SEVERAL WEEKS WITH COUGH AND WAS SEEN BY PCP AT [facility] AND TREATED WITH STEROIDS AND Z PACK. COUGH CONTINUES WITH YELLOWISH/GREENISH SPUTUM. TODAY HER CHEST FEELS HEAVY AND HAS HAD LEFT SIDE CHEST PAIN SINCE 1300 TODAY RADIATING TO BACK. STATES HX OF HEART ATTACK WITH NO CARDIAC CATH. 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 Nursing Sepsis Screen: Possible Severe Sepsis Risk History of Present Illness Date Seen by Provider: Sep 22, 2019 Time Seen by Provider: 19:50 Initial Comments 48 year old presents for intermittent fevers (99.6 high), cough, myalgias, and SOA for 2-3 weeks. No history of chronic reps problems. She is homeless and lives in her car or stays with friends. No known [facility] exposure. She is on flagyl for trich, has 2 more days of medicine. Has been fighting this for approx 1 year, off and on. Partners have never been tested or treated. Modifying Factors: improves with Rest Associated Systoms: No Chest Pain; Cough, Fever/Chills; No Headaches, No Loss of Appetite; Malaise; No Nausea/Vomiting; Shortness of Air (from coughing), Weakness Allergies and Home Medications Allergies Coded Allergies: amoxicillin trihydrate (Verified Allergy, Unknown, 10/28/18) RASH, BUT IS ABLE TO TAKE PCN INJECTION baclofen (Unverified Allergy, Unknown, RASH, 10/28/18) paroxetine HCl (Verified Allergy, Unknown, 10/28/18) potassium clavulanate (Verified Allergy, Unknown, 10/28/18) RASH, BUT IS ABLE TO TAKE PCN INJECTION Uncoded Allergies: BACTRIM DS (Allergy, Unknown, 10/28/18) Home Medications Acyclovir 800 Mg Tablet, 800 MG PO 5XD Prescribed by: DONI LANGE on 07/26/192114 Azithromycin 250 Mg Tablet, Unknown Dose PO UD, (Reported) TAKE 2 TABLETS TODAY, THEN TAKE 1 TABLET DAILY FOR 4 MORE DAYS Cefdinir 300 Mg Capsule, 300 MG PO BID Prescribed by: DONI LANGE on 09/22/192112 Prednisone 20 Mg Tab, 40 MG PO DAILY Prescribed by: RIGO DAS on 12/22/172136 Patient Home Medication List Home Medication List Reviewed: Yes Review of Systems Review of Systems Constitutional: see HPI, fever, malaise, weakness EENTM: see HPI, no symptoms reported Respiratory: see HPI, cough (dry), dyspnea on exertion, short of breath Cardiovascular: no symptoms reported, see HPI; No chest pain Gastrointestinal: no symptoms reported, see HPI Genitourinary: see HPI, discharge, dysuria, frequency Musculoskeletal: no symptoms reported, see HPI Skin: no symptoms reported, see HPI; No rash All Other Systems Reviewed Negative Unless Noted: Yes Past Xecciij-Pwaoym-Kmaded Hx Past Med/Social Hx: Reviewed Nursing Past Med/Soc Hx Patient Social History Alcohol Use: Denies Use Number of Drinks Today: AA Alcohol Beverage of Choice: Beer Recreational Drug Use: No Drug of Choice: STATES HX OF SMOKING METH Smoking Status: Current Everyday Smoker Type Used: Cigarettes Recent Foreign Travel: No Contact w/Someone Who Travel: No Recent Infectious Disease Expo: No Recent Hopitalizations: No Physical Abuse: No Sexual Abuse: No Mistreated: No Fear: No Immunizations Up To Date Tetanus Booster (TDap): More than 5yrs PED Vaccines UTD: Yes Seasonal Allergies Seasonal Allergies: No Past Medical History Surgeries: Yes (RIGHT CARPAL TUNNEL) Breast, 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, Oophorectomy, Orthopedic Respiratory: Yes Asthma Cardiac: Yes (hx of TACHYCARDIA) Heart Attack, High Cholesterol, Irregular Heartbeat Neurological: No 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 Sexually Transmitted Disease: Yes (TRICHOMONAS) Genitourinary: No Gastrointestinal: Yes (HEPATITIS C--S/P TREATMENT; PT STATES SHE HAS GALLSTONES--NO SURGERY) Gastroesophageal Reflux, Chronic Constipation, Gall Bladder Disease, Irritable Bowel Musculoskeletal: Yes Back Injury, Chronic Back Pain Endocrine: No HEENT: No Loss of Vision: Bilateral Cancer: No Psychosocial: Yes Anxiety, Depression Integumentary: No Blood Disorders: Yes (HEP C) Adverse Reaction/Blood Tranf: No Family Medical History Aphasia Arthritis 19 MOTHER Cardiovascular disease 19 MOTHER Diabetes mellitus 19 MOTHER FH: Meniere's disease 19 FATHER FH: atrial fibrillation 19 MOTHER FH: back pain 19 FATHER 19 MOTHER FHx: AAA 19 MOTHER Hypertension 19 FATHER 19 MOTHER Osteoporosis 19 MOTHER Thyroid disease G8 SISTER No Pertinent Family Hx Physical Exam Vital Signs Vital Signs - First Documented 09/22/19 19:51 Pulse Ox 97 Capillary Refill : Less Than 3 Seconds Height, Weight, BMI Height: 5'7.00" Weight: 160lbs. 0.0oz. 72.597307em; 25.00 BMI Method:Stated General Appearance: No Apparent Distress, WD/WN Eyes: Bilateral Eye Normal Inspection, Bilateral Eye PERRL, Bilateral Eye EOMI HEENT: PERRL/EOMI, TMs Normal, Normal ENT Inspection, Pharynx Normal Neck: Full Range of Motion, Normal Inspection, Non Tender, Supple Respiratory: Chest Non Tender, Lungs Clear, Other (no cough since presenting to ED. ) Cardiovascular: Regular Rate, Rhythm, No Edema, No Murmur, Normal Peripheral Pulses Gastrointestinal: Normal Bowel Sounds, Non Tender, Soft Extremity: Normal Capillary Refill, Normal Inspection, Normal Range of Motion, Non Tender, No Pedal Edema Neurologic/Psychiatric: Alert, Oriented x3, No Motor/Sensory Deficits, Normal Mood/Affect Skin: Normal Color, Warm/Dry Progress/Results/Core Measures Suspected Sepsis Recent Fever Within 48 Hours: Yes Infection Criteria Present: Suspected New Infection New/Unexplained Altered Menta: No Sepsis Screen: Possible Severe Sepsis Risk SIRS Temperature: Pulse: 107 Respiratory Rate: 20 Laboratory Tests 09/22/19 20:20: White Blood Count 10.7 Blood Pressure 111 /87 Mean: 95 Laboratory Tests 09/22/19 20:20: Creatinine 1.10, Platelet Count 228, Total Bilirubin 0.3 Results/Orders Lab Results Laboratory Tests Test 09/22/19 19:55 09/22/19 20:20 Range/Units Urine Color YELLOW Urine Clarity SL CLOUDY Urine pH 7.0 5-9 Urine Specific [place] 1.020 1.016-1.022 Urine Protein 2+ H NEGATIVE Urine Glucose (UA) NEGATIVE NEGATIVE Urine Ketones NEGATIVE NEGATIVE Urine Nitrite NEGATIVE NEGATIVE Urine Bilirubin NEGATIVE NEGATIVE Urine Urobilinogen 0.2 < = 1.0 MG/DL Urine Leukocyte Esterase 3+ H NEGATIVE Urine RBC (Auto) 3+ H NEGATIVE Urine RBC 25-50 H /HPF Urine WBC 25-50 H /HPF Urine Squamous Epithelial Cells 0-2 /HPF Urine Crystals NONE /LPF Urine Bacteria MODERATE H /HPF Urine Casts NONE /LPF Urine Mucus NEGATIVE /LPF Urine Culture Indicated YES White Blood Count 10.7 4.3-11.0 10^3/uL Red Blood Count 4.60 4.35-5.85 10^6/uL Hemoglobin 14.2 11.5-16.0 G/DL Hematocrit 42 35-52 % Mean Corpuscular Volume 91 80-99 FL Mean Corpuscular Hemoglobin 31 25-34 PG Mean Corpuscular Hemoglobin Concent 34 32-36 G/DL Red Cell Distribution Width 13.6 10.0-14.5 % Platelet Count 228 130-400 10^3/uL Mean Platelet Volume 9.4 7.4-10.4 FL Neutrophils (%) (Auto) 69 42-75 % Lymphocytes (%) (Auto) 21 12-44 % Monocytes (%) (Auto) 9 0-12 % Eosinophils (%) (Auto) 1 0-10 % Basophils (%) (Auto) 0 0-10 % Neutrophils # (Auto) 7.4 1.8-7.8 X 10^3 Lymphocytes # (Auto) 2.2 1.0-4.0 X 10^3 Monocytes # (Auto) 1.0 0.0-1.0 X 10^3 Eosinophils # (Auto) 0.1 0.0-0.3 10^3/uL Basophils # (Auto) 0.0 0.0-0.1 10^3/uL Sodium Level 139 135-145 MMOL/L Potassium Level 4.2 3.6-5.0 MMOL/L Chloride Level 104 98-107 MMOL/L Carbon Dioxide Level 25 21-32 MMOL/L Anion Gap 10 5-14 MMOL/L Blood Urea Nitrogen 12 7-18 MG/DL Creatinine 1.10 0.60-1.30 MG/DL Estimat Glomerular Filtration Rate 53 BUN/Creatinine Ratio 11 Glucose Level 112 H 70-105 MG/DL Calcium Level 9.0 8.5-10.1 MG/DL Corrected Calcium 9.3 8.5-10.1 MG/DL Total Bilirubin 0.3 0.1-1.0 MG/DL Aspartate Amino Transf (AST/SGOT) 23 5-34 U/L Alanine Aminotransferase (ALT/SGPT) 25 0-55 U/L Alkaline Phosphatase 83 40-136 U/L Troponin I < 0.028 <0.028 NG/ML Total Protein 6.6 6.4-8.2 GM/DL Albumin 3.6 3.2-4.5 GM/DL Micro Results Microbiology 09/22/19 Influenza Types A,B Antigen (ARTURO) - Final, Complete My Orders Orders - NAZARIODONI Cbc With Automated Diff (09/22/19 19:49) Comprehensive Metabolic Panel (09/22/19 19:49) Ua Culture If Indicated (09/22/19 19:49) Ekg Tracing (09/22/19 20:00) Continuous Ekg Monitoring (09/22/19 20:00) Troponin I (09/22/19 20:26) Influenza A And B Antigens (09/22/19 20:26) Chest 1 View, Ap/Pa Only (09/22/19 20:27) Urine Culture (09/22/19 19:55) Ed Iv/Invasive Line Start (09/22/19 21:05) Ns Iv 1000 Ml (Sodium Chloride 0.9%) (09/22/19 21:05) Ceftriaxone For Iv Use (Rocephin For I (09/22/19 21:15) Medications Given in ED Current Medications Medications Dose Ordered Sig/Michael Route Start Time Stop Time Status Last Admin Dose Admin Ceftriaxone Sodium 1000 mg/ Sterile Water 10 ml @ 200 mls/hr ONCE ONCE IV 09/22/19 21:15 09/22/19 21:17 DC 09/22/19 21:11 200 MLS/HR Vital Signs/I&O 09/22/19 09/22/19 09/22/19 09/22/19 19:46 19:46 19:51 20:24 Temp 37.3 37.3 Pulse 107 91 94 Resp 20 20 18 B/P (MAP) 111/87 (95) 111/87 (95) 106/78 (87) Pulse Ox 97 95 O2 Delivery Room Air Room Air Room Air Room Air 09/22/19 09/22/19 09/22/19 09/22/19 20:25 20:40 20:55 21:10 Pulse 96 96 94 92 Resp 18 18 18 18 B/P (MAP) 114/83 (93) 103/79 (87) 114/82 (93) 111/79 (90) Pulse Ox 98 97 97 97 O2 Delivery Room Air Room Air Room Air Room Air Capillary Refill : Less Than 3 Seconds Blood Pressure Mean: 95 Progress Note : Time: 19:50 Progress Note Patient seen and evaluated. Will obtain labs, EKG and Chest X-ray. No dyspnea and SaO2 98% on Room Air. 2029 Reviewed labs, symptoms compatible with UTI noted on UA. No indications to test for COVID 19. Will give NS 1 L IV, Rocephin 1 gm IV and continue to monitor. No complaints at this time. 2099 Patient resting in bed, vital signs stable. 2129 Discharge instructions and return precautions reviewed. All questions answered. ECG Initial ECG Impression Date: Sep 22, 2019 Initial ECG Impression Time: 20:03 Initial ECG Rate: 97 Initial ECG Rhythm: Normal Sinus Initial ECG Intervals: Normal Initial ECG Intervals NH 144, QRSD 78, QT 340, QTc 432 [place] P 6, QRS 25, T 46 Initial ECG Impression: Normal Initial ECG Comparisson: Unchanged Diagnostic Imaging Diagonstic Imaging: Xray Plain Films/CT/US/NM/MRI: chest Comments NAME: ALIX MARTINEZ [facility] REC#: [id number] PT STATUS: REG ER : 1970 PHYSICIAN: DONI LANGE ADMIT DATE: 09/22/19/ER Draft Date of Exam:09/22/19 CHEST 1 VIEW, AP/PA ONLY INDICATION: Cough and congestion, headache. TECHNIQUE: Single view chest 8:38 PM. CORRELATION STUDY: 02/12/2019 FINDINGS: The heart size, mediastinal configuration and pulmonary vascularity are within normal limits. The lungs are clear with no consolidating infiltrate. There is no significant effusion or pneumothorax. Mid thoracic spine stimulator as well as fusion hardware of the cervical thoracic spine is present. IMPRESSION: 1. Negative for acute abnormality of the chest. Dictated on workstation # [id number] Dict: 09/22/192045 Trans: 09/22/192046 DO [id number] Interpreted by: LEONARD FITZPATRICK DO Electronically signed by: Departure Impression Primary Impression: UTI (urinary tract infection) Qualified Codes: N30.01 - Acute cystitis with hematuria Disposition: HOME, SELF-CARE Condition: Improved Departure-Patient Inst. Decision time for Depature: 21:30 Referrals: [facility] (PCP/Family) Primary Care Physician Patient Instructions: Urinary Tract Infection, Adult (DC), Viral Upper Respiratory Infection, Adult (DC) Add. Discharge Instructions: Take antibiotics, as prescribed. Continue to alternate between Tylenol 650 mg and Ibuprofen 600 mg every 4 hours. Follow up at [facility], if symptoms are not improving or worsen. Abstain from intercourse, until you finish Flagyl and have your partner tested/treated. Increase water intake, 16 oz every 2 hours, while awake. Empty bladder, frequently. Quarantine and self-isolation until fever free for 24 hours, without medication. Return to the Emergency Dept for new, urgent health care needs. All discharge instructions reviewed with patient and/or family. Voiced understanding. Scripts Phenazopyridine HCl (Pyridium) 100 Mg Tablet 100 MG PO Q8H PRN for SPASMS, #12 TAB 0 Refills Prov: DONI LANGE 09/22/19 Cefdinir (Cefdinir) 300 Mg Capsule 300 MG PO BID, #10 CAP 0 Refills Prov: DONI LANGE 09/22/19 DONI LANGE Sep 22, 2019 20:58
[2019-09-22] MEDS ORDERED: NS IV 1000 ML 1,000 ML IV SCH (21:05)
[2019-09-22] MEDS ORDERED: CEFD300C3 PO (21:13)
[2019-09-22] MEDS ORDERED: cefTRIAXone FOR IV USE 1,000 MG in WATER (STERILE) FOR INJECTION 10 ML IV ONE (21:15)
[2019-09-22] MEDS ORDERED: PHEN-639 PO (21:36)
== END 2019-09-22 21:56 | disposition home or self-care (01) ==
LOC: EDUNIT# 19:36 → ER 19:37
DX: N30.01 Acute cystitis with hematuria (principal); I25.2 Old myocardial infarction; F17.210 Nicotine dependence, cigarettes, uncomplicated; J45.909 Unspecified asthma, uncomplicated; E78.00 Pure hypercholesterolemia, unspecified; B19.20 Unspecified viral hepatitis C without hepatic coma; K80.20 Calculus of gallbladder without cholecystitis without obstruction; K21.9 Gastro-esophageal reflux disease without esophagitis; K59.09 Other constipation; M54.9 Dorsalgia, unspecified; G89.29 Other chronic pain; F41.9 Anxiety disorder, unspecified; F32.9 Major depressive disorder, single episode, unspecified; Z88.0 Allergy status to penicillin; Z88.8 Allergy status to other drugs, medicaments and biological substances; Z79.899 Other long term (current) drug therapy
CPT/HCPCS: 36415; 71045; 80053; 81000; 84484; 85025; 87077; 87088; 87804

== ENCOUNTER 2019-10-01 13:29 | Emergency (ER) | payer MEDICARE ==
[~2019-10-01] VITALS: Ht 170 cm; Wt 72.5 kg
[~2019-10-01 13:29] MED LIST changes: +CEFD300C3 PO; +PHEN-639 PO
[2019-10-01] MEDS ORDERED: ASPIRIN 81 MG CHEW (CHILDREN'S ASA) PO ONE (13:45)
[2019-10-01] MEDS ORDERED: NITROGLYCERIN 0.4 MG SL TABS BTL 25'S SL PRN (13:45)
--- OUTSIDE RECORDS SUMMARY | 2019-10-01 13:47 | XMS REPORT ---
Author Author Misty Mora Doctor Organization [facility] Address Unknown Phone Unavailable Care Team Providers Care Weight Control Engineer Name Role Phone Migration, Doctor Unavailable Unavailable PROBLEMS Type Condition ICD9-CM Code [id number] Code Onset Dates Condition S tatus SNOMED Code Problem Major depressive disorder, recurrent episode, moderate F33.1 Active 152223763 Problem Major depressive disorder, recurrent, severe wit h psychotic symptoms F33.3 Active 35002950 Problem Major depressive disorder, r ecurrent episode, severe, with psychotic behavior F33.3 Active 449330021 Problem Hepatitis C antibody test positive R76.8 Active 931441876 Problem Bipolar I disorder F31.9 Active 3 62610111 Problem Generalized anxiety disorder F41.1 A ctive 99794981 Problem Chronic pain syndrome G89.4 Active 751763696 Problem Controlled substance agreement terminated Z92.89 Active 885695831 Problem Opiate abuse, episodic F11.10 Active 9083009 Problem Methamphetamine use disorder, moderate F15.20 Active 523091363 Problem Mood disorder F39 Active 861146 05 Problem Gambling disorder, 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 Ac tive [id number] ALLERGIES No Information ENCOUNTERS Encounter Location Date Diagnosis [facility] [address] [facility] [address] Aug, [facility] [address] [id number] [place] [address] Aug, Chronic pain syndrome G89.4 ; Bipolar I disorder F31.9 and Gambling disorder, 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 [facility] [address] [facility] [id number] [address] [place] [address] Jul, Bronchitis J40 [facility] [address] [facility] [id number] [address] [place] [address] Feb, Bronchitis J40 [facility] [address] [facility] [id number] [address] [place] [address] Nov, Acute bronchitis, unspecifie d organism J20.9 [facility] [address] [place] [id number] [place] [address] October, Allergic contact dermatitis due to plants, except food L23.7 [facility] [address] [address] Aug, [facility] [address] [address] Aug, Mood disorder F39 ; Methamphetamine use disorder, moderate F15.20 and Opiate abuse, episodic F11.10 [place] [address] [address] May, [place] [address] [address] May, Mood disorder F39 ; Methamphetamine use disorder, moderate F15.20 and Opiate abuse, episodic F11.10 [facility] [address] [place] [id number] [address] [place] [address] Apr, Acute sinusitis J01.90 [place] [address] [address] Mar, Mood disorder F39 ; Methamphetamine use disorder, moderate F15.20 and Opiate abuse, episodic F11.10 [place] [address] [address] Dec, Methamphetamine use disorder, moderate F 15.20 ; Opiate abuse, episodic F11.10 and Mood disorder F39 [facility] [address] [place] [id number] [address] [place] [address] Sep, Sore throat J02.9 [place] [address] [address] Apr, [place] [address] [address] Apr, [place] [address] [address] Mar, High risk medication use Z79.899 ; Metha mphetamine use disorder, moderate F15.20 and Opiate abuse, episodic F11.[address] [address] Dec, [place] [address] [address] Dec, Generalized anxiety disorder F41.1 and M ajor depressive disorder, recurrent episode, severe, with psychotic behavior F33.3 [facility] [address] [place] [id number] [address] [place] [address] Nov, Abdominal pain R10.9 and Acu te cystitis with hematuria N30.[address] [address] October, Major depressive disorder, recurrent, se ivana with psychotic symptoms F33.3 and Generalized anxiety disorder F41.[address] [address] Sep, Generalized anxiety disorder F41.1 and M ajor depressive disorder, recurrent, severe with psychotic symptoms F33.[address] [address] Sep, Generalized anxiety disorder F41.1 and M lurdesor depressive disorder, recurrent, severe with psychotic symptoms F33.3 [place] [address] [address] Aug, Major depressive disorder, recurrent epi sode, moderate F33.1 and Generalized anxiety disorder F41.1 [place] [address] [address] Aug, Major depressive disorder, recurrent epi sode, moderate F33.1 and Generalized anxiety disorder F41.1 [facility] [address] [facility] [id number] [address] [place] [address] Jul, Urinary frequency R35.0 and Gastroenteritis and colitis, viral A08.[address] [address] 07 Jul, 2016 Major depressive disorder, recurrent epi sode, moderate F33.1 and Generalized anxiety disorder F41.1 [facility] [address] [place] [address] Jun, Bronchitis J40 [facility] [address] [address] May, Major depressive disorder, recurrent epi sode, severe, with psychotic behavior F33.3 and Generalized anxiety disorder F41.1 [place] [address] [address] Apr, Major depressive disorder, recurrent epi sode, severe, with psychotic behavior F33.3 and Generalized anxiety disorder F41.1 [place] [address] [address] Apr, Generalized anxiety disorder F41.1 and M ajor depressive disorder, recurrent episode, severe, with psychotic behavior F33.3 [place] [address] [address] Apr, Severe episode of recurrent major depres sive disorder, with psychotic features F33.3 [facility] [address] [place] [id number] [address] [place] [address] Apr, Bronchitis J40 [place] [address] [address] 31 Mar, 2016 [facility] [address] [place] [id number] [place] [address] 14 Mar, 2016 Vaginal discharge N89.8 and Trichomonas infection A59.9 [place] [address] [address] 11 Mar, 2016 Severe episode of recurrent major depres sive disorder, with psychotic features F33.3 [place] [address] [address] 28 Feb, 2016 Generalized anxiety disorder F41.1 and M ajor depressive disorder, recurrent episode, severe, with psychotic behavior F33.3 [facility] [address] [address] Feb, Severe episode of recurrent major depres sive disorder, with psychotic features F33.3 [facility] [address] [address] Jan, Severe episode of recurrent major depres sive disorder, with psychotic features F33.3 [facility] [address] [address] Dec, Generalized anxiety disorder F41.1 and Titi carter depressive disorder, recurrent episode, severe, with psychotic behavior F33.3 [place] [address] [address] Nov, Major depressive disorder, recurrent epi sode, severe, with psychotic behavior F33.3 [place] [address] [address] Nov, Major depressive disorder, recurrent epi sode, severe, with psychotic behavior F33.3 [place] [address] [address] Sep, Controlled substance agreement terminate d Z92.89 [place] [address] [address] Sep, Major depressive disorder, recurrent epi sode, severe, with psychotic behavior F33.3 [facility] [address] [address] Sep, Major depressive disorder, recurrent epi sode, severe, with psychotic behavior F33.3 [facility] [address] [address] Sep, Generalized anxiety disorder F41.1 and Titi carter depressive disorder, recurrent, severe with psychotic symptoms F33.3 [facility] [address] [address] Sep, [facility] [address] [address] Sep, Major depressive disorder, recurrent epi sode, severe, with psychotic behavior F33.3 [facility] [address] [address] Aug, Major depressive disorder, recurrent, se ivana with psychotic symptoms F33.3 and Generalized anxiety disorder F41.1 [facility] [address] [address] Jun, Generalized anxiety disorder F41.1 and Titi carter depressive disorder, recurrent, severe with psychotic symptoms F33.3 [facility] [address] [address] Jun, [facility] [address] [address] Mar, [place] [address] [address] Mar, Generalized anxiety disorder F41.1 and Titi carter depressive disorder, recurrent, severe with psychotic symptoms F33.3 [facility] [address] [address] Feb, Generalized anxiety disorder 300.02 ; Ma ghada depression, recurrent 296.30 and 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 [id number] [facility] [place] [address] 16 Jul, 2014 [facility] [address] [facility] [id number] [facility] [place] [address] Jul, 2014 [facility] [address] [facility] [id number] [facility] [place] [address] 13 Jul, 2014 [facility] [address] [id number] [facility] [place] [address] 11 Jul, 2014 [facility] [address] [facility] [id number] [facility] [place] [address] 06 Jul, 2014 [facility] [address] [id number] [facility] [place] [address] Jul, 2014 [facility] [address] [id number] [facility] [place] [address] Feb, [facility] [address] [id number] [facility] [place] [address] Feb, [facility] [address] [id number] [facility] [place] [address] Nov, [facility] [address] [id number] [facility] [place] [address] Nov, [facility] [address] [id number] [place] [address] Sep, [facility] [address] [id number] [place] [address] Aug, [facility] [address] [facility] [id number] [facility] [place] [address] Aug, [facility] [address] [id number] [place] [address] Aug, [facility] [address] [id number] [place] [address] Aug, [facility] [address] [id number] [place] [address] 24 Jul, 2013 [facility] [address] [place] [id number] [place] [address] Jul, [facility] [address] [address] Jul, [facility] [address] [address] Jul, [facility] [address] [address] Jul, [facility] [address] [address] Jul, [facility] [address] [address] Mar, [facility] [address] [address] Mar, [facility] [address] [address] Mar, [facility] [address] [address] Mar, [facility] [address] [address] Feb, [facility] [address] [address] Feb, [facility] [address] [address] Jan, IMMUNIZATIONS No Known Immunizations SOCIAL HISTORY Never Assessed REASON FOR VISIT PLAN OF CARE VITAL SIGNS MEDICATIONS Unknown Medications RESULTS No Results PROCEDURES No Known procedures INSTRUCTIONS MEDICATIONS ADMINISTERED No Known Medications MEDICAL (GENERAL) HISTORY Type Description Date Medical History depression Medical History anxiety Medical History hyperlipidemia Medical History degenerative disc disease Medical History bulging disc(s) Medical History herniated disc Medical History spinal stenosis Medical History cholelithiasis Medical History hepatitis C Medical History Major depressive disorder, r ecurrent episode, severe, with psychotic behavior Surgical History Back Surgery Spinal Fusion and Rods in b ack 11/2014 Surgical History Carpal Tunnel Release--right hand 5 Surgical History hysterectomy, vaginal 1992 Surgical History oopherectomy 2001 Surgical History breast augmentation Surgical History laminectomy Surgical History Neurotransmitter placed 03/2016 Hospitalization History surgery Hospitalization History [facility]
--- OUTSIDE RECORDS SUMMARY | 2019-10-01 13:47 | XMS REPORT ---
Author Author Misty SAMANO Organization [facility], [place] Address [address] [place] [address] Care Team Providers Care Journeyman Glazier Name Role Phone EARL SAMANO Unavailable PROBLEMS Type Condition ICD9-CM Code [id number] Code Onset Dates Condition S tatus SNOMED Code Problem Major depressive disorder, recurrent episode, moderate F33.1 Active 987872554 Problem Major depressive disorder, recurrent, severe wit h psychotic symptoms F33.3 Active 55357962 Problem Major depressive disorder, r ecurrent episode, severe, with psychotic behavior F33.3 Active 901910474 Problem Hepatitis C antibody test positive R76.8 Active 414224983 Problem Bipolar I disorder F31.9 Active 3 54645130 Problem Generalized anxiety disorder F41.1 A ctive 85813476 Problem Chronic pain syndrome G89.4 Active 229084657 Problem Controlled substance agreement terminated Z92.89 Active 940358407 Problem Opiate abuse, episodic F11.10 Active 9025868 Problem Methamphetamine use disorder, moderate F15.20 Active 746895594 Problem Mood disorder F39 Active 549833 05 Problem Gambling disorder, 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 Ac tive [id number] ALLERGIES No Information ENCOUNTERS Encounter Location Date Diagnosis [facility] [place] [address] [facility] [place] [address] Aug, [facility] [place] [address] [id number] [place] [address] Aug, Chronic pain syndrome G89.4 ; Bipolar I disorder F31.9 and Gambling disorder, 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 [facility] [address] [place] [id number] [place] [address] Jul, Bronchitis J40 [facility] [address] [place] [id number] [place] [address] Feb, Bronchitis J40 [facility] [address] [address] Nov, Acute bronchitis, unspecifie d organism J20.9 [facility] [address] [address] October, Allergic contact dermatitis due to plants, except food L23.7 [place] [address] [address] Aug, [place] [address] [address] Aug, Mood disorder F39 ; Methamphetamine use disorder, moderate F15.20 and Opiate abuse, episodic F11.10 [place] [address] [address] May, [place] [address] [address] May, Mood disorder F39 ; Methamphetamine use disorder, moderate F15.20 and Opiate abuse, episodic F11.10 [facility] [address] [address] 13 Apr, 2018 Acute sinusitis J01.90 [place] [address] [address] Mar, Mood disorder F39 ; Methamphetamine use disorder, moderate F15.20 and Opiate abuse, episodic F11.10 [place] [address] [address] Dec, Methamphetamine use disorder, moderate F 15.20 ; Opiate abuse, episodic F11.10 and Mood disorder F39 [facility] [address] [address] Sep, Sore throat J02.9 [place] [address] [address] 15 Apr, 2017 [place] [address] [address] Apr, [place] [address] [address] Mar, High risk medication use Z79.899 ; Metha mphetamine use disorder, moderate F15.20 and Opiate abuse, episodic F11.10 [place] [address] [address] Dec, [address] [address] Dec, Generalized anxiety disorder F41.1 and M lurdesor depressive disorder, recurrent episode, severe, with psychotic behavior F33.3 [facility] [place] [id number] [place] [address] Nov, Abdominal pain R10.9 [address] cystitis with hematuria N30.[address] [address] October, Major depressive disorder, recurrent, se ivana with psychotic symptoms F33.3 and Generalized anxiety disorder F41.1 [place] [address] [address] Sep, Generalized anxiety disorder F41.1 and M lurdesor depressive disorder, recurrent, severe with psychotic symptoms F33.[address] [address] Sep, Generalized anxiety disorder F41.1 and M lurdesor depressive disorder, recurrent, severe with psychotic symptoms F33.3 [place] [address] [address] Aug, Major depressive disorder, recurrent epi sode, moderate F33.1 and Generalized anxiety disorder F41.[address] [address] Aug, Major depressive disorder, recurrent epi sode, moderate F33.1 and Generalized anxiety disorder F41.1 [facility] [address] [place] [id number] [place] [address] Jul, Urinary frequency R35.0 and Gastroenteritis and colitis, viral A08.4 [place] [address] [address] 07 Jul, 2016 Major depressive disorder, recurrent epi sode, moderate F33.1 and Generalized anxiety disorder F41.1 [facility] [address] [place] [id number] [place] [address] Jun, Bronchitis J40 [place] [address] [address] May, Major depressive disorder, recurrent epi sode, severe, with psychotic behavior F33.3 and Generalized anxiety disorder F41.1 [place] [address] [address] Apr, Major depressive disorder, recurrent epi sode, severe, with psychotic behavior F33.3 and Generalized anxiety disorder F41.1 [place] [address] [address] Apr, Generalized anxiety disorder F41.1 and M ajor depressive disorder, recurrent episode, severe, with psychotic behavior F33.3 [place] [address] [address] Apr, Severe episode of recurrent major depres sive disorder, with psychotic features F33.3 [facility] [place] [address] [place] [id number] [place] [address] Apr, Bronchitis J40 [place] [address] [address] Mar, [facility] [address] [place] [address] 14 Mar, 2016 Vaginal discharge N89.8 and Trichomonas infection A59.9 [place] [address] [address] Mar, Severe episode of recurrent major depres sive disorder, with psychotic features F33.3 [place] [address] [address] Feb, Generalized anxiety disorder F41.1 and Titi carter depressive disorder, recurrent episode, severe, with psychotic behavior F33.3 [place] [address] [address] Feb, Severe episode of recurrent major depres sive disorder, with psychotic features F33.3 [place] [address] [address] Jan, Severe episode of recurrent major depres sive disorder, with psychotic features F33.3 [place] [address] [address] Dec, Generalized anxiety disorder F41.1 and Titi carter depressive disorder, recurrent episode, severe, with psychotic behavior F33.3 [place] [address] [address] Nov, Major depressive disorder, recurrent epi sode, severe, with psychotic behavior F33.3 [place] [address] [address] Nov, Major depressive disorder, recurrent epi sode, severe, with psychotic behavior F33.3 [place] [address] [address] Sep, Controlled substance agreement terminate d Z92.89 [place] [address] [address] Sep, Major depressive disorder, recurrent epi sode, severe, with psychotic behavior F33.3 [place] [address] [address] Sep, Major depressive disorder, recurrent epi sode, severe, with psychotic behavior F33.3 [place] [address] [address] Sep, Generalized anxiety disorder F41.1 and Titi carter depressive disorder, recurrent, severe with psychotic symptoms F33.3 [place] [address] [address] Sep, [place] [address] [address] Sep, Major depressive disorder, recurrent epi sode, severe, with psychotic behavior F33.3 [facility] [place] [address] [address] Aug, Major depressive disorder, recurrent, se ivana with psychotic symptoms F33.3 and Generalized anxiety disorder F41.1 [place] [address] [address] Jun, Generalized anxiety disorder F41.1 and M ajor depressive disorder, recurrent, severe with psychotic symptoms F33.3 [place] [address] [address] Jun, [place] [address] [address] Mar, [address] [address] Mar, Generalized anxiety disorder F41.1 and M lurdesor depressive disorder, recurrent, severe with psychotic symptoms F33.3 [place] [address] [address] Feb, Generalized anxiety disorder 300.02 ; Ma ghada depression, recurrent 296.30 and 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 [address] October, Major depressive disorder, recurrent epi sode, moderate 296.32 and Generalized anxiety disorder 300.02 [facility] [place] [address] [address] Sep, [address] [address] Sep, [facility] [place] [address] [address] Aug, [place] [address] [address] Aug, [place] [address] [id number] [place] [address] 16 Jul, 2014 [facility] [address] [id number] [place] [address] Jul, 2014 [facility] [address] [id number] [place] [address] Jul, 2014 [facility] [address] [id number] [place] [address] Jul, 2014 [facility] [address] [id number] [place] [address] Jul, 2014 [facility] [address] [id number] [place] [address] Jul, 2014 [facility] [address] [id number] [place] [address] Jul, 2014 [facility] [address] [id number] [place] [address] Feb, [facility] [address] [id number] [place] [address] Feb, [facility] [address] [id number] [place] [address] Nov, [facility] [address] [id number] [place] [address] Nov, [facility] [address] [id number] [place] [address] Sep, [facility] [address] [id number] [place] [address] Aug, [facility] [address] [id number] [place] [address] Aug, [facility] [address] [id number] [place] [address] Aug, [facility] [address] [id number] [place] [address] Aug, [facility] [address] [id number] [place] [address] Jul, [facility] [place] [address] [id number] [place] [address] Jul, [facility] [place] [address] [place] [id number] [place] [address] Jul, [facility] [place] [address] [id number] [place] [address] Jul, [facility] [place] [address] [place] [address] [id number] [place] [address] Jul, [facility] [place] [id number] [place] [address] Jul, [facility] [place] [address] [id number] [place] [address] Mar, [facility] [place] [address] [id number] [place] [address] Mar, [facility] [place] [id number] [place] [address] Mar, [facility] [place] [id number] [place] [address] Mar, [facility] [place] [id number] [place] [address] Feb, [facility] [place] [id number] [place] [address] Feb, [facility] [place] [id number] [place] [address] Jan, IMMUNIZATIONS No Known Immunizations SOCIAL HISTORY [...] placed 03/2016 Hospitalization History surgery Hospitalization History [facility]
--- OUTSIDE RECORDS SUMMARY | 2019-10-01 13:47 | XMS REPORT ---
Author Author Misty Mora Doctor Organization [facility] Address Unknown Phone Unavailable Care Team Providers Care Corporate Human Resources Manager Name Role Phone Migration, Doctor Unavailable Unavailable PROBLEMS Type Condition ICD9-CM Code [id number] Code Onset Dates Condition S tatus SNOMED Code Problem Controlled substance agreement terminated Z92.89 Active 480115087 Problem Hepatitis C antibody test positive R76.8 Active 739693325 Problem Major depressive disorder, recurrent episode, moderate F33.1 Active 385148078 Problem Generalized anxiety disorder F41.1 A ctive 64511882 Problem Opiate abuse, episodic F11.10 Active 5292728 Problem Methamphetamine use disorder, moderate F15.20 Active 919824374 Problem Mood disorder F39 Active 663130 05 Problem Seasonal allergies J30.2 Active 4 04724543 Problem Major depressive disorder, r ecurrent episode, severe, with psychotic behavior F33.3 Active 331739422 Problem Irritable bowel syndrome with diarrhea K58.0 Active 902201480 Problem Major depressive disorder, recurrent, severe wit h psychotic symptoms F33.3 Active 33976339 Problem Chronic pain syndrome G89.4 Active 644820083 Problem Bipolar I disorder F31.9 Active 3 47591771 Problem Gambling disorder, 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 Ac tive 56186053 Problem Poverty status Z59.6 Active 17612 006 ALLERGIES No Information ENCOUNTERS Encounter Location Date Diagnosis [facility] [id number] [place] [phone] Sep, [facility] [address] [place] [id number] [address] [place] [phone] Aug, [facility] [address] [place] [phone] Aug, Mood disorder F39 ; High risk medication use Z79.899 ; Irritable bowel syndrome with diarrhea K58.0 ; Seasonal allergies J30.2 and Poverty status Z59.6 [facility] [address] [place] [address] [id number] [address] [place] [phone] Aug, Mood disorder F39 [facility] [address] [facility] [id number] [address] [place] [phone] Aug, Vaginal discharge N89.8 ; Ce rvicitis N72 ; Sexually transmitted disease (STD) A64 and Trichomonas vaginalis infection A59.9 [facility] [address] [facility] [id number] [phone] Aug, Chronic pain syndrome G89.4 ; Bipolar I disorder F31.9 and Gambling disorder, 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 [facility] [address] [place] [id number] [place] [phone] Jul, Bronchitis J40 [facility] [address] [place], [place] [id number] [address] [place] [phone] Feb, Bronchitis J40 [facility] [address] [place], [place] [id number] [address] [place] [phone] Nov, Acute bronchitis, unspecifie d organism J20.9 [facility] [address] [place] [id number] [address] [place] [phone] October, Allergic contact dermatitis due to plants, except food L23.7 [place] [id number] [place] [phone] Aug, [place] [address] [place] [phone] Aug, Mood disorder F39 ; Methamph etamine use disorder, moderate F15.20 and Opiate abuse, episodic F11.10 [place] [address] [place] [id number] [place] [phone] May, [place] [id number] [place] [phone] May, Mood disorder F39 ; Methamph etamine use disorder, moderate F15.20 and Opiate abuse, episodic F11.10 [facility] [address] [id number] [place] [phone] Apr, Acute sinusitis J01.90 [facility] [address] [facility] [id number] [address] [place] [phone] Mar, Mood disorder F39 ; Methamph etamine use disorder, moderate F15.20 and Opiate abuse, episodic F11.10 [facility] [address] [facility] [id number] [address] [place] [phone] Dec, Methamphetamine use disorder , moderate F15.20 ; Opiate abuse, episodic F11.10 and Mood disorder F39 [facility] [address] [facility] [id number] [address] [place] [phone] Sep, Sore throat J02.9 [place] [address] [facility] [id number] [address] [place] [phone] 15 Apr, 2017 [place] [address] [place] [id number] [place] [phone] Apr, [place] [address] [place] [id number] [place] [phone] Mar, High risk medication use Z79 .899 ; Methamphetamine use disorder, moderate F15.20 and Opiate abuse, episodic F11.10 [facility] [address] [place] [id number] [place] [phone] Dec, [place] [address] [place] [id number] [place] [phone] Dec, Generalized anxiety disorder F41.1 and Major depressive disorder, recurrent episode, severe, with psychotic behavior F33.3 [facility] [address] [facility] [id number] [address] [place] [phone] Nov, Abdominal pain R10.9 and Acu te cystitis with hematuria N30.01 [facility] [address] [facility] [id number] [address] [place] [phone] October, Major depressive disorder, r ecurrent, severe with psychotic symptoms F33.3 and Generalized anxiety disorder F41.1 [place] [address] [place] [id number] [place] [phone] 11 Sep, 2016 Generalized anxiety disorder F41.1 and Major depressive disorder, recurrent, severe with psychotic symptoms F33.3 [place] [address] [place] [id number] [place] [phone] Sep, Generalized anxiety disorder F41.1 and Major depressive disorder, recurrent, severe with psychotic symptoms F33.3 [place] [address] [place] [id number] [place] [phone] Aug, Major depressive disorder, r ecurrent episode, moderate F33.1 and Generalized anxiety disorder F41.1 [place] [address] [place] [phone] Aug, Major depressive disorder, r ecurrent episode, moderate F33.1 and Generalized anxiety disorder F41.1 [facility] [place] [address] [place] [phone] Jul, Urinary frequency R35.0 and Gastroenteritis and colitis, viral A08.4 [place] [address] [place] [id number] [place] [phone] Jul, Major depressive disorder, r ecurrent episode, moderate F33.1 and Generalized anxiety disorder F41.1 [facility] [id number] [place] [phone] Jun, Bronchitis J40 [place] [address] [place] [id number] [place] [phone] May, Major depressive disorder, r ecurrent episode, severe, with psychotic behavior F33.3 and Generalized anxiety disorder F41.1 [place] [address] [place] [id number] [place] [phone] Apr, Major depressive disorder, r ecurrent episode, severe, with psychotic behavior F33.3 and Generalized anxiety disorder F41.1 [place] [address] [place] [id number] [place] [phone] Apr, Generalized anxiety disorder F41.1 and Major depressive disorder, recurrent episode, severe, with psychotic behavior F33.3 [facility] [address] [id number] [address] [place] [phone] Apr, Severe episode of recurrent major depressive disorder, with psychotic features F33.3 [facility] [address] [id number] [address] [place] [phone] Apr, Bronchitis J40 [facility] [address] [id number] [address] [place] [phone] Mar, [facility] [address] [id number] [address] [place] [phone] Mar, Vaginal discharge N89.8 and Trichomonas infection A59.9 [facility] [address] [id number] [address] [place] [phone] Mar, Severe episode of recurrent major depressive disorder, with psychotic features F33.3 [facility] [address] [id number] [address] [place] [phone] Feb, Generalized anxiety disorder F41.1 and Major depressive disorder, recurrent episode, severe, with psychotic behavior F33.3 [facility] [address] [facility] [id number] [address] [place] [phone] Feb, Severe episode of recurrent major depressive disorder, with psychotic features F33.3 [facility] [address] [facility] [id number] [address] [place] [phone] Jan, Severe episode of recurrent major depressive disorder, with psychotic features F33.3 [facility] [address] [id number] [address] [place] [phone] Dec, Generalized anxiety disorder F41.1 and Major depressive disorder, recurrent episode, severe, with psychotic behavior F33.3 [facility] [address] [id number] [address] [place] [phone] Nov, Major depressive disorder, r ecurrent episode, severe, with psychotic behavior F33.3 [facility] [address] [id number] [address] [place] [phone] Nov, Major depressive disorder, r ecurrent episode, severe, with psychotic behavior F33.3 [facility] [address] [id number] [address] [place] [phone] Sep, Controlled substance agreeme nt terminated Z92.89 [facility] [address] [id number] [address] [place] [phone] Sep, Major depressive disorder, r ecurrent episode, severe, with psychotic behavior F33.3 [facility] [address] [id number] [address] [place] [phone] Sep, Major depressive disorder, r ecurrent episode, severe, with psychotic behavior F33.3 [facility] [address] [id number] [address] [place] [phone] Sep, Generalized anxiety disorder F41.1 and Major depressive disorder, recurrent, severe with psychotic symptoms F33.3 [facility] [address] [id number] [address] [place] [phone] Sep, [facility] [address] [id number] [address] [place] [phone] Sep, Major depressive disorder, r ecurrent episode, severe, with psychotic behavior F33.3 [facility] [address] [id number] [address] [place] [phone] Aug, Major depressive disorder, r ecurrent, severe with psychotic symptoms F33.3 and Generalized anxiety disorder F41.1 [facility] [address] [id number] [address] [place] [phone] Jun, Generalized anxiety disorder F41.1 and Major depressive disorder, recurrent, severe with psychotic symptoms F33.3 [facility] [address] [id number] [address] [place] [phone] Jun, [facility] [address] [id number] [address] [place] [phone] Mar, [facility] [address] [id number] [address] [place] [phone] 02 Mar, 2015 Generalized anxiety disorder F41.1 and Major depressive disorder, recurrent, severe with psychotic symptoms F33.3 [facility] [address] [facility] [id number] [address] [place] [phone] 09 Feb, 2015 Generalized anxiety disorder 300.02 ; Major depression, recurrent 296.30 and 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 [facility] [address] [facility] [id number] [address] [place] [phone] October, Major depressive disorder, r ecurrent episode, moderate 296.32 and Generalized anxiety disorder 300.02 [facility] [address] [place] [address] [id number] [place] [phone] Sep, [facility] [address] [facility] [id number] [address] [place] [phone] Sep, [facility] [address] [place] [address] [id number] [address] [place] [phone] Aug, [facility] [address] [facility] [id number] [address] [place] [phone] Aug, [facility] [address] [place] [address] [id number] [address] [place] [phone] Jul, [facility] [address] [place] [address] [id number] [address] [place] [phone] Jul, [facility] [address] [place] [address] [id number] [address] [place] [phone] Jul, [facility] [address] [facility] [id number] [address] [place] [phone] Jul, [facility] [address] [facility] [id number] [address] [place] [phone] Jul, [facility] [address] [facility] [id number] [address] [place] [phone] 06 Jul, 2014 [facility] [address] [place] [address] [id number] [address] [place] [phone] Jul, [facility] [address] [id number] [address] [place] [address], [place] [address] Feb, [facility] [address] [id number] [address] [place] [address], [place] [phone] Feb, [facility] [address] [id number] [address] [place] [address], [place] [phone] Nov, [facility] [address] [id number] [address] [place] [address], [place] [phone] Nov, [facility] [address] [id number] [address] [place] [address], [place] [phone] Sep, [facility] [address] [id number] [address] [place] [address], [place] [address] Aug, [facility] [address] [id number] [address] [place] [address], [place] [address] Aug, [facility] [address] [id number] [address] [place] [address], [place] [phone] Aug, [facility] [address] [id number] [address] [place] [address], [place] [address] Aug, [facility] [address] [id number] [address] [place] [address], [place] [phone] Jul, [facility] [address] [id number] [address] [place] [address], [place] [address] Jul, [facility] [address] [id number] [address] [place] [address], [place] [address] Jul, [facility] [address] [id number] [address] [place] [address], [place] [address] Jul, [facility] [address] [id number] [address] [place] [address], [place] [address] Jul, [facility] [address] [id number] [address] [place] [address], [place] [address] Jul, [facility] [address] [id number] [address] [place] [phone] Mar, [facility] [address] [id number] [address] [place] [phone] Mar, [facility] [address] [id number] [address] [place] [phone] Mar, [facility] [address] [id number] [address] [place] [phone] Mar, [facility] [address] [id number] [address] [place] [phone] Feb, [facility] [address] [id number] [address] [place] [phone] Feb, [facility] [address] [id number] [address] [place] [phone] Jan, IMMUNIZATIONS No Known Immunizations SOCIAL HISTORY Never Assessed REASON FOR VISIT PLAN OF CARE VITAL SIGNS Height 66 in 2013-03-10 Weight 170.55 lbs 2013-03-10 Temperature 98.3 degrees Fahrenheit 2013-03-10 Heart Rate 88 bpm 2013-03-10 Respiratory Rate 18 2013-03-10 Blood pressure systolic 110 mmHg 2013-03-10 Blood pressure diastolic 84 mmHg 2013-03-10 MEDICATIONS Unknown Medications RESULTS No Results PROCEDURES Procedure Date Ordered Result Body Site DRUG SCREEN, QUALITATE/MULTI Mar 10, 2013 MRI LUMBAR SPINE W/O DYE Mar 10, 2013 INSTRUCTIONS MEDICATIONS ADMINISTERED No Known Medications MEDICAL (GENERAL) HISTORY Type Description Date Medical History hyperlipidemia Medical History degenerative disc disease Medical History bulging disc(s) Medical History herniated disc Medical History spinal stenosis Medical History cholelithiasis Medical History hepatitis C - treated around 2016 by [facility] Physician, was told she was cured Medical History Major depressive disorder, r ecurrent episode, severe, with psychotic behavior Surgical History Back Surgery Spinal Fusion and Rods in b k 11/2014 Surgical History Carpal Tunnel Release--right hand 5 Surgical History hysterectomy, vaginal 1992 Surgical History oopherectomy 2001 Surgical History breast augmentation 1997 Surgical History laminectomy 2013 Surgical History Neurotransmitter placed 03/2016 Hospitalization History surgery Hospitalization History [facility]
--- OUTSIDE RECORDS SUMMARY | 2019-10-01 13:47 | XMS REPORT ---
Author Author Misty Mora Doctor Organization [facility] Address Unknown Phone Unavailable Care Team Providers Care Community Youth Secretary Name Role Phone Migration, Doctor Unavailable Unavailable PROBLEMS Type Condition ICD9-CM Code [id number] Code Onset Dates Condition S tatus SNOMED Code Problem Major depressive disorder, recurrent episode, moderate F33.1 Active 122596745 Problem Major depressive disorder, recurrent, severe wit h psychotic symptoms F33.3 Active 98256631 Problem Major depressive disorder, r ecurrent episode, severe, with psychotic behavior F33.3 Active 276135047 Problem Hepatitis C antibody test positive R76.8 Active 024853508 Problem Bipolar I disorder F31.9 Active 3 44566456 Problem Generalized anxiety disorder F41.1 A ctive 76374552 Problem Chronic pain syndrome G89.4 Active 400792148 Problem Controlled substance agreement terminated Z92.89 Active 214405715 Problem Opiate abuse, episodic F11.10 Active 2288473 Problem Methamphetamine use disorder, moderate F15.20 Active 968985688 Problem Mood disorder F39 Active 735023 05 Problem Gambling disorder, 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 Ac tive [id number] ALLERGIES No Information ENCOUNTERS Encounter Location Date Diagnosis [facility] [address] [facility] [address] Aug, [facility] [address] [id number] [place] [address] Aug, Chronic pain syndrome G89.4 ; Bipolar I disorder F31.9 and Gambling disorder, 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 [facility] [address] [facility] [id number] [address] [place] [address] Jul, Bronchitis J40 [facility] [address] [facility] [id number] [address] [place] [address] Feb, Bronchitis J40 [facility] [address] [facility] [id number] [address] [place] [address] Nov, Acute bronchitis, unspecifie d organism J20.9 [facility] [address] [place] [id number] [address] [place] [address] October, Allergic contact dermatitis due to plants, except food L23.7 [facility] [address] [address] Aug, [facility] [address] [address] Aug, Mood disorder F39 ; Methamphetamine use disorder, moderate F15.20 and Opiate abuse, episodic F11.10 [place] [address] [address] May, [place] [address] [address] May, Mood disorder F39 ; Methamphetamine use disorder, moderate F15.20 and Opiate abuse, episodic F11.10 [facility] [address] [place] [id number] [address] [place] [address] Apr, Acute sinusitis J01.90 [place] [address] [address] Mar, Mood disorder F39 ; Methamphetamine use disorder, moderate F15.20 and Opiate abuse, episodic F11.10 [place] [address] [address] Dec, Methamphetamine use disorder, moderate F 15.20 ; Opiate abuse, episodic F11.10 and Mood disorder F39 [facility] [address] [place] [id number] [address] [place] [address] Sep, Sore throat J02.9 [place] [address] [address] Apr, [place] [address] [address] Apr, [place] [address] [address] Mar, High risk medication use Z79.899 ; Metha mphetamine use disorder, moderate F15.20 and Opiate abuse, episodic F11.[address] [address] Dec, [place] [address] [address] Dec, Generalized anxiety disorder F41.1 and M ajor depressive disorder, recurrent episode, severe, with psychotic behavior F33.3 [facility] [address] [place] [id number] [address] [place] [address] Nov, Abdominal pain R10.9 and Acu te cystitis with hematuria N30.[address] [address] October, Major depressive disorder, recurrent, se ivana with psychotic symptoms F33.3 and Generalized anxiety disorder F41.[address] [address] Sep, Generalized anxiety disorder F41.1 and M ajor depressive disorder, recurrent, severe with psychotic symptoms F33.[address] [address] Sep, Generalized anxiety disorder F41.1 and M lurdesor depressive disorder, recurrent, severe with psychotic symptoms F33.3 [place] [address] [address] Aug, Major depressive disorder, recurrent epi sode, moderate F33.1 and Generalized anxiety disorder F41.1 [place] [address] [address] Aug, Major depressive disorder, recurrent epi sode, moderate F33.1 and Generalized anxiety disorder F41.1 [facility] [address] [facility] [id number] [address] [place] [address] Jul, Urinary frequency R35.0 and Gastroenteritis and colitis, viral A08.[address] [address] 07 Jul, 2016 Major depressive disorder, recurrent epi sode, moderate F33.1 and Generalized anxiety disorder F41.1 [facility] [address] [place] [address] Jun, Bronchitis J40 [facility] [address] [address] May, Major depressive disorder, recurrent epi sode, severe, with psychotic behavior F33.3 and Generalized anxiety disorder F41.1 [place] [address] [address] Apr, Major depressive disorder, recurrent epi sode, severe, with psychotic behavior F33.3 and Generalized anxiety disorder F41.1 [place] [address] [address] Apr, Generalized anxiety disorder F41.1 and M ajor depressive disorder, recurrent episode, severe, with psychotic behavior F33.3 [place] [address] [address] Apr, Severe episode of recurrent major depres sive disorder, with psychotic features F33.3 [facility] [address] [place] [id number] [address] [place] [address] Apr, Bronchitis J40 [place] [address] [address] 31 Mar, 2016 [facility] [address] [place] [id number] [address] [place] [address] 14 Mar, 2016 Vaginal discharge N89.8 and Trichomonas infection A59.9 [place] [address] [address] 11 Mar, 2016 Severe episode of recurrent major depres sive disorder, with psychotic features F33.3 [place] [address] [address] 28 Feb, 2016 Generalized anxiety disorder F41.1 and M ajor depressive disorder, recurrent episode, severe, with psychotic behavior F33.3 [facility] [address] [address] Feb, Severe episode of recurrent major depres sive disorder, with psychotic features F33.3 [facility] [address] [address] Jan, Severe episode of recurrent major depres sive disorder, with psychotic features F33.3 [facility] [address] [address] Dec, Generalized anxiety disorder F41.1 and Titi carter depressive disorder, recurrent episode, severe, with psychotic behavior F33.3 [place] [address] [address] Nov, Major depressive disorder, recurrent epi sode, severe, with psychotic behavior F33.3 [place] [address] [address] Nov, Major depressive disorder, recurrent epi sode, severe, with psychotic behavior F33.3 [place] [address] [address] Sep, Controlled substance agreement terminate d Z92.89 [place] [address] [address] Sep, Major depressive disorder, recurrent epi sode, severe, with psychotic behavior F33.3 [facility] [address] [address] Sep, Major depressive disorder, recurrent epi sode, severe, with psychotic behavior F33.3 [facility] [address] [address] Sep, Generalized anxiety disorder F41.1 and Titi carter depressive disorder, recurrent, severe with psychotic symptoms F33.3 [facility] [address] [address] Sep, [facility] [address] [address] Sep, Major depressive disorder, recurrent epi sode, severe, with psychotic behavior F33.3 [facility] [address] [address] Aug, Major depressive disorder, recurrent, se ivana with psychotic symptoms F33.3 and Generalized anxiety disorder F41.1 [facility] [address] [address] Jun, Generalized anxiety disorder F41.1 and Titi carter depressive disorder, recurrent, severe with psychotic symptoms F33.3 [facility] [address] [address] Jun, [facility] [address] [address] Mar, [place] [address] [address] Mar, Generalized anxiety disorder F41.1 and Titi carter depressive disorder, recurrent, severe with psychotic symptoms F33.3 [facility] [address] [address] Feb, Generalized anxiety disorder 300.02 ; Ma ghada depression, recurrent 296.30 and 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 [facility] [address] [address] October, Major depressive disorder, recurrent epi sode, moderate 296.32 and Generalized anxiety disorder 300.02 [facility] [address] [address] Sep, [facility] [address] [address] Sep, [facility] [address] [address] Aug, [facility] [address] [address] Aug, [facility] [address] [address] Jul, [facility] [address] [facility] [id number] [facility] [place] [address] 16 Jul, 2014 [facility] [address] [facility] [id number] [facility] [place] [address] Jul, 2014 [facility] [address] [facility] [id number] [facility] [place] [address] 13 Jul, 2014 [facility] [address] [id number] [facility] [place] [address] 11 Jul, 2014 [facility] [address] [facility] [id number] [facility] [place] [address] 06 Jul, 2014 [facility] [address] [id number] [place] [place] [address] Jul, 2014 [facility] [address] [id number] [place] [place] [address] Feb, [facility] [address] [id number] [place] [place] [address] Feb, [facility] [address] [id number] [place] [place] [address] Nov, [facility] [address] [id number] [place] [address] Nov, [facility] [address] [id number] [place] [address] Sep, [facility] [address] [id number] [place] [address] Aug, [facility] [address] [facility] [id number] [facility] [place] [address] Aug, [facility] [address] [id number] [place] [address] Aug, [facility] [address] [id number] [place] [address] Aug, [facility] [address] [id number] [place] [address] 24 Jul, 2013 [facility] [address] [place] [id number] [place] [address] Jul, [facility] [address] [place] [address] [id number] [place] [address] Jul, [facility] [address] [place] [id number] [place] [address] Jul, [facility] [address] [place] [address] [id number] [place] [address] Jul, [facility] [address] [address] Jul, [facility] [address] [address] Mar, [facility] [address] [address] Mar, [facility] [address] [address] Mar, [facility] [address] [address] Mar, [facility] [address] [address] Feb, [facility] [address] [address] Feb, [facility] [address] [place] [address] [id number] [place] [address] Jan, IMMUNIZATIONS No Known Immunizations SOCIAL HISTORY Never Assessed REASON FOR VISIT PLAN OF CARE VITAL SIGNS Height 66 in 2013-08-13 Weight 154.6 lbs 2013-08-13 Heart Rate 108 bpm 2013-08-13 Blood pressure systolic 123 mmHg 2013-08-13 Blood pressure diastolic 84 mmHg 2013-08-13 MEDICATIONS Unknown Medications RESULTS No Results PROCEDURES [...] Release--right hand 5 Surgical History hysterectomy, vaginal 1991 Surgical History oopherectomy 2001 Surgical History breast augmentation Surgical History laminectomy Surgical History Neurotransmitter placed 03/2016 Hospitalization History surgery Hospitalization History [facility]
--- OUTSIDE RECORDS SUMMARY | 2019-10-01 13:50 | XMS REPORT | Continuity of Care Document ---
Author Organization Unknown Address Unknown Phone Unavailable Allergies Active Description Code Type Severity Reaction Onset Reported/Identified Relationship to Patient Clinical Status Yes NO KNOWN DRUG ALLERGIES UNKNOWN NO KNOWN DRUG ALLERG Yes amoxicillin trihydrate [id number] Drug Allergy Unknown N/A 10/28/2018 Yes baclofen [id number] Drug Allergy Unknown RASH 10/28/2018 Yes BACTRIM DS BACTRIM DS Unknown N/A 10/28/[id number] ug Allergy Unknown N/A 10/28/2018 Yes potassium clavulanate [id number] Drug Allergy Unknown N/A 10/28/2018 Medications Medication Packaging Start Date St op Date Route Dosage Sig KETOROLAC VIAL INJ 60 MG/2CC (TORADOL VIAL ) MG 07/02/2018 07/02/2018 ONCE&2115 CEFUROXIME TAB 250 MG (CEFTIN) MG 07/02/2018 07/02/2018 ONCE&2158 TETANUS,DIPTH,PERT ADULT INJ 0 (ADACEL SYRINGE) ml 10/08/2018 10/08/2018 ONCE&1750 CEFTRIAXONE INJ 1 GM (ROCEPHIN) GM 10/08/2018 10/08/2018 ONCE&1750 Problems Date Dx Coded Attending Type Code Diagnosis Diagnosed By 09/20/2011 Ot 078.3 CAT- SCRATCH DISEASE 09/20/[address] BITE HAND 09/20/2011 Ot E000.8 OTH ER EXTERNAL CAUSE STATUS 09/20/2011 Ot E849.0 ACC IDENT IN HOME 09/20/2011 Ot E906.4 NON VENOM ARTHROPOD BITE 01/31/2013 704.8 OTHE R SPECIFIED DISEASES OF HAIR AND HAIR FOLLICLES 01/31/[address] BITE NONVENOMOUS OF OTHER MULTIPLE AND UNSPECIFIED SITES INFECTED 01/31/2013 704.8 OTHE R SPECIFIED DISEASES OF HAIR AND HAIR FOLLICLES 01/31/[address] BITE NONVENOMOUS OF OTHER MULTIPLE AND UNSPECIFIED SITES INFECTED 01/31/2013 GOTTI DO, ROBERTH K 704.8 OTHER SPECIFIED DISEASES OF HAIR AND HAIR FOLLICLES 01/31/2013 ROBERTH GOTTI DO K 919.5 INSECT BITE NONVENOMOUS OF OTHER MULTIPLE AND UNSPECIFIED SITES INFECTED 01/31/2013 [facility], EARL R 704.8 OTHER SPECIFIED DISEASES OF HAIR AND HAIR FOLLICLES 01/31/2013 [facility], EARL R 919.5 INSECT BITE NONVENOMOUS OF OTHER MULTIPL E AND UNSPECIFIED SITES INFECTED 01/31/2013 DOMINGA LE APRN 704.8 OTHER SPECIFIED DISEASES OF HAIR AND HAIR FOLLICLES 01/31/2013 DOMINGA LE APRN 919.5 INSECT BITE NONVENOMOUS OF OTHER MULTIPL E AND UNSPECIFIED SITES INFECTED 01/31/2013 DOMINGA LE APRN 704.8 OTHER SPECIFIED DISEASES OF HAIR AND HAIR FOLLICLES 01/31/2013 DOMINGA LE APRN 919.5 INSECT BITE NONVENOMOUS OF OTHER MULTIPL E AND UNSPECIFIED SITES INFECTED 01/31/2013 JUSTIN GANDHI 704.8 OTHER SPECIFIED DISEASES OF HAIR AND HAIR FOLLICLES 01/31/2013 JUSTIN GANDHI M 919.5 INSECT BITE NONVENOMOUS OF OTHER MULTIPL E AND UNSPECIFIED SITES INFECTED 01/31/2013 JUSTIN GANDHI 704.8 OTHER SPECIFIED DISEASES OF HAIR AND HAIR FOLLICLES 01/31/2013 JUSTIN GANDHI M 919.5 INSECT BITE NONVENOMOUS OF OTHER MULTIPL E AND UNSPECIFIED SITES INFECTED 02/13/2013 709.9 UNSP ECIFIED DISORDER OF SKIN AND SUBCUTANEOUS TISSUE 02/13/2013 ROBERTH GOTTI DO 709.9 UNSPECIFIED DISORDER OF SKIN AND SUBCUTANEOUS TISSUE 02/13/2013 [facility], EARL R 709.9 UNSPECIFIED DISORDER OF SKIN AND SUBCUTANEOUS TISSUE 02/13/2013 DOMINGA LE APRN 709.9 UNSPECIFIED DISORDER OF SKIN AND SUBCUTANEOUS TISSUE 02/13/2013 DOMINGA LE APRN 709.9 UNSPECIFIED DISORDER OF SKIN AND SUBCUTANEOUS TISSUE 02/13/2013 UJSTIN GANDHI M 709.9 UNSPECIFIED DISORDER OF SKIN AND SUBCUTANEOUS TISSUE 02/13/2013 JUSTIN GANDHI 709.9 UNSPECIFIED DISORDER OF SKIN AND SUBCUTANEOUS TISSUE 03/10/2013 GOTTI DO, ROBERTH K 724.3 SCIATICA 03/10/2013 GOTTI DO, ROBERTH K 724.5 BACKACHE UNSPECIFIED 03/10/2013 GOTTI DO, ROBERTH K E888.9 UNSPECIFIED ACCIDENTAL FALL 03/10/2013 [facility], EARL R 724.3 SCIATICA 03/10/2013 [facility], EARL R 724.5 BACKACHE UNSPECIFIED 03/10/2013 [facility], EARL R E888.9 UNSPECIFIED ACCIDENTAL FALL 03/10/2013 LE GEODETIC SURVEY DIRECTOR, DOMINGA RAWLS 724.3 SCIATICA 03/10/2013 LE GEODETIC SURVEY DIRECTOR, DOMINGA RAWLS 724.5 BACKACHE UNSPECIFIED 03/10/2013 LE GEODETIC SURVEY DIRECTOR, DOMINGA RAWLS E888.9 UNSPECIFIED ACCIDENTAL FALL 03/10/2013 LE GEODETIC SURVEY DIRECTOR, DOMINGA RAWLS 724.3 SCIATICA 03/10/2013 LE GEODETIC SURVEY DIRECTOR, DOMINGA RAWLS 724.5 BACKACHE UNSPECIFIED 03/10/2013 LE GEODETIC SURVEY DIRECTOR, DOMINGA RAWLS E888.9 UNSPECIFIED ACCIDENTAL FALL 03/10/2013 WILDA BRIM POUNCER, JUSTIN M 724.3 SCIATICA 03/10/2013 WILDA SCHULZ, JUSTIN M 724.5 BACKACHE UNSPECIFIED 03/10/2013 WILDA SCHULZ, JUSTIN M E888.9 UNSPECIFIED ACCIDENTAL FALL 03/10/2013 WILDA BRIM POUNCER, JUSTIN M 724.3 SCIATICA 03/10/2013 WILDA SCHULZ, JUSTIN M 724.5 BACKACHE UNSPECIFIED 03/10/2013 WILDA SCHULZ, JUSTIN M E888.9 UNSPECIFIED ACCIDENTAL FALL 07/11/2013 [facility], ERAL R 300.00 AN ANXIETY UNSPEC 07/11/2013 [facility], EARL R 311 DEPRESSIVE DISORDER NOS 07/11/2013 LE GEODETIC SURVEY DIRECTOR, DOMINGA RAWLS 300.00 AN ANXIETY UNSPEC 07/11/2013 LE GEODETIC SURVEY DIRECTOR, DOMINGA CARVERH 311 DEPRESSIVE DISORDER NOS 07/11/2013 LE GEODETIC SURVEY DIRECTOR, DOMINGA CARVERH 300.00 AN ANXIETY UNSPEC 07/11/2013 LE GEODETIC SURVEY DIRECTOR, DOMINGA RAWLS 311 DEPRESSIVE DISORDER NOS 07/11/2013 JUSTIN GANDHI M 300.00 AN ANXIETY UNSPEC 07/11/2013 JUSTIN GANDHI M 3 11 DEPRESSIVE DISORDER NOS 07/11/2013 JUSTIN GANDHI 300.00 AN ANXIETY UNSPEC 07/11/2013 JUSTIN GANDHI 3 11 DEPRESSIVE DISORDER NOS 08/13/2013 DOMINGA LE APRN 296.32 MO DEPRESSIVE RECURRENT MODERATE 08/13/2013 DOMINGA LE APRN 300.02 AN GEN ANXIETY 08/13/2013 DOMINGA LE APRN 296.32 MO DEPRESSIVE RECURRENT MODERATE 08/13/2013 DOMINGA LE APRN 300.02 AN GEN ANXIETY 08/13/2013 JUSTIN GANDHI 296.32 MO DEPRESSIVE RECURRENT MODERATE 08/13/2013 JUSTIN GANDHI 300.02 AN GEN ANXIETY 08/13/2013 JUSTIN GANDHI 296.32 MO DEPRESSIVE RECURRENT MODERATE 08/13/2013 JUSTIN [...] Ot 722.0 07/13/2014 DAY BRYSON MD Ot V72.6 3 07/13/2014 DAY BRYSON MD Ot V74.8 08/22/2014 Ot 721.3 09/14/2014 Ot 721.3 11/13/2014 DAY BRYSON MD Ot 304.9 0 DRUG DEPEND NOS-UNSPEC 11/13/2014 DAY BRYSON MD Ot 311 DEPRESSIVE DISORDER NEC 11/13/2014 DAY BRYSON MD Ot 458.9 HYPOTENSION NOS 11/13/2014 IPSEN MD, DAY J Ot 530.8 1 ESOPHAGEAL REFLUX 11/13/2014 DAY BRYSON MD Ot 564.0 0 UNSPEC CONSTIPATION 11/13/2014 DAY BRYSON MD Ot 724.0 2 SPINAL STENOSIS, LUMBAR REG, W/OUT NEURO 11/13/2014 DAY BRYSON MD Ot 724.4 LUMBOSACRAL NEURITIS NOS 11/13/2014 DAY BRYSON MD Ot 785.0 TACHYCARDIA NOS 11/13/2014 DAY BRYSON MD Ot V15.8 2 HISTORY OF TOBACCO USE 12/08/2014 DAY BRYSON MD Ot 724.0 2 12/08/2014 DAY BRYSON MD Ot V72.6 3 12/08/2014 DAY BRYSON MD Ot V74.8 05/18/2015 DAY BRYSON MD Ot 724.0 2 05/18/2015 DAY BRYSON MD Ot V72.6 3 05/18/2015 DAY BRYSON MD, Ot V74.8 06/10/2015 DAY BRYSON MD Ot M54.2 07/27/2015 DO, JOYCE C Ot B19.20 09/20/2015 STALIN SAAVEDRA MD Ot I95.1 ORTHOSTATIC HYPOTENSION 09/20/2015 STALIN SAAVEDRA MD Ot K80.20 CALCULUS OF GALLBLADDER W/O CHOLECYSTITI 09/20/2015 STALIN SAAVEDRA MD Ot N39.0 URINARY TRACT INFECTION, SITE NOT SPECIF 09/20/2015 STALIN SAAVEDRA MD Ot R10.84 GENERALIZED ABDOMINAL PAIN 09/20/2015 STALIN SAAVEDRA MD Ot R19.7 DIARRHEA, UNSPECIFIED 09/20/2015 STALIN SAAVEDRA MD Ot Z98.1 ARTHRODESIS STATUS 09/22/2015 STALIN SAAVEDRA MD Ot I95.1 ORTHOSTATIC HYPOTENSION 09/22/2015 STALIN SAAVEDRA MD Ot K80.20 CALCULUS OF GALLBLADDER W/O CHOLECYSTITI 09/22/2015 STALIN SAAVEDRA MD Ot N39.0 URINARY TRACT INFECTION, SITE NOT SPECIF 09/22/2015 STALIN SAAVEDRA MD Ot R10.84 GENERALIZED ABDOMINAL PAIN 09/22/2015 STALIN SAAVEDRA MD Ot R19.7 DIARRHEA, UNSPECIFIED 09/22/2015 STALIN SAAVEDRA MD Ot Z98.1 ARTHRODESIS STATUS 09/22/2015 STALIN SAAVEDRA MD Ot I95.1 ORTHOSTATIC HYPOTENSION 09/22/2015 STALIN SAAVEDRA MD Ot K80.20 CALCULUS OF GALLBLADDER W/O CHOLECYSTITI 09/22/2015 STALIN SAAVEDRA MD Ot N39.0 URINARY TRACT INFECTION, SITE NOT SPECIF 09/22/2015 STALIN SAAVEDRA MD Ot R10.84 GENERALIZED ABDOMINAL PAIN 09/22/2015 STALIN SAAVEDRA MD Ot R19.7 DIARRHEA, UNSPECIFIED 09/22/2015 STALIN SAAVEDRA MD Ot Z98.1 ARTHRODESIS STATUS 11/05/2015 JOYCE SPEARS DO Ot B19.20 UNSPECIFIED VIRAL HEPATITIS C WITHOUT HE 01/15/2016 GERARDO MAYO Ot N39.0 URINARY TRACT INFECTION, SITE NOT SPECIF 01/15/2016 GERARDO MAYO Ot R30.0 DYSURIA 01/21/2016 DAY BRYSON MD Ot M54.1 6 RADICULOPATHY, LUMBAR REGION 01/22/2016 DAY BRYSON MD Ot 724.0 2 SPINAL STENOSIS, LUMBAR REG, W/OUT NEURO 01/22/2016 DAY BRYSON MD Ot V72.6 3 PRE-PROCEDURAL LABORATORY EXAMINATION 01/22/2016 DAY BRYSON MD Ot V74.8 SCREEN-BACTERIAL DIS NEC 01/22/2016 DAY BRYSON MD Ot M54.2 CERVICALGIA 01/22/2016 JOYCE SPEARS DO Ot B19.20 UNSPECIFIED VIRAL HEPATITIS C WITHOUT HE 01/22/2016 DAY BRYSON MD Ot M54.1 6 RADICULOPATHY, LUMBAR REGION 01/26/2016 RAFI YOUNG MD Ot G89. 4 CHRONIC PAIN SYNDROME 01/26/2016 RAFI YOUNG MD Ot M96. 1 POSTLAMINECTOMY SYNDROME, NOT ELSEWHERE 01/26/2016 RAFI YOUNG MD, Ot Z01.818 ENCOUNTER FOR OTHER PREPROCEDURAL EXAMIN 01/26/2016 RAFI YOUNG MD Ot Z11. 2 ENCOUNTER FOR SCREENING FOR OTHER BACTER 01/28/2016 RAFI YOUNG MD Ot G89. 4 CHRONIC PAIN SYNDROME 01/28/2016 RAFI YOUNG MD Ot M96. 1 POSTLAMINECTOMY SYNDROME, NOT ELSEWHERE 01/28/2016 RAFI YOUNG MD Ot Z01.818 ENCOUNTER FOR OTHER PREPROCEDURAL EXAMIN 01/28/2016 RAFI YOUNG MD Ot Z11. 2 ENCOUNTER FOR SCREENING FOR OTHER BACTER 01/28/2016 RAFI YOUNG MD Ot G89. 4 CHRONIC PAIN SYNDROME 01/28/2016 RAFI YOUNG MD Ot M54. 5 LOW BACK PAIN 01/28/2016 RAFI YOUNG MD Ot M96. 1 POSTLAMINECTOMY SYNDROME, NOT ELSEWHERE 02/03/2016 RAFI YOUNG MD Ot G89. 4 CHRONIC PAIN SYNDROME 02/03/2016 RAFI YOUNG MD Ot M54. 5 LOW BACK PAIN 02/03/2016 RAFI YOUNG MD Ot M96. 1 POSTLAMINECTOMY SYNDROME, NOT ELSEWHERE 02/22/2016 DAY BRYSON MD Ot M54.1 6 RADICULOPATHY, LUMBAR REGION 12/21/2017 DAY BRYSON MD Ot 724.0 2 SPINAL STENOSIS, LUMBAR REG, W/OUT NEURO 12/21/2017 DAY BRYSON MD Ot V72.6 3 PRE-PROCEDURAL LABORATORY EXAMINATION 12/21/2017 DAY BRYSON MD Ot V74.8 SCREEN-BACTERIAL DIS NEC 12/21/2017 DAY BRYSON MD Ot M54.2 CERVICALGIA 12/21/2017 JOYCE SPEARS DO Ot B19.20 UNSPECIFIED VIRAL HEPATITIS C WITHOUT HE 12/21/2017 DAY BRYSON MD Ot M54.1 6 RADICULOPATHY, LUMBAR REGION 12/21/2017 MOLLY FORTE Ot [...] Z95.1 PRESENCE OF AORTOCORONARY BYPASS GRAFT 12/22/2017 SAMUEL NORRIS DOA K Ot M54.9 DORSALGIA, UNSPECIFIED 12/22/2017 RIGO DAS APRN Ot F32 .9 MAJOR DEPRESSIVE DISORDER, SINGLE EPISOD 12/22/2017 RIGO DAS APRN Ot G89.29 OTHER CHRONIC PAIN 12/22/2017 RIGO DAS APRN Ot J45.909 UNSPECIFIED ASTHMA, UNCOMPLICATED 12/22/2017 RIGO DAS APRN Ot M54 .5 LOW BACK PAIN 12/22/2017 RIGO DAS APRN Ot Z87.19 PERSONAL HISTORY OF OTHER DISEASES OF TH 12/22/2017 RIGO DAS APRN Ot Z87.891 PERSONAL HISTORY OF NICOTINE DEPENDENCE 12/22/2017 RIGO DAS APRN Ot Z88 .1 ALLERGY STATUS TO OTHER ANTIBIOTIC AGENT 12/22/2017 RIGO DAS APRN Ot Z88 .8 ALLERGY STATUS TO OTH DRUG/MEDS/BIOL SUB 12/22/2017 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 Ot Z90.710 ACQUIRED ABSENCE OF BOTH CERVIX AND UTER 12/24/2017 MYRNA DO, MINDY K Ot M54.9 DORSALGIA, UNSPECIFIED 12/24/2017 RIGO DAS APRN Ot F32 .9 MAJOR DEPRESSIVE DISORDER, SINGLE EPISOD 12/24/2017 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 Ot G89.29 OTHER CHRONIC PAIN 12/24/2017 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 Ot J45.909 UNSPECIFIED ASTHMA, UNCOMPLICATED 12/24/2017 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 Ot M54 .5 LOW BACK PAIN 12/24/2017 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 Ot Z87.19 PERSONAL HISTORY OF OTHER DISEASES OF TH 12/24/2017 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 Ot Z87.891 PERSONAL HISTORY OF NICOTINE DEPENDENCE 12/24/2017 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 Ot Z88 .1 ALLERGY STATUS TO OTHER ANTIBIOTIC AGENT 12/24/2017 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 Ot Z88 .8 ALLERGY STATUS TO OTH DRUG/MEDS/BIOL SUB 12/24/2017 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 Ot Z90.710 ACQUIRED ABSENCE OF BOTH CERVIX AND UTER 12/24/2017 MOLLY FORTE Ot B19.20 UNSPECIFIED VIRAL HEPATITIS C WITHOUT HE 12/24/2017 MOLLY FORTE Ot F17.210 NICOTINE DEPENDENCE, CIGARETTES, UNCOMPL 12/24/2017 MOLLY FORTE Ot F32.9 MAJOR DEPRESSIVE DISORDER, SINGLE EPISOD 12/24/2017 MOLLY FORTE Ot G89.18 OTHER ACUTE POSTPROCEDURAL PAIN 12/24/2017 MOLLY FORTE Ot J45.909 UNSPECIFIED ASTHMA, UNCOMPLICATED 12/24/2017 MOLLY FORTE Ot M54.2 CERVICALGIA 12/24/2017 MOLLY FORTE Ot Z82.49 FAMILY HX OF ISCHEM HEART DIS AND OTH DI 12/24/2017 MOLLY FORTE Ot Z87.19 PERSONAL HISTORY OF OTHER DISEASES OF 12/24/2017 MOLLY FORTE Ot Z88.1 ALLERGY STATUS TO OTHER ANTIBIOTIC AGENT 12/24/2017 LITTLE FORTEIS Ot Z88.8 ALLERGY STATUS TO OTH DRUG/MEDS/BIOL SUB 12/24/2017 BERNVINNIE MOLLY Ot Z90.710 ACQUIRED ABSENCE OF BOTH CERVIX AND UTER 12/24/2017 BERNMOLLY BIRMINGHAM Ot Z95.1 PRESENCE OF AORTOCORONARY BYPASS GRAFT 02/13/2018 STALIN PENA Ot 722.10 LUMBAR DISC DISPLACEMENT 02/13/2018 DAY BRYSON MD Ot 722.0 CERVICAL DISC DISPLACMNT 02/13/2018 DAY BRYSON MD Ot V72.6 3 PRE-PROCEDURAL LABORATORY EXAMINATION 02/13/2018 DAY BRYSON MD Ot V74.8 SCREEN-BACTERIAL DIS NEC 02/13/2018 Ot 721.3 LUMB OSACRAL SPONDYLOSIS 02/13/2018 DAY BRYSON MD Ot 724.0 2 SPINAL STENOSIS, LUMBAR REG, W/OUT NEURO 02/13/2018 DAY BRYSON MD Ot V72.6 3 PRE-PROCEDURAL LABORATORY EXAMINATION 02/13/2018 DAY BRYSON MD Ot V74.8 SCREEN-BACTERIAL DIS NEC 02/13/2018 DAY BRYSON MD Ot M54.2 CERVICALGIA 02/13/2018 JOYCE SPEARS DO Ot B19.20 UNSPECIFIED VIRAL HEPATITIS C WITHOUT HE 02/13/2018 DAY BRYSON MD, Ot M54.1 6 RADICULOPATHY, LUMBAR REGION 02/13/2018 STALIN PENA Ot 722.10 LUMBAR DISC DISPLACEMENT 02/13/2018 DAY BRYSON MD Ot 722.0 CERVICAL DISC DISPLACMNT 02/13/2018 DAY BRYSON MD Ot V72.6 3 PRE-PROCEDURAL LABORATORY EXAMINATION 02/13/2018 DAY BRYSON MD Ot V74.8 SCREEN-BACTERIAL DIS NEC 02/13/2018 Ot 721.3 LUMB OSACRAL SPONDYLOSIS 02/13/2018 DAY BRYSON MD Ot 724.0 2 SPINAL STENOSIS, LUMBAR REG, W/OUT NEURO 02/13/2018 DAY BRYSON MD Ot V72.6 3 PRE-PROCEDURAL LABORATORY EXAMINATION 02/13/2018 DAY BRYSON MD Ot V74.8 SCREEN-BACTERIAL DIS NEC 02/13/2018 DAY BRYSON MD Ot M54.2 CERVICALGIA 02/13/2018 JOYCE SPEARS DO Ot B19.20 UNSPECIFIED VIRAL HEPATITIS C WITHOUT HE 02/13/2018 DAY BRYSON MD Ot M54.1 6 RADICULOPATHY, LUMBAR REGION 02/14/2018 DAY BRYSON MD Ot M25.7 8 OSTEOPHYTE, VERTEBRAE 02/14/2018 DAY BRYSON MD Ot M48.0 2 SPINAL STENOSIS, CERVICAL REGION 02/14/2018 DAY BRYSON MD Ot Z98.1 ARTHRODESIS STATUS 02/15/2018 DAY BRYSON MD Ot M25.7 8 OSTEOPHYTE, VERTEBRAE 02/15/2018 ADELAIDE REYES, DAY Howe Ot M48.0 2 SPINAL STENOSIS, CERVICAL REGION 02/15/2018 ADELAIDE REYES, DAY Howe Ot Z98.1 ARTHRODESIS STATUS 05/08/2018 KHLOE BLANCO STALIN M Ot 722.10 LUMBAR DISC DISPLACEMENT 05/08/2018 DAY BRYSON MD Ot 722.0 CERVICAL DISC DISPLACMNT 05/08/2018 DAY BRYSON MD, Ot V72.6 3 PRE-PROCEDURAL LABORATORY EXAMINATION 05/08/2018 ADELAIDE REYES, DAY Howe Ot V74.8 SCREEN-BACTERIAL DIS NEC 05/08/2018 Ot 721.3 LUMB OSACRAL SPONDYLOSIS 07/02/2018 Rigo Das 034.0 STREPTOCOCCAL SORE THROAT 07/02/2018 Rigo Das 786.5 CHEST PAIN 07/02/2018 Rigo Das J02.0 STREPTOCOCCAL PHARYNGITIS 07/02/2018 Rigo Das R07.89 OTHER CHEST PAIN 10/08/2018 Maulik Dumont 882.1 OPEN WOUND OF HAND EXCEPT FINGERS ALONE, COMPLICATED 10/08/2018 Maulik Dumont 913.4 INSECT BITE, NONVENOMOUS OF ELBOW, FOREARM, AND WRIST, WITHOUT MENTION OF INFECTION 10/08/2018 Maulik Dumont S50.361A INSECT BITE (NONVENOMOUS) OF RIGHT ELBOW, INITIAL ENCOUNTER 10/08/2018 Maulik Dumont S61.441A PUNCTURE WOUND WITH FOREIGN BODY OF RIGHT HAND, INIT ENCNTR 10/28/2018 MOLLY FORTE Ot B19.20 UNSPECIFIED VIRAL HEPATITIS C WITHOUT HE 10/28/2018 MOLLY FORTE Ot F32.9 MAJOR DEPRESSIVE DISORDER, SINGLE EPISOD 10/28/2018 MOLLY FORTE Ot J45.909 UNSPECIFIED ASTHMA, UNCOMPLICATED 10/28/2018 MOLLY FORTE Ot M48.061 SPINAL STENOSIS, LUMBAR REGION WITHOUT N 10/28/2018 MOLLY FORTE Ot M79.672 PAIN IN LEFT FOOT 10/28/2018 MOLLY FORTE Ot S90.32XA CONTUSION OF LEFT FOOT, INITIAL ENCOUNTE 10/28/2018 MOLLY FORTE Ot W57.XXXA BIT/STUNG BY NONVENOM INSECT OTH NONVE 10/28/2018 MOLLY FORTE Ot Z79.52 CLASSIFICATION AND TREATMENT DIRECTOR (CURRENT) USE OF SYSTEMIC STER 10/28/2018 LITTLE FORTEIS Ot Z82.49 FAMILY HX OF ISCHEM HEART DIS AND OTH DI 10/28/2018 LITTLE FORTEIS Ot Z87.19 PERSONAL HISTORY OF OTHER DISEASES OF TH 10/28/2018 MOLLY FORTE Ot Z87.891 PERSONAL HISTORY OF NICOTINE DEPENDENCE 10/28/2018 LITTLE FORTEIS Ot Z88.0 ALLERGY STATUS TO PENICILLIN 10/28/2018 LITTLE FORTEIS Ot Z88.1 ALLERGY STATUS TO OTHER ANTIBIOTIC AGENT 10/28/2018 LITTLE FORTEIS Ot Z88.8 ALLERGY STATUS TO OT DRUG/MEDS/BIOL SUB 10/28/2018 MOLLY FORTE Ot Z90.710 ACQUIRED ABSENCE OF BOTH CERVIX AND UTER 10/28/2018 MOLLY FORTE Ot Z98.890 OTHER SPECIFIED POSTPROCEDURAL STATES 11/01/2018 MOLLY FORTE Ot B19.20 UNSPECIFIED VIRAL HEPATITIS C WITHOUT HE 11/01/2018 MOLLY FORTE Ot F32.9 MAJOR DEPRESSIVE DISORDER, SINGLE EPISOD 11/01/2018 MOLLY FORTE Ot J45.909 UNSPECIFIED ASTHMA, UNCOMPLICATED 11/01/2018 MOLLY FORTE Ot M48.061 SPINAL STENOSIS, LUMBAR REGION WITHOUT N 11/01/2018 LITTLE FORTEIS Ot M79.672 PAIN IN LEFT FOOT 11/01/2018 MOLLY FORTE Ot S90.32XA CONTUSION OF LEFT FOOT, INITIAL ENCOUNTE 11/01/2018 MOLLY FORTE Ot W57.XXXA BIT/STUNG BY NONVENOM INSECT OTH NONVE 11/01/2018 MOLLY FORTE Ot Z79.52 RESIDENTIAL (CURRENT) USE OF SYSTEMIC STER 11/01/2018 LITTLE FORTEIS Ot Z82.49 FAMILY HX OF ISCHEM HEART DIS AND OTH DI 11/01/2018 LITTLE FORTEIS Ot Z87.19 PERSONAL HISTORY OF OTHER DISEASES OF TH 11/01/2018 MOLLY FORTE Ot Z87.891 PERSONAL HISTORY OF NICOTINE DEPENDENCE 11/01/2018 MOLLY FORTE Ot Z88.0 ALLERGY STATUS TO PENICILLIN 11/01/2018 LITTLE FORTEIS Ot Z88.1 ALLERGY STATUS TO OTHER ANTIBIOTIC AGENT 11/01/2018 MOLLY FORTE Ot Z88.8 ALLERGY STATUS TO OTH DRUG/MEDS/BIOL SUB 11/01/2018 MOLLY FORTE Ot Z90.710 ACQUIRED ABSENCE OF BOTH CERVIX AND UTER 11/01/2018 MOLLY FORTE Ot Z98.890 OTHER SPECIFIED POSTPROCEDURAL STATES 02/12/2019 SAMUEL NORRIS DOA K Ot B19.20 UNSPECIFIED VIRAL HEPATITIS C WITHOUT HE 02/12/2019 SAMUEL NORRIS DOA K Ot E78.00 PURE HYPERCHOLESTEROLEMIA, UNSPECIFIED 02/12/2019 MYRNA DO MINDY K Ot F15.90 OTHER STIMULANT USE, UNSPECIFIED, UNCOMP 02/12/2019 SAMUEL NORRIS DOA K Ot F17.210 NICOTINE DEPENDENCE, CIGARETTES, UNCOMPL 02/12/2019 SAMUEL NORRIS DOA K Ot F32.9 MAJOR DEPRESSIVE DISORDER, SINGLE EPISOD 02/12/2019 SAMUEL NORRIS DOA K Ot F41.9 ANXIETY DISORDER, UNSPECIFIED 02/12/2019 SAMUEL NORRIS DOA K Ot J45.909 UNSPECIFIED ASTHMA, UNCOMPLICATED 02/12/2019 MYRNA CARRILLO MINDY K Ot K21.9 GASTRO-ESOPHAGEAL REFLUX DISEASE WITHOUT 02/12/2019 SAMUEL NORRIS DOA K Ot K52.9 NONINFECTIVE GASTROENTERITIS AND COLITIS 02/12/2019 MINDY NORRIS DO Ot R11.0 NAUSEA 02/12/2019 SAMUEL NORRIS DOA K Ot Z79.52 RESIDENTIAL (CURRENT) USE OF SYSTEMIC STER 02/12/2019 SAMUEL NORRIS DOA Beto Ot Z82.49 FAMILY HX OF ISCHEM HEART DIS AND OTH DI 02/12/2019 SAMUEL NORRIS DOA K Ot Z88.1 ALLERGY STATUS TO OTHER ANTIBIOTIC AGENT 02/12/2019 SAMUEL NORRIS DOA K Ot Z88.8 ALLERGY STATUS TO OTH DRUG/MEDS/BIOL SUB 02/12/2019 SAMUEL NORRIS DOA K Ot Z90.710 ACQUIRED ABSENCE OF BOTH CERVIX AND UTER 02/12/2019 SAMUEL NORRIS DOA K Ot Z98.1 ARTHRODESIS STATUS 02/16/2019 SAMUEL NORRIS DOA K Ot B19.20 UNSPECIFIED VIRAL HEPATITIS C WITHOUT HE 02/16/2019 SAMUEL NORRIS DOA K Ot E78.00 PURE HYPERCHOLESTEROLEMIA, UNSPECIFIED 02/16/2019 REINHOLDS MINDY Beto Ot F15.90 OTHER STIMULANT USE, UNSPECIFIED, UNCOMP 02/16/2019 MYRNA MINDY Beto Ot F17.210 NICOTINE DEPENDENCE, CIGARETTES, UNCOMPL 02/16/2019 MYRNA MINDY Beto Ot F32.9 MAJOR DEPRESSIVE DISORDER, SINGLE EPISOD 02/16/2019 MYRNA MINDY Beto Ot F41.9 ANXIETY DISORDER, UNSPECIFIED 02/16/2019 REINHOLDS MINDY Beto Ot J45.909 UNSPECIFIED ASTHMA, UNCOMPLICATED 02/16/2019 REINHOLDS MINDY K Ot K21.9 GASTRO-ESOPHAGEAL REFLUX DISEASE WITHOUT 02/16/2019 MYRNA MINDY K Ot K52.9 NONINFECTIVE GASTROENTERITIS AND COLITIS 02/16/2019 MYRNA MINDY K Ot R11.0 NAUSEA 02/16/2019 MYRNA MINDY K Ot Z79.52 CLASSIFICATION AND TREATMENT DIRECTOR (CURRENT) USE OF SYSTEMIC STER 02/16/2019 MYRNA MINDY K Ot Z82.49 FAMILY HX OF ISCHEM HEART DIS AND OTH DI 02/16/2019 MYRNA MINDY K Ot Z88.1 ALLERGY STATUS TO OTHER ANTIBIOTIC AGENT 02/16/2019 MYRNA MINDY K Ot Z88.8 ALLERGY STATUS TO OT DRUG/MEDS/BIOL SUB 02/16/2019 MYRNA MINDY K Ot Z90.710 ACQUIRED ABSENCE OF BOTH CERVIX AND UTER 02/16/2019 REINHOLDS MINDY K Ot Z98.1 ARTHRODESIS STATUS 04/30/2019 MOLLY FORTE Ot B19.20 UNSPECIFIED VIRAL HEPATITIS C WITHOUT HE 04/30/2019 MOLLY FORTE Ot F32.9 MAJOR DEPRESSIVE DISORDER, SINGLE EPISOD 04/30/2019 MOLLY FORTE Ot J45.909 UNSPECIFIED ASTHMA, UNCOMPLICATED 04/30/2019 MOLLY FORTE Ot M48.061 SPINAL STENOSIS, LUMBAR REGION WITHOUT N 04/30/2019 MOLLY FORTE Ot M79.672 PAIN IN LEFT FOOT 04/30/2019 MOLLY FORTE Ot S90.32XA CONTUSION OF LEFT FOOT, INITIAL ENCOUNTE 04/30/2019 MOLLY FORTE Ot W57.XXXA BIT/STUNG BY NONVENOM INSECT OTH NONVE 04/30/2019 LITTLE FORTEIS Ot Z79.52 CLASSIFICATION AND TREATMENT DIRECTOR (CURRENT) USE OF SYSTEMIC STER 04/30/2019 HORACIOVINNIE MOLLY Ot Z82.49 FAMILY HX OF ISCHEM HEART DIS AND OTH DI 04/30/2019 JANN MOLLY Ot Z87.19 PERSONAL HISTORY OF OTHER DISEASES OF TH 04/30/2019 LITTLE FORTEIS Ot Z87.891 PERSONAL HISTORY OF NICOTINE DEPENDENCE 04/30/2019 HORACIOVINNIE MOLLY Ot Z88.0 ALLERGY STATUS TO PENICILLIN 04/30/2019 LITTLE FORTEIS Ot Z88.1 ALLERGY STATUS TO OTHER ANTIBIOTIC AGENT 04/30/2019 LITTLE FORTEIS Ot Z88.8 ALLERGY STATUS TO OTH DRUG/MEDS/BIOL SUB 04/30/2019 MOLLY FORTE Ot Z90.710 ACQUIRED ABSENCE OF BOTH CERVIX AND UTER 04/30/2019 MOLLY FORTE Ot Z98.890 OTHER SPECIFIED POSTPROCEDURAL STATES 09/22/2019 NAZARIO, DONI [employer] LIBRARIAN Ot B19.20 UNSPECIFIED VIRAL HEPATITIS C WITHOUT HE 09/22/2019 NAZARIO, [employer]I [employer] LIBRARIAN Ot E78.00 PURE HYPERCHOLESTEROLEMIA, UNSPECIFIED 09/22/2019 NAZARIO, [employer]I [employer] LIBRARIAN Ot F17.210 NICOTINE DEPENDENCE, CIGARETTES, UNCOMPL 09/22/2019 NAZARIO, DONI [employer] LIBRARIAN Ot F32.9 MAJOR DEPRESSIVE DISORDER, SINGLE EPISOD 09/22/2019 NAZARIO, [employer]I [employer] LIBRARIAN Ot F41.9 ANXIETY DISORDER, UNSPECIFIED 09/22/2019 NAZARIO, [employer]I [employer] LIBRARIAN Ot G89.29 OTHER CHRONIC PAIN 09/22/2019 NAZARIO, [employer]I [employer] LIBRARIAN Ot I25.2 OLD MYOCARDIAL INFARCTION 09/22/2019 NAZARIO, DONI [employer] LIBRARIAN Ot J45.909 UNSPECIFIED ASTHMA, UNCOMPLICATED 09/22/2019 NAZARIO, DONI [employer] LIBRARIAN Ot K21.9 GASTRO-ESOPHAGEAL REFLUX DISEASE WITHOUT 09/22/2019 NAZARIO, [employer]I [employer] LIBRARIAN Ot K59.09 OTHER CONSTIPATION 09/22/2019 NAZARIO, DONI [employer] LIBRARIAN Ot K80.20 CALCULUS OF GALLBLADDER W/O CHOLECYSTITI 09/22/2019 NAZARIO, DONI [employer] LIBRARIAN Ot M54.9 DORSALGIA, UNSPECIFIED 09/22/2019 NAZARIO, DONI [employer] LIBRARIAN Ot N30.01 ACUTE CYSTITIS WITH HEMATURIA 09/22/2019 NAZARIO, DONI [employer] LIBRARIAN Ot R05 COUGH 09/22/2019 NAZARIO, DONI [employer] LIBRARIAN Ot Z79.899 OTHER RESIDENTIAL (CURRENT) DRUG THERAPY 09/22/2019 NAZARIO, DONI [employer] LIBRARIAN Ot Z88.0 ALLERGY STATUS TO PENICILLIN 09/22/2019 NAZARIO, DONI [employer] LIBRARIAN Ot Z88.8 ALLERGY STATUS TO OTH DRUG/MEDS/BIOL SUB 09/23/2019 NAZARIO, DONI [employer] LIBRARIAN Ot B19.20 UNSPECIFIED VIRAL HEPATITIS C WITHOUT HE 09/23/2019 NAZARIO, DONI [employer] LIBRARIAN Ot E78.00 PURE HYPERCHOLESTEROLEMIA, UNSPECIFIED 09/23/2019 NAZARIO, [employer]I [employer] LIBRARIAN Ot F17.210 NICOTINE DEPENDENCE, CIGARETTES, UNCOMPL 09/23/2019 NAZARIO, DONI [employer] LIBRARIAN Ot F32.9 MAJOR DEPRESSIVE DISORDER, SINGLE EPISOD 09/23/2019 NAZARIO, [employer]I [employer] LIBRARIAN Ot F41.9 ANXIETY DISORDER, UNSPECIFIED 09/23/2019 NAZARIO, DONI [employer] LIBRARIAN Ot G89.29 OTHER CHRONIC PAIN 09/23/2019 NAZARIO, DONI [employer] LIBRARIAN Ot I25.2 OLD MYOCARDIAL INFARCTION 09/23/2019 NAZARIO, DONI [employer] LIBRARIAN Ot J45.909 UNSPECIFIED ASTHMA, UNCOMPLICATED 09/23/2019 NAZARIO, DONI [employer] LIBRARIAN Ot K21.9 GASTRO-ESOPHAGEAL REFLUX DISEASE WITHOUT 09/23/2019 NAZARIO, [employer]I [employer] LIBRARIAN Ot K59.09 OTHER CONSTIPATION 09/23/2019 NAZARIO, DONI [employer] LIBRARIAN Ot K80.20 CALCULUS OF GALLBLADDER W/O CHOLECYSTITI 09/23/2019 NAZARIO, DONI [employer] LIBRARIAN Ot M54.9 DORSALGIA, UNSPECIFIED 09/23/2019 NAZARIO, DONI [employer] LIBRARIAN Ot N30.01 ACUTE CYSTITIS WITH HEMATURIA 09/23/2019 NAZARIO, DONI [employer] LIBRARIAN Ot R05 COUGH 09/23/2019 NAZARIO, DONI [employer] LIBRARIAN Ot Z79.899 OTHER CLASSIFICATION AND TREATMENT DIRECTOR (CURRENT) DRUG THERAPY 09/23/2019 NAZARIO, DONI [employer] Ot Z88.0 ALLERGY STATUS TO PENICILLIN 09/23/2019 NAZARIO, DONI [employer]IAN Ot Z88.8 ALLERGY STATUS TO OTH DRUG/MEDS/BIOL SUB Procedures Code Description [place] [address] MRI SPINE (LUMBAR) W/O CONTRAST 03/10/2013 11146 URIN E DRUG SCREEN (IN-HOUSE) 03/10/2013 05298 PSYC H DIAGNOSTIC EVALUATION 07/11/2013 80.51 EXCI SCOTT INTERVERT DISC 06/22/2014 81.02 OTH CERVICAL FUSION OF ANTERIOR COLUMN, 06/22/2014 81.63 FUSI ON/REFUS OF 4-8 VERTEBRAE 06/22/2014 84.51 INSE RTION OF INTERBODY SPINAL FUSION DEV 06/22/2014 77.79 EXCI SE BONE FOR GFT NEC 11/09/2014 80.51 EXCI SCOTT INTERVERT DISC 11/09/2014 81.06 LUMB AR LUMBOSACRAL FUSION OF ANTERIOR 11/09/2014 81.07 LUMB AR LUMBOSACRAL FUSION OF POSTERIOR 11/09/2014 81.62 FUSI ON/REFUS OF 2-3 VERTEBRAE 11/09/2014 84.51 INSE RTION OF INTERBODY SPINAL FUSION DEV 11/09/2014 Results Test Result Range Complete urinalysis with reflex to cultu re - 01/15/16 11:38 Urine color determination YELLOW NRG Urine clarity determination SLIGHTLY CLOUDY NRG Urine pH measurement by test strip 5 5-9 Specific gravity of urine by test strip 1.025 1.016-1.022 Urine protein assay by test strip, semi-quantitative 1+ NEGATIVE Urine glucose detection by automated test strip NE GATIVE NEGATIVE Erythrocytes detection in urine sediment by light micr oscopy NEGATIVE NEGATIVE Urine ketones detection by automated test strip NE GATIVE NEGATIVE Urine nitrite detection by test strip NEGATIVE NEGATIVE Urine total bilirubin detection by test strip NEGA TIVE NEGATIVE Urine urobilinogen measurement by automated test strip (mass/volume) NORMAL NORMAL Urine leukocyte esterase detection by dipstick 3+ NEGATIVE Automated urine sediment erythrocyte cou nt by microscopy (number/high power field) NONE NRG Automated urine sediment leukocyte count by microscopy (number/high power field) [HPF] NRG Bacteria detection in urine sediment by light microsco py TRACE NRG Squamous epithelial cells detection in u rine sediment by light microscopy 25-50 NRG Crystals detection in urine sediment by light microsco py NONE NRG Casts detection in urine sediment by light microscopy NONE NRG Mucus detection in urine sediment by light microscopy NEGATIVE NRG Complete urinalysis with reflex to culture YES NRG Bacterial urine culture - 01/15/16 11:38 Bacterial urine culture [id number] NRG COLONY COUNT <10,000 NRG Methicillin resistant Staphylococcus aur eus (MRSA) screening culture - 01/26/16 13:20 MRSA SCREEN RESULT MRSA ISOLATED NRG HSV Culture and Typing - 03/17/16 15:59 HSV Culture/Type Comment Genital Culture, Routine - 03/17/16 15:5 9 Genital Culture, Routine Note Urine Culture, Routine - 11/16/16 13:21 Urine Culture, Routine Note Complete urinalysis with reflex to cultu re - 12/22/17 19:55 Urine color determination YELLOW NRG Urine clarity determination CLEAR NR G Urine pH measurement by test strip 6 5-9 Specific gravity of urine by test strip 1.010 1.016-1.022 Urine protein assay by test strip, semi-quantitative NEGATIVE NEGATIVE Urine glucose detection by automated test strip NE GATIVE NEGATIVE Erythrocytes detection in urine sediment by light micr oscopy NEGATIVE NEGATIVE Urine ketones detection by automated test strip NE GATIVE NEGATIVE Urine nitrite detection by test strip NEGATIVE NEGATIVE Urine total bilirubin detection by test strip NEGA TIVE NEGATIVE Urine urobilinogen measurement by automated test strip (mass/volume) NORMAL NORMAL Urine leukocyte esterase detection by dipstick NEG ATIVE NEGATIVE Automated urine sediment erythrocyte cou nt by microscopy (number/high power field) NONE NRG Automated urine sediment leukocyte count by microscopy (number/high power field) [HPF] NRG Bacteria detection in urine sediment by light microsco py NEGATIVE NRG Squamous epithelial cells detection in u rine sediment by light microscopy 0-2 NRG Crystals detection in urine sediment by light microsco py NONE NRG Casts detection in urine sediment by light microscopy NONE NRG Mucus detection in urine sediment by light microscopy NEGATIVE NRG Complete urinalysis with reflex to culture NO NRG Renal epithelial cells detection in urin e sediment by light microscopy NONE NRG Urine drug screening test - 12/22/17 19: 55 Urine phencyclidine detection by screening method NEGATIVE NEGATIVE Urine benzodiazepines detection by screening method NEGATIVE NEGATIVE Urine cocaine detection NEGATIVE NEGATI VE Urine amphetamines detection by screening method N EGATIVE NEGATIVE Urine methamphetamine detection by screening method NEGATIVE NEGATIVE Urine cannabinoids detection by screening method N EGATIVE NEGATIVE Urine opiates detection by screening method POSITI VE NEGATIVE Urine barbiturates detection NEGATIVE N EGATIVE Screening urine tricyclic antidepressants detection POSITIVE NEGATIVE Urine methadone detection by screening method NEGA TIVE NEGATIVE Urine oxycodone detection NEGATIVE NEGA TIVE Urine propoxyphene detection NEGATIVE N EGATIVE Whole blood basic metabolic panel - 12/03 06/21 21:00 Serum or plasma sodium measurement (moles/volume) 139 mmol/L 135-145 Serum or plasma potassium measurement (moles/volume) 4.2 mmol/L 3.6-5.0 Serum or plasma chloride measurement (moles/volume) 103 mmol/L 98-107 Carbon dioxide 25 mmol/L 21-32 Serum or plasma anion gap determination (moles/volume) 11 mmol/L 5-14 Serum or plasma urea nitrogen measurement (mass/volume ) 10 mg/dL 7-18 Serum or plasma creatinine measurement (mass/volume) 0.75 mg/dL 0.60-1.30 Serum or plasma urea nitrogen/creatinine mass ratio 13 NRG Serum or plasma creatinine measurement w ith calculation of estimated glomerular filtration rate > NRG Serum or plasma glucose measurement (mass/volume) 100 mg/dL 70-105 Serum or plasma calcium measurement (mass/volume) 9.8 mg/dL 8.5-10.1 Complete blood count (CBC) with automate d white blood cell (WBC) differential - 12/22/17 21:00 Blood leukocytes automated count (number/volume) 4.8 10*3/uL 4.3-11.0 Blood erythrocytes automated count (number/volume) 4.60 10*6/uL 4.35-5.85 Venous blood hemoglobin measurement (mass/volume) 13.9 g/dL 11.5-16.0 Blood hematocrit (volume fraction) 41 % 35-52 Automated erythrocyte mean corpuscular volume 90 [ foz_us] 80-99 Automated erythrocyte mean corpuscular h emoglobin (mass per erythrocyte) 30 pg 25-34 Automated erythrocyte mean corpuscular h emoglobin concentration measurement (mass/volume) 34 g/dL 32-36 Automated erythrocyte distribution width ratio 13. 6 % 10.0- 14.5 Automated blood platelet count (count/volume) 229 10*3/uL [...] 10*3 1.0-4.0 Blood monocytes automated count (number/volume) 0. 4 10*3 0.0-1.0 Automated eosinophil count 0.1 10*3/uL 0 .0-0.3 Automated blood basophil count (count/volume) 0.0 10*3/uL 0.0-0.1 Erythrocyte sedimentation rate by glynn gren method - 12/22/17 21:00 Erythrocyte sedimentation rate by westergren method 6 mm 0- 20 Automated blood complete blood count (he mogram) panel - 02/14/18 07:20 Blood leukocytes automated count (number/volume) 5.0 10*3/uL 4.3-11.0 Blood erythrocytes automated count (number/volume) 4.43 10*6/uL 4.35-5.85 Venous blood hemoglobin measurement (mass/volume) 13.1 g/dL 11.5-16.0 Blood hematocrit (volume fraction) 40 % 35-52 Automated erythrocyte mean corpuscular volume 90 [ foz_us] 80-99 Automated erythrocyte mean corpuscular h emoglobin (mass per erythrocyte) 30 pg 25-34 Automated erythrocyte mean corpuscular h emoglobin concentration measurement (mass/volume) 33 g/dL 32-36 Automated erythrocyte distribution width ratio 13. 5 % 10.0- 14.5 Automated blood platelet count (count/volume) 245 10*3/uL 130-400 Automated blood platelet mean volume measurement 9.1 [foz_us] 7.4-10.4 PT panel in platelet poor plasma by coag ulation assay - 02/14/18 07:20 Prothrombin time (PT) in platelet poor plasma by coagu lation assay 12.1 s 12.2-14.7 INR in platelet poor plasma or blood by coagulation as say 0.9 0.8-1.4 Activated partial thromboplastin time (a PTT) in platelet poor plasma bycoagulation assay - 02/14/18 07:20 Activated partial thromboplastin time (a PTT) in platelet poor plasma bycoagulation assay 30 s 24-35 Troponin I - 07/02/18 21:20 Troponin <0.020 ng/mL 0.0-0.4 EKG - 07/02/18 21:25 EKG Complete Complete blood count (CBC) with automate d white blood cell (WBC) differential - 02/12/19 03:35 Blood leukocytes automated count (number/volume) 8.4 10*3/uL 4.3-11.0 Blood erythrocytes automated count (number/volume) 5.10 10*6/uL 4.35-5.85 Venous blood hemoglobin measurement (mass/volume) 15.4 g/dL 11.5-16.0 Blood hematocrit (volume fraction) 45 % 35-52 Automated erythrocyte mean corpuscular volume 89 [ foz_us] 80-99 Automated erythrocyte mean corpuscular h emoglobin (mass per erythrocyte) 30 pg 25-34 Automated erythrocyte mean corpuscular h emoglobin concentration measurement (mass/volume) 34 g/dL 32-36 Automated erythrocyte distribution width ratio 13. 5 % 10.0- 14.5 Automated blood platelet count (count/volume) 228 10*3/uL 130-400 Automated blood platelet mean volume measurement 9.5 [foz_us] 7.4-10.4 Automated blood neutrophils/100 leukocytes 60 % 42-75 Automated blood lymphocytes/100 leukocytes 28 % 12-44 Blood monocytes/100 leukocytes 9 % 0-12 Automated blood eosinophils/100 leukocytes 2 % 0-10 Automated blood basophils/100 leukocytes 1 % 0-10 Blood neutrophils automated count (number/volume) 5.0 10*3 1.8-7.8 Blood lymphocytes automated count (number/volume) 2.4 10*3 1.0-4.0 Blood monocytes automated count (number/volume) 0. 8 10*3 0.0-1.0 Automated eosinophil count 0.1 10*3/uL 0 .0-0.3 Automated blood basophil count (count/volume) 0.0 10*3/uL 0.0-0.1 PT panel in platelet poor plasma by coag ulation assay - 02/12/19 03:35 Prothrombin time (PT) in platelet poor plasma by coagu lation assay 12.7 s 12.2-14.7 INR in platelet poor plasma or blood by coagulation as say 0.9 0.8-1.4 Activated partial thromboplastin time (a PTT) in platelet poor plasma bycoagulation assay - 02/12/19 03:35 Activated partial thromboplastin time (a PTT) in platelet poor plasma bycoagulation assay 33 s 24-35 Comprehensive metabolic panel - 02/12/19 03:35 Serum or plasma sodium measurement (moles/volume) 139 mmol/L 135-145 Serum or plasma potassium measurement (moles/volume) 3.6 mmol/L 3.6-5.0 Serum or plasma chloride measurement (moles/volume) 101 mmol/L 98-107 Carbon dioxide 26 mmol/L 21-32 Serum or plasma anion gap determination (moles/volume) 12 mmol/L 5-14 Serum or plasma urea nitrogen measurement (mass/volume ) 11 mg/dL 7-18 Serum or plasma creatinine measurement (mass/volume) 0.72 mg/dL 0.60-1.30 Serum or plasma urea nitrogen/creatinine mass ratio 15 NRG Serum or plasma creatinine measurement w ith calculation of estimated glomerular filtration rate > NRG Serum or plasma glucose measurement (mass/volume) 92 mg/dL 70-105 Serum or plasma calcium measurement (mass/volume) 9.6 mg/dL 8.5-10.1 Serum or plasma total bilirubin measurement (mass/volu me) 0.3 mg/dL 0.1-1.0 Serum or plasma alkaline phosphatase paty surement (enzymatic activity/volume) 100 U/L 40-136 Serum or plasma aspartate aminotransfera se measurement (enzymatic activity/volume) 12 U/L 5-34 Serum or plasma alanine aminotransferase measurement (enzymatic activity/volume) 10 U/L 0-55 Serum or plasma protein measurement (mass/volume) 7.5 g/dL 6.4-8.2 Serum or plasma albumin measurement (mass/volume) 4.2 g/dL 3.2-4.5 CALCIUM CORRECTED 9.4 mg/dL 8.5-10.1 Serum or plasma amylase measurement (enz ymatic activity/volume) - 02/12/19 03:35 Serum or plasma amylase measurement (enzymatic activit y/volume) 57 U/L 25-125 Lipase - 02/12/19 03:35 Lipase 37 U/L 8-78 Magnesium - 02/12/19 03:35 Magnesium 2.2 mg/dL 1.6-2.4 Serum or plasma ethanol measurement (mas s/volume) - 02/12/19 03:35 Serum or plasma ethanol measurement (mass/volume) < mg/dL <10 Urine drug screening test - 02/12/19 04: 40 Urine phencyclidine detection by screening method NEGATIVE NEGATIVE Urine benzodiazepines detection by screening method NEGATIVE NEGATIVE Urine cocaine detection NEGATIVE NEGATI VE Urine amphetamines detection by screening method P OSITIVE NEGATIVE Urine methamphetamine detection by screening method POSITIVE NEGATIVE Urine cannabinoids detection by screening method N EGATIVE NEGATIVE Urine opiates detection by screening method NEGATI VE NEGATIVE Urine barbiturates detection NEGATIVE N EGATIVE Screening urine tricyclic antidepressants detection NEGATIVE NEGATIVE Urine methadone detection by screening method NEGA TIVE NEGATIVE Urine oxycodone detection NEGATIVE NEGA TIVE Urine propoxyphene detection NEGATIVE N EGATIVE Complete urinalysis with reflex to cultu re - 02/12/19 04:40 Urine color determination YELLOW NRG Urine clarity determination CLEAR NR G Urine pH measurement by test strip 7 5-9 Specific gravity of urine by test strip 1.010 1.016-1.022 Urine protein assay by test strip, semi-quantitative NEGATIVE NEGATIVE Urine glucose detection by automated test strip NE GATIVE NEGATIVE Erythrocytes detection in urine sediment by light micr oscopy NEGATIVE NEGATIVE Urine ketones detection by automated test strip NE GATIVE NEGATIVE Urine nitrite detection by test strip NEGATIVE NEGATIVE Urine total bilirubin detection by test strip NEGA TIVE NEGATIVE Urine urobilinogen measurement by automated test strip (mass/volume) NORMAL NORMAL Urine leukocyte esterase detection by dipstick 2+ NEGATIVE Automated urine sediment erythrocyte cou nt by microscopy (number/high power field) NONE NRG Automated urine sediment leukocyte count by microscopy (number/high power field) RARE NRG Bacteria detection in urine sediment by light microsco py TRACE NRG Squamous epithelial cells detection in u rine sediment by light microscopy 2-5 NRG Crystals detection in urine sediment by light microsco py NONE NRG Casts detection in urine sediment by light microscopy NONE NRG Mucus detection in urine sediment by light microscopy NEGATIVE NRG Complete urinalysis with reflex to culture NO NRG A1C - 09/01/19 09:42 HEMOGLOBIN A1c 5.7 % of total Hgb <5.7 Complete urinalysis with reflex to cultu re - 09/22/19 19:55 Urine color determination YELLOW NRG Urine clarity determination SL CLOUDY N RG Urine pH measurement by test strip 7.0 5-9 Specific gravity of urine by test strip 1.020 1.016-1.022 Urine protein assay by test strip, semi-quantitative 2+ NEGATIVE Urine glucose detection by automated test strip NE GATIVE NEGATIVE Erythrocytes detection in urine sediment by light micr oscopy 3+ NEGATIVE Urine ketones detection by automated test strip NE GATIVE NEGATIVE Urine nitrite detection by test strip NEGATIVE NEGATIVE Urine total bilirubin detection by test strip NEGA TIVE NEGATIVE Urine urobilinogen measurement by automated test strip (mass/volume) 0.2 mg/dL < = 1.0 Urine leukocyte esterase detection by dipstick 3+ NEGATIVE Automated urine sediment erythrocyte cou nt by microscopy (number/high power field) [HPF] NRG Automated urine sediment leukocyte count by microscopy (number/high power field) [HPF] NRG Bacteria detection in urine sediment by light microsco py MODERATE NRG Squamous epithelial cells detection in u rine sediment by light microscopy 0-2 NRG Crystals detection in urine sediment by light microsco py NONE NRG Casts detection in urine sediment by light microscopy NONE NRG Mucus detection in urine sediment by light microscopy NEGATIVE NRG Complete urinalysis with reflex to culture YES NRG Bacterial urine culture - 09/22/19 19:55 Bacterial urine culture [id number] NRG COLONY COUNT >100,000/ML NRG SUSCEPTIBILITY SUSCEPTIBILITY REPORTED 09/23 08:55 NRG RAPID ID PRELIM RAPID ID TEST AT [facility] 09/23/19 8:15 NRG ID CONFIRMATION RML CONFIRMED ID 09/23/19 16:05 NRG Dirithromycin susceptibility test by dis k diffusion - 09/22/19 19:55 Gentamicin susceptibility test by minimum inhibitory c oncentration <= NRG Trimethoprim/sulfamethoxazole susceptibi lity test by minimum inhibitoryconcentration > NRG Levofloxacin susceptibility test by minimum inhibitory concentration <= NRG Ampicillin susceptibility test by minimum inhibitory c oncentration > NRG Cefazolin susceptibility test by minimum inhibitory co ncentration 2 NRG Ceftriaxone susceptibility test by minimum inhibitory concentration <= NRG Ciprofloxacin susceptibility test by minimum inhibitor y concentration <= NRG Meropenem susceptibility test by minimum inhibitory co ncentration <= NRG Nitrofurantoin susceptibility test by mi nimum inhibitory concentration 32 NRG Amoxicillin and clavulanate potassium susc ARTURO = NRG Complete blood count (CBC) with automate d white blood cell (WBC) differential - 09/22/19 20:20 Blood leukocytes automated count (number/volume) 10.7 10*3/uL 4.3-11.0 Blood erythrocytes automated count (number/volume) 4.60 10*6/uL 4.35-5.85 Venous blood hemoglobin measurement (mass/volume) 14.2 g/dL 11.5-16.0 Blood hematocrit (volume fraction) 42 % 35-52 Automated erythrocyte mean corpuscular volume 91 [ foz_us] 80-99 Automated erythrocyte mean corpuscular h emoglobin (mass per erythrocyte) 31 pg 25-34 Automated erythrocyte mean corpuscular h emoglobin concentration measurement (mass/volume) 34 g/dL 32-36 Automated erythrocyte distribution width ratio 13. 6 % 10.0- 14.5 Automated blood platelet count (count/volume) 228 10*3/uL 130-400 Automated blood platelet mean volume measurement 9.4 [foz_us] 7.4-10.4 Automated blood neutrophils/100 leukocytes 69 % 42-75 Automated blood lymphocytes/100 leukocytes 21 % 12-44 Blood monocytes/100 leukocytes 9 % 0-12 Automated blood eosinophils/100 leukocytes 1 % 0-10 Automated blood basophils/100 leukocytes 0 % 0-10 Blood neutrophils automated count (number/volume) 7.4 10*3 1.8-7.8 Blood lymphocytes automated count (number/volume) 2.2 10*3 1.0-4.0 Blood monocytes automated count (number/volume) 1. 0 10*3 0.0-1.0 Automated eosinophil count 0.1 10*3/uL 0 .0-0.3 Automated blood basophil count (count/volume) 0.0 10*3/uL 0.0-0.1 Comprehensive metabolic panel - 09/22/19 20:20 Serum or plasma sodium measurement (moles/volume) 139 mmol/L 135-145 Serum or plasma potassium measurement (moles/volume) 4.2 mmol/L 3.6-5.0 Serum or plasma chloride measurement (moles/volume) 104 mmol/L 98-107 Carbon dioxide 25 mmol/L 21-32 Serum or plasma anion gap determination (moles/volume) 10 mmol/L 5-14 Serum or plasma urea nitrogen measurement (mass/volume ) 12 mg/dL 7-18 Serum or plasma creatinine measurement (mass/volume) 1.10 mg/dL 0.60-1.30 Serum or plasma urea nitrogen/creatinine mass ratio 11 NRG Serum or plasma creatinine measurement w ith calculation of estimated glomerular filtration rate 53 NRG Serum or plasma glucose measurement (mass/volume) 112 mg/dL 70-105 Serum or plasma calcium measurement (mass/volume) 9.0 mg/dL 8.5-10.1 Serum or plasma total bilirubin measurement (mass/volu me) 0.3 mg/dL 0.1-1.0 Serum or plasma alkaline phosphatase paty surement (enzymatic activity/volume) 83 U/L 40-136 Serum or plasma aspartate aminotransfera se measurement (enzymatic activity/volume) 23 U/L 5-34 Serum or plasma alanine aminotransferase measurement (enzymatic activity/volume) 25 U/L 0-55 Serum or plasma protein measurement (mass/volume) 6.6 g/dL 6.4-8.2 Serum or plasma albumin measurement (mass/volume) 3.6 g/dL 3.2-4.5 CALCIUM CORRECTED 9.3 mg/dL 8.5-10.1 Serum or plasma troponin i.cardiac measu rement (mass/volume) - 09/22/19 20:20 Serum or plasma troponin i.cardiac measurement (mass/v olume) < ng/mL <0.028 Influenza virus A and B antigen detectio n - 09/22/19 20:22 FLU RESULT NEGATIVE FOR INFLUENZA A AND B ANTIGENS BY IA NRG Encounters ACCT No. Visit Date/Time Discharge Status Pt. Type Provider Facility Loc./Unit Complaint [id number] 08/26/2014 14:10:00 08/26/2014 23:59: 59 [facility] Outpatient JUSTIN GANDHI [id number] 07/10/2014 14:27:00 07/10/2014 23:59: 59 [facility] Outpatient JUSTIN GANDHI [id number] 02/11/2014 16:41:00 02/11/2014 23:59: 59 [facility] Outpatient DOMINGA LE APRN [id number] 08/13/2013 12:53:00 08/13/2013 23:59: 59 [facility] Outpatient DOMINGA LE APRN [id number] 07/11/2013 11:29:00 07/11/2013 23:59: 59 [facility] Outpatient EARL MIDDLETON [id number] 03/10/2013 17:08:00 03/10/2013 23:59: 59 [facility] Outpatient ROBERTH GOTTI DO [id number] 02/13/2013 15:49:00 Document Registration [id number] 01/31/2013 15:31:00 Document Registration [id number] 09/22/2019 19:37:00 020 21:56:00 DIS Emergency DONI LANGE [facility] ER FEVER/COUGH/SOB [id number] 07/26/2019 19:26:00 020 21:30:00 DIS Emergency DONI LANGE [facility] ER PAINFUL BUMPS ON FACE/S RICHARD [id number] 02/12/2019 03:18:00 019 06:21:00 DIS Emergency MINDY NORRIS DO [facility] ER ABD PAIN, PUSS FILLED B LISTERS ON LEGS,SAUNDERS,CHILLS [id number] 10/28/2018 11:11:00 019 12:01:00 DIS Emergency MOLLY FORTE [facility] ER RASH ON LT ARM AND LT F OOT PAIN [id number] 02/14/2018 09:15:00 018 23:59:59 C[facility] Outpatient DAY BRYSON MD [facility] RAD M54.2 CERVICALGIA [id number] 12/22/2017 20:22:00 018 21:45:00 DIS Emergency 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 [facility] ER BACK PAIN [id number] 12/22/2017 18:16:00 018 18:37:00 DIS Emergency MYRNA MINDY CARRILLO [facility] ER BACK PAIN [id number] 12/21/2017 13:09:00 018 15:17:00 DIS Emergency LITTLE FORTEIS [facility] ER NECK PAIN [id number] 01/28/2016 07:44:00 016 11:20:00 DIS Outpatient RAFI YOUNG MD [facility] CPS;PLS [id number] 01/26/2016 13:03:00 016 13:28:00 DIS Outpatient RAFI YOUNG MD [facility] PREOP CPS;PLS [id number] 01/20/2016 13:33:00 016 23:59:59 CLS Outpatient DAY BRYSON MD [facility] RAD M54.16 [id number] 01/15/2016 11:35:00 016 13:49:00 DIS Emergency GERARDO MAYO [facility] ER UTI [id number] 09/20/2015 09:35:00 016 14:24:00 DIS Emergency STALIN SAAVEDRA MD [facility] ER VOMITING FALL/M ULTIPLE INJURIES [id number] 06/24/2015 15:27:00 016 23:59:59 CLS Outpatient JOYCE SPEARS DO [facility] LAB HCGENO [id number] 05/18/2015 11:35:00 23:59:59 CLS Outpatient DAY BRYSON MD [facility] RAD CERVICALGIA [id number] 11/21/2014 11:54:00 015 23:59:59 CLS Outpatient RITIKA MERA APRN [facility] QUICK LEFT ANKLE PAIN [id number] 11/09/2014 06:00:00 015 15:30:00 DIS Inpatient DAY BRYSON MD [facility] SURGICAL LUMBAR STENOSIS [id number] 11/02/2014 11:40:00 015 23:59:59 CLS Outpatient DAY BRYSON MD [facility] PREOP LUMBAR STENOSIS [id number] 06/27/2014 09:44:00 015 13:46:00 DIS Emergency GERARDO MAYO [facility] ER COUGHING UP BLOOD,HEAD ACHE [id number] 06/22/2014 09:10:00 015 14:04:00 DIS Inpatient DAY BRYSON MD [facility] WS CERVICAL STENOSIS [id number] 06/08/2014 13:05:00 015 23:59:59 CLS Outpatient DAY BRYSON MD [facility] PREOP CERVICAL STENOSIS [id number] 03/21/2013 12:30:00 013 23:59:59 CLS Outpatient STALIN PENA [facility] [id number] 08/21/2014 09:55:00 Document Registration [id number] 09/20/2011 15:48:00 Document Registration [id number] 10/08/2018 16:33:00 10/08/2018 18:08: 00 [id number] 21:09:00 07/02/2018 22:23: 00 [id number] 07/02/2018 21:17:10 Document Registration [id number] 11/18/2016 23:06:00 Document Registration [id number] 09/15/2019 18:35:00 09/15/2019 23:59:5 9 CLS Outpatient ABDIFATAH REYES, [facility] [id number] 09/01/2019 09:20:00 Document Registration [id number] 03/21/2016 13:06:00 Document Registration
[2019-10-01 14:00] VITALS: BP 108/72
--- NOTE | 2019-10-01 14:02 | Diagnostic Imaging Report ---
INDICATION: Cough and body aches. TECHNIQUE/COMPARISON: A PA chest was obtained at 1:50 PM and compared to 09/22/2019. FINDINGS: The heart and mediastinal silhouette are normal in appearance. There is no pneumothorax or pleural fluid. There is increased density overlying the lung bases which may be secondary to overlying breast tissue. Consider correlation with lateral view. There is no definite infiltrate. IMPRESSION: Increased density over the lung bases on both sides is probably secondary to overlying breast tissue. There is no definite infiltrate. Consider lateral view as clinically warranted. The study is otherwise negative. Dictated by: Dictated on workstation # [id number]
[2019-10-01 14:06] LABS: BASOPHILS % (AUTO) 1 % (0-10); EOSINOPHILS # (AUTO) 0.1 10^3/uL (0.0-0.3); EOSINOPHILS % (AUTO) 2 % (0-10); HEMATOCRIT 42 % (35-52); HEMOGLOBIN 14.1 G/DL (11.5-16.0); LYMPHOCYTES # (AUTO) 1.7 X 10^3 (1.0-4.0); LYMPHOCYTES % (AUTO) 34 % (12-44); MEAN CORPUSCULAR HEMOGLOBIN 30 PG (25-34); MEAN CORPUSCULAR HGB CONC 33 G/DL (32-36); MEAN CORPUSCULAR VOLUME 91 FL (80-99); MEAN PLATELET VOLUME 9.5 FL (7.4-10.4); MONOCYTES # (AUTO) 0.6 X 10^3 (0.0-1.0); MONOCYTES % (AUTO) 13 % (0-12); NEUTROPHILS # (AUTO) 2.5 X 10^3 (1.8-7.8); NEUTROPHILS % (AUTO) 51 % (42-75); PLATELET COUNT 228 10^3/uL (130-400); RED CELL DISTRIBUTION WIDTH 13.4 % (10.0-14.5); WHITE BLOOD COUNT 4.9 10^3/uL (4.3-11.0)
--- NOTE | 2019-10-01 14:12 | NUR ---
PT O2 SAT ON RA 88% AT THIS TIME. PT O2 SAT WITH DEEP BREATHS INCREASED TO 90%. DR. SAAVEDRA INFORMED. PT PLACED ON 2 L NC AT THIS TIME.
[2019-10-01] MEDS ORDERED: RX-ALBUTEROL INHALER (PROAIR) 8.5 GM IH STA (14:15)
[2019-10-01 14:23] LABS: FIBRIN DEGRADATION PRODUCTS 0.38 UG/ML (0.00-0.49); INR 0.8 (0.8-1.4); PROTHROMBIN TIME PATIENT 11.8 SEC (12.2-14.7)
--- NOTE | 2019-10-01 14:24 | ED Chest Pain ---
General Chief Complaint: Chest Pain Stated Complaint: COUGH;BODY ACHES Nursing Triage Note: PT PRESENTS TO ED WITH THE COMPLAINTS OF COUGH X 2 WEEKS. BODY ACHES X 2 DAYS. PT ALSO REPORTS INTERMITTENT CHEST PRESSURE. Nursing Sepsis Screen: No Definite Risk Source: patient Exam Limitations: no limitations History of Present Illness Date Seen by Provider: Oct 01, 2019 Time Seen by Provider: 13:35 Initial Comments This 48 year old woman presents to the ER with 1 month of cough and new development of body aches, headache, sore throat, loose stools and intermittent chest pain for the past 2 days. She is afebrile on presentation. Chest pain is central, substernal and worse with activity. She rates it as 2/10 at present. Allergies and Home Medications Allergies Coded Allergies: amoxicillin trihydrate (Verified Allergy, Unknown, 10/28/18) RASH, BUT IS ABLE TO TAKE PCN INJECTION baclofen (Unverified Allergy, Unknown, RASH, 10/28/18) paroxetine HCl (Verified Allergy, Unknown, 10/28/18) potassium clavulanate (Verified Allergy, Unknown, 10/28/18) RASH, BUT IS ABLE TO TAKE PCN INJECTION Uncoded Allergies: BACTRIM DS (Allergy, Unknown, 10/28/18) Home Medications Acyclovir 800 Mg Tablet, 800 MG PO 5XD Prescribed by: DONI LANGE on 07/26/192114 Azithromycin 250 Mg Tablet, Unknown Dose PO UD, (Reported) TAKE 2 TABLETS TODAY, THEN TAKE 1 TABLET DAILY FOR 4 MORE DAYS Cefdinir 300 Mg Capsule, 300 MG PO BID Prescribed by: DONI LANGE on 09/22/192112 Phenazopyridine HCl 100 Mg Tablet, 100 MG PO Q8H PRN for SPASMS Prescribed by: DONI LANGE on 09/22/192135 Prednisone 20 Mg Tab, 40 MG PO DAILY Prescribed by: RIGO DAS on 12/22/172136 Patient Home Medication List Home Medication List Reviewed: Yes Review of Systems Review of Systems Constitutional: see HPI EENTM: See HPI Respiratory: See HPI Cardiovascular: No Symptoms Reported Gastrointestinal: See HPI Genitourinary: No Symptoms Reported Musculoskeletal: see HPI Skin: no symptoms reported Psychiatric/Neurological: No Symptoms Reported Endocrine: No Symptoms Reported Past Tecogdh-Hwgrgn-Xbywpa Hx Past Med/Social Hx: Reviewed and Corrections made Patient Social History Alcohol Use: Denies Use Number of Drinks Today: AA Alcohol Beverage of Choice: Beer Recreational Drug Use: No Drug of Choice: STATES HX OF SMOKING METH Type Used: Cigarettes Former Smoker, Quit: Jan 27, 2015 Recent Foreign Travel: No Contact w/Someone Who Travel: No Recent Infectious Disease Expo: No Recent Hopitalizations: No Physical Abuse: No Sexual Abuse: No Mistreated: No Fear: No Immunizations Up To Date Tetanus Booster (TDap): More than 5yrs PED Vaccines UTD: Yes Seasonal Allergies Seasonal Allergies: No Past Medical History Surgeries: Yes (RIGHT CARPAL TUNNEL) Breast, 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, Oophorectomy, Orthopedic Respiratory: Yes Asthma Cardiac: Yes (hx of TACHYCARDIA) Heart Attack, High Cholesterol, Irregular Heartbeat Neurological: No 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 Disorders: 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 Sexually Transmitted Disease: Yes (TRICHOMONAS) Genitourinary: No Gastrointestinal: Yes (HEPATITIS C--S/P TREATMENT; PT STATES SHE HAS GALLSTONES--NO SURGERY) Gastroesophageal Reflux, Chronic Constipation, Gall Bladder Disease, Irritable Bowel Musculoskeletal: Yes Back Injury, Chronic Back Pain Endocrine: No HEENT: No Loss of Vision: Bilateral Cancer: No Psychosocial: Yes Anxiety, Bipolar, Depression Integumentary: No Blood Disorders: Yes (HEP C) Adverse Reaction/Blood Tranf: No Family Medical History Reviewed Nursing Family Hx Aphasia Arthritis 19 MOTHER Cardiovascular disease 19 MOTHER Diabetes mellitus 19 MOTHER FH: Meniere's disease 19 FATHER FH: atrial fibrillation 19 MOTHER FH: back pain 19 FATHER 19 MOTHER FHx: AAA 19 MOTHER Hypertension 19 FATHER 19 MOTHER Osteoporosis 19 MOTHER Thyroid disease G8 SISTER No Pertinent Family Hx Physical Exam Vital Signs Vital Signs - First Documented 10/01/19 10/01/19 14:00 14:12 Temp 36.7 Pulse 101 Resp 20 B/P (MAP) 108/72 (84) Pulse Ox 93 O2 Delivery Room Air O2 Flow Rate 2.00 Capillary Refill : Less Than 3 Seconds Height, Weight, BMI Height: 5'7.00" Weight: 160lbs. 0.0oz. 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 Skin: Normal Color, Warm/Dry Progress/Results/Core Measures Results/Orders Lab Results Laboratory Tests Test 10/01/19 13:55 10/01/19 14:32 10/01/19 14:48 10/01/19 15:52 Range/Units White Blood Count 4.9 4.3-11.0 10^3/uL Red Blood Count 4.66 4.35-5.85 10^6/uL Hemoglobin 14.1 11.5-16.0 G/DL Hematocrit 42 35-52 % Mean Corpuscular Volume 91 80-99 FL Mean Corpuscular Hemoglobin 30 25-34 PG Mean Corpuscular Hemoglobin Concent 33 32-36 G/DL Red Cell Distribution Width 13.4 10.0-14.5 % Platelet Count 228 130-400 10^3/uL Mean Platelet Volume 9.5 7.4-10.4 FL Neutrophils (%) (Auto) 51 42-75 % Lymphocytes (%) (Auto) 34 12-44 % Monocytes (%) (Auto) 13 H 0-12 % Eosinophils (%) (Auto) 2 0-10 % Basophils (%) (Auto) 1 0-10 % Neutrophils # (Auto) 2.5 1.8-7.8 X 10^3 Lymphocytes # (Auto) 1.7 1.0-4.0 X 10^3 Monocytes # (Auto) 0.6 0.0-1.0 X 10^3 Eosinophils # (Auto) 0.1 0.0-0.3 10^3/uL Basophils # (Auto) 0.0 0.0-0.1 10^3/uL Prothrombin Time 11.8 L 12.2-14.7 SEC INR Comment 0.8 0.8-1.4 Activated Partial Thromboplast Time 24 24-35 SEC D-Dimer 0.38 0.00-0.49 UG/ML Sodium Level 142 135-145 MMOL/L Potassium Level 4.3 3.6-5.0 MMOL/L Chloride Level 107 98-107 MMOL/L Carbon Dioxide Level 29 21-32 MMOL/L Anion Gap 6 5-14 MMOL/L Blood Urea Nitrogen 10 7-18 MG/DL Creatinine 0.87 0.60-1.30 MG/DL Estimat Glomerular Filtration Rate > 60 BUN/Creatinine Ratio 11 Glucose Level 92 70-105 MG/DL Calcium Level 8.6 8.5-10.1 MG/DL Corrected Calcium 8.8 8.5-10.1 MG/DL Magnesium Level 2.0 1.6-2.4 MG/DL Total Bilirubin 0.2 0.1-1.0 MG/DL Aspartate Amino Transf (AST/SGOT) 22 5-34 U/L Alanine Aminotransferase (ALT/SGPT) 23 0-55 U/L Alkaline Phosphatase 105 40-136 U/L Lactate Dehydrogenase 156 125-220 U/L Myoglobin 24.8 10.0-92.0 NG/ML Troponin I < 0.028 < 0.028 <0.028 NG/ML C-Reactive Protein High Sensitivity 0.64 H 0.00-0.50 MG/DL B-Type Natriuretic Peptide < 10.0 <100.0 PG/ML Total Protein 6.4 6.4-8.2 GM/DL Albumin 3.7 3.2-4.5 GM/DL Procalcitonin 0.01 <0.10 NG/ML Group A Streptococcus Screen NEGATIVE NEGATIVE Micro Results Microbiology 10/01/19 Influenza Types A,B Antigen (ARTURO) - Final, Complete My Orders Orders - STALIN SAAVEDRA MD Cbc With Automated Diff (10/01/19 13:39) Magnesium (10/01/19 13:39) Chest 1 View, Ap/Pa Only (10/01/19 13:39) Ekg Tracing (10/01/19 13:39) Comprehensive Metabolic Panel (10/01/19 13:39) Myoglobin Serum (10/01/19 13:39) Protime With Inr (10/01/19 13:39) Partial Thromboplastin Time (10/01/19 13:39) O2 (10/01/19 13:39) Monitor-Rhythm Ecg Trace Only (10/01/19 13:39) Ed Iv/Invasive Line Start (10/01/19 13:39) Troponin I (10/01/19 13:39) Nitroglycerin 0.4 Mg Btl 25's (Nitrostat (10/01/19 13:45) Aspirin Chewable Tablet (Baby Aspirin Ch (10/01/19 13:45) Hs C Reactive Protein (10/01/19 13:39) Procalcitonin (Pct) (10/01/19 13:39) LDH (10/01/19 13:39) Fibrin Degradation Products (10/01/19 13:55) Rx-Albuterol Inhaler (Rx-Proair) (10/01/19 14:15) Rapid Strep A Screen (10/01/19 14:26) Influenza A And B Antigens (10/01/19 14:26) Coronavirus Sars-Cov-2 So 2018 (10/01/19 14:26) BNP (10/01/19 14:38) Troponin I (10/01/19 15:55) Medications Given in ED Vital Signs/I&O 10/01/19 10/01/19 10/01/19 10/01/19 14:00 14:03 14:05 14:12 Temp 36.7 36.7 Pulse 101 104 Resp 20 16 B/P (MAP) 108/72 (84) 128/100 (109) Pulse Ox 93 97 94 O2 Delivery Room Air Room Air Nasal Cannula O2 Flow Rate 2.00 10/01/19 10/01/19 10/01/19 10/01/19 14:30 15:00 15:39 16:33 Temp 36.7 36.7 36.7 Pulse 96 81 86 79 Resp 20 14 16 16 B/P (MAP) 106/68 (81) 112/78 (89) 106/69 (81) 102/70 Pulse Ox 99 95 97 96 O2 Delivery Nasal Cannula Nasal Cannula Room Air O2 Flow Rate 2.00 2.00 Blood Pressure Mean: 109 Progress Progress Note #1: Time: 14:51 Progress Note ASA and nitro were given. There was slight improvement in pain. No further nitro was given due to SBP of 108. EKG was unremarkable. Patient was noted to be hypoxic at 88-90% on room air. Proair inhaler was administered and hypoxia resolved. She felt better after the inhaler. Progress Note #2: Time: 16:04 Progress Note After inhaler use patient's hypoxia resolved. She is staying in the 93-97 percent range even while asleep on room air. Her chest pain has completely resolved. As long as her repeat troponin is negative she will be discharged to outpatient follow-up. Initial ECG Impression Date: Oct 01, 2019 Initial ECG Impression Time: 13:37 Initial ECG Rate: 100 Initial ECG Rhythm: Normal Sinus Initial ECG Intervals: Normal Initial ECG Impression: Normal Comment Normal sinus rhythms with no ST elevation or depression. No abnormal intervals or axis deviation. Diagnostic Imaging Diagonstic Imaging: Xray Plain Films/CT/US/NM/MRI: chest Comments Chest x-ray viewed by me and report reviewed. See report below: NAME: ALIX MARTINEZ [facility] REC#: [id number] PT STATUS: REG ER : 1970 PHYSICIAN: STALIN SAAVEDRA MD ADMIT DATE: 10/01/19/ER Draft Date of Exam:10/01/19 CHEST 1 VIEW, AP/PA ONLY INDICATION: Cough and body aches. TECHNIQUE/COMPARISON: A PA chest was obtained at 1:50 PM and compared to 09/22/2019. FINDINGS: The heart and mediastinal silhouette are normal in appearance. There is no pneumothorax or pleural fluid. There is increased density overlying the lung bases which may be secondary to overlying breast tissue. Consider correlation with lateral view. There is no definite infiltrate. IMPRESSION: Increased density over the lung bases on both sides is probably secondary to overlying breast tissue. There is no definite infiltrate. Consider lateral view as clinically warranted. The study is otherwise negative. Dictated on workstation # [id number] Dict: 10/01/19 1358 Trans: 10/01/19 1401 [id number] Interpreted by: ROSALBA HORTA MD Departure Impression Primary Impression: Chest pain, atypical Additional Impressions: Bronchospasm Cough Disposition: 01 HOME, SELF-CARE Condition: Improved Departure-Patient Inst. Decision time for Depature: 16:45 Referrals: [facility] [place] (PCP/Family) Primary Care Physician Patient Instructions: BRONCHOSPASM-ADULT, COVID19, Chest Pain Add. Discharge Instructions: Take aspirin 81 mg daily until otherwise instructed. Return to care if you have worsening symptoms or recurrent chest pain. Use your inhaler, 2 puffs every 4 hours as needed for wheezing, shortness of breath, or cough. Follow-up with your primary care provider as soon as possible. Work toward quitting smoking. Seek assistance from your doctor if needed. Stay home and home isolate until the results of your coronavirus testing are known. Avoid close contact with others. Please let your close contacts and household members know that you are currently a person under investigation for coronavirus. They should also home isolate until the results of your tests are known. All discharge instructions reviewed with patient and/or family. Voiced understanding. STALIN SAAVEDRA MD Oct 01, 2019 14:24
[2019-10-01 14:25] LABS: CARBON DIOXIDE 29 MMOL/L (21-32); CHLORIDE 107 MMOL/L (98-107); CREATININE SERUM 0.87 MG/DL (0.60-1.30); POTASSIUM 4.3 MMOL/L (3.6-5.0); SODIUM 142 MMOL/L (135-145)
[2019-10-01 14:26] LABS: ALANINE AMINOTRANSFERASE 23 U/L (0-55); ALBUMIN 3.7 GM/DL (3.2-4.5); ALKALINE PHOSPHATASE 105 U/L (40-136); BILIRUBIN,TOTAL 0.2 MG/DL (0.1-1.0); BUN/CREATININE RATIO 11; CALCIUM 8.6 MG/DL (8.5-10.1); GFR ESTIMATED > 60; GLUCOSE 92 MG/DL (70-105); TOTAL PROTEIN 6.4 GM/DL (6.4-8.2)
[2019-10-01 14:30] VITALS: BP 106/68
[2019-10-01 15:00] VITALS: BP 112/78
[2019-10-01 15:39] VITALS: BP 106/69
[2019-10-01 16:33] VITALS: BP 102/70
== END 2019-10-01 16:33 | disposition home or self-care (01) ==
LOC: EDUNIT# 13:29 → ER 13:32
DX: R07.89 Other chest pain (principal); R05 Cough; J98.01 Acute bronchospasm; E78.00 Pure hypercholesterolemia, unspecified; I25.2 Old myocardial infarction; B19.20 Unspecified viral hepatitis C without hepatic coma; K21.9 Gastro-esophageal reflux disease without esophagitis; K58.1 Irritable bowel syndrome with constipation; M54.9 Dorsalgia, unspecified; G89.29 Other chronic pain; F41.9 Anxiety disorder, unspecified; F31.9 Bipolar disorder, unspecified
CPT/HCPCS: 36415; 71045; 80053; 83615; 83735; 83874; 83880; 84145; 84484; 85025; 85379; 85610; 85730; 86141; 87430; 87635; 87804; 93041

== ENCOUNTER 2019-11-29 13:27 | Emergency (ER) | payer MEDICARE ==
[~2019-11-29] VITALS: Ht 170 cm; Wt 72.5 kg
--- OUTSIDE RECORDS SUMMARY | 2019-11-29 13:34 | XMS REPORT ---
Author Author Misty Mora Doctor Organization [facility] Address Unknown Phone Unavailable Care Team Providers Care Heat Treat Supervisor Name Role Phone Migration, Doctor Unavailable Unavailable PROBLEMS Type Condition ICD9-CM Code FZZ79-GD Code Onset Dates Condition S tatus SNOMED Code Problem Controlled substance agreement terminated Z92.89 Active 371148656 Problem Hepatitis C antibody test positive R76.8 Active 301739049 Problem Major depressive disorder, recurrent episode, moderate F33.1 Active 541685782 Problem Generalized anxiety disorder F41.1 A ctive 33933493 Problem Opiate abuse, episodic F11.10 Active 0386823 Problem Methamphetamine use disorder, moderate F15.20 Active 733829456 Problem Mood disorder F39 Active 462109 05 Problem Seasonal allergies J30.2 Active 4 20616989 Problem Major depressive disorder, r ecurrent episode, severe, with psychotic behavior F33.3 Active 899546029 Problem Irritable bowel syndrome with diarrhea K58.0 Active 797970471 Problem Major depressive disorder, recurrent, severe wit h psychotic symptoms F33.3 Active 41384001 Problem Chronic pain syndrome G89.4 Active 115405233 Problem Bipolar I disorder F31.9 Active 3 08962740 Problem Gambling disorder, 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 Ac tive 24907734 Problem Poverty status Z59.6 Active 20181 006 ALLERGIES No Information ENCOUNTERS Encounter Location Date Diagnosis [facility] [address] [facility] [id number] [address] [place] [id number] October, [facility] [address] [facility] [id number] [address] [place] [id number] Sep, Viral upper respiratory trac t infection J06.9 ; Vaginal discharge N89.8 and infection, trichomonal A59.00 [facility] [address] [facility] [id number] [address] [place] [id number] Aug, [facility] [address] [facility] [id number] [address] Aug, Mood disorder F39 ; High risk medication use Z79.899 ; Irritable bowel syndrome with diarrhea K58.0 ; Seasonal allergies J30.2 and Poverty status Z59.6 [facility] [address] [facility] [id number] [address] [place] [id number] Aug, Mood disorder F39 [facility] [address] [facility] [id number] [address] [place] [id number] Aug, Vaginal discharge N89.8 ; Ce rvicitis N72 ; Sexually transmitted disease (STD) A64 and Trichomonas vaginalis infection A59.9 [facility] [address] [facility] [id number] [place] [address] Aug, Chronic pain syndrome G89.4 ; Bipolar I disorder F31.9 and Gambling disorder, 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 [facility] [place] [id number] [address] [place] [id number] Jul, Bronchitis J40 [facility] [address] [place], [place] [id number] [address] [place] [id number] Feb, Bronchitis J40 [facility] [place] [id number] [address] [place] [id number] Nov, Acute bronchitis, unspecifie d organism J20.9 [facility] [place] [id number] [address] [place] [id number] October, Allergic contact dermatitis due to plants, except food L23.7 [place] [id number] [address] [place] [id number] Aug, [place] [id number] [address] [place] [id number] Aug, Mood disorder F39 ; Methamph etamine use disorder, moderate F15.20 and Opiate abuse, episodic F11.10 [place] [id number] [address] [place] [id number] May, [address] [place] [address] May, Mood disorder F39 ; Methamph etamine use disorder, moderate F15.20 and Opiate abuse, episodic F11.10 [facility] [address] [facility] [id number] [address] [place] [id number] Apr, Acute sinusitis J01.90 [facility] [address] [facility] [id number] [address] [place] [id number] Mar, Mood disorder F39 ; Methamph etamine use disorder, moderate F15.20 and Opiate abuse, episodic F11.10 [facility] [address] [facility] [id number] [address] [place] [id number] Dec, Methamphetamine use disorder , moderate F15.20 ; Opiate abuse, episodic F11.10 and Mood disorder F39 [facility] [address] [facility] [id number] [address] [place] [id number] Sep, Sore throat J02.9 [facility] [address] [facility] [id number] [address] [place] [id number] 15 Apr, 2017 [facility] [address] [facility] [id number] [address] [place] [id number] Apr, [facility] [address] [facility] [id number] [address] [place] [id number] Mar, High risk medication use Z79 .899 ; Methamphetamine use disorder, moderate F15.20 and Opiate abuse, episodic F11.10 [facility] [address] [facility] [id number] [address] [place] [id number] Dec, [facility] [address] [facility] [id number] [address] [place] [id number] Dec, Generalized anxiety disorder F41.1 and Major depressive disorder, recurrent episode, severe, with psychotic behavior F33.3 [facility] [address] [facility] [id number] [address] [place] [id number] 15 Nov, 2016 Abdominal pain R10.9 and Acu te cystitis with hematuria N30.01 [place] [address] [place] [id number] [address] [place] [id number] October, Major depressive disorder, r ecurrent, severe with psychotic symptoms F33.3 and Generalized anxiety disorder F41.1 [place] [address] [place] [id number] [address] [place] [id number] Sep, Generalized anxiety disorder F41.1 and Major depressive disorder, recurrent, severe with psychotic symptoms F33.3 [place] [address] [address] Sep, Generalized anxiety disorder F41.1 and Major depressive disorder, recurrent, severe with psychotic symptoms F33.3 [place] [address] [place] [id number] [place] [address] Aug, Major depressive disorder, r ecurrent episode, moderate F33.1 and Generalized anxiety disorder F41.1 [place] [address] [address] Aug, Major depressive disorder, r ecurrent episode, moderate F33.1 and Generalized anxiety disorder F41.1 [facility] [address] [address] Jul, Urinary frequency R35.0 and Gastroenteritis and colitis, viral A08.4 [place] [address] [address] Jul, Major depressive disorder, r ecurrent episode, moderate F33.1 and Generalized anxiety disorder F41.1 [facility] [address] [place] [id number] [address] [place] [id number] Jun, Bronchitis J40 [place] [address] [place] [id number] [place] [address] May, Major depressive disorder, r ecurrent episode, severe, with psychotic behavior F33.3 and Generalized anxiety disorder F41.1 [place] [address] [address] Apr, Major depressive disorder, r ecurrent episode, severe, with psychotic behavior F33.3 and Generalized anxiety disorder F41.1 [facility] [address] [id number] [address] [place] [phone] Apr, Generalized anxiety disorder F41.1 and Major depressive disorder, recurrent episode, severe, with psychotic behavior F33.3 [facility] [address] [id number] [address] [place] [address] Apr, Severe episode of recurrent major depressive disorder, with psychotic features F33.3 [facility] [address] [id number] [address] [place] [id number] Apr, Bronchitis J40 [facility] [address] [facility] [id number] [address] [place] [id number] Mar, [facility] [address] [facility] [id number] [address] [place] [id number] Mar, Vaginal discharge N89.8 and Trichomonas infection A59.9 [facility] [address] [id number] [address] [place] [id number] Mar, Severe episode of recurrent major depressive disorder, with psychotic features F33.3 [facility] [address] [id number] [address] [place] [id number] Feb, Generalized anxiety disorder F41.1 and Major depressive disorder, recurrent episode, severe, with psychotic behavior F33.3 [facility] [address] [id number] [address] [place] [phone] Feb, Severe episode of recurrent major depressive disorder, with psychotic features F33.3 [facility] [address] [id number] [address] [place] [id number] Jan, Severe episode of recurrent major depressive disorder, with psychotic features F33.3 [facility] [address] [id number] [address] [place] [id number] Dec, Generalized anxiety disorder F41.1 and Major depressive disorder, recurrent episode, severe, with psychotic behavior F33.3 [facility] [address] [id number] [address] [place] [id number] Nov, Major depressive disorder, r ecurrent episode, severe, with psychotic behavior F33.3 [facility] [address] [id number] [address] [place] [id number] Nov, Major depressive disorder, r ecurrent episode, severe, with psychotic behavior F33.3 [facility] [address] [id number] [address] [place] [id number] Sep, Controlled substance agreeme nt terminated Z92.89 [facility] [address] [id number] [address] [place] [id number] Sep, Major depressive disorder, r ecurrent episode, severe, with psychotic behavior F33.3 [facility] [address] [facility] [id number] [address] [place] [address] Sep, Major depressive disorder, r ecurrent episode, severe, with psychotic behavior F33.3 [facility] [address] [id number] [address] [place] [address] Sep, Generalized anxiety disorder F41.1 and Major depressive disorder, recurrent, severe with psychotic symptoms F33.3 [facility] [address] [id number] [address] [place] [id number] Sep, [facility] [address] [id number] [address] [place] [id number] Sep, Major depressive disorder, r ecurrent episode, severe, with psychotic behavior F33.3 [facility] [address] [id number] [address] [place] [id number] Aug, Major depressive disorder, r ecurrent, severe with psychotic symptoms F33.3 and Generalized anxiety disorder F41.1 [facility] [address] [id number] [address] [place] [id number] Jun, Generalized anxiety disorder F41.1 and Major depressive disorder, recurrent, severe with psychotic symptoms F33.3 [id number] [id number] [address] [place] [id number] Jun, [facility] [address] [place] [id number] [address] [place] [id number] Mar, [facility] [address] [place] [id number] [address] [place] [id number] Mar, Generalized anxiety disorder F41.1 and Major depressive disorder, recurrent, severe with psychotic symptoms F33.3 [facility] [address] [place] [id number] [address] [place] [id number] Feb, Generalized anxiety disorder 300.02 ; Major depression, recurrent 296.30 and 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 [facility] [address] [place] [id number] [address] [place] [id number] October, Major depressive disorder, r ecurrent episode, moderate 296.32 and Generalized anxiety disorder 300.02 [facility] [address] [place] [id number] [address] [place] [id number] Sep, [facility] [address] [place] [id number] [address] [place] [id number] Sep, [facility] [address] [place] [id number] [address] [place] [id number] Aug, [facility] [address] [place] [id number] [address] [place] [phone] Aug, [facility] [address] [place] [id number] [address] [place] [id number] Jul, [facility] [address] [place] [id number] [address] [place] [id number] Jul, [facility] [address] [place] [id number] [address] [place] [id number] Jul, [facility] [address] [place] [id number] [address] [place] [id number] Jul, [facility] [address] [place] [id number] [address] [place] [id number] Jul, [facility] [address] [id number] [address] [place] [address], [place] [address] Jul, [facility] [address] [id number] [address] [place] [address], [place] [address] Jul, [facility] [address] [id number] [address] [place] [address], [place] [address] Feb, [facility] [address] [id number] [address] [place] [address], [place] [address] Feb, [facility] [address] [id number] [address] [place] [address], [place] [address] Nov, [facility] [address] [id number] [address] [place] [address], [place] [address] Nov, [facility] [address] [id number] [address] [place] [address], [place] [address] Sep, [facility] [address] [id number] [address] [place] [address], [place] [address] Aug, [facility] [address] [id number] [address] [place] [address], [place] [address] Aug, [facility] [address] [id number] [address] [place] [address], [place] [address] Aug, [facility] [address] [id number] [address] [place] [address], [place] [address] Aug, [facility] [address] [id number] [address] [place] [address], [place] [address] Jul, [facility] [address] [id number] [address] [place] [address], [place] [address] Jul, [facility] [address] [id number] [address] [place] [address], [place] [address] Jul, [facility] [address] [id number] [address] [place] [address], [place] [address] Jul, [facility] [address] [id number] [address] [place] [id number] Jul, [facility] [address] [id number] [address] [place] [id number] Jul, [facility] [address] [id number] [address] [place] [id number] Mar, [facility] [address] [id number] [address] [place] [id number] Mar, [facility] [address] [id number] [address] [place] [id number] Mar, [facility] [address] [id number] [address] [place] [id number] Mar, [facility] [address] [id number] [address] [place] [id number] Feb, [facility] [address] [id number] [address] [place] [id number] Feb, [facility] [address] [id number] [address] [place] [id number] Jan, IMMUNIZATIONS No Known Immunizations SOCIAL HISTORY [...] hepatitis C - treated around 2016 by [facility] Physician, was told she was cured [...] placed 03/2016 Hospitalization History surgery Hospitalization History [facility]
--- OUTSIDE RECORDS SUMMARY | 2019-11-29 13:34 | XMS REPORT ---
Author Author Misty Mora Doctor Organization [facility] Address Unknown Phone Unavailable Care Team Providers Care Dairy Consultant Name Role Phone Migration, Doctor Unavailable Unavailable PROBLEMS Type Condition ICD9-CM Code [id number] Code Onset Dates Condition S tatus SNOMED Code Problem Controlled substance agreement terminated Z92.89 Active 498161457 Problem Hepatitis C antibody test positive R76.8 Active 331174751 Problem Major depressive disorder, recurrent episode, moderate F33.1 Active 781043622 Problem Generalized anxiety disorder F41.1 A ctive 72786489 Problem Opiate abuse, episodic F11.10 Active 9992773 Problem Methamphetamine use disorder, moderate F15.20 Active 595691303 Problem Mood disorder F39 Active 111602 05 Problem Seasonal allergies J30.2 Active 4 77842117 Problem Major depressive disorder, r ecurrent episode, severe, with psychotic behavior F33.3 Active 047466082 Problem Irritable bowel syndrome with diarrhea K58.0 Active 629763289 Problem Major depressive disorder, recurrent, severe wit h psychotic symptoms F33.3 Active 23226388 Problem Chronic pain syndrome G89.4 Active 841032531 Problem Bipolar I disorder F31.9 Active 3 23725669 Problem Gambling disorder, 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 Ac tive 64359801 Problem Poverty status Z59.6 Active 58155 006 ALLERGIES No Information ENCOUNTERS Encounter Location Date Diagnosis [facility] [address] [facility] [id number] [address] [place] [phone] October, [facility] [address] [facility] [id number] [address] [place] [address] Sep, Viral upper respiratory trac t infection J06.9 ; Vaginal discharge N89.8 and infection, trichomonal A59.00 [facility] [address] [facility] [id number] [address] [place] [address] Aug, [facility] [address] [facility] [id number] [place] [address] Aug, Mood disorder F39 ; High risk medication use Z79.899 ; Irritable bowel syndrome with diarrhea K58.0 ; Seasonal allergies J30.2 and Poverty status Z59.6 [facility] [address] [facility] [id number] [address] [place] [address] Aug, Mood disorder F39 [facility] [address] [facility] [id number] [address] [place] [address] Aug, Vaginal discharge N89.8 ; Ce rvicitis N72 ; Sexually transmitted disease (STD) A64 and Trichomonas vaginalis infection A59.9 [facility] [address] [facility] [id number] [place], [place] [address] Aug, Chronic pain syndrome G89.4 ; Bipolar I disorder F31.9 and Gambling disorder, 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 [facility] [place] [id number] [address] [place] [id number] Jul, Bronchitis J40 [facility] [address] [place], [place] [id number] [address] [place] [phone] Feb, Bronchitis J40 [facility] [place] [id number] [address] [place] [address] Nov, Acute bronchitis, unspecifie d organism J20.9 [facility] [place] [id number] [address] [place] [address] October, Allergic contact dermatitis due to plants, except food L23.7 [place] [id number] [address] [place] [address] Aug, [place] [id number] [address] [place] [address] Aug, Mood disorder F39 ; Methamph etamine use disorder, moderate F15.20 and Opiate abuse, episodic F11.10 [place] [id number] [address] [place] [address] May, [address] [place] [address] May, Mood disorder F39 ; Methamph etamine use disorder, moderate F15.20 and Opiate abuse, episodic F11.10 [facility] [address] [facility] [id number] [address] [place] [address] Apr, Acute sinusitis J01.90 [facility] [address] [facility] [id number] [address] [place] [address] Mar, Mood disorder F39 ; Methamph etamine use disorder, moderate F15.20 and Opiate abuse, episodic F11.10 [facility] [address] [facility] [id number] [address] [place] [address] Dec, Methamphetamine use disorder , moderate F15.20 ; Opiate abuse, episodic F11.10 and Mood disorder F39 [facility] [address] [facility] [id number] [address] [place] [phone] Sep, Sore throat J02.9 [facility] [address] [facility] [id number] [address] [place] [address] 15 Apr, 2017 [facility] [address] [facility] [id number] [address] [place] [address] Apr, [facility] [address] [facility] [id number] [address] [place] [address] Mar, High risk medication use Z79 .899 ; Methamphetamine use disorder, moderate F15.20 and Opiate abuse, episodic F11.10 [facility] [address] [facility] [id number] [address] [place] [address] Dec, [facility] [address] [facility] [id number] [address] [place] [address] Dec, Generalized anxiety disorder F41.1 and Major depressive disorder, recurrent episode, severe, with psychotic behavior F33.3 [facility] [address] [facility] [id number] [address] [place] [address] 15 Nov, 2016 Abdominal pain R10.9 and Acu te cystitis with hematuria N30.01 [place] [address] [place] [id number] [address] [place] [address] October, Major depressive disorder, r ecurrent, severe with psychotic symptoms F33.3 and Generalized anxiety disorder F41.1 [place] [address] [place] [id number] [address] [place] [address] Sep, Generalized anxiety disorder F41.1 and Major depressive disorder, recurrent, severe with psychotic symptoms F33.3 [place] [address] [address] Sep, Generalized anxiety disorder F41.1 and Major depressive disorder, recurrent, severe with psychotic symptoms F33.3 [place] [address] [place] [id number] [place] [address] Aug, Major depressive disorder, r ecurrent episode, moderate F33.1 and Generalized anxiety disorder F41.1 [place] [address] [address] Aug, Major depressive disorder, r ecurrent episode, moderate F33.1 and Generalized anxiety disorder F41.1 [facility] [address] [address] Jul, Urinary frequency R35.0 and Gastroenteritis and colitis, viral A08.4 [place] [address] [address] Jul, Major depressive disorder, r ecurrent episode, moderate F33.1 and Generalized anxiety disorder F41.1 [facility] [address] [place] [id number] [address] [place] [address] Jun, Bronchitis J40 [place] [address] [place] [id number] [place] [address] May, Major depressive disorder, r ecurrent episode, severe, with psychotic behavior F33.3 and Generalized anxiety disorder F41.1 [place] [address] [address] Apr, Major depressive disorder, r ecurrent episode, severe, with psychotic behavior F33.3 and Generalized anxiety disorder F41.1 [facility] [address] [id number] [address] [place] [address] Apr, Generalized anxiety disorder F41.1 and Major depressive disorder, recurrent episode, severe, with psychotic behavior F33.3 [facility] [address] [id number] [address] [place] [address] Apr, Severe episode of recurrent major depressive disorder, with psychotic features F33.3 [facility] [address] [id number] [address] [place] [address] Apr, Bronchitis J40 [facility] [address] [facility] [id number] [address] [place] [address] Mar, [facility] [address] [facility] [id number] [address] [place] [address] Mar, Vaginal discharge N89.8 and Trichomonas infection A59.9 [facility] [address] [id number] [address] [place] [address] Mar, Severe episode of recurrent major depressive disorder, with psychotic features F33.3 [facility] [address] [id number] [address] [place] [address] Feb, Generalized anxiety disorder F41.1 and Major depressive disorder, recurrent episode, severe, with psychotic behavior F33.3 [facility] [address] [id number] [address] [place] [address] Feb, Severe episode of recurrent major depressive disorder, with psychotic features F33.3 [facility] [address] [id number] [address] [place] [address] Jan, Severe episode of recurrent major depressive disorder, with psychotic features F33.3 [facility] [address] [id number] [address] [place] [address] Dec, Generalized anxiety disorder F41.1 and Major depressive disorder, recurrent episode, severe, with psychotic behavior F33.3 [facility] [address] [id number] [address] [place] [address] Nov, Major depressive disorder, r ecurrent episode, severe, with psychotic behavior F33.3 [facility] [address] [id number] [address] [place] [address] Nov, Major depressive disorder, r ecurrent episode, severe, with psychotic behavior F33.3 [facility] [address] [id number] [address] [place] [address] Sep, Controlled substance agreeme nt terminated Z92.89 [facility] [address] [id number] [address] [place] [address] Sep, Major depressive disorder, r ecurrent episode, severe, with psychotic behavior F33.3 [facility] [address] [facility] [id number] [address] [place] [address] Sep, Major depressive disorder, r ecurrent episode, severe, with psychotic behavior F33.3 [facility] [address] [id number] [address] [place] [address] Sep, Generalized anxiety disorder F41.1 and Major depressive disorder, recurrent, severe with psychotic symptoms F33.3 [facility] [address] [id number] [address] [place] [id number] Sep, [facility] [address] [id number] [address] [place] [address] Sep, Major depressive disorder, r ecurrent episode, severe, with psychotic behavior F33.3 [facility] [address] [id number] [address] [place] [address] Aug, Major depressive disorder, r ecurrent, severe with psychotic symptoms F33.3 and Generalized anxiety disorder F41.1 [facility] [address] [id number] [address] [place] [address] Jun, Generalized anxiety disorder F41.1 and Major depressive disorder, recurrent, severe with psychotic symptoms F33.3 [id number] [id number] [address] [place] [address] Jun, [facility] [address] [place] [id number] [address] [place] [address] Mar, [facility] [address] [place] [id number] [address] [place] [address] Mar, Generalized anxiety disorder F41.1 and Major depressive disorder, recurrent, severe with psychotic symptoms F33.3 [facility] [address] [place] [id number] [address] [place] [address] Feb, Generalized anxiety disorder 300.02 ; Major depression, recurrent 296.30 and 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 [facility] [address] [place] [id number] [address] [place] [address] October, Major depressive disorder, r ecurrent episode, moderate 296.32 and Generalized anxiety disorder 300.02 [facility] [address] [place] [id number] [address] [place] [address] Sep, [facility] [address] [place] [id number] [address] [place] [address] Sep, [facility] [address] [place] [id number] [address] [place] [address] Aug, [facility] [address] [place] [id number] [address] [place] [address] Aug, [facility] [address] [place] [id number] [address] [place] [address] Jul, [facility] [address] [place] [id number] [address] [place] [address] Jul, [facility] [address] [place] [id number] [address] [place] [address] Jul, [facility] [address] [place] [id number] [address] [place] [address] Jul, [facility] [address] [place] [id number] [address] [place] [address] Jul, [facility] [address] [id number] [address] [place] [address], [place] [address] Jul, [facility] [address] [id number] [address] [place] [address], [place] [address] Jul, [facility] [address] [id number] [address] [place] [address], [place] [address] Feb, [facility] [address] [id number] [address] [place] [address], [place] [address] Feb, [facility] [address] [id number] [address] [place] [address], [place] [address] Nov, [facility] [address] [id number] [address] [place] [address], [place] [address] Nov, [facility] [address] [id number] [address] [place] [address], [place] [address] Sep, [facility] [address] [id number] [address] [place] [address], [place] [address] Aug, [facility] [address] [id number] [address] [place] [address], [place] [address] Aug, [facility] [address] [id number] [address] [place] [address], [place] [address] Aug, [facility] [address] [id number] [address] [place] [address], [place] [address] Aug, [facility] [address] [id number] [address] [place] [address], [place] [address] Jul, [facility] [address] [id number] [address] [place] [address], [place] [address] Jul, [facility] [address] [id number] [address] [place] [address], [place] [address] Jul, [facility] [address] [id number] [address] [place] [address], [place] [address] Jul, [facility] [address] [id number] [address] [place] [phone] Jul, [facility] [address] [id number] [address] [place] [address] Jul, [facility] [address] [id number] [address] [place] [address] Mar, [facility] [address] [id number] [address] [place] [address] Mar, [facility] [address] [id number] [address] [place] [address] Mar, [facility] [address] [id number] [address] [place] [address] Mar, [facility] [address] [id number] [address] [place] [address] Feb, [facility] [address] [id number] [address] [place] [address] Feb, [facility] [address] [id number] [address] [place] [address] Jan, IMMUNIZATIONS No Known Immunizations SOCIAL HISTORY [...] hepatitis C - treated around 2016 by [facility] Physician, was told she was [...] 03/2016 Hospitalization History surgery Hospitalization History [facility]
--- OUTSIDE RECORDS SUMMARY | 2019-11-29 13:37 | XMS REPORT | Continuity of Care Document ---
Author Organization Unknown Address Unknown Phone Unavailable Allergies Active Description Code Type Severity Reaction Onset Reported/Identified Relationship to Patient Clinical Status Yes NO KNOWN DRUG ALLERGIES UNKNOWN NO KNOWN DRUG ALLERG Yes amoxicillin trihydrate [id number] Drug Allergy Unknown N/A 10/28/2018 Yes baclofen [id number] Drug Allergy Unknown RASH 10/28/2018 Yes BACTRIM DS BACTRIM DS Unknown N/A 10/28/[address] [id number] Dr ug Allergy Unknown N/A 10/28/2018 Yes potassium clavulanate [id number] Drug Allergy Unknown N/A 10/28/2018 Medications Medication [...] OTHER MULTIPLE AND UNSPECIFIED SITES INFECTED 01/31/2013 [facility] [place] R 704.8 OTHER SPECIFIED DISEASES OF HAIR AND HAIR FOLLICLES 01/31/2013 [facility], [place] 919.5 INSECT BITE NONVENOMOUS [...] DISORDER OF SKIN AND SUBCUTANEOUS TISSUE 02/13/2013 [facility], [place] R 709.9 UNSPECIFIED DISORDER OF [...] ROBERTH K E888.9 UNSPECIFIED ACCIDENTAL FALL 03/10/2013 [facility], [place] R 724.3 SCIATICA 03/10/2013 [facility], [place] R 724.5 BACKACHE UNSPECIFIED 03/10/2013 [facility], [place] R E888.9 UNSPECIFIED ACCIDENTAL FALL 03/10/2013 [facility]ORE DIRECTOR, DOMINGA RAWLS 724.3 SCIATICA 03/10/2013 LE STORE DIRECTOR, DOMINGA RAWLS 724.5 BACKACHE UNSPECIFIED 03/10/2013 LE STORE DIRECTOR, DOMINGA RAWLS E888.9 UNSPECIFIED ACCIDENTAL FALL 03/10/2013 LE STORE DIRECTOR, DOMINGA RAWLS 724.3 SCIATICA 03/10/2013 LE STORE DIRECTOR, DOMINGA RAWLS 724.5 BACKACHE UNSPECIFIED 03/10/2013 LE STORE DIRECTOR, DOMINGA RAWLS E888.9 UNSPECIFIED ACCIDENTAL FALL 03/10/2013 [facility], JUSTIN M 724.3 SCIATICA 03/10/2013 WILDA SCHULZ, JUSTIN M 724.5 BACKACHE UNSPECIFIED 03/10/2013 WILDA SCHULZ, JUSTIN M E888.9 UNSPECIFIED ACCIDENTAL FALL 03/10/2013 [facility], JUSTIN M 724.3 SCIATICA 03/10/2013 WILDA SCHULZ, JUSTIN M 724.5 BACKACHE UNSPECIFIED 03/10/2013 WILDA SCHULZ, JUSTIN M E888.9 UNSPECIFIED ACCIDENTAL FALL 07/11/2013 [facility], [place] R 300.00 AN ANXIETY UNSPEC 07/11/2013 [facility] [place] R 311 DEPRESSIVE DISORDER NOS 07/11/2013 LE STORE DIRECTOR, DOMINGA RAWLS 300.00 AN ANXIETY UNSPEC 07/11/2013 LE STORE DIRECTOR, DOMINGA CARVERH 311 DEPRESSIVE DISORDER NOS 07/11/2013 LE STORE DIRECTOR, DOMINGA CRAVERH 300.00 AN ANXIETY UNSPEC 07/11/2013 LE STORE DIRECTOR, DOMINGA RAWLS 311 DEPRESSIVE DISORDER NOS [...] M96. 1 POSTLAMINECTOMY SYNDROME, NOT ELSEWHERE 02/03/2016 RAIF YOUNG MD Ot G89. 4 CHRONIC PAIN [...] TO OTH DRUG/MEDS/BIOL SUB 12/22/2017 RIGO DAS STORE DIRECTOR Ot Z90.710 ACQUIRED ABSENCE OF BOTH CERVIX AND UTER 12/24/2017 MYRNA DO, MINDY K Ot M54.9 DORSALGIA, UNSPECIFIED 12/24/2017 RIGO DAS APRN Ot F32 .9 MAJOR DEPRESSIVE DISORDER, SINGLE EPISOD 12/24/2017 RIGO DAS STORE DIRECTOR Ot G89.29 OTHER CHRONIC PAIN 12/24/2017 RIGO DAS STORE DIRECTOR Ot J45.909 UNSPECIFIED ASTHMA, UNCOMPLICATED 12/24/2017 RIGO DAS STORE DIRECTOR Ot M54 .5 LOW BACK PAIN 12/24/2017 RIGO DAS STORE DIRECTOR Ot Z87.19 PERSONAL HISTORY OF OTHER DISEASES OF TH 12/24/2017 RIGO DAS STORE DIRECTOR Ot Z87.891 PERSONAL HISTORY OF NICOTINE DEPENDENCE 12/24/2017 RIGO DAS STORE DIRECTOR Ot Z88 .1 ALLERGY STATUS TO OTHER ANTIBIOTIC AGENT 12/24/2017 RIGO DAS STORE DIRECTOR Ot Z88 .8 ALLERGY STATUS TO OTH DRUG/MEDS/BIOL SUB 12/24/2017 RIGO DAS STORE DIRECTOR Ot Z90.710 ACQUIRED ABSENCE OF BOTH [...] STENOSIS, LUMBAR REG, W/OUT NEURO 02/13/2018 DAY BRYOSN MD Ot V72.6 3 PRE-PROCEDURAL LABORATORY EXAMINATION [...] OTH NONVE 10/28/2018 MOLLY FORTE Ot Z79.52 FOOD SERVICE COORDINATOR (CURRENT) USE OF SYSTEMIC STER 10/28/2018 LITTLE [...] OTH NONVE 11/01/2018 MOLLY FORTE Ot Z79.52 DETENTION (CURRENT) USE OF SYSTEMIC STER 11/01/2018 LITTLE [...] 02/12/2019 SAMUEL NORRIS DOA K Ot Z79.52 DETENTION (CURRENT) USE OF SYSTEMIC STER 02/12/2019 SAMUEL [...] K Ot E78.00 PURE HYPERCHOLESTEROLEMIA, UNSPECIFIED 02/16/2019 [place]ALE[place] MINDY Beto Ot F15.90 OTHER STIMULANT USE, UNSPECIFIED, UNCOMP 02/16/2019 MYRNA MINDY Beto Ot F17.210 NICOTINE DEPENDENCE, CIGARETTES, UNCOMPL 02/16/2019 MYRNA MINDY Beto Ot F32.9 MAJOR DEPRESSIVE DISORDER, SINGLE EPISOD 02/16/2019 MYRNA MINDY Beto Ot F41.9 ANXIETY DISORDER, UNSPECIFIED 02/16/2019 TREMPEALE[place] MINDY Beto Ot J45.909 UNSPECIFIED ASTHMA, UNCOMPLICATED 02/16/2019 [place]REMPEALE[place] MINDY K Ot K21.9 GASTRO-ESOPHAGEAL REFLUX DISEASE WITHOUT 02/16/2019 MYRNA MINDY K Ot K52.9 NONINFECTIVE GASTROENTERITIS AND COLITIS 02/16/2019 MYRNA MINDY K Ot R11.0 NAUSEA 02/16/2019 MYRNA MINDY K Ot Z79.52 FOOD SERVICE COORDINATOR (CURRENT) USE OF SYSTEMIC STER 02/16/2019 MYRNA MINDY K Ot Z82.49 FAMILY HX OF ISCHEM HEART DIS AND OTH DI 02/16/2019 MYRNA MINDY K Ot Z88.1 ALLERGY STATUS TO OTHER ANTIBIOTIC AGENT 02/16/2019 MYRNA MINDY K Ot Z88.8 ALLERGY STATUS TO OT DRUG/MEDS/BIOL SUB 02/16/2019 MYRNA MINDY K Ot Z90.710 ACQUIRED ABSENCE OF BOTH CERVIX AND UTER 02/16/2019 TREMPEALEAU MINDY K Ot Z98.1 ARTHRODESIS STATUS 04/30/2019 [...] OTH NONVE 04/30/2019 LITTLE FORTEIS Ot Z79.52 FOOD SERVICE COORDINATOR (CURRENT) USE OF SYSTEMIC STER 04/30/2019 HORACIOVINNIE [...] OTHER SPECIFIED POSTPROCEDURAL STATES 09/22/2019 NAZARIO, DONI LOAN APPROVER Ot B19.20 UNSPECIFIED VIRAL HEPATITIS C WITHOUT HE 09/22/2019 NAZARIO, DONI LOAN APPROVER Ot E78.00 PURE HYPERCHOLESTEROLEMIA, UNSPECIFIED 09/22/2019 NAZARIO, DONI LOAN APPROVER Ot F17.210 NICOTINE DEPENDENCE, CIGARETTES, UNCOMPL 09/22/2019 NAZARIO, DONI LOAN APPROVER Ot F32.9 MAJOR DEPRESSIVE DISORDER, SINGLE EPISOD 09/22/2019 NAZARIO, DONI LOAN APPROVER Ot F41.9 ANXIETY DISORDER, UNSPECIFIED 09/22/2019 NAZARIO, DONI LOAN APPROVER Ot G89.29 OTHER CHRONIC PAIN 09/22/2019 NAZARIO, DONI LOAN APPROVER Ot I25.2 OLD MYOCARDIAL INFARCTION 09/22/2019 NAZARIO, DONI LOAN APPROVER Ot J45.909 UNSPECIFIED ASTHMA, UNCOMPLICATED 09/22/2019 NAZARIO, ODNI LOAN APPROVER Ot K21.9 GASTRO-ESOPHAGEAL REFLUX DISEASE WITHOUT 09/22/2019 NAZARIO, DONI LOAN APPROVER Ot K59.09 OTHER CONSTIPATION 09/22/2019 NAZARIO, DONI LOAN APPROVER Ot K80.20 CALCULUS OF GALLBLADDER W/O CHOLECYSTITI 09/22/2019 NAZARIO, DONI LOAN APPROVER Ot M54.9 DORSALGIA, UNSPECIFIED 09/22/2019 NAZARIO, DONI LOAN APPROVER Ot N30.01 ACUTE CYSTITIS WITH HEMATURIA 09/22/2019 NAZARIO, DONI LOAN APPROVER Ot R05 COUGH 09/22/2019 NAZARIO, DONI LOAN APPROVER Ot Z79.899 OTHER DETENTION (CURRENT) DRUG THERAPY 09/22/2019 NAZARIO, DONI LOAN APPROVER Ot Z88.0 ALLERGY STATUS TO PENICILLIN 09/22/2019 NAZARIO, DONI LOAN APPROVER Ot Z88.8 ALLERGY STATUS TO OTH DRUG/MEDS/BIOL SUB 09/23/2019 NAZARIO, DONI LOAN APPROVER Ot B19.20 UNSPECIFIED VIRAL HEPATITIS C WITHOUT HE 09/23/2019 NAZARIO, DONI LOAN APPROVER Ot E78.00 PURE HYPERCHOLESTEROLEMIA, UNSPECIFIED 09/23/2019 NAZARIO, DONI LOAN APPROVER Ot F17.210 NICOTINE DEPENDENCE, CIGARETTES, UNCOMPL 09/23/2019 NAZARIO, DONI LOAN APPROVER Ot F32.9 MAJOR DEPRESSIVE DISORDER, SINGLE EPISOD 09/23/2019 NAZARIO, DONI LOAN APPROVER Ot F41.9 ANXIETY DISORDER, UNSPECIFIED 09/23/2019 NAZARIO, DONI LOAN APPROVER Ot G89.29 OTHER CHRONIC PAIN 09/23/2019 NAZARIO, DONI LOAN APPROVER Ot I25.2 OLD MYOCARDIAL INFARCTION 09/23/2019 NAZARIO, DONI LOAN APPROVER Ot J45.909 UNSPECIFIED ASTHMA, UNCOMPLICATED 09/23/2019 NAZARIO, DONI LOAN APPROVER Ot K21.9 GASTRO-ESOPHAGEAL REFLUX DISEASE WITHOUT 09/23/2019 NAZARIO, DONI LOAN APPROVER Ot K59.09 OTHER CONSTIPATION 09/23/2019 NAZARIO, DONI LOAN APPROVER Ot K80.20 CALCULUS OF GALLBLADDER W/O CHOLECYSTITI 09/23/2019 NAZARIO, DONI LOAN APPROVER Ot M54.9 DORSALGIA, UNSPECIFIED 09/23/2019 NAZARIO, DONI LOAN APPROVER Ot N30.01 ACUTE CYSTITIS WITH HEMATURIA 09/23/2019 NAZARIO, DONI LOAN APPROVER Ot R05 COUGH 09/23/2019 NAZARIO, DONI LOAN APPROVER Ot Z79.899 OTHER FOOD SERVICE COORDINATOR (CURRENT) DRUG THERAPY 09/23/2019 NAZARIO, DONI LOAN APPROVER Ot Z88.0 ALLERGY STATUS TO PENICILLIN 09/23/2019 NAZARIO, DONI LOAN APPROVER Ot Z88.8 ALLERGY STATUS TO OTH DRUG/MEDS/BIOL SUB 10/01/2019 QUENTIN REYES, STALIN T Ot B19.20 UNSPECIFIED VIRAL HEPATITIS C WITHOUT HE 10/01/2019 QUENTIN REYES, STALIN Raines Ot E78.00 PURE HYPERCHOLESTEROLEMIA, UNSPECIFIED 10/01/2019 QUENTIN REYES, STALIN Raines Ot F31.9 BIPOLAR DISORDER, UNSPECIFIED 10/01/2019 QUENTIN REYES, STALIN Raines Ot F41.9 ANXIETY DISORDER, UNSPECIFIED 10/01/2019 QUENTIN REYES, STALIN Raines Ot G89.29 OTHER CHRONIC PAIN 10/01/2019 QUENTIN REYES, STALIN Raines Ot I25.2 OLD MYOCARDIAL INFARCTION 10/01/2019 QUENTIN REYES, STALIN Raines Ot J98.01 ACUTE BRONCHOSPASM 10/01/2019 QUENTIN REYES, STALIN Raines Ot K21.9 GASTRO-ESOPHAGEAL REFLUX DISEASE WITHOUT 10/01/2019 QUENTIN REYES, STALIN Raines Ot K58.1 IRRITABLE BOWEL SYNDROME WITH CONSTIPATI 10/01/2019 QUENTIN REYES, STALIN Raines Ot M54.9 DORSALGIA, UNSPECIFIED 10/01/2019 QUENTIN REYES, STALIN Raines Ot R05 COUGH 10/01/2019 QUENTIN REYES, STALIN Raines Ot R07.89 OTHER CHEST PAIN 10/01/2019 QUENTIN REYES, STALIN Raines Ot Z20.828 CONTACT W AND EXPOSURE TO OTH VIRAL COMM 10/03/2019 STALIN SAAVEDRA MD Ot B19.20 UNSPECIFIED VIRAL HEPATITIS C WITHOUT HE 10/03/2019 QUENTIN REYES, STALIN Raines Ot E78.00 PURE HYPERCHOLESTEROLEMIA, UNSPECIFIED 10/03/2019 QUENTIN REYES, STALIN Raines Ot F31.9 BIPOLAR DISORDER, UNSPECIFIED 10/03/2019 QUENTIN REYES, STALIN Raines Ot F41.9 ANXIETY DISORDER, UNSPECIFIED 10/03/2019 QUENTIN REYES, STALIN Raines Ot G89.29 OTHER CHRONIC PAIN 10/03/2019 QUENTIN REYES, STALIN Raines Ot I25.2 OLD MYOCARDIAL INFARCTION 10/03/2019 QUENTIN REYES, STALIN Raines Ot J98.01 ACUTE BRONCHOSPASM 10/03/2019 QUENTIN REYES, STALIN Raines Ot K21.9 GASTRO-ESOPHAGEAL REFLUX DISEASE WITHOUT 10/03/2019 QUENTIN REYES, STALIN Raines Ot K58.1 IRRITABLE BOWEL SYNDROME WITH CONSTIPATI 10/03/2019 QUENTIN REYES, STALIN Raines Ot M54.9 DORSALGIA, UNSPECIFIED 10/03/2019 QUENTIN REYES, STALIN Raines Ot R05 COUGH 10/03/2019 QUENTIN REYES, STALIN Raines Ot R07.89 OTHER CHEST PAIN 11/06/2019 QUENTIN REYES, STALIN Raines Ot B19.20 UNSPECIFIED VIRAL HEPATITIS C WITHOUT HE 11/06/2019 QUENTIN REYES, STALIN Raiens Ot E78.00 PURE HYPERCHOLESTEROLEMIA, UNSPECIFIED 11/06/2019 QUENTIN REYES, STALIN Raines Ot F31.9 BIPOLAR DISORDER, UNSPECIFIED 11/06/2019 QUENTIN REYES, STALIN Raines Ot F41.9 ANXIETY DISORDER, UNSPECIFIED 11/06/2019 QUENTIN REYES, STALIN Raines Ot G89.29 OTHER CHRONIC PAIN 11/06/2019 QUENTIN REYES, STALIN Raines Ot I25.2 OLD MYOCARDIAL INFARCTION 11/06/2019 QUENTIN REYES, STALIN Raines Ot J98.01 ACUTE BRONCHOSPASM 11/06/2019 QUENTIN REYES, STALIN Raines Ot K21.9 GASTRO-ESOPHAGEAL REFLUX DISEASE WITHOUT 11/06/2019 QUENTIN REYES, STALIN Raines Ot K58.1 IRRITABLE BOWEL SYNDROME WITH CONSTIPATI 11/06/2019 QUENTIN REYES, STALIN Raines Ot M54.9 DORSALGIA, UNSPECIFIED 11/06/2019 QUENTIN REYES, STALIN Raines Ot R05 COUGH 11/06/2019 QUENTIN REYES, STALIN Raines Ot R07.89 OTHER CHEST PAIN 11/06/2019 QUENTIN REYES, STALIN Raines Ot Z20.828 CONTACT W AND EXPOSURE TO OTH VIRAL COMM Procedures Code Description [place] [address] MRI SPINE (LUMBAR) W/O CONTRAST 03/10/2013 37316 URIN E DRUG SCREEN (IN-HOUSE) 03/10/2013 22951 PSYC H DIAGNOSTIC EVALUATION 07/11/2013 80.51 EXCI [...] culture - 01/15/16 11:38 Bacterial urine culture [id number] NRG COLONY COUNT <10,000 NRG Methicillin resistant [...] culture - 09/22/19 19:55 Bacterial urine culture [id number] NRG COLONY COUNT >100,000/ML NRG SUSCEPTIBILITY SUSCEPTIBILITY REPORTED 09/23 08:55 NRG RAPID ID PRELIM RAPID ID TEST AT [facility] 09/23/19 8:15 NRG ID CONFIRMATION RML CONFIRMED [...] INFLUENZA A AND B ANTIGENS BY IA [facility] Complete blood count (CBC) with automate d white blood cell (WBC) differential - 10/01/19 13:55 Blood leukocytes automated count (number/volume) 4.9 10*3/uL 4.3-11.0 Blood erythrocytes automated count (number/volume) 4.66 10*6/uL 4.35-5.85 Venous blood hemoglobin measurement (mass/volume) 14.1 g/dL 11.5-16.0 Blood hematocrit (volume fraction) 42 % 35-52 Automated erythrocyte mean corpuscular volume 91 [ foz_us] 80-99 Automated erythrocyte mean corpuscular h emoglobin (mass per erythrocyte) 30 pg 25-34 Automated erythrocyte mean corpuscular h emoglobin concentration measurement (mass/volume) 33 g/dL 32-36 Automated erythrocyte distribution width ratio 13. 4 % 10.0- 14.5 Automated blood platelet count (count/volume) 228 10*3/uL 130-400 Automated blood platelet mean volume measurement 9.5 [foz_us] 7.4-10.4 Automated blood neutrophils/100 leukocytes 51 % 42-75 Automated blood lymphocytes/100 leukocytes 34 % 12-44 Blood monocytes/100 leukocytes 13 % 0-12 Automated blood eosinophils/100 leukocytes 2 % 0-10 Automated blood basophils/100 leukocytes 1 % 0-10 Blood neutrophils automated count (number/volume) 2.5 10*3 1.8-7.8 Blood lymphocytes automated count (number/volume) 1.7 10*3 1.0-4.0 Blood monocytes automated count (number/volume) 0. 6 10*3 0.0-1.0 Automated eosinophil count 0.1 10*3/uL 0 .0-0.3 Automated blood basophil count (count/volume) 0.0 10*3/uL 0.0-0.1 Serum ragweed IgE antibody assay - 09/30 13:55 Serum ragweed IgE antibody assay 156 U/L 125-220 PROCALCITONIN (PCT) - 10/01/19 13:55 PROCALCITONIN (PCT) 0.01 ng/mL <0.10 Comprehensive metabolic panel - 10/01/19 13:55 Serum or plasma sodium measurement (moles/volume) 142 mmol/L 135-145 Serum or plasma potassium measurement (moles/volume) 4.3 mmol/L 3.6-5.0 Serum or plasma chloride measurement (moles/volume) 107 mmol/L 98-107 Carbon dioxide 29 mmol/L 21-32 Serum or plasma anion gap determination (moles/volume) 6 mmol/L 5-14 Serum or plasma urea nitrogen measurement (mass/volume ) 10 mg/dL 7-18 Serum or plasma creatinine measurement (mass/volume) 0.87 mg/dL 0.60-1.30 Serum or plasma urea nitrogen/creatinine mass ratio 11 NRG Serum or plasma creatinine measurement w ith calculation of estimated glomerular filtration rate > NRG Serum or plasma glucose measurement (mass/volume) 92 mg/dL 70-105 Serum or plasma calcium measurement (mass/volume) 8.6 mg/dL 8.5-10.1 Serum or plasma total bilirubin measurement (mass/volu me) 0.2 mg/dL 0.1-1.0 Serum or plasma alkaline phosphatase paty surement (enzymatic activity/volume) 105 U/L 40-136 Serum or plasma aspartate aminotransfera se measurement (enzymatic activity/volume) 22 U/L 5-34 Serum or plasma alanine aminotransferase measurement (enzymatic activity/volume) 23 U/L 0-55 Serum or plasma protein measurement (mass/volume) 6.4 g/dL 6.4-8.2 Serum or plasma albumin measurement (mass/volume) 3.7 g/dL 3.2-4.5 CALCIUM CORRECTED 8.8 mg/dL 8.5-10.1 Magnesium - 10/01/19 13:55 Magnesium 2.0 mg/dL 1.6-2.4 PT panel in platelet poor plasma by coag ulation assay - 10/01/19 13:55 Prothrombin time (PT) in platelet poor plasma by coagu lation assay 11.8 s 12.2-14.7 INR in platelet poor plasma or blood by coagulation as say 0.8 0.8-1.4 Activated partial thromboplastin time (a PTT) in platelet poor plasma bycoagulation assay - 10/01/19 13:55 Activated partial thromboplastin time (a PTT) in platelet poor plasma bycoagulation assay 24 s 24-35 Fibrin D-dimer FEU measurement in platel et poor plasma (mass/volume) - 10/01/19 13:55 Fibrin D-dimer FEU measurement in platelet poor plasma (mass/volume) 0.38 ug/mL 0.00-0.49 Myoglobin, serum - 10/01/19 13:55 Myoglobin, serum 24.8 ng/mL 10.0-92.0 Serum or plasma troponin i.cardiac measu rement (mass/volume) - 10/01/19 13:55 Serum or plasma troponin i.cardiac measurement (mass/v olume) < ng/mL <0.028 Serum or plasma C reactive protein measu rement (mass/volume) - 10/01/19 13:55 Serum or plasma C reactive protein measurement (mass/v olume) 0.64 mg/dL 0.00-0.50 Serum or plasma lithium measurement (mol es/volume) - 10/01/19 13:55 BNP PT < 10.0 <100.0 Influenza virus A and B antigen detectio n - 10/01/19 14:32 FLU RESULT NEGATIVE FOR INFLUENZA A AND B ANTIGENS BY IA NRG Coronavirus SARS-CoV-2 SO 2018 - 0 14:32 Coronavirus Ab [Units/volume] in Serum Negative Negative Streptococcus pyogenes antigen detection - 10/01/19 14:48 Streptococcus pyogenes antigen detection NEGATIVE NEGATIVE Bacterial throat culture - 10/01/19 14:4 8 Bacterial throat culture [facility] Serum or plasma troponin i.cardiac measu rement (mass/volume) - 10/01/19 15:52 Serum or plasma troponin i.cardiac measurement (mass/v olume) < ng/mL <0.028 Encounters ACCT No. Visit Date/Time Discharge Status Pt. Type Provider Facility Loc./Unit Complaint [id number] 08/26/2014 14:10:00 08/26/2014 23:59: 59 CLS Outpatient JUSTIN GANDHI [id number] 07/10/2014 14:27:00 07/10/2014 23:59: 59 CLS Outpatient JUSTIN GANDHI [id number] 02/11/2014 16:41:00 02/11/2014 23:59: 59 CLS Outpatient DOMINGA LE APRN [id number] 08/13/2013 12:53:00 08/13/2013 23:59: 59 CLS Outpatient DOMINGA LE APRN [id number] 07/11/2013 11:29:00 07/11/2013 23:59: 59 CLS Outpatient SELWYN CAMILO EARL R [id number] 03/10/2013 17:08:00 03/10/2013 23:59: 59 CLS Outpatient GOTTI ROBERTH K [id number] 02/13/2013 15:49:00 Document Registration [id number] 01/31/2013 15:31:00 Document Registration [id number] 10/01/2019 13:32:00 16:33:00 DIS Emergency QUENTIN REYES, STALIN T [facility] ER COUGH;BODY ACHE S [id number] 09/22/2019 19:37:00 21:56:00 DIS Emergency DONI LANGE [facility] ER FEVER/COUGH/SOB [id number] 07/26/2019 19:26:00 21:30:00 DIS Emergency DONI LANGEP [facility] ER PAINFUL BUMPS ON FACE/S RICHARD [id number] 02/12/2019 03:18:00 019 06:21:00 DIS Emergency MINDY NORRIS DO a [facility] ER ABD PAIN, PUSS FILLED B LISTERS ON LEGS,SAUNDERS,CHILLS [id number] 10/28/2018 11:11:00 019 12:01:00 DIS Emergency BERNOT MOLLY [facility] ER RASH ON LT ARM AND LT F OOT PAIN [id number] 02/14/2018 09:15:00 018 23:59:59 CLS Outpatient DAY BRYSON MD [facility] RAD M54.2 CERVICALGIA [id number] 12/22/2017 20:22:00 018 21:45:00 DIS Emergency RIGO DAS APRN [facility] ER BACK PAIN [id number] 12/22/2017 18:16:00 018 18:37:00 DIS Emergency MYRNA MINDY Beto Vi [facility] ER BACK PAIN [id number] 12/21/2017 13:09:00 018 15:17:00 DIS Emergency MOLLY FORTE [facility] ER NECK PAIN [id number] 01/28/2016 07:44:00 016 11:20:00 DIS Outpatient RAFI YOUNG MD [facility] SDC CPS;PLS [id number] 01/26/2016 13:03:00 016 13:28:00 DIS Outpatient RAFI YOUNG MD [facility] PREOP CPS;PLS [id number] 01/20/2016 13:33:00 016 23:59:59 CLS Outpatient DAY BRYSON MD [facility] RAD M54.16 [id number] 01/15/2016 11:35:00 016 13:49:00 DIS Emergency GERARDO MAYO [facility] ER UTI [id number] 09/20/2015 09:35:00 016 14:24:00 DIS Emergency STALIN SAAVEDRA MD [facility] ER VOMITING FALL/M ULTIPLE INJURIES [id number] 06/24/2015 15:27:00 016 23:59:59 CLS Outpatient JOYCE SPEARS DO [facility] LAB HCGENO [id number] 05/18/2015 11:35:00 23:59:59 CLS Outpatient DAY RBYSON MD [facility] RAD CERVICALGIA [id number] 11/21/2014 11:54:00 015 23:59:59 CLS Outpatient RITIKA MERA APRN [facility] QUICK LEFT ANKLE PAIN [id number] 11/09/2014 06:00:00 015 15:30:00 DIS Inpatient DAY BRYSON MD [facility] SURGICAL LUMBAR STENOSIS [id number] 11/02/2014 11:40:00 015 23:59:59 CLS Outpatient DAY BRYSON MD [facility] PREOP LUMBAR STENOSIS [id number] 06/27/2014 09:44:00 015 13:46:00 DIS Emergency GERARDO MAYO [facility] ER COUGHING UP BLOOD,HEAD ACHE [id number] 06/22/2014 09:10:00 015 14:04:00 DIS Inpatient DAY BRYSON MD [facility] WS CERVICAL STENOSIS [id number] 06/08/2014 13:05:00 015 23:59:59 CLS Outpatient DAY BRYSON MD [facility] PREOP CERVICAL STENOSIS [id number] 03/21/2013 12:30:00 013 23:59:59 CLS Outpatient STALIN PENA [facility] RAD LUMBAGO [id number] 08/21/2014 09:55:00 Document Registration [id number] 09/20/2011 15:48:00 Document Registration [id number] 10/08/2018 16:33:00 10/08/2018 18:08: 00 DIS Outpatient [facility] ER [id number] 07/02/2018 21:09:00 07/02/2018 22:23: 00 DIS Outpatient Rigo Das [facility] enter ER [id number] 07/02/2018 21:17:10 Document Registration [id number] 11/18/2016 23:06:00 Document Registration [id number] 09/15/2019 18:35:00 09/15/2019 23:59:5 9 CLS Outpatient ABDIFATAH REYES, PEE MORENO [facility] [id number] 09/01/2019 09:20:00 Document Registration [id number] 03/21/2016 13:06:00 Document Registration
[2019-11-29 14:11] LABS: BILIRUBIN,URINE NEGATIVE (NEGATIVE); CLARITY,URINE CLEAR; COLOR,URINE YELLOW; GLUCOSE, URINE (UA) NEGATIVE (NEGATIVE); KETONES,URINE NEGATIVE (NEGATIVE); LEUKOCYTE ESTERASE ,URINE 1+ (NEGATIVE); NITRITE,URINE NEGATIVE (NEGATIVE); PH,URINE 5.5 (5-9); PROTEIN,URINE NEGATIVE (NEGATIVE)
[2019-11-29 14:26] LABS: BACTERIA,URINE FEW /HPF; RBC,URINE 0-2 /HPF
[2019-11-29] MEDS ORDERED: LIDOCAINE 1% INJ 20 ML 20 ML VIAL INJ ONE (14:45)
[2019-11-29] MEDS ORDERED: cefTRIAXone 1,000 MG/2.86 ml vial (IM ONLY) IM ONE (14:45)
[2019-11-29] MEDS ORDERED: AZITHROMYCIN 250 MG TAB (ZITHROMAX) PO ONE (14:45)
[2019-11-29] MEDS ORDERED: TRM50T PO (14:50)
--- NOTE | 2019-11-29 14:51 | ED Back Pain ---
General Chief Complaint: Back Problems Stated Complaint: BACK PAIN Nursing Triage Note: Pt reports getting our of chair two days ago and "felt something funny." Back has been hurting ever since. Pt also reports pain over neuro stimulator for three months. Pt reports calling Dr. Reid regarding issue but has not been seen. Pt reports abdominal pain and foul vaginal odor noted last night. Pt reports new sexual partner. Nursing Sepsis Screen: No Definite Risk History of Present Illness Date Seen by Provider: Nov 29, 2019 Time Seen by Provider: 13:40 Initial Comments 49-year-old female reports getting up quickly 2 days ago from a chair, she had acute pain in her low back. Pain is been intermittent since then. She's had previous spine surgery and hasn't noticed stimulator in place, 2-3 years ago. She last saw her spine surgeon approximately 2 years ago. She has noted urinary frequency and discharge with malodorous urine. He does report a new sexual partner. She has been treated for Trichomonas multiple times over the last few months. She denies bowel or bladder incontinence or retention. Patient reports smoking methamphetamines for pain control. Location: Lumbar Spine, Paraspinous Muscles Timing/Duration: 1-2 Days Severity: Mild Pain/Injury Location: Back Method of Injury: Unknown Associated Symptoms: muscle spasms; No fever, No weakness, No numbness in legs/feet, No tingling in legs/feet, No sensory/motor loss; lower back pain; No loss of bladder control, No loss of bowel control Allergies and Home Medications Allergies Coded Allergies: amoxicillin trihydrate (Verified Allergy, Unknown, 10/28/18) RASH, BUT IS ABLE TO TAKE PCN INJECTION baclofen (Unverified Allergy, Unknown, RASH, 10/28/18) paroxetine HCl (Verified Allergy, Unknown, 10/28/18) potassium clavulanate (Verified Allergy, Unknown, 10/28/18) RASH, BUT IS ABLE TO TAKE PCN INJECTION Uncoded Allergies: BACTRIM DS (Allergy, Unknown, 10/28/18) Home Medications Acyclovir 800 Mg Tablet, 800 MG PO 5XD Prescribed by: DONI LANGE on 07/26/192114 Azithromycin 250 Mg Tablet, Unknown Dose PO UD, (Reported) TAKE 2 TABLETS TODAY, THEN TAKE 1 TABLET DAILY FOR 4 MORE DAYS Cefdinir 300 Mg Capsule, 300 MG PO BID Prescribed by: DONI LANGE on 09/22/192112 Phenazopyridine HCl 100 Mg Tablet, 100 MG PO Q8H PRN for SPASMS Prescribed by: DONI LANGE on 09/22/192135 Prednisone 20 Mg Tab, 40 MG PO DAILY Prescribed by: RIGO DAS on 12/22/172136 Tramadol HCl 50 Mg Tablet, 50 MG PO Q6H PRN for PAIN Prescribed by: DONI LANGE on 11/29/19 1450 Patient Home Medication List Home Medication List Reviewed: Yes Review of Systems Constitutional: no symptoms reported, see HPI Genitourinary: no symptoms reported, see HPI, discharge, dysuria, frequency Musculoskeletal: see HPI, back pain All Other Systems Reviewed Negative Unless Noted: Yes Past Ypsymym-Liyzai-Tpitct Hx Past Med/Social Hx: Reviewed Nursing Past Med/Soc Hx Patient Social History Alcohol Use: Rarely Uses Number of Drinks Today: AA Alcohol Beverage of Choice: Beer Recreational Drug Use: Yes Drug of Choice: STATES HX OF SMOKING METH Smoking Status: Current Everyday Smoker Type Used: Cigarettes Former Smoker, Quit: Jan 27, 2015 Recent Foreign Travel: No Contact w/Someone Who Travel: No Recent Infectious Disease Expo: No Recent Hopitalizations: No Immunizations Up To Date Tetanus Booster (TDap): More than 5yrs PED Vaccines UTD: Yes Seasonal Allergies Seasonal Allergies: No Past Medical History Surgeries: Yes (RIGHT CARPAL TUNNEL) Breast, 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, Oophorectomy, Orthopedic Respiratory: Yes Asthma Cardiac: Yes (hx of TACHYCARDIA) Heart Attack, High Cholesterol, Irregular Heartbeat Neurological: No 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 Sexually Transmitted Disease: Yes (TRICHOMONAS) Genitourinary: No Gastrointestinal: Yes (HEPATITIS C--S/P TREATMENT; PT STATES SHE HAS GALLSTONES--NO SURGERY) Gastroesophageal Reflux, Chronic Constipation, Gall Bladder Disease, Irritable Bowel Musculoskeletal: Yes Back Injury, Chronic Back Pain Endocrine: No HEENT: No Loss of Vision: Bilateral Cancer: No Psychosocial: Yes Anxiety, Bipolar, Depression Integumentary: No Blood Disorders: Yes (HEP C) Adverse Reaction/Blood Tranf: No Family Medical History Aphasia Arthritis 19 MOTHER Cardiovascular disease 19 MOTHER Diabetes mellitus 19 MOTHER FH: Meniere's disease 19 FATHER FH: atrial fibrillation 19 MOTHER FH: back pain 19 FATHER 19 MOTHER FHx: AAA 19 MOTHER Hypertension 19 FATHER 19 MOTHER Osteoporosis 19 MOTHER Thyroid disease G8 SISTER No Pertinent Family Hx Physical Exam Vital Signs Vital Signs - First Documented 11/29/19 13:40 Temp 36.7 Pulse 105 Resp 20 B/P (MAP) 109/79 (89) Pulse Ox 96 O2 Delivery Room Air Capillary Refill : Less Than 3 Seconds Height, Weight, BMI Height: 5'7.00" Weight: 160lbs. 0.0oz. 72.280926ss; 25.00 BMI Method:Stated General Appearance: No Apparent Distress, WD/WN HEENT: PERRL/EOMI, TMs Normal, Normal ENT Inspection, Pharynx Normal Neck: Full Range of Motion, Normal Inspection, Non Tender Cardiovascular: Regular Rate, Rhythm, No Edema, No Murmur, Normal Peripheral Pulses Respiratory: Chest Non Tender, Lungs Clear, Normal Breath Sounds Gastrointestinal: Normal Bowel Sounds, Non Tender, Soft Back: Normal Inspection (no warmth or erythema, lower lumbar incisions well- healed.), No CVA Tenderness, Decreased Range of Motion (secondary to pain), Muscle Spasm; No Vertebral Tenderness; Other (ambulates with a steady heel-to-toe gait. Power V/V L4 to S1. Negative straight leg raising sign bilaterally.) Extremity: Normal Capillary Refill, Normal Inspection, Normal Range of Motion, Non Tender Neurologic/Psychiatric: Alert, Oriented x3, No Motor/Sensory Deficits, Normal Mood/Affect Skin: Normal Color, Warm/Dry Progress/Results/Core Measures Results/Orders Lab Results Laboratory Tests Test 11/29/19 14:17 Range/Units Urine Color YELLOW Urine Clarity CLEAR Urine pH 5.5 5-9 Urine Specific [place] >=1.030 1.016-1.022 Urine Protein NEGATIVE NEGATIVE Urine Glucose (UA) NEGATIVE NEGATIVE Urine Ketones NEGATIVE NEGATIVE Urine Nitrite NEGATIVE NEGATIVE Urine Bilirubin NEGATIVE NEGATIVE Urine Urobilinogen 0.2 < = 1.0 MG/DL Urine Leukocyte Esterase 1+ H NEGATIVE Urine RBC (Auto) TRACE-I NEGATIVE Urine RBC 0-2 /HPF Urine WBC 5-10 H /HPF Urine Squamous Epithelial Cells 2-5 /HPF Urine Crystals NONE /LPF Urine Bacteria FEW H /HPF Urine Casts NONE /LPF Urine Mucus NEGATIVE /LPF Urine Culture Indicated YES My Orders Orders - DONI LANGE Ua Culture If Indicated (11/29/19 13:44) Neis Ramsey Dna Urine Test (11/29/19 14:10) Chlamydia Trachomatis Urine (11/29/19 14:10) Urine Culture (11/29/19 14:17) Ceftriaxone For Im Use (Rocephin For Im (11/29/19 14:45) Lidocaine 1% Inj 20 Ml (Xylocaine 1% Inj (11/29/19 14:45) Azithromycin Tablet (Zithromax Tablet) (11/29/19 14:45) Tramadol Tablet (Ultram Tablet) (11/29/19 14:45) Drug Screen Stat (Urine) (11/29/19 14:46) Vital Signs/I&O 11/29/19 13:40 Temp 36.7 Pulse 105 Resp 20 B/P (MAP) 109/79 (89) Pulse Ox 96 O2 Delivery Room Air Blood Pressure Mean: 89 Departure Impression Primary Impression: UTI (urinary tract infection) Qualified Codes: N30.01 - Acute cystitis with hematuria Additional Impressions: Chronic back pain Qualified Codes: M54.5 - Low back pain; G89.29 - Other chronic pain Substance abuse or dependence Disposition: 01 HOME, SELF-CARE Condition: Improved Departure-Patient Inst. Decision time for Depature: 14:30 Referrals: [facility] (PCP/Family) Primary Care Physician Patient Instructions: Lumbar Muscle Strain (DC), Low Back Pain (DC), Urinary Tract Infection, Adult (DC) Add. Discharge Instructions: Increase water intake, 16 ounces every 2 hours while awake. Recommended treatment for any sexual partners. Alternate between heat and ice to back. Avoid sexual intercourse until your results of cultures are called to you. Follow-up with [facility] if your symptoms are not improving or worsen. Use Tylenol 650 mg and ibuprofen 600 mg, alternating every 4 hours for pain. Use tramadol for more severe pain not managed by the Tylenol and ibuprofen. Return to the emergency department for new, urgent health care needs. All discharge instructions reviewed with patient and/or family. Voiced understanding. Scripts Tramadol HCl (Tramadol HCl) 50 Mg Tablet 50 MG PO Q6H PRN for PAIN, #20 TAB 0 Refills Prov: DONI LANGE 11/29/19 DONI LANGE Nov 29, 2019 14:51
[2019-11-29 15:06] LABS: AMPHETAMINE SCREEN, URINE POSITIVE (NEGATIVE); BARBITURATE SCREEN URINE NEGATIVE (NEGATIVE); BENZODIAZEPINES SCREEN URINE NEGATIVE (NEGATIVE); CANNABINOID SCREEN, URINE NEGATIVE (NEGATIVE); COCAINE SCREEN URINE NEGATIVE (NEGATIVE); METHADONE STAT NEGATIVE (NEGATIVE); METHAMPHETAMINE SCREEN URINE S POSITIVE (NEGATIVE); OPIATE SCREEN URINE NEGATIVE (NEGATIVE); OXYCODONE STAT NEGATIVE (NEGATIVE); PROPOXYPHENE STAT NEGATIVE (NEGATIVE); TRICYCLIC ANTIDEPRESSANTS SCRE NEGATIVE (NEGATIVE)
[2019-11-29 15:18] VITALS: BP 109/79
== END 2019-11-29 15:17 | disposition home or self-care (01) ==
LOC: EDUNIT# 13:27 → ER 13:28
DX: N39.0 Urinary tract infection, site not specified (principal); G89.29 Other chronic pain; F15.20 Other stimulant dependence, uncomplicated; J45.909 Unspecified asthma, uncomplicated; I25.2 Old myocardial infarction; F17.210 Nicotine dependence, cigarettes, uncomplicated; Z88.0 Allergy status to penicillin; Z88.8 Allergy status to other drugs, medicaments and biological substances; Z79.52 Long term (current) use of systemic steroids; Z79.891 Long term (current) use of opiate analgesic; Z82.49 Family history of ischemic heart disease and other diseases of the circulatory system
CPT/HCPCS: 36415; 80306; 81000; 87088; 87491; 87591; 99284

== ENCOUNTER 2020-02-13 21:18 | Emergency (ER) | payer MEDICARE ==
[~2020-02-13] VITALS: Ht 170 cm; Wt 72.0 kg
[~2020-02-13 21:18] MED LIST changes: +TRM50T PO
[2020-02-13 22:19] LABS: BILIRUBIN,URINE NEGATIVE (NEGATIVE); CLARITY,URINE CLOUDY; COLOR,URINE YELLOW; GLUCOSE, URINE (UA) NEGATIVE (NEGATIVE); KETONES,URINE NEGATIVE (NEGATIVE); LEUKOCYTE ESTERASE ,URINE 2+ (NEGATIVE); NITRITE,URINE NEGATIVE (NEGATIVE); PH,URINE 6.5 (5-9); PROTEIN,URINE 2+ (NEGATIVE)
[2020-02-13 22:46] LABS: BACTERIA,URINE MODERATE /HPF; SQUAMOUS EPITHELIAL CELL,UR RARE /HPF; WBC,URINE TNTC /HPF
[2020-02-13 22:47] LABS: AMORPHOUS SEDIMENT,UR FEW AMOR URATES /LPF
[2020-02-13 22:48] LABS: AMPHETAMINE SCREEN, URINE POSITIVE (NEGATIVE); BARBITURATE SCREEN URINE NEGATIVE (NEGATIVE); BENZODIAZEPINES SCREEN URINE NEGATIVE (NEGATIVE); CANNABINOID SCREEN, URINE NEGATIVE (NEGATIVE); COCAINE SCREEN URINE NEGATIVE (NEGATIVE); METHADONE STAT NEGATIVE (NEGATIVE); METHAMPHETAMINE SCREEN URINE S POSITIVE (NEGATIVE); OPIATE SCREEN URINE NEGATIVE (NEGATIVE); OXYCODONE STAT NEGATIVE (NEGATIVE); PROPOXYPHENE STAT NEGATIVE (NEGATIVE); TRICYCLIC ANTIDEPRESSANTS SCRE NEGATIVE (NEGATIVE)
[2020-02-13] MEDS ORDERED: NITR-65 PO (22:57)
[2020-02-13] MEDS ORDERED: PHEN-640 PO (22:57)
--- NOTE | 2020-02-13 22:57 | ED GU-Female ---
General Chief Complaint: Abdominal/GI Problems Stated Complaint: LOWER ABD PAIN Nursing Triage Note: Patient here with right flank pain that radiates down into her lower right pelvic region; reports frequent uti's. Nursing Sepsis Screen: No Definite Risk Source: patient (SOMEWHAT LIMITED HISTORIAN), old records History of Present Illness Date Seen by Provider: Feb 13, 2020 Time Seen by Provider: 22:10 Initial Comments PT ARRIVES VIA POV FROM HOME C/O URINARY URGENCY, FREQUENCY, PAIN AND BURNING ON URINATION, AND SUPRAPUBIC PAIN --BEGAN 4 HOURS AGO WHILE DRIVING C/O ONGOING RIGHT FLANK PAIN-HAS BEEN PRESENT FOR A LONG TIME, WORSE FOR THE PAST FEW MONTHS, SINCE HAVING A NERVE STIMULATOR PLACED IN HER BACK YEARS AGO PAIN DOES RADIATE TO RLQ NO NAUSEA/VOMITING/DIARRHEA, EATING AND DRINKING NORMALLY--ATE AND DRANK JUST PRIOR TO ARRIVAL--PAIN IS NOT WORSE WITH EATING NOTHING WORSENS OR IMPROVES PAIN HAD NORMAL BM TODAY NO FEVER NO RESPIRATORY SYMPTOMS HAS NOT TAKEN ANYTHING FOR SYMPTOMS HAS HISTORY OF FREQUENT UTI'S--STATES "EVERY 2-3 MONTHS" --STATES LAST ONE WAS "2 OR 3 MONTHS AGO" --SEEN HERE 09/22/19 AND 11/29/19 FOR UTI'S PT HAS HAD HYSTERECTOMY/BILATERAL SALPINGO-OOPHORECTOMY IN 1991 PT STATES SHE HAS GALLSTONES, BUT HAS NOT HAD SURGERY NO KNOWN EXPOSURE TO COVID-19 PCP: [facility] Allergies and Home Medications Allergies Coded Allergies: amoxicillin trihydrate (Verified Allergy, Unknown, 10/28/18) RASH, BUT IS ABLE TO TAKE PCN INJECTION baclofen (Unverified Allergy, Unknown, RASH, 10/28/18) paroxetine HCl (Verified Allergy, Unknown, 10/28/18) potassium clavulanate (Verified Allergy, Unknown, 10/28/18) RASH, BUT IS ABLE TO TAKE PCN INJECTION Uncoded Allergies: BACTRIM DS (Allergy, Unknown, 10/28/18) Home Medications Acyclovir 800 Mg Tablet, 800 MG PO 5XD Prescribed by: DONI LANGE on 07/26/192114 Azithromycin 250 Mg Tablet, Unknown Dose PO UD, (Reported) TAKE 2 TABLETS TODAY, THEN TAKE 1 TABLET DAILY FOR 4 MORE DAYS Cefdinir 300 Mg Capsule, 300 MG PO BID Prescribed by: DONI LANGE on 09/22/192112 Nitrofurantoin Monohyd/M-Cryst 100 Mg Capsule, 1 TAB PO BID Prescribed by: MINDY NORRIS on 02/13/202256 Phenazopyridine HCl 100 Mg Tablet, 100 MG PO Q8H PRN for SPASMS Prescribed by: DONI LANGE on 09/22/192135 Phenazopyridine HCl 200 Mg Tablet, 1 TAB PO TID Prescribed by: MINDY NORRIS on 02/13/202256 Prednisone 20 Mg Tab, 40 MG PO DAILY Prescribed by: RIGO DAS on 12/22/172136 Tramadol HCl 50 Mg Tablet, 50 MG PO Q6H PRN for PAIN Prescribed by: DONI LANGE on 11/29/19 145 Patient Home Medication List Home Medication List Reviewed: Yes Review of Systems Review of Systems Constitutional: no symptoms reported; No chills, No fever EENTM: no symptoms reported Respiratory: no symptoms reported Cardiovascular: no symptoms reported Gastrointestinal: see HPI, abdominal pain; No constipation, No diarrhea, No loss of appetite, No nausea, No vomiting Genitourinary: see HPI, burning, dysuria, frequency, flank pain; denies hematuria, denies incontinence; pain, urgency : No (S/P HYST/BSO) Musculoskeletal: see HPI, back pain Skin: no symptoms reported; No rash Psychiatric/Neurological: No Symptoms Reported Endocrine: No Symptoms Reported Hematologic/Lymphatic: No Symptoms Reported Past Pbkokwi-Fzstcx-Xtadrv Hx Past Med/Social Hx: Reviewed and Corrections made Patient Social History Alcohol Use: Occasionally Uses Number of Drinks Today: AA Alcohol Beverage of Choice: Beer Recreational Drug Use: Yes (SMOKES METH, THC) Drug of Choice: SMOKES METH, THC Smoking Status: Current Everyday Smoker (1 PPD) Type Used: Cigarettes Recent Foreign Travel: No Contact w/Someone Who Travel: No Recent Infectious Disease Expo: No Recent Hopitalizations: No Immunizations Up To Date Tetanus Booster (TDap): More than 5yrs PED Vaccines UTD: Yes Seasonal Allergies Seasonal Allergies: No Past Medical History Surgeries: Yes (R CARPAL TUNNEL;HYST/BSO;TUMMY TUCK/ABDOMINOPLASTY;NERVE STIMULATOR) Breast, 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, Oophorectomy, Orthopedic Respiratory: Yes Asthma Cardiac: Yes (hx of TACHYCARDIA) Coronary Artery Disease, Heart Attack, High Cholesterol, Irregular Heartbeat Neurological: No 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 Sexually Transmitted Disease: Yes (TRICHOMONAS) Genitourinary: Yes Kidney Infection, Bladder Infection, UTI-Chronic Gastrointestinal: Yes (HEPATITIS C--S/P TREATMENT; PT STATES SHE HAS GALLSTONES--NO SURGERY) Gastroesophageal Reflux, Chronic Constipation, Gall Bladder Disease, Irritable Bowel Musculoskeletal: Yes (CHRONIC NECK/BACK PAIN-S/P CERVICAL/LUMBAR SPINE SURG & NEUROSTIMULATOR) Back Injury, Chronic Back Pain Endocrine: No HEENT: No Loss of Vision: Bilateral Cancer: No Psychosocial: Yes (EXTENSIVE PSYCH HX-SELF DC'D MEDS/NO FOLLOW UP) Anxiety, Bipolar, Depression Integumentary: No Blood Disorders: Yes (HEP C) Adverse Reaction/Blood Tranf: No Family Medical History Aphasia Arthritis 19 MOTHER Cardiovascular disease 19 MOTHER Diabetes mellitus 19 MOTHER FH: Meniere's disease 19 FATHER FH: atrial fibrillation 19 MOTHER FH: back pain 19 FATHER 19 MOTHER FHx: AAA 19 MOTHER Hypertension 19 FATHER 19 MOTHER Osteoporosis 19 MOTHER Thyroid disease G8 SISTER No Pertinent Family Hx SOCIAL HISTORY: -ETOH--OCCASIONAL USE -DRUGS--SMOKES METH ON REGULAR BASIS AND THC --DENIES IV USE -SMOKES 1 PPD CIGARETTES PSH: -LUMBAR SPINE SURGERY WITH NEUROSTIMULATOR PLACEMENT -C-SPINE SURGERY/FUSION -BREAST LIFT AND AUGMENTATION -ABDOMINOPLASTY/"TUMMY TUCK" -RIGHT CARPAL TUNNEL SURGERY -HYSTERECTOMY/LATER BILATERAL SALPINGO-OOPHORECTOMY -EGD'S AND MULTIPLE COLONOSCOPIES Physical Exam Vital Signs Vital Signs - First Documented 02/13/20 21:28 Temp 36.7 Pulse 97 Resp 18 B/P (MAP) 108/85 (93) Pulse Ox 99 O2 Delivery Room Air Capillary Refill : Less Than 3 Seconds Height, Weight, BMI Height: 5'7.00" Weight: 160lbs. 0.0oz. 72.977810tu; 24.00 BMI Method:Stated General Appearance: WD/WN, no apparent distress, other (VERY DROWSY, SLEEPING BUT EASILY AWAKENS; WHEN AWAKE, PT WITH CONSTANT BODY MOVEMENTS--APPEARS TO BE UNDER THE INFLUENCE OF SOME SUBSTANCE/S. SPEECH SLIGHTLY THICK TONGUED) HEENT: PERRL/EOMI Cardiovascular: regular rate, rhythm, no murmur Respiratory: normal breath sounds Gastrointestinal: soft, tenderness (SUPRAPUBIC, RLQ AND RIGHT FLANK TENDERNESS) Back: CVA tenderness (R) Extremities: normal inspection Neurologic/Psychiatric: no motor/sensory deficits, oriented x 3 Skin: normal color, other (EXTENSIVE SORES/SCARS/SCABS TO FACE, ARMS, LEGS, UPPER BACK) Progress/Results/Core Measures Suspected Sepsis Recent Fever Within 48 Hours: No Infection Criteria Present: None New/Unexplained Altered Menta: No Sepsis Screen: No Definite Risk SIRS Temperature: Pulse: 97 Respiratory Rate: 18 Blood Pressure 108 /85 Mean: 93 Results/Orders Lab Results Laboratory Tests Test 02/13/20 21:30 Range/Units Urine Color YELLOW Urine Clarity CLOUDY Urine pH 6.5 5-9 Urine Specific [place] 1.025 H 1.016-1.022 Urine Protein 2+ H NEGATIVE Urine Glucose (UA) NEGATIVE NEGATIVE Urine Ketones NEGATIVE NEGATIVE Urine Nitrite NEGATIVE NEGATIVE Urine Bilirubin NEGATIVE NEGATIVE Urine Urobilinogen 0.2 < = 1.0 MG/DL Urine Leukocyte Esterase 2+ H NEGATIVE Urine RBC (Auto) 3+ H NEGATIVE Urine RBC 5-10 H /HPF Urine WBC TNTC H /HPF Urine Squamous Epithelial Cells RARE /HPF Urine Crystals PRESENT H /LPF Urine Amorphous Sediment FEW REY URATES H /LPF Urine Bacteria MODERATE H /HPF Urine Casts NONE /LPF Urine Mucus NEGATIVE /LPF Urine Culture Indicated YES Urine Opiates Screen NEGATIVE NEGATIVE Urine Oxycodone Screen NEGATIVE NEGATIVE Urine Methadone Screen NEGATIVE NEGATIVE Urine Propoxyphene Screen NEGATIVE NEGATIVE Urine Barbiturates Screen NEGATIVE NEGATIVE Ur Tricyclic Antidepressants Screen NEGATIVE NEGATIVE Urine Phencyclidine Screen NEGATIVE NEGATIVE Urine Amphetamines Screen POSITIVE H NEGATIVE Urine Methamphetamines Screen POSITIVE H NEGATIVE Urine Benzodiazepines Screen NEGATIVE NEGATIVE Urine Cocaine Screen NEGATIVE NEGATIVE Urine Cannabinoids Screen NEGATIVE NEGATIVE My Orders Orders - MINDY NORRIS DO Ua Culture If Indicated (02/13/20 22:09) Drug Screen Stat (Urine) (02/13/20 22:14) Urine Culture (02/13/20 21:30) Ceftriaxone For Iv Use (Rocephin For I (02/13/20 23:00) Phenazopyridine Tablet (Pyridium Tablet) (02/13/20 23:00) Medications Given in ED Current Medications Medications Dose Ordered Sig/Michael Route Start Time Stop Time Status Last Admin Dose Admin Ceftriaxone Sodium 1000 mg/ Sterile Water 10 ml @ 200 mls/hr ONCE ONCE IV 02/13/20 23:00 02/13/20 23:02 DC 02/13/20 23:09 200 MLS/HR Phenazopyridine HCl 200 mg ONCE ONCE PO 02/13/20 23:00 02/13/20 23:01 DC 02/13/20 23:08 200 MG Vital Signs/I&O 02/13/20 02/13/20 21:28 23:21 Temp 36.7 36.7 Pulse 97 97 Resp 18 18 B/P (MAP) 108/85 (93) 108/85 (93) Pulse Ox 99 99 O2 Delivery Room Air Capillary Refill : Less Than 3 Seconds Blood Pressure Mean: 93 Progress Note : Progress Note PT SLEPT FOR ENTIRE ER STAY OFFERED TO DO ADDITIONAL TESTING SUCH BLOOD WORK AND CT SCAN, BUT PT OPTS TO TRY ANTIBIOTICS FOR UTI AT THIS TIME PT ADVISED TO FOLLOW UP WITH [facility] IN A FEW DAYS FOR FURTHER CARE Departure Impression Primary Impression: Urinary tract infection Additional Impression: Methamphetamine use Disposition: HOME, SELF-CARE Condition: Stable Departure-Patient Inst. Referrals: [facility] (PCP/Family) Primary Care Physician Patient Instructions: Urinary Tract Infection, Adult (DC) Add. Discharge Instructions: LOTS OF CLEAR LIQUIDS CONTINUE YOUR REGULAR MEDICATIONS PRESCRIBED FOLLOW UP WITH [facility] IN 4-5 DAYS FOR FURTHER CARE All discharge instructions reviewed with patient and/or family. Voiced understanding. Scripts Phenazopyridine HCl (Pyridium) 200 Mg Tablet 1 TAB PO TID, #15 TAB Prov: MINDY NORRIS DO 02/13/20 Nitrofurantoin Monohyd/M-Cryst (Macrobid 100 mg Capsule) 100 Mg Capsule 1 TAB PO BID, #30 CAP Prov: MINDY NORRIS DO 02/13/20 MINDY NORRIS DO Feb 13, 2020 22:57
[2020-02-13] MEDS ORDERED: PHENAZOPYRIDINE 100 MG (PYRIDIUM) TABLET PO ONE (23:00)
[2020-02-13] MEDS ORDERED: cefTRIAXone FOR IV USE 1,000 MG in WATER (STERILE) FOR INJECTION 10 ML IV ONE (23:00)
[2020-02-13 23:21] VITALS: BP 108/85
== END 2020-02-13 23:22 | disposition home or self-care (01) ==
LOC: EDUNIT# 21:18 → ER 21:19
DX: N39.0 Urinary tract infection, site not specified (principal); F15.90 Other stimulant use, unspecified, uncomplicated; J45.909 Unspecified asthma, uncomplicated; I25.2 Old myocardial infarction; F17.210 Nicotine dependence, cigarettes, uncomplicated; Z82.49 Family history of ischemic heart disease and other diseases of the circulatory system; Z88.1 Allergy status to other antibiotic agents; Z88.8 Allergy status to other drugs, medicaments and biological substances; Z79.52 Long term (current) use of systemic steroids
CPT/HCPCS: 80306; 81000; 87077; 87088

== ENCOUNTER 2020-07-03 02:15 | Emergency (ER) | payer MEDICARE ==
[~2020-07-03] VITALS: Ht 170.1 cm; Wt 74.8 kg
--- NOTE | 2020-07-03 02:44 | ED General ---
General Stated Complaint: SOB,STUFFY HEAD,COLD, SHAKEY,UPPER ABD PAIN,STS NO Source of Information: Patient History of Present Illness Date Seen by Provider: Jul 03, 2020 Time Seen by Provider: 02:33 Initial Comments PT ARRIVES VIA POV FROM HOME PT WITH A MULTITUDE OF COMPLAINTS STATES SHE BEGAN HAVING CHEST PAIN TONIGHT AROUND 1999 NO RADIATION OF PAIN NOTHING WORSENS OR IMPROVES PAIN ADDITIONALLY, PT HAS HAD THE FOLLOWING SINCE YESTERDAY: -NON-PRODUCTIVE COUGH-MILD -NASAL CONGESTION -CHILLS AND BEING SHAKEY -ABDOMINAL PAIN -SHORTNESS OF BREATH NO FEVER NO LOSS OF TASTE OR SMELL NO SORE THROAT NO NAUSEA/VOMITING/DIARRHEA NO HEADACHE NO BODY ACHES NO KNOWN EXPOSURE TO COVID-19 HAS NOT TAKEN ANYTHING FOR SYMPTOMS PCP: [facility], DR. Flor MARINELLI Allergies and Home Medications Allergies Coded Allergies: amoxicillin trihydrate (Verified Allergy, Unknown, 10/28/18) RASH, BUT IS ABLE TO TAKE PCN INJECTION baclofen (Unverified Allergy, Unknown, RASH, 10/28/18) paroxetine HCl (Verified Allergy, Unknown, 10/28/18) potassium clavulanate (Verified Allergy, Unknown, 10/28/18) RASH, BUT IS ABLE TO TAKE PCN INJECTION Uncoded Allergies: BACTRIM DS (Allergy, Unknown, 10/28/18) Patient Home Medication List Home Medication List Reviewed: Yes Review of Systems Review of Systems Constitutional: see HPI, chills EENTM: see HPI, nose congestion; No throat pain Respiratory: see HPI, cough, short of breath Cardiovascular: see HPI, chest pain; No edema, No palpitations, No syncope Gastrointestinal: abdominal pain; No diarrhea, No nausea, No vomiting Genitourinary: no symptoms reported Musculoskeletal: no symptoms reported; No muscle pain Skin: no symptoms reported Psychiatric/Neurological: No Symptoms Reported; Denies Headache Hematologic/Lymphatic: No Symptoms Reported Immunological/Allergic: no symptoms reported Past Mvgfcml-Cujaiz-Pcrses Hx Past Med/Social Hx: Reviewed and Corrections made Patient Social History Alcohol Beverage of Choice: Beer Drug of Choice: SMOKES METH, THC Type Used: Cigarettes Recent Hopitalizations: No Immunizations Up To Date Tetanus Booster (TDap): More than 5yrs PED Vaccines UTD: Yes Seasonal Allergies Seasonal Allergies: No Past Medical History Surgeries: Yes (R CARPAL TUNNEL;HYST/BSO;TUMMY TUCK/ABDOMINOPLASTY;NERVE STIMULATOR) Breast, 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, Oophorectomy, Orthopedic Respiratory: Yes Asthma Cardiac: Yes (hx of TACHYCARDIA;STATES "IA"--NO CARDIAC CATH) Coronary Artery Disease, Heart Attack, High Cholesterol, Irregular Heartbeat Neurological: No 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 Disorders: Yes 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 Sexually Transmitted Disease: Yes (TRICHOMONAS) Genitourinary: Yes Kidney Infection, Bladder Infection, UTI-Chronic Gastrointestinal: Yes (HEPATITIS C--S/P TREATMENT; PT STATES SHE HAS GALLSTON ES--NO SURGERY) Gastroesophageal Reflux, Chronic Constipation, Gall Bladder Disease, Irritable Bowel Musculoskeletal: Yes (CHRONIC NECK/BACK PAIN-S/P CERVICAL/LUMBAR SPINE SURG & NEUROSTIMULATOR) Back Injury, Chronic Back Pain Endocrine: No HEENT: No Loss of Vision: Bilateral Cancer: No Psychosocial: Yes (EXTENSIVE PSYCH HX-SELF DC'D MEDS/NO FOLLOW UP;SUBSTANCE ABUSE) Anxiety, Bipolar, Depression Integumentary: No Blood Disorders: Yes (HEP C) Adverse Reaction/Blood Tranf: No Family Medical History Aphasia Arthritis 19 MOTHER Cardiovascular disease 19 MOTHER Diabetes mellitus 19 MOTHER FH: Meniere's disease 19 FATHER FH: atrial fibrillation 19 MOTHER FH: back pain 19 FATHER 19 MOTHER FHx: AAA 19 MOTHER Hypertension 19 FATHER 19 MOTHER Osteoporosis 19 MOTHER Thyroid disease G8 SISTER No Pertinent Family Hx SOCIAL HISTORY: -ETOH--OCCASIONAL USE -DRUGS--SMOKES METH ON REGULAR BASIS AND THC --DENIES IV USE -SMOKES 1 PPD CIGARETTES 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 0.0oz. 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 Norm as Tested Skin: Normal Color, Warm/Dry Progress/Results/Core Measures Suspected Sepsis SIRS Temperature: Pulse: Respiratory Rate: Laboratory Tests 07/03/20 02:50: White Blood Count 6.0 Blood Pressure / Mean: Laboratory Tests 07/03/20 02:50: Creatinine 0.83, INR Comment 0.9, Platelet Count 244, Total Bilirubin 0.3 Results/Orders Lab Results Micro Results My Orders Medications Given in ED Vital Signs/I&O Capillary Refill : Progress Note : Progress Note PLACED IN ISOLATION ROOM PPE WORN AT ALL TIMES COVID-19 TESTING PERFORMED PT ADVISED OF NEED FOR QUARANTINE OBSERVED IN ER AND 3 HOUR REPEAT EKG AND TROPONIN DONE. EKG UNCHANGED AND TROPONIN NEGATIVE. UNEVENTFUL ER STAY ALL SYMPTOMS RESOLVED COMPLETELY SHORTLY AFTER ARRIVAL AND PT RESTED QUIETLY FOR REMAINDER OF ER STAY NO COUGH, NO DYSPNEA, NO HYPOXIA, NO FEVER, NO CHEST PAIN VITALS STABLE ECG Initial ECG Impression Date: Jul 03, 2020 Initial ECG Impression Time: 02:39 Initial ECG Rate: 97 Initial ECG Rhythm: Normal Sinus Initial ECG Impression: Normal EKG : EKG Time: 05:05 Rate: 75 Rhythm: Normal Sinus ECG Comparisson: Unchanged Diagnostic Imaging Comments CXR--NO ACUTE PROCESS, PENDING RADIOLOGIST REVIEW Reviewed: Reviewed by Me Departure Impression Primary Impression: Chest pain Additional Impressions: Person under investigation for COVID-19 Illicit drug use Methamphetamine use Disposition: HOME, SELF-CARE Condition: Improved Departure-Patient Inst. Referrals: PEE MARINELLI MD (PCP/Family) Primary Care Physician Patient Instructions: Chest Pain (DC), Coronavirus Disease 2019 (COVID-19) (DC), Drug Abuse and Drug Addiction (DC), Methamphetamine Add. Discharge Instructions: HOME REST NO DRUGS!!!! TYLENOL AND MOTRIN NEEDED FOR PAIN OR FEVER QUARANTINE YOURSELF, ALL HOUSEHOLD MEMBERS AND CLOSE CONTACTS FOR 2 WEEKS OR UNTIL CLEARED BY . YOU MAY NEED REPEAT COVID-19 TESTING IF YOU ARE STILL HAVING SYMPTOMS FOLLOW UP WITH YOUR DR IN 3-4 DAYS IF NO BETTER, RETURN TO ER IF [id number] COTE DO Jul 03, 2020 02:43
[2020-07-03] MEDS ORDERED: ASPIRIN 81 MG CHEW (CHILDREN'S ASA) PO ONE (02:45)
[2020-07-03 03:06] LABS: BASOPHILS # (AUTO) 0.1 10^3/uL (0.0-0.1); BASOPHILS % (AUTO) 1 % (0-10); EOSINOPHILS # (AUTO) 0.1 10^3/uL (0.0-0.3); EOSINOPHILS % (AUTO) 2 % (0-10); HEMATOCRIT 45 % (35-52); LYMPHOCYTES # (AUTO) 2.5 10^3/uL (1.0-4.0); LYMPHOCYTES % (AUTO) 41 % (12-44); MEAN CORPUSCULAR HEMOGLOBIN 30 pg (25-34); MEAN CORPUSCULAR HGB CONC 33 g/dL (32-36); MEAN CORPUSCULAR VOLUME 92 fL (80-99); MEAN PLATELET VOLUME 9.3 fL (9.0-12.2); MONOCYTES # (AUTO) 0.5 10^3/uL (0.0-1.0); MONOCYTES % (AUTO) 9 % (0-12); NEUTROPHILS # (AUTO) 2.8 10^3/uL (1.8-7.8); NEUTROPHILS % (AUTO) 47 % (42-75); PLATELET COUNT 244 10^3/uL (130-400)
[2020-07-03 03:16] LABS: INR 0.9 (0.8-1.4); PROTHROMBIN TIME PATIENT 12.7 SEC (12.2-14.7)
[2020-07-03 03:17] LABS: ALBUMIN 4.1 GM/DL (3.2-4.5); CHLORIDE 103 MMOL/L (98-107); POTASSIUM 3.9 MMOL/L (3.6-5.0); SODIUM 141 MMOL/L (135-145)
[2020-07-03 03:18] LABS: AMYLASE 49 U/L (25-125); CALCIUM 9.3 MG/DL (8.5-10.1)
[2020-07-03 03:19] LABS: GLUCOSE 108 MG/DL (70-105); TOTAL PROTEIN 7.2 GM/DL (6.4-8.2)
[2020-07-03 03:19] LABS: BILIRUBIN,URINE NEGATIVE (NEGATIVE); CLARITY,URINE SL CLOUDY; COLOR,URINE YELLOW; GLUCOSE, URINE (UA) NEGATIVE (NEGATIVE); KETONES,URINE NEGATIVE (NEGATIVE); LEUKOCYTE ESTERASE ,URINE NEGATIVE (NEGATIVE); NITRITE,URINE NEGATIVE (NEGATIVE); PROTEIN,URINE NEGATIVE (NEGATIVE)
[2020-07-03 03:20] LABS: CARBON DIOXIDE 25 MMOL/L (21-32)
[2020-07-03 03:21] LABS: BILIRUBIN,TOTAL 0.3 MG/DL (0.1-1.0)
[2020-07-03 03:23] LABS: ALKALINE PHOSPHATASE 91 U/L (40-136); CREATININE SERUM 0.83 MG/DL (0.60-1.30); GFR ESTIMATED > 60
[2020-07-03 03:24] LABS: BUN/CREATININE RATIO 12
[2020-07-03 03:26] LABS: ALANINE AMINOTRANSFERASE 15 U/L (0-55); MAGNESIUM 2.1 MG/DL (1.6-2.4)
[2020-07-03 03:27] LABS: CREATINE KINASE 100 U/L (29-168); LIPASE 33 U/L (8-78)
[2020-07-03 03:29] LABS: BACTERIA,URINE NEGATIVE /HPF; RBC,URINE 0-2 /HPF; SQUAMOUS EPITHELIAL CELL,UR 0-2 /HPF; WBC,URINE 0-2 /HPF
[2020-07-03 03:32] LABS: AMPHETAMINE SCREEN, URINE POSITIVE (NEGATIVE); BARBITURATE SCREEN URINE NEGATIVE (NEGATIVE); BENZODIAZEPINES SCREEN URINE NEGATIVE (NEGATIVE); CANNABINOID SCREEN, URINE NEGATIVE (NEGATIVE); COCAINE SCREEN URINE NEGATIVE (NEGATIVE); METHADONE STAT NEGATIVE (NEGATIVE); METHAMPHETAMINE SCREEN URINE S POSITIVE (NEGATIVE); OPIATE SCREEN URINE NEGATIVE (NEGATIVE); OXYCODONE STAT NEGATIVE (NEGATIVE); PROPOXYPHENE STAT NEGATIVE (NEGATIVE); TRICYCLIC ANTIDEPRESSANTS SCRE NEGATIVE (NEGATIVE)
[2020-07-03 03:34] LABS: CREATINE KINASE MB 1.3 NG/ML (<6.6)
[2020-07-03 06:17] VITALS: BP 97/70
--- NOTE | 2020-07-03 07:31 | Diagnostic Imaging Report ---
EXAMINATION: Chest 1 view HISTORY: Chest pain COMPARISON: 10/01/2019 FINDINGS: The lungs are clear without edema or pneumonia. No pleural effusion or pneumothorax. Heart size is normal. IMPRESSION: 1. Clear lungs. Dictated by: Dictated on workstation # [id number]
== END 2020-07-03 06:17 | disposition home or self-care (01) ==
LOC: EDUNIT# 02:15 → ER 02:19
DX: R07.9 Chest pain, unspecified (principal); F19.90 Other psychoactive substance use, unspecified, uncomplicated; F15.90 Other stimulant use, unspecified, uncomplicated; I25.2 Old myocardial infarction; Z20.822 Contact with and (suspected) exposure to COVID-19; Z88.1 Allergy status to other antibiotic agents; Z88.8 Allergy status to other drugs, medicaments and biological substances; Z82.49 Family history of ischemic heart disease and other diseases of the circulatory system; Z82.61 Family history of arthritis; Z83.3 Family history of diabetes mellitus
CPT/HCPCS: 71045; 80053; 80306; 81000; 82150; 82550; 82553; 83615; 83690; 83735; 83874; 83880; 84145; 84484; 84703; 85025; 85610; 85652; 85730; 86141; 87804; 93041; 99284; U0002; 36415; 87635; 93005

== ENCOUNTER 2020-09-25 23:55 | Emergency (ER) | payer MEDICARE, OTHER ==
[~2020-09-25] VITALS: Ht 170.1 cm; Wt 74.8 kg
[~2020-09-25 23:55] MED LIST changes: +ACYC-112 PO; -ACYC800T PO
[2020-09-26] MEDS ORDERED: ASPIRIN 81 MG CHEW (CHILDREN'S ASA) PO ONE (00:45)
[2020-09-26 01:04] LABS: BASOPHILS % (AUTO) 1 % (0-10); EOSINOPHILS # (AUTO) 0.1 10^3/uL (0.0-0.3); EOSINOPHILS % (AUTO) 2 % (0-10); HEMATOCRIT 47 % (35-52); HEMOGLOBIN 15.5 g/dL (11.5-16.0); LYMPHOCYTES # (AUTO) 1.9 10^3/uL (1.0-4.0); LYMPHOCYTES % (AUTO) 34 % (12-44); MEAN CORPUSCULAR HEMOGLOBIN 30 pg (25-34); MEAN CORPUSCULAR HGB CONC 33 g/dL (32-36); MEAN CORPUSCULAR VOLUME 91 fL (80-99); MEAN PLATELET VOLUME 9.5 fL (9.0-12.2); MONOCYTES # (AUTO) 0.7 10^3/uL (0.0-1.0); MONOCYTES % (AUTO) 12 % (0-12); NEUTROPHILS # (AUTO) 2.8 10^3/uL (1.8-7.8); NEUTROPHILS % (AUTO) 51 % (42-75); PLATELET COUNT 241 10^3/uL (130-400); WHITE BLOOD COUNT 5.4 10^3/uL (4.3-11.0)
[2020-09-26 01:14] LABS: BILIRUBIN,URINE NEGATIVE (NEGATIVE); CLARITY,URINE SL CLOUDY; COLOR,URINE ORANGE; GLUCOSE, URINE (UA) NEGATIVE (NEGATIVE); KETONES,URINE NEGATIVE (NEGATIVE); LEUKOCYTE ESTERASE ,URINE TRACE (NEGATIVE); NITRITE,URINE POSITIVE (NEGATIVE); PH,URINE 5.5 (5-9); PROTEIN,URINE NEGATIVE (NEGATIVE)
[2020-09-26 01:19] LABS: FIBRIN DEGRADATION PRODUCTS < 0.27 UG/ML (0.00-0.49); INR 0.9 (0.8-1.4); PARTIAL THROMBOPLASTIN TIME 30 SEC (24-35); PROTHROMBIN TIME PATIENT 12.9 SEC (12.2-14.7)
[2020-09-26 01:22] LABS: ALANINE AMINOTRANSFERASE 19 U/L (0-55); ALKALINE PHOSPHATASE 99 U/L (40-136); AMYLASE 51 U/L (25-125); BILIRUBIN,TOTAL 0.4 MG/DL (0.1-1.0); BUN/CREATININE RATIO 15; CALCIUM 9.6 MG/DL (8.5-10.1); CARBON DIOXIDE 26 MMOL/L (21-32); CHLORIDE 104 MMOL/L (98-107); CREATINE KINASE 69 U/L (29-168); CREATININE SERUM 0.84 MG/DL (0.60-1.30); GFR ESTIMATED > 60; GLUCOSE 125 MG/DL (70-105); LIPASE 31 U/L (8-78); MAGNESIUM 2.1 MG/DL (1.6-2.4); POTASSIUM 3.5 MMOL/L (3.6-5.0); SODIUM 140 MMOL/L (135-145); TOTAL PROTEIN 7.3 GM/DL (6.4-8.2)
[2020-09-26 01:25] LABS: BACTERIA,URINE LARGE /HPF; CALCIUM OXALATE CRYSTALS,UR FEW /LPF; SQUAMOUS EPITHELIAL CELL,UR 0-2 /HPF; WBC,URINE 0-2 /HPF
[2020-09-26 01:25] LABS: ERYTHROCYTE SEDIMENTATION RATE 7 MM/HR (0-30)
[2020-09-26 01:42] LABS: CREATINE KINASE MB 0.8 NG/ML (<6.6)
[2020-09-26] MEDS ORDERED: cefTRIAXone FOR IV USE 1,000 MG in WATER (STERILE) FOR INJECTION 10 ML IV ONE (02:45)
--- NOTE | 2020-09-26 03:36 | ED Chest Pain ---
General Chief Complaint: Chest Pain Stated Complaint: CHEST PAIN;CONGESTION Nursing Triage Note: FEELING CONGESTED FOR 2-3 WEEKS OFF AND ON. STATES FELT "OFF" LAST 2 DAYS, "MORE ACHEY WITH CHEST PAIN OFF AND ON. 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, CALL LIGHT IN REACH A&OX4 Nursing Sepsis Screen: No Definite Risk Source: patient History of Present Illness Date Seen by Provider: Sep 26, 2020 Time Seen by Provider: 00:40 Allergies and Home Medications Allergies Coded Allergies: amoxicillin trihydrate (Verified Allergy, Unknown, 10/28/18) RASH, BUT IS ABLE TO TAKE PCN INJECTION baclofen (Unverified Allergy, Unknown, RASH, 10/28/18) paroxetine HCl (Verified Allergy, Unknown, 10/28/18) potassium clavulanate (Verified Allergy, Unknown, 10/28/18) RASH, BUT IS ABLE TO TAKE PCN INJECTION Uncoded Allergies: BACTRIM DS (Allergy, Unknown, 10/28/18) Home Medications Cefdinir 300 Mg Capsule, 300 MG PO BID Prescribed by: MINDY NORRIS on 09/26/20 0340 Guaifenesin/Dextromethorphan 1 Each Tbmp.12hr, 1 EACH PO BID Prescribed by: MINDY NORRIS on 09/26/20 0340 Past Pwqlixs-Vuujpy-Pnwsli Hx Patient Social History Alcohol Use: Denies Use Number of Drinks Today: AA Alcohol Beverage of Choice: Beer Drug of Choice: SMOKES METH, THC Type Used: Cigarettes Former Smoker, Quit: Jan 27, 2015 Recent Infectious Disease Expo: No Recent Hopitalizations: No Immunizations Up To Date Tetanus Booster (TDap): More than 5yrs PED Vaccines UTD: Yes Seasonal Allergies Seasonal Allergies: No Past Medical History Surgeries: Yes (R CARPAL TUNNEL;HYST/BSO;TUMMY TUCK/ABDOMINOPLASTY;NERVE STIMULATOR) Breast, 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, Oophorectomy, Orthopedic Respiratory: Yes Asthma Cardiac: Yes (hx of TACHYCARDIA;STATES "ME"--NO CARDIAC CATH) Coronary Artery Disease, Heart Attack, High Cholesterol, Irregular Heartbeat Neurological: No : No 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 Sexually Transmitted Disease: Yes (TRICHOMONAS) Genitourinary: Yes Kidney Infection, Bladder Infection, UTI-Chronic Gastrointestinal: Yes (HEPATITIS C--S/P TREATMENT; PT STATES SHE HAS GALLSTONES--NO SURGERY) Gastroesophageal Reflux, Chronic Constipation, Gall Bladder Disease, Irritable Bowel Musculoskeletal: Yes (CHRONIC NECK/BACK PAIN-S/P CERVICAL/LUMBAR SPINE SURG & NEUROSTIMULATOR) Back Injury, Chronic Back Pain Endocrine: No HEENT: No Loss of Vision: Bilateral Cancer: No Psychosocial: Yes (EXTENSIVE PSYCH HX-SELF DC'D MEDS/NO FOLLOW UP;SUBSTANCE ABUSE) Anxiety, Bipolar, Depression Integumentary: No Blood Disorders: Yes (HEP C) Adverse Reaction/Blood Tranf: No Family Medical History Aphasia Arthritis 19 MOTHER Cardiovascular disease 19 MOTHER Diabetes mellitus 19 MOTHER FH: Meniere's disease 19 FATHER FH: atrial fibrillation 19 MOTHER FH: back pain 19 FATHER 19 MOTHER FHx: AAA 19 MOTHER Hypertension 19 FATHER 19 MOTHER Osteoporosis 19 MOTHER Thyroid disease G8 SISTER No Pertinent Family Hx SOCIAL HISTORY: -ETOH--OCCASIONAL USE -DRUGS--SMOKES METH ON REGULAR BASIS AND THC --DENIES IV USE -SMOKES 1 PPD CIGARETTES 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 0.0oz. 72.299329ne; 25.00 BMI Method:Stated Progress/Results/Core Measures Results/Orders Lab Results Laboratory Tests Test 09/26/20 00:41 09/26/20 00:53 09/26/20 01:03 09/26/20 03:09 Range/Units Coronavirus 2019 (SUGEY) Not Detected Not Detecte White Blood Count 5.4 4.3-11.0 10^3/uL Red Blood Count 5.14 H 3.80-5.11 10^6/uL Hemoglobin 15.5 11.5-16.0 g/dL Hematocrit 47 35-52 % Mean Corpuscular Volume 91 80-99 fL Mean Corpuscular Hemoglobin 30 25-34 pg Mean Corpuscular Hemoglobin Concent 33 32-36 g/dL Red Cell Distribution Width 13.0 10.0-14.5 % Platelet Count 241 130-400 10^3/uL Mean Platelet Volume 9.5 9.0-12.2 fL Immature Granulocyte % (Auto) 0 % Neutrophils (%) (Auto) 51 42-75 % Lymphocytes (%) (Auto) 34 12-44 % Monocytes (%) (Auto) 12 0-12 % Eosinophils (%) (Auto) 2 0-10 % Basophils (%) (Auto) 1 0-10 % Neutrophils # (Auto) 2.8 1.8-7.8 10^3/uL Lymphocytes # (Auto) 1.9 1.0-4.0 10^3/uL Monocytes # (Auto) 0.7 0.0-1.0 10^3/uL Eosinophils # (Auto) 0.1 0.0-0.3 10^3/uL Basophils # (Auto) 0.0 0.0-0.1 10^3/uL Immature Granulocyte # (Auto) 0.0 0.0-0.1 10^3/uL Erythrocyte Sedimentation Rate 7 0-30 MM/HR Prothrombin Time 12.9 12.2-14.7 SEC INR Comment 0.9 0.8-1.4 Activated Partial Thromboplast Time 30 24-35 SEC D-Dimer < 0.27 0.00-0.49 UG/ML Sodium Level 140 135-145 MMOL/L Potassium Level 3.5 L 3.6-5.0 MMOL/L Chloride Level 104 98-107 MMOL/L Carbon Dioxide Level 26 21-32 MMOL/L Anion Gap 10 5-14 MMOL/L Blood Urea Nitrogen 13 7-18 MG/DL Creatinine 0.84 0.60-1.30 MG/DL Estimat Glomerular Filtration Rate > 60 BUN/Creatinine Ratio 15 Glucose Level 125 H 70-105 MG/DL Calcium Level 9.6 8.5-10.1 MG/DL Corrected Calcium 9.6 8.5-10.1 MG/DL Magnesium Level 2.1 1.6-2.4 MG/DL Total Bilirubin 0.4 0.1-1.0 MG/DL Aspartate Amino Transf (AST/SGOT) 21 5-34 U/L Alanine Aminotransferase (ALT/SGPT) 19 0-55 U/L Alkaline Phosphatase 99 40-136 U/L Lactate Dehydrogenase 208 125-220 U/L Total Creatine Kinase 69 29-168 U/L Creatine Kinase MB 0.8 <6.6 NG/ML Myoglobin 30.7 10.0-92.0 NG/ML Troponin I < 0.028 < 0.028 <0.028 NG/ML C-Reactive Protein High Sensitivity 0.60 H 0.00-0.50 MG/DL B-Type Natriuretic Peptide < 10.0 <100.0 PG/ML Total Protein 7.3 6.4-8.2 GM/DL Albumin 4.0 3.2-4.5 GM/DL Amylase Level 51 25-125 U/L Lipase 31 8-78 U/L Procalcitonin 0.02 <0.10 NG/ML Urine Color ORANGE Urine Clarity SL CLOUDY Urine pH 5.5 5-9 Urine Specific [place] >=1.030 1.016-1.022 Urine Protein NEGATIVE NEGATIVE Urine Glucose (UA) NEGATIVE NEGATIVE Urine Ketones NEGATIVE NEGATIVE Urine Nitrite POSITIVE H NEGATIVE Urine Bilirubin NEGATIVE NEGATIVE Urine Urobilinogen 0.2 < = 1.0 MG/DL Urine Leukocyte Esterase TRACE H NEGATIVE Urine RBC (Auto) TRACE-I NEGATIVE Urine RBC 5-10 H /HPF Urine WBC 0-2 /HPF Urine Squamous Epithelial Cells 0-2 /HPF Urine Crystals PRESENT H /LPF Urine Calcium Oxalate Crystals FEW H /LPF Urine Bacteria LARGE H /HPF Urine Casts NONE /LPF Urine Mucus SMALL H /LPF Urine Culture Indicated YES Urine Opiates Screen NEGATIVE NEGATIVE Urine Oxycodone Screen NEGATIVE NEGATIVE Urine Methadone Screen NEGATIVE NEGATIVE Urine Propoxyphene Screen NEGATIVE NEGATIVE Urine Barbiturates Screen NEGATIVE NEGATIVE Ur Tricyclic Antidepressants Screen NEGATIVE NEGATIVE Urine Phencyclidine Screen NEGATIVE NEGATIVE Urine Amphetamines Screen POSITIVE H NEGATIVE Urine Methamphetamines Screen POSITIVE H NEGATIVE Urine Benzodiazepines Screen NEGATIVE NEGATIVE Urine Cocaine Screen NEGATIVE NEGATIVE Urine Cannabinoids Screen NEGATIVE NEGATIVE Serum Alcohol < 10 <10 MG/DL Micro Results Microbiology 09/26/20 Influenza Types A,B Antigen (ARTURO) - Final, Complete My Orders Orders - MINDY NORRIS DO Ed Iv/Invasive Line Start (09/26/20 00:41) Ekg Tracing (09/26/20 00:41) O2 (09/26/20 00:41) Monitor-Rhythm Ecg Trace Only (09/26/20 00:41) Amylase (09/26/20 00:41) BNP (09/26/20 00:41) Cbc With Automated Diff (09/26/20 00:41) Comprehensive Metabolic Panel (09/26/20 00:41) Creatine Kinase (09/26/20 00:41) Creatine Kinase Mb (09/26/20 00:41) Hs C Reactive Protein (09/26/20 00:41) Fibrin Degradation Products (09/26/20 00:41) Lipase (09/26/20 00:41) Magnesium (09/26/20 00:41) Procalcitonin (Pct) (09/26/20 00:41) Protime With Inr (09/26/20:41) Partial Thromboplastin Time (09/26/20 00:41) Ua Culture If Indicated (09/26/20 00:41) Influenza A And B Antigens (09/26/20 00:41) Erythrocyte Sedimentation Rate (09/26/20 00:41) Myoglobin Serum (09/26/20 00:41) Troponin I (09/26/20 00:41) LDH (09/26/20 00:41) Covid 19 Inhouse Test (09/26/20 00:41) Aspirin Chewable Tablet (Baby Aspirin Ch (09/26/20 00:45) Urine Culture (09/26/20 01:03) Chest 1 View, Ap/Pa Only (09/26/20 01:36) Ceftriaxone For Iv Use (Rocephin For I (09/26/20 02:45) Ekg Tracing (09/26/20 02:45) Troponin I (09/26/20 02:45) Alcohol (09/26/20 03:36) Drug Screen Stat (Urine) (09/26/20 03:36) Medications Given in ED Current Medications Medications Dose Ordered Sig/Michael Route Start Time Stop Time Status Last Admin Dose Admin Aspirin 324 mg ONCE ONCE PO 09/26/20 00:45 09/26/20 00:46 DC 09/26/20 01:07 324 MG Ceftriaxone Sodium 1000 mg/ Sterile Water 10 ml @ 200 mls/hr ONCE ONCE IV 09/26/20 02:45 09/26/20 02:47 DC 09/26/20 03:03 200 MLS/HR Vital Signs/I&O 09/26/20 09/26/2009/26/21 00:30 00:30 03:53 Temp 35.6 Pulse 106 89 Resp 20 18 B/P (MAP) 103/76 (85) 103/75 Pulse Ox 95 94 O2 Delivery Room Air Blood Pressure Mean: 85 Progress Progress Note : Progress Note PLACED IN ISOLATION ROOM PPE WORN AT ALL TIMES COVID-19 TESTING PERFORMED PT HAD NO COMPLAINTS OF CHEST PAIN OR SHORTNESS OF BREATH AT ANY TIME, OR COMPLAINTS OF ANY KIND VITALS NORMAL NO FEVER OR HYPOXIA PT HELD IN ER AND 3 HOUR RULE OUT TROPONIN PERFORMED. REPEAT EKG IS NORMAL/UNCHANGED, REPEAT TROPONIN IS NEGATIVE PT REMAINED SYMPTOM-FREE FOR ENTIRE ER STAY SLEPT AT INTERVALS DURING ER STAY Departure Impression Primary Impression: Chest pain Additional Impressions: Bronchitis Upper respiratory infection Person under investigation for COVID-19 Urinary tract infection Methamphetamine use Disposition: HOME, SELF-CARE Condition: Stable Departure-Patient Inst. Referrals: PEE MARINELLI MD (PCP/Family) Primary Care Physician Patient Instructions: Acute Bronchitis, Adult (DC), COVID-19 Overview, Preventing the Spread of an Infectious Disease, Upper Respiratory Infection ED, Urinary Tract Infection, Adult (DC) Add. Discharge Instructions: LOTS OF CLEAR LIQUIDS TYLENOL AND MOTRIN NEEDED FOR PAIN OR FEVER FOLLOW UP WITH [facility] IN 2-3 DAYS FOR FURTHER CARE, RETURN TO ER IF WORSE All discharge instructions reviewed with patient and/or family. Voiced understanding. Scripts Guaifenesin/Dextromethorphan (Mucinex Dm ER 1,200-60 mg Tab) 1 Each Tbmp.12hr 1 EACH PO BID, #20 EA Prov: MINDY NORRIS DO 09/26/20 Cefdinir (Cefdinir) 300 Mg Capsule 300 MG PO BID, #20 CAP Prov: MINDY NORRIS DO 09/26/20 MINDY NORRIS DO Sep 26, 2020 03:36
[2020-09-26] MEDS ORDERED: CEFD300C3 PO (03:40)
[2020-09-26] MEDS ORDERED: GUAI1TBM19 PO (03:40)
[2020-09-26 03:53] VITALS: BP 103/75
[2020-09-26 04:15] LABS: AMPHETAMINE SCREEN, URINE POSITIVE (NEGATIVE); BARBITURATE SCREEN URINE NEGATIVE (NEGATIVE); BENZODIAZEPINES SCREEN URINE NEGATIVE (NEGATIVE); CANNABINOID SCREEN, URINE NEGATIVE (NEGATIVE); COCAINE SCREEN URINE NEGATIVE (NEGATIVE); METHADONE STAT NEGATIVE (NEGATIVE); METHAMPHETAMINE SCREEN URINE S POSITIVE (NEGATIVE); OPIATE SCREEN URINE NEGATIVE (NEGATIVE); OXYCODONE STAT NEGATIVE (NEGATIVE); PROPOXYPHENE STAT NEGATIVE (NEGATIVE); TRICYCLIC ANTIDEPRESSANTS SCRE NEGATIVE (NEGATIVE)
--- NOTE | 2020-09-26 07:26 | Diagnostic Imaging Report ---
PATIENT HISTORY: COUGH, CONGESTION, CP. TECHNIQUE: Single frontal view of the chest. COMPARISON: 07/03/2020 FINDINGS: The lung volumes are normal. No focal consolidation is seen. Haziness over the lung bases likely represents overlying soft tissue and is stable since the prior study. No large pleural effusion or pneumothorax is seen. The cardiomediastinal silhouette is normal in size and contour. No acute osseous abnormality is seen. IMPRESSION: No acute pulmonary abnormality seen. Dictated by: Dictated on workstation # [id number]
== END 2020-09-26 03:53 | disposition home or self-care (01) ==
LOC: EDUNIT# 23:55 → ER 23:58
DX: R07.9 Chest pain, unspecified (principal); J40 Bronchitis, not specified as acute or chronic; J06.9 Acute upper respiratory infection, unspecified; N39.0 Urinary tract infection, site not specified; F15.90 Other stimulant use, unspecified, uncomplicated; I25.2 Old myocardial infarction; Z20.822 Contact with and (suspected) exposure to COVID-19; Z88.1 Allergy status to other antibiotic agents; Z88.8 Allergy status to other drugs, medicaments and biological substances; Z87.891 Personal history of nicotine dependence
CPT/HCPCS: 71045; 80053; 80306; 81000; 82150; 82550; 82553; 83615; 83690; 83735; 83874; 83880; 84145; 84484; 85025; 85379; 85610; 85652; 85730; 86141; 87077; 87088; 87186; 87804; 93005; 93041; 99284; G0480; U0002; 36415; 80320; 87635

== ENCOUNTER 2021-02-09 03:45 | Emergency (ER) | payer MEDICARE ==
[~2021-02-09] VITALS: Ht 170 cm; Wt 74.8 kg
[~2021-02-09 03:45] MED LIST changes: +GUAI1TBM19 PO; -SULF1TAB35 PO; +SULF1TAB38 PO
[2021-02-09] MEDS ORDERED: TETANUS,DIPTH,PERTUSS P/F (BOOSTRIX) 0.5 ML VIAL IM ONE (04:30)
[2021-02-09] MEDS ORDERED: DOXY100T2 PO (04:31)
--- NOTE | 2021-02-09 04:31 | ED Integumentary General ---
General Chief Complaint: Chest Pain Stated Complaint: RT ARM PAIN,POSS BUG BITE Source: patient Exam Limitations: no limitations History of Present Illness Date Seen by Provider: Feb 09, 2021 Time Seen by Provider: 04:15 Initial Comments Patient to the ER by private conveyance with chief complaint of 2 days progressive worsening painful red not expressing purulence on her right forearm. She thinks may be a bug bit her but does not recall seeing an insect. She has been cleaning it with soap and water and expressing it and it is just getting bigger. She has not started antibiotics. No fever but she is had subjective chills. Allergies and Home Medications Allergies Coded Allergies: amoxicillin trihydrate (Verified Allergy, Unknown, 10/28/18) RASH, BUT IS ABLE TO TAKE PCN INJECTION baclofen (Unverified Allergy, Unknown, RASH, 10/28/18) paroxetine HCl (Verified Allergy, Unknown, 10/28/18) potassium clavulanate (Verified Allergy, Unknown, 10/28/18) RASH, BUT IS ABLE TO TAKE PCN INJECTION Uncoded Allergies: BACTRIM DS (Allergy, Unknown, 10/28/18) Patient Home Medication List Home Medication List Reviewed: Yes Cefdinir (Cefdinir) 300 Mg Capsule, 300 MG PO BID Prescribed by: MINDY NORRIS on 09/26/20 0340 Guaifenesin/Dextromethorphan (Mucinex Dm ER 1,200-60 mg Tab) 1 Each Tbmp.12hr, 1 EACH PO BID Prescribed by: MINDY NORRIS on 09/26/20 0340 Review of Systems Review of Systems Constitutional: No chills, No diaphoresis EENTM: No ear discharge, No ear pain Respiratory: No cough, No short of breath Cardiovascular: No chest pain, No edema Gastrointestinal: No abdominal pain, No nausea, No vomiting Genitourinary: No discharge, No dysuria Musculoskeletal: No back pain, No joint pain Skin: see HPI All Other Systems Reviewed Negative Unless Noted: Yes Past Devtyzy-Uncjli-Cmjmyw Hx Patient Social History Tobacco Use?: No Use of E-Cig and/or Vaping dev: No Immunizations Up To Date Tetanus Booster (TDap): More than 5yrs PED Vaccines UTD: Yes Seasonal Allergies Seasonal Allergies: No Past Medical History Surgeries: Yes (R CARPAL TUNNEL;HYST/BSO;TUMMY TUCK/ABDOMINOPLASTY;NERVE STIMULATOR) Breast, 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, Oophorectomy, Orthopedic Respiratory: Yes Asthma Cardiac: Yes (hx of TACHYCARDIA;STATES "[place]"--NO CARDIAC CATH) Coronary Artery Disease, Heart Attack, High Cholesterol, Irregular Heartbeat Neurological: No 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 Sexually Transmitted Disease: Yes (TRICHOMONAS) Genitourinary: Yes Kidney Infection, Bladder Infection, UTI-Chronic Gastrointestinal: Yes (HEPATITIS C--S/P TREATMENT; PT STATES SHE HAS GALLSTONES--NO SURGERY) Gastroesophageal Reflux, Chronic Constipation, Hepatitis, Gall Bladder Disease, Irritable Bowel Musculoskeletal: Yes (CHRONIC NECK/BACK PAIN-S/P CERVICAL/LUMBAR SPINE SURG & NEUROSTIMULATOR) Back Injury, Chronic Back Pain Endocrine: No HEENT: No Loss of Vision: Bilateral Cancer: No Psychosocial: Yes (EXTENSIVE PSYCH HX-SELF DC'D MEDS/NO FOLLOW UP;SUBSTANCE ABUSE) Anxiety, Bipolar, Depression Integumentary: No Blood Disorders: Yes (HEP C) Adverse Reaction/Blood Tranf: No Family Medical History Aphasia Arthritis 19 MOTHER Cardiovascular disease 19 MOTHER Diabetes mellitus 19 MOTHER FH: Meniere's disease 19 FATHER FH: atrial fibrillation 19 MOTHER FH: back pain 19 FATHER 19 MOTHER FHx: AAA 19 MOTHER Hypertension 19 FATHER 19 MOTHER Osteoporosis 19 MOTHER Thyroid disease G8 SISTER No Pertinent Family Hx SOCIAL HISTORY: -ETOH--OCCASIONAL USE, HISTORY OF HEAVY USE -DRUGS--SMOKES METH ON REGULAR BASIS AND THC --DENIES IV USE -SMOKES 1 PPD CIGARETTES 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: -LUMBAR SPINE SURGERY WITH NEUROSTIMULATOR PLACEMENT -C-SPINE SURGERY/FUSION -BREAST LIFT AND AUGMENTATION -ABDOMINOPLASTY/"TUMMY TUCK" -RIGHT CARPAL TUNNEL SURGERY -HYSTERECTOMY/LATER BILATERAL SALPINGO-OOPHORECTOMY 1991 -EGD'S AND MULTIPLE COLONOSCOPIES Physical Exam Vital Signs Capillary Refill : General Appearance: WD/WN, mild distress HEENT: PERRL/EOMI, pharynx normal Neck: full range of motion, normal inspection Cardiovascular: normal peripheral pulses, regular rate, rhythm Respiratory: no respiratory distress, no accessory muscle use Neurologic/Psychiatric: alert, oriented x 3 Skin: other (3 cm nodule with ulcerated central pore with a small amount of purulence on the right forearm dorsally.) Procedures/Interventions I&D : Site: Right dorsal forearm Blade Size: 11 I & D Procedure: betadine prep (Chlorhexidine) Progress Wound was thoroughly cleaned using chlorhexidine and infiltrated with 2 cc of 1% lidocaine. Using an 11 blade scalpel we made a 2 mm x 3 mm crosswise incision and expressed about 1.5 cc of purulence. Patient tolerated procedure well. Loculations were broken up using a blunt end of a sterile cotton-tipped swab and flushed with 10 cc of sterile saline. Progress/Results/Core Measures Results/Orders My Orders Orders - RENEE SALAS Dipht,Pertuss(Acell),Tet Adult (Boostrix (02/09/21 04:30) Progress Progress Note : Time: 04:28 Progress Note Tetanus vaccine will be given. Plan to incise and drain and put her on doxycycline. Departure Impression Primary Impression: Abscess Disposition: 01 HOME, SELF-CARE Condition: Stable Departure-Patient Inst. Decision time for Depature: 04:29 Referrals: PEE MARINELLI MD (PCP/Family) Primary Care Physician Patient Instructions: Abscess Incision and Drainage (DC) Add. Discharge Instructions: Keep the wound clean with regular soap and water only. Do not use hydrogen peroxide, alcohol, Betadine/iodine or chlorhexidine. This will delay wound healing. Keep a clean dry gauze dressing over the wound to catch the drainage over the next couple days. Change at least daily or more frequently if it becomes soiled. Doxycycline 1 capsule twice a day for the next 7 to 10 days. Tylenol and ibuprofen as necessary for pain. Warm, moist heat can be helpful for pain. Follow-up with your primary care physician if you are not seeing improvement over the next 5 to 7 days. All discharge instructions reviewed with patient and/or family. Voiced understanding. Scripts Doxycycline Hyclate (Doxycycline Hyclate) 100 Mg Tablet 100 MG PO BID for 10 Days, #20 TAB 0 Refills Prov: RENEE SALAS 02/09/21 RENEE SALAS Feb 09, 2021 04:31
[2021-02-09 04:52] VITALS: BP 131/87
== END 2021-02-09 05:01 | disposition home or self-care (01) ==
LOC: EDUNIT# 03:45 → ER 03:50
DX: L02.413 Cutaneous abscess of right upper limb (principal); J45.909 Unspecified asthma, uncomplicated; F17.210 Nicotine dependence, cigarettes, uncomplicated; Z98.1 Arthrodesis status; Z23 Encounter for immunization
CPT/HCPCS: 90715; 99284

== ENCOUNTER 2021-06-19 05:58 | Emergency (ER) | payer MEDICARE ==
[~2021-06-19] VITALS: Ht 170.1 cm; Wt 74.8 kg
[~2021-06-19 05:58] MED LIST changes: +DOXY100T2 PO
[2021-06-19] MEDS ORDERED: DOXY100T2 PO (08:05)
--- NOTE | 2021-06-19 08:06 | ED Integumentary General ---
General Chief Complaint: Skin/Wound Problems Stated Complaint: ABCESS UNDER L ARM Nursing Triage Note: hx of mrsa, had one red area come up yesterday and another small area next to origional area of concern. patient states she has had to have these areas lanced in the past and wanted to catch early. pain rating is 5/10. motrin at home. Source: patient Exam Limitations: no limitations History of Present Illness Date Seen by Provider: Jun 19, 2021 Time Seen by Provider: 07:49 Initial Comments Patient to the ER by private conveyance from home with chief complaint of abscess in her left armpit. She is had 1 here in the past. It has not started draining anything. Started about 1-1/2 days ago. No fevers or chills. Bactrim gives her hives. Allergies and Home Medications Allergies Coded Allergies: amoxicillin trihydrate (Verified Allergy, Unknown, 10/28/18) RASH, BUT IS ABLE TO TAKE PCN INJECTION baclofen (Unverified Allergy, Unknown, RASH, 10/28/18) paroxetine HCl (Verified Allergy, Unknown, 10/28/18) potassium clavulanate (Verified Allergy, Unknown, 10/28/18) RASH, BUT IS ABLE TO TAKE PCN INJECTION Uncoded Allergies: BACTRIM DS (Allergy, Unknown, 10/28/18) Patient Home Medication List Home Medication List Reviewed: Yes Cefdinir (Cefdinir) 300 Mg Capsule, 300 MG PO BID Prescribed by: MINDY NORRIS on 09/26/20 0340 Doxycycline Hyclate (Doxycycline Hyclate) 100 Mg Tablet, 100 MG PO BID Prescribed by: RENEE SALAS on 02/09/21 0431 Guaifenesin/Dextromethorphan (Mucinex Dm ER 1,200-60 mg Tab) 1 Each Tbmp.12hr, 1 EACH PO BID Prescribed by: MINDY NORRIS on 09/26/20 0340 Review of Systems Review of Systems Constitutional: No chills, No diaphoresis EENTM: No ear discharge, No ear pain, No blurred vision Respiratory: No cough, No short of breath Cardiovascular: No chest pain, No edema Gastrointestinal: No abdominal pain, No constipation, No diarrhea Genitourinary: No discharge, No dysuria Musculoskeletal: No back pain, No joint pain Skin: see HPI All Other Systems Reviewed Negative Unless Noted: Yes Past Ozvpktr-Hsxuqb-Zrfvak Hx Patient Social History Tobacco Use?: No Use of E-Cig and/or Vaping dev: No Immunizations Up To Date Tetanus Booster (TDap): More than 5yrs PED Vaccines UTD: Yes Seasonal Allergies Seasonal Allergies: No Past Medical History Surgeries: Yes (R CARPAL TUNNEL;HYST/BSO;TUMMY TUCK/ABDOMINOPLASTY;NERVE STIMULATOR) Breast, 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, Oophorectomy, Orthopedic Respiratory: Yes Asthma Cardiac: Yes (hx of TACHYCARDIA;STATES "[place]"--NO CARDIAC CATH) Coronary Artery Disease, Heart Attack, High Cholesterol, Irregular Heartbeat Neurological: No 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 Disorders: Yes 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 Sexually Transmitted Disease: Yes (TRICHOMONAS) Genitourinary: Yes Kidney Infection, Bladder Infection, UTI-Chronic Gastrointestinal: Yes (HEPATITIS C--S/P TREATMENT; PT STATES SHE HAS GALLSTONES--NO SURGERY) Gastroesophageal Reflux, Chronic Constipation, Hepatitis, Gall Bladder Disease, Irritable Bowel Musculoskeletal: Yes (CHRONIC NECK/BACK PAIN-S/P CERVICAL/LUMBAR SPINE SURG & NEUROSTIMULATOR) Back Injury, Chronic Back Pain Endocrine: No HEENT: No Loss of Vision: Bilateral Cancer: No Psychosocial: Yes (EXTENSIVE PSYCH HX-SELF DC'D MEDS/NO FOLLOW UP;SUBSTANCE ABUSE) Anxiety, Bipolar, Depression Integumentary: No Blood Disorders: Yes (HEP C) Adverse Reaction/Blood Tranf: No Family Medical History Aphasia Arthritis 19 MOTHER Cardiovascular disease 19 MOTHER Diabetes mellitus 19 MOTHER FH: Meniere's disease 19 FATHER FH: atrial fibrillation 19 MOTHER FH: back pain 19 FATHER 19 MOTHER FHx: AAA 19 MOTHER Hypertension 19 FATHER 19 MOTHER Osteoporosis 19 MOTHER Thyroid disease G8 SISTER No Pertinent Family Hx SOCIAL HISTORY: -ETOH--OCCASIONAL USE, HISTORY OF HEAVY USE -DRUGS--SMOKES METH ON REGULAR BASIS AND THC --DENIES IV USE -SMOKES 1 PPD CIGARETTES 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: -LUMBAR SPINE SURGERY WITH NEUROSTIMULATOR PLACEMENT -C-SPINE SURGERY/FUSION -BREAST LIFT AND AUGMENTATION -ABDOMINOPLASTY/"TUMMY TUCK" -RIGHT CARPAL TUNNEL SURGERY -HYSTERECTOMY/LATER BILATERAL SALPINGO-OOPHORECTOMY 1991 -EGD'S AND MULTIPLE COLONOSCOPIES Physical Exam Vital Signs Vital Signs - First Documented 06/19/21 07:19 Temp 36.3 Pulse 90 Resp 18 B/P (MAP) 118/91 (100) Pulse Ox 95 O2 Delivery Room Air Capillary Refill : Less Than 3 Seconds General Appearance: WD/WN, no apparent distress HEENT: PERRL/EOMI, pharynx normal Neck: full range of motion, normal inspection Cardiovascular: normal peripheral pulses, regular rate, rhythm Respiratory: no respiratory distress, no accessory muscle use Skin: other (Left axilla erythematous with some induration and white head pointing without palpable fluctuance) Procedures/Interventions I&D : Site: Left axilla Blade Size: 11 I & D Procedure: betadine prep (Chlorhexidine) Progress Wound was thoroughly cleansed with chlorhexidine, infiltrated with 2 cc of 1% lidocaine without epinephrine and using an 11 blade scalpel performed a 3 x 3 mm crosswise incision expressing sanguinous drainage only. Progress/Results/Core Measures Results/Orders Vital Signs/I&O 06/19/21 07:19 Temp 36.3 Pulse 90 Resp 18 B/P (MAP) 118/91 (100) Pulse Ox 95 O2 Delivery Room Air Blood Pressure Mean: 100 Progress Progress Note : Time: 08:02 Progress Note Discussed risks, benefits and alternatives to doing incise and drain versus antibiotics alone and elected to do a small local I&D. Departure Impression Primary Impression: Abscess Additional Impression: Folliculitis Disposition: 01 HOME, SELF-CARE Condition: Stable Departure-Patient Inst. Decision time for Depature: 08:04 Referrals: PEE MARINELLI MD (PCP/Family) Primary Care Physician Patient Instructions: Abscess Incision and Drainage (DC) Add. Discharge Instructions: Keep the wound clean with regular soap and water only. Warm heat may help with pain as well as encourage drainage. Change the dressing as often as necessary until it stops draining. Tylenol and Motrin as necessary for pain. Doxycycline 1 capsule twice a day for the next week. All discharge instructions reviewed with patient and/or family. Voiced understanding. Scripts Doxycycline Hyclate (Doxycycline Hyclate) 100 Mg Tablet 100 MG PO BID for 7 Days, #14 TAB 0 Refills Prov: RENEE SALAS 06/19/21 RENEE SALAS Jun 19, 2021 08:06
[2021-06-19 08:50] VITALS: BP 118/91
== END 2021-06-19 08:50 | disposition home or self-care (01) ==
LOC: EDUNIT# 05:58 → ER 06:00
DX: L02.412 Cutaneous abscess of left axilla (principal); L73.9 Follicular disorder, unspecified; J45.909 Unspecified asthma, uncomplicated; I25.2 Old myocardial infarction
CPT/HCPCS: 99281

== ENCOUNTER 2021-07-07 15:13 | Emergency (ER) | payer MEDICARE ==
[~2021-07-07] VITALS: Ht 170.2 cm; Wt 74.8 kg
[2021-07-07 15:17] VITALS: BP 147/100
[2021-07-07] MEDS ORDERED: ASPIRIN 81 MG CHEW (CHILDREN'S ASA) PO ONE (15:45)
[2021-07-07] MEDS ORDERED: NITROGLYCERIN 0.4 MG SL TABS BTL 25'S SL PRN (15:45)
--- NOTE | 2021-07-07 15:47 | Diagnostic Imaging Report ---
EXAMINATION: Chest 1 view HISTORY: Chest pain COMPARISON: 09/26/2020. FINDINGS: The lungs are clear without edema or pneumonia. No pleural effusion or pneumothorax. Heart size is normal. IMPRESSION: 1. Clear lungs. Dictated by: Dictated on workstation # [id number]
[2021-07-07 15:59] LABS: AMPHETAMINE SCREEN, URINE POSITIVE (NEGATIVE); BARBITURATE SCREEN URINE NEGATIVE (NEGATIVE); BENZODIAZEPINES SCREEN URINE NEGATIVE (NEGATIVE); CANNABINOID SCREEN, URINE NEGATIVE (NEGATIVE); COCAINE SCREEN URINE NEGATIVE (NEGATIVE); METHADONE STAT NEGATIVE (NEGATIVE); METHAMPHETAMINE SCREEN URINE S POSITIVE (NEGATIVE); OPIATE SCREEN URINE NEGATIVE (NEGATIVE); OXYCODONE STAT NEGATIVE (NEGATIVE); PROPOXYPHENE STAT NEGATIVE (NEGATIVE); TRICYCLIC ANTIDEPRESSANTS SCRE NEGATIVE (NEGATIVE)
[2021-07-07 16:23] LABS: BASOPHILS % (AUTO) 0 % (0-10); EOSINOPHILS # (AUTO) 0.1 10^3/uL (0.0-0.3); EOSINOPHILS % (AUTO) 2 % (0-10); HEMATOCRIT 46 % (35-52); HEMOGLOBIN 15.4 g/dL (11.5-16.0); LYMPHOCYTES % (AUTO) 12 % (12-44); MEAN CORPUSCULAR HEMOGLOBIN 31 pg (25-34); MEAN CORPUSCULAR HGB CONC 34 g/dL (32-36); MEAN CORPUSCULAR VOLUME 91 fL (80-99); MEAN PLATELET VOLUME 9.5 fL (9.0-12.2); MONOCYTES # (AUTO) 0.5 10^3/uL (0.0-1.0); MONOCYTES % (AUTO) 6 % (0-12); NEUTROPHILS # (AUTO) 7.1 10^3/uL (1.8-7.8); NEUTROPHILS % (AUTO) 80 % (42-75); PLATELET COUNT 205 10^3/uL (130-400); WHITE BLOOD COUNT 8.8 10^3/uL (4.3-11.0)
[2021-07-07 16:34] LABS: ALBUMIN 3.9 GM/DL (3.2-4.5); POTASSIUM 3.9 MMOL/L (3.6-5.0)
[2021-07-07 16:35] LABS: CALCIUM 8.9 MG/DL (8.5-10.1)
[2021-07-07 16:36] LABS: TOTAL PROTEIN 6.9 GM/DL (6.4-8.2)
[2021-07-07 16:38] LABS: BILIRUBIN,TOTAL 0.3 MG/DL (0.1-1.0)
[2021-07-07 16:40] LABS: CREATININE SERUM 0.69 MG/DL (0.60-1.30)
[2021-07-07 16:44] LABS: INR 0.9 (0.8-1.4); PROTHROMBIN TIME PATIENT 12.4 SEC (12.2-14.7)
[2021-07-07] MEDS ORDERED: KETOROLAC 30 MG/ML VIAL IVP ONE (17:30)
--- NOTE | 2021-07-07 18:08 | ED Chest Pain ---
General Chief Complaint: COVID19 Suspect/Confirmed Stated Complaint: CHEST PAIN Nursing Triage Note: PT AMB TO RM 6 WITH COMPLAINT OF CHEST HEAVINESS AND SOA THAT STARTED LAST NIGHT. S/O IS COVID + Source: patient, old records Exam Limitations: no limitations History of Present Illness Date Seen by Provider: Jul 07, 2021 Time Seen by Provider: 15:18 Initial Comments This 50-year-old woman presents to the emergency room with complaints of chest pain that she describes as a sensation of a "charley horse" or heaviness in the central chest radiating through to the back. She has associated palpitations. She had an episode of the pain around 0200 and then the pain returned over the past couple of hours. She has associated shortness of air, myalgia and nausea. She reports Covid vaccination x2. Her significant other recently tested Covid positive. Her primary care provider is Dr. Pee Marinelli. Patient admits to using methamphetamines within the past 5 days. Allergies and Home Medications Allergies Coded Allergies: amoxicillin trihydrate (Verified Allergy, Unknown, 10/28/18) RASH, BUT IS ABLE TO TAKE PCN INJECTION baclofen (Unverified Allergy, Unknown, RASH, 10/28/18) paroxetine HCl (Verified Allergy, Unknown, 10/28/18) potassium clavulanate (Verified Allergy, Unknown, 10/28/18) RASH, BUT IS ABLE TO TAKE PCN INJECTION Uncoded Allergies: BACTRIM DS (Allergy, Unknown, 10/28/18) Patient Home Medication List Home Medication List Reviewed: Yes Cefdinir (Cefdinir) 300 Mg Capsule, 300 MG PO BID Prescribed by: MINDY NORRIS on 09/26/20 0340 Doxycycline Hyclate (Doxycycline Hyclate) 100 Mg Tablet, 100 MG PO BID Prescribed by: RENEE SALAS on 02/09/21 0431 Doxycycline Hyclate (Doxycycline Hyclate) 100 Mg Tablet, 100 MG PO BID Prescribed by: RENEE SALAS on 06/19/21 0805 Guaifenesin/Dextromethorphan (Mucinex Dm ER 1,200-60 mg Tab) 1 Each Tbmp.12hr, 1 EACH PO BID Prescribed by: MINDY NORRIS on 09/26/20 0340 Review of Systems Review of Systems Constitutional: see HPI EENTM: No Symptoms Reported Respiratory: See HPI Cardiovascular: See HPI Gastrointestinal: No Symptoms Reported Genitourinary: No Symptoms Reported Musculoskeletal: see HPI Skin: no symptoms reported Psychiatric/Neurological: See HPI Endocrine: No Symptoms Reported Hematologic/Lymphatic: No Symptoms Reported Past Fgpqcqy-Iacqwz-Xqqqeg Hx Patient Social History Tobacco Use?: Yes Tobacco type used: Cigarettes Smoking Status: Current Everyday Smoker Use of E-Cig and/or Vaping dev: No Substance use?: No Alcohol Use?: No Pt feels they are or have been: No Immunizations Up To Date Tetanus Booster (TDap): More than 5yrs PED Vaccines UTD: Yes Influenza Vaccine Up-to-Date: No; Not Current First/Initial COVID19 Vaccinat: SUMMER 2020 Second COVID19 Vaccination Aamir: SUMMER 2020 Seasonal Allergies Seasonal Allergies: No Past Medical History Surgeries: Yes (R CARPAL TUNNEL;HYST/BSO;TUMMY TUCK/ABDOMINOPLASTY;NERVE STIMULATOR) Breast, 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, Oophorectomy, Orthopedic Respiratory: Yes Asthma Cardiac: Yes (hx of TACHYCARDIA;STATES "[place]"--NO CARDIAC CATH) Coronary Artery Disease, Heart Attack, High Cholesterol, Irregular Heartbeat Neurological: No 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 Sexually Transmitted Disease: Yes (TRICHOMONAS) Genitourinary: Yes Kidney Infection, Bladder Infection, UTI-Chronic Gastrointestinal: Yes (HEPATITIS C--S/P TREATMENT; PT STATES SHE HAS GALLSTONES--NO SURGERY) Gastroesophageal Reflux, Chronic Constipation, Hepatitis, Gall Bladder Disease, Irritable Bowel Musculoskeletal: Yes (CHRONIC NECK/BACK PAIN-S/P CERVICAL/LUMBAR SPINE SURG & NEUROSTIMULATOR) Back Injury, Chronic Back Pain Endocrine: No HEENT: No Loss of Vision: Bilateral Cancer: No Psychosocial: Yes (EXTENSIVE PSYCH HX-SELF DC'D MEDS/NO FOLLOW UP;SUBSTANCE ABUSE) Anxiety, Bipolar, Depression Integumentary: No Blood Disorders: Yes (HEP C) Adverse Reaction/Blood Tranf: No Family Medical History Aphasia Arthritis 19 MOTHER Cardiovascular disease 19 MOTHER Diabetes mellitus 19 MOTHER FH: Meniere's disease 19 FATHER FH: atrial fibrillation 19 MOTHER FH: back pain 19 FATHER 19 MOTHER FHx: AAA 19 MOTHER Hypertension 19 FATHER 19 MOTHER Osteoporosis 19 MOTHER Thyroid disease G8 SISTER No Pertinent Family Hx SOCIAL HISTORY: -ETOH--OCCASIONAL USE, HISTORY OF HEAVY USE -DRUGS--SMOKES METH ON REGULAR BASIS AND THC --DENIES IV USE -SMOKES 1 PPD CIGARETTES 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 0.0oz. 72.149021fi; 25.00 BMI Method:Stated General Appearance: No Apparent Distress, WD/WN HEENT: PERRL/EOMI, Normal ENT Inspection, Pharynx Normal Neck: Normal Inspection; No JVD Respiratory: Lungs Clear, Normal Breath Sounds, No Accessory Muscle Use Cardiovascular: No Edema, No Murmur, Tachycardia (regular) Gastrointestinal: Non Tender, Soft Extremity: Normal Inspection, Non Tender, No Calf Tenderness Neurologic/Psychiatric: Alert, Oriented x3, No Motor/Sensory Deficits, Normal Mood/Affect, temple marker II-XII Norm as Tested Skin: Normal Color, Warm/Dry Progress/Results/Core Measures Results/Orders Lab Results Laboratory Tests Test 07/07/21 15:30 07/07/21 15:38 07/07/21 16:11 Range/Units Influenza Type A Antigen NEGATIVE NEGATIVE Influenza Type B Antigen NEGATIVE NEGATIVE SARS-CoV-2 RNA (RT-PCR) Not Detected Negative Urine Opiates Screen NEGATIVE NEGATIVE Urine Oxycodone Screen NEGATIVE NEGATIVE Urine Methadone Screen NEGATIVE NEGATIVE Urine Propoxyphene Screen NEGATIVE NEGATIVE Urine Barbiturates Screen NEGATIVE NEGATIVE Ur Tricyclic Antidepressants Screen NEGATIVE NEGATIVE Urine Phencyclidine Screen NEGATIVE NEGATIVE Urine Amphetamines Screen POSITIVE H NEGATIVE Urine Methamphetamines Screen POSITIVE H NEGATIVE Urine Benzodiazepines Screen NEGATIVE NEGATIVE Urine Cocaine Screen NEGATIVE NEGATIVE Urine Cannabinoids Screen NEGATIVE NEGATIVE White Blood Count 8.8 4.3-11.0 10^3/uL Red Blood Count 5.04 3.80-5.11 10^6/uL Hemoglobin 15.4 11.5-16.0 g/dL Hematocrit 46 35-52 % Mean Corpuscular Volume 91 80-99 fL Mean Corpuscular Hemoglobin 31 25-34 pg Mean Corpuscular Hemoglobin Concent 34 32-36 g/dL Red Cell Distribution Width 12.8 10.0-14.5 % Platelet Count 205 130-400 10^3/uL Mean Platelet Volume 9.5 9.0-12.2 fL Immature Granulocyte % (Auto) 0 % Neutrophils (%) (Auto) 80 H 42-75 % Lymphocytes (%) (Auto) 12 12-44 % Monocytes (%) (Auto) 6 0-12 % Eosinophils (%) (Auto) 2 0-10 % Basophils (%) (Auto) 0 0-10 % Neutrophils # (Auto) 7.1 1.8-7.8 10^3/uL Lymphocytes # (Auto) 1.0 1.0-4.0 10^3/uL Monocytes # (Auto) 0.5 0.0-1.0 10^3/uL Eosinophils # (Auto) 0.1 0.0-0.3 10^3/uL Basophils # (Auto) 0.0 0.0-0.1 10^3/uL Immature Granulocyte # (Auto) 0.0 0.0-0.1 10^3/uL Prothrombin Time 12.4 12.2-14.7 SEC INR Comment 0.9 0.8-1.4 Activated Partial Thromboplast Time 29 24-35 SEC D-Dimer <= 0.27 0.00-0.49 UG/ML Sodium Level 139 135-145 MMOL/L Potassium Level 3.9 3.6-5.0 MMOL/L Chloride Level 104 98-107 MMOL/L Carbon Dioxide Level 23 21-32 MMOL/L Anion Gap 12 5-14 MMOL/L Blood Urea Nitrogen 14 7-18 MG/DL Creatinine 0.69 0.60-1.30 MG/DL Estimat Glomerular Filtration Rate 104 BUN/Creatinine Ratio 20 Glucose Level 98 70-105 MG/DL Calcium Level 8.9 8.5-10.1 MG/DL Corrected Calcium 9.0 8.5-10.1 MG/DL Magnesium Level 2.0 1.6-2.4 MG/DL Total Bilirubin 0.3 0.1-1.0 MG/DL Aspartate Amino Transf (AST/SGOT) 17 5-34 U/L Alanine Aminotransferase (ALT/SGPT) 19 0-55 U/L Alkaline Phosphatase 88 40-136 U/L Myoglobin 32.3 10.0-92.0 NG/ML Troponin I < 0.028 <0.028 NG/ML Total Protein 6.9 6.4-8.2 GM/DL Albumin 3.9 3.2-4.5 GM/DL My Orders Orders - STALIN SAAVEDRA MD Cbc With Automated Diff (07/07/21 15:17) Magnesium (07/07/21 15:17) Chest 1 View, Ap/Pa Only (07/07/21 15:17) Ekg Tracing (07/07/21 15:17) Comprehensive Metabolic Panel (07/07/21 15:17) Myoglobin Serum (07/07/21 15:17) Protime With Inr (07/07/21 15:17) Partial Thromboplastin Time (07/07/21 15:17) O2 (07/07/21 15:17) Monitor-Rhythm Ecg Trace Only (07/07/21 15:17) Ed Iv/Invasive Line Start (07/07/21 15:17) Troponin I Misael (07/07/21 15:17) Fibrin Degradation Products (07/07/21 15:29) Covid 19 Inhouse Test (07/07/21 15:29) Influenza A & B Antigens (07/07/21 15:29) Drug Screen Stat (Urine) (07/07/21 15:29) Nitroglycerin 0.4 Mg Btl 25's (Nitrostat (07/07/21 15:45) Aspirin Chewable Tablet (Baby Aspirin Ch (07/07/21 15:45) Ketorolac Injection (Toradol Injection) (07/07/21 17:30) Medications Given in ED Vital Signs/I&O Blood Pressure Mean: 116 Progress Progress Note : Progress Note Initial work-up was unremarkable. Patient did not want to wait for the delta troponin. She left AGAINST MEDICAL ADVICE. She was given aspirin and nitroglycerin. Pain persisted. Toradol was given for further treatment of the pain. She was a person under investigation for COVID-19 at the time she left. Influenza screen was negative. Initial ECG Impression Date: Jul 07, 2021 Initial ECG Impression Time: 15:18 Initial ECG Rate: 102 Initial ECG Rhythm: S.Tach Comment Sinus tachycardia with no ST elevation or depression. No abnormal intervals or axis deviation. Diagnostic Imaging Diagonstic Imaging: Xray Plain Films/CT/US/NM/MRI: chest Comments NAME: ALIX MARTINEZ REC#: [id number] PT STATUS: REG ER : 1970 PHYSICIAN: STALIN SAAVEDRA MD ADMIT DATE: 07/07/21/ER Signed Date of Exam:07/07/21 CHEST 1 VIEW, AP/PA ONLY EXAMINATION: Chest 1 view HISTORY: Chest pain COMPARISON: 09/26/2020. FINDINGS: The lungs are clear without edema or pneumonia. No pleural effusion or pneumothorax. Heart size is normal. IMPRESSION: 1. Clear lungs. Dictated by: Dictated on workstation # [id number] Dict: 07/07/21 1543 Trans: 07/07/21 1643 [id number] Interpreted by: ERIKA SAMANO MD Electronically signed by: ERIKA SAMANO MD 07/07/21 1643 Departure Impression Primary Impression: Chest pain Qualified Codes: R07.9 - Chest pain, unspecified Additional Impressions: Person under investigation for COVID-19 Methamphetamine abuse Left against medical advice Disposition: 07 AGAINST MEDICAL ADVICE Condition: Against Medical Advice Departure-Patient Inst. Referrals: PEE MARINELLI MD (PCP) Primary Care Physician Copy Copies To 1: PEE MARINELLI MD, JOSHUA T MD Jul 07, 2021 18:08
== END 2021-07-07 18:01 | disposition left against medical advice (07) ==
LOC: EDUNIT# 15:13 → ER 15:15
DX: R07.9 Chest pain, unspecified (principal); F15.10 Other stimulant abuse, uncomplicated; J45.909 Unspecified asthma, uncomplicated; I25.2 Old myocardial infarction; F17.210 Nicotine dependence, cigarettes, uncomplicated; Z20.822 Contact with and (suspected) exposure to COVID-19
CPT/HCPCS: 36415; 71045; 80053; 80306; 83735; 83874; 84484; 85025; 85379; 85610; 85730; 87636; 87804; 93005; 93041

== ENCOUNTER 2021-08-13 19:09 | Emergency (ER) | payer MEDICARE ==
[~2021-08-13] VITALS: Ht 170.2 cm; Wt 77.1 kg
[2021-08-13] MEDS ORDERED: LACTATED RINGERS 1,000 ML IV SCH (19:30)
[2021-08-13] MEDS ORDERED: cloNIDine 0.1 MG (CATAPRES) TAB PO ONE (19:30)
[2021-08-13] MEDS ORDERED: LORazepam INJ 2 MG/ML (ATIVAN) VIAL IVP ONE (19:30)
--- NOTE | 2021-08-13 19:32 | ED General ---
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 She smokes then at least once a day for more than 20 years and has now been off of it "cold turkey" for 48 hours. She takes no other drugs. Takes Abilify at home. No fevers. She was seen by [facility] this morning and given Benadryl without much relief Timing/Duration: 1-2 Days Severity: Moderate Associated Systoms: Diaphoresis, Headaches, Malaise, Nausea/Vomiting Allergies and Home Medications Allergies Coded Allergies: amoxicillin trihydrate (Verified Allergy, Unknown, 10/28/18) RASH, BUT IS ABLE TO TAKE PCN INJECTION baclofen (Unverified Allergy, Unknown, RASH, 10/28/18) paroxetine HCl (Verified Allergy, Unknown, 10/28/18) potassium clavulanate (Verified Allergy, Unknown, 10/28/18) RASH, BUT IS ABLE TO TAKE PCN INJECTION Uncoded Allergies: BACTRIM DS (Allergy, Unknown, 10/28/18) Patient Home Medication List Home Medication List Reviewed: Yes Cefdinir (Cefdinir) 300 Mg Capsule, 300 MG PO BID Prescribed by: MINDY NORRIS on 09/26/20 034 Doxycycline Hyclate (Doxycycline Hyclate) 100 Mg Tablet, 100 MG PO BID Prescribed by: RENEE SALAS on 02/09/21 0431 Doxycycline Hyclate (Doxycycline Hyclate) 100 Mg Tablet, 100 MG PO BID Prescribed by: RENEE SALAS on 06/19/21 0805 Guaifenesin/Dextromethorphan (Mucinex Dm ER 1,200-60 mg Tab) 1 Each Tbmp.12hr, 1 EACH PO BID Prescribed by: MINDY NORRIS on 09/26/20 0340 Review of Systems Review of Systems Constitutional: see HPI, chills, diaphoresis EENTM: see HPI Respiratory: no symptoms reported Cardiovascular: no symptoms reported Gastrointestinal: nausea Genitourinary: no symptoms reported Musculoskeletal: no symptoms reported Skin: no symptoms reported Psychiatric/Neurological: See HPI, Anxiety Hematologic/Lymphatic: No Symptoms Reported Past Vrrgdwk-Bdrshr-Gpkaxl Hx Immunizations Up To Date Tetanus Booster (TDap): More than 5yrs PED Vaccines UTD: Yes First/Initial COVID19 Vaccinat: SUMMER 2020 Second COVID19 Vaccination Aamir: SUMMER 2020 Seasonal Allergies Seasonal Allergies: No Past Medical History Surgeries: Yes (R CARPAL TUNNEL;HYST/BSO;TUMMY TUCK/ABDOMINOPLASTY;NERVE STIMULATOR) Breast, 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, Oophorectomy, Orthopedic Respiratory: Yes Asthma Cardiac: Yes (hx of TACHYCARDIA;STAT[place] "[place]"--NO CARDIAC CATH) Coronary Artery Disease, Heart Attack, High Cholesterol, Irregular Heartbeat Neurological: No 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 Sexually Transmitted Disease: Yes (TRICHOMONAS) Genitourinary: Yes Kidney Infection, Bladder Infection, UTI-Chronic Gastrointestinal: Yes (HEPATITIS C--S/P TREATMENT; PT STATES SHE HAS GALLSTONES--NO SURGERY) Gastroesophageal Reflux, Chronic Constipation, Hepatitis, Gall Bladder Disease, Irritable Bowel Musculoskeletal: Yes (CHRONIC NECK/BACK PAIN-S/P CERVICAL/LUMBAR SPINE SURG & NEUROSTIMULATOR) Back Injury, Chronic Back Pain Endocrine: No HEENT: No Loss of Vision: Bilateral Cancer: No Psychosocial: Yes (EXTENSIVE PSYCH HX-SELF DC'D MEDS/NO FOLLOW UP;SUBSTANCE ABUSE) Anxiety, Bipolar, Depression Integumentary: No Blood Disorders: Yes (HEP C) Adverse Reaction/Blood Tranf: No Family Medical History Aphasia Arthritis 19 MOTHER Cardiovascular disease 19 MOTHER Diabetes mellitus 19 MOTHER FH: Meniere's disease 19 FATHER FH: atrial fibrillation 19 MOTHER FH: back pain 19 FATHER 19 MOTHER FHx: AAA 19 MOTHER Hypertension 19 FATHER 19 MOTHER Osteoporosis 19 MOTHER Thyroid disease G8 SISTER No Pertinent Family Hx SOCIAL HISTORY: -ETOH--OCCASIONAL USE, HISTORY OF HEAVY USE -DRUGS--SMOKES METH ON REGULAR BASIS AND THC --DENIES IV USE -SMOKES 1 PPD 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 0.0oz. [id number]; 25.00 BMI Method:Stated General Appearance: WD/WN, Anxious, Other (Tearful but alert and oriented. Cooperative.) Eyes: Bilateral Eye Normal Inspection, Bilateral Eye PERRL, Bilateral Eye EOMI HEENT: PERRL/EOMI, Normal ENT Inspection Neck: Full Range of Motion, Normal Inspection Respiratory: No Accessory Muscle Use, No Respiratory Distress Cardiovascular: Regular Rate, Rhythm, Normal Peripheral Pulses Gastrointestinal: Non Tender, Soft Extremity: Normal Capillary Refill, Normal Inspection Neurologic/Psychiatric: Alert, Oriented x3 Skin: Normal Color, Warm/Dry Progress/Results/Core Measures Suspected Sepsis SIRS Temperature: Pulse: Respiratory Rate: Laboratory Tests 08/13/21 19:33: White Blood Count 6.3 Blood Pressure / Mean: Laboratory Tests 08/13/21 19:33: Creatinine 0.98, Platelet Count 274, Total Bilirubin 0.2 Results/Orders Lab Results Laboratory Tests Test 08/13/21 19:30 08/13/21 19:33 Range/Units Urine Color YELLOW Urine Clarity CLEAR Urine pH 6.0 5-9 Urine Specific [place] >=1.030 1.016-1.022 Urine Protein NEGATIVE NEGATIVE Urine Glucose (UA) NEGATIVE NEGATIVE Urine Ketones NEGATIVE NEGATIVE Urine Nitrite NEGATIVE NEGATIVE Urine Bilirubin NEGATIVE NEGATIVE Urine Urobilinogen 0.2 < = 1.0 MG/DL Urine Leukocyte Esterase NEGATIVE NEGATIVE Urine RBC (Auto) NEGATIVE NEGATIVE Urine RBC 0-2 /HPF Urine WBC 0-2 /HPF Urine Squamous Epithelial Cells 0-2 /HPF Urine Renal Epithelial Cells NONE /HPF Urine Crystals NONE /LPF Urine Bacteria NEGATIVE /HPF Urine Casts NONE /LPF Urine Mucus NEGATIVE /LPF Urine Culture Indicated NO Urine Opiates Screen NEGATIVE NEGATIVE Urine Oxycodone Screen NEGATIVE NEGATIVE Urine Methadone Screen NEGATIVE NEGATIVE Urine Propoxyphene Screen NEGATIVE NEGATIVE Urine Barbiturates Screen NEGATIVE NEGATIVE Ur Tricyclic Antidepressants Screen NEGATIVE NEGATIVE Urine Phencyclidine Screen NEGATIVE NEGATIVE Urine Amphetamines Screen POSITIVE H NEGATIVE Urine Methamphetamines Screen POSITIVE H NEGATIVE Urine Benzodiazepines Screen NEGATIVE NEGATIVE Urine Cocaine Screen NEGATIVE NEGATIVE Urine Cannabinoids Screen NEGATIVE NEGATIVE White Blood Count 6.3 4.3-11.0 10^3/uL Red Blood Count 5.06 3.80-5.11 10^6/uL Hemoglobin 15.3 11.5-16.0 g/dL Hematocrit 47 35-52 % Mean Corpuscular Volume 93 80-99 fL Mean Corpuscular Hemoglobin 30 25-34 pg Mean Corpuscular Hemoglobin Concent 33 32-36 g/dL Red Cell Distribution Width 13.1 10.0-14.5 % Platelet Count 274 130-400 10^3/uL Mean Platelet Volume 9.0 9.0-12.2 fL Immature Granulocyte % (Auto) 0 % Neutrophils (%) (Auto) 47 42-75 % Lymphocytes (%) (Auto) 41 12-44 % Monocytes (%) (Auto) 9 0-12 % Eosinophils (%) (Auto) 3 0-10 % Basophils (%) (Auto) 1 0-10 % Neutrophils # (Auto) 3.0 1.8-7.8 10^3/uL Lymphocytes # (Auto) 2.6 1.0-4.0 10^3/uL Monocytes # (Auto) 0.5 0.0-1.0 10^3/uL Eosinophils # (Auto) 0.2 0.0-0.3 10^3/uL Basophils # (Auto) 0.0 0.0-0.1 10^3/uL Immature Granulocyte # (Auto) 0.0 0.0-0.1 10^3/uL Sodium Level 142 135-145 MMOL/L Potassium Level 4.4 3.6-5.0 MMOL/L Chloride Level 105 98-107 MMOL/L Carbon Dioxide Level 24 21-32 MMOL/L Anion Gap 13 5-14 MMOL/L Blood Urea Nitrogen 8 7-18 MG/DL Creatinine 0.98 0.60-1.30 MG/DL Estimat Glomerular Filtration Rate 69 BUN/Creatinine Ratio 8 Glucose Level 68 L 70-105 MG/DL Calcium Level 9.5 8.5-10.1 MG/DL Corrected Calcium 9.7 8.5-10.1 MG/DL Total Bilirubin 0.2 0.1-1.0 MG/DL Aspartate Amino Transf (AST/SGOT) 20 5-34 U/L Alanine Aminotransferase (ALT/SGPT) 14 0-55 U/L Alkaline Phosphatase 101 40-136 U/L Total Protein 7.2 6.4-8.2 GM/DL Albumin 3.7 3.2-4.5 GM/DL Serum Alcohol < 10 <10 MG/DL My Orders Orders - RIGO DAS APRN Lactated Ringers (Lr 1000 Ml Iv Solution (08/13/21 19:30) Lorazepam Injection (Ativan Injection) (08/13/21 19:30) Clonidine Tablet (Catapres Tablet) (08/13/21 19:30) Cbc With Automated Diff (08/13/21 19:27) Comprehensive Metabolic Panel (08/13/21 19:27) Ed Iv/Invasive Line Start (08/13/21 19:27) Alcohol (08/13/21 19:) Ua Culture If Indicated (08/13/21:) Drug Screen Stat (Urine) (08/13/21 19:27) Medications Given in ED Vital Signs/I&O 08/13/21 08/13/21 19:24 20:50 Temp 36.8 Pulse 104 83 Resp 24 18 B/P (MAP) 143/108 (120) 107/74 Pulse Ox 99 99 O2 Delivery Room Air Room Air Capillary Refill : Departure Impression Primary Impression: Withdrawal from methamphetamine Disposition: HOME, SELF-CARE Condition: Improved Departure-Patient Inst. Decision time for Depature: 20:11 Referrals: [facility] (PCP/Family) Primary Care Physician Patient Instructions: Drug Withdrawal (DC) Add. Discharge Instructions: 1. Return to ER for any concerns. Follow-up with your doctor next week. RIGO DAS APRN Aug 13, 2021 19:31
[2021-08-13 19:38] LABS: BASOPHILS % (AUTO) 1 % (0-10); EOSINOPHILS # (AUTO) 0.2 10^3/uL (0.0-0.3); EOSINOPHILS % (AUTO) 3 % (0-10); HEMATOCRIT 47 % (35-52); HEMOGLOBIN 15.3 g/dL (11.5-16.0); LYMPHOCYTES # (AUTO) 2.6 10^3/uL (1.0-4.0); LYMPHOCYTES % (AUTO) 41 % (12-44); MEAN CORPUSCULAR HEMOGLOBIN 30 pg (25-34); MEAN CORPUSCULAR HGB CONC 33 g/dL (32-36); MEAN CORPUSCULAR VOLUME 93 fL (80-99); MONOCYTES # (AUTO) 0.5 10^3/uL (0.0-1.0); MONOCYTES % (AUTO) 9 % (0-12); NEUTROPHILS % (AUTO) 47 % (42-75); PLATELET COUNT 274 10^3/uL (130-400); WHITE BLOOD COUNT 6.3 10^3/uL (4.3-11.0)
[2021-08-13 19:39] LABS: BILIRUBIN,URINE NEGATIVE (NEGATIVE); CLARITY,URINE CLEAR; COLOR,URINE YELLOW; GLUCOSE, URINE (UA) NEGATIVE (NEGATIVE); KETONES,URINE NEGATIVE (NEGATIVE); LEUKOCYTE ESTERASE ,URINE NEGATIVE (NEGATIVE); NITRITE,URINE NEGATIVE (NEGATIVE); PROTEIN,URINE NEGATIVE (NEGATIVE)
[2021-08-13 19:46] LABS: BACTERIA,URINE NEGATIVE /HPF; RBC,URINE 0-2 /HPF; SQUAMOUS EPITHELIAL CELL,UR 0-2 /HPF; WBC,URINE 0-2 /HPF
[2021-08-13 19:51] LABS: AMPHETAMINE SCREEN, URINE POSITIVE (NEGATIVE); BARBITURATE SCREEN URINE NEGATIVE (NEGATIVE); BENZODIAZEPINES SCREEN URINE NEGATIVE (NEGATIVE); CANNABINOID SCREEN, URINE NEGATIVE (NEGATIVE); COCAINE SCREEN URINE NEGATIVE (NEGATIVE); METHADONE STAT NEGATIVE (NEGATIVE); METHAMPHETAMINE SCREEN URINE S POSITIVE (NEGATIVE); OPIATE SCREEN URINE NEGATIVE (NEGATIVE); OXYCODONE STAT NEGATIVE (NEGATIVE); PROPOXYPHENE STAT NEGATIVE (NEGATIVE); TRICYCLIC ANTIDEPRESSANTS SCRE NEGATIVE (NEGATIVE)
[2021-08-13 19:59] LABS: ALANINE AMINOTRANSFERASE 14 U/L (0-55); ALBUMIN 3.7 GM/DL (3.2-4.5); ALKALINE PHOSPHATASE 101 U/L (40-136); BILIRUBIN,TOTAL 0.2 MG/DL (0.1-1.0); BUN/CREATININE RATIO 8; CALCIUM 9.5 MG/DL (8.5-10.1); CARBON DIOXIDE 24 MMOL/L (21-32); CHLORIDE 105 MMOL/L (98-107); CREATININE SERUM 0.98 MG/DL (0.60-1.30); GFR ESTIMATED 69; GLUCOSE 68 MG/DL (70-105); POTASSIUM 4.4 MMOL/L (3.6-5.0); SODIUM 142 MMOL/L (135-145); TOTAL PROTEIN 7.2 GM/DL (6.4-8.2)
[2021-08-13 20:50] VITALS: BP 107/74
== END 2021-08-13 20:50 | disposition home or self-care (01) ==
LOC: EDUNIT# 19:09 → ER 19:11
DX: F15.23 Other stimulant dependence with withdrawal (principal)
CPT/HCPCS: 80053; 80306; 81000; 85025; 99284; G0480; 36415; 80320

== ENCOUNTER 2021-08-15 11:10 | Emergency (ER) | payer MEDICARE ==
[2021-08-15] MEDS ORDERED: KETOROLAC 30 MG/ML VIAL IVP ONE (11:15)
[2021-08-15] MEDS ORDERED: NS IV 1000 ML 1,000 ML IV SCH (11:15)
[2021-08-15] MEDS ORDERED: ONDANSETRON 4 MG/2 ML (SDV) Z0FRAN IVP ONE (11:15)
[2021-08-15] MEDS ORDERED: LORazepam INJ 2 MG/ML (ATIVAN) VIAL IVP ONE (11:15)
--- NOTE | 2021-08-15 11:20 | ED General ---
General Chief Complaint: General Problems/Pain Stated Complaint: DETOX Source of Information: Patient Exam Limitations: No Limitations History of Present Illness Date Seen by Provider: Aug 15, 2021 Time Seen by Provider: 11:16 Initial Comments To ER by EMS from [facility] with reports of headache, body aches, nausea, anxiety. She reports that she is withdrawing from methamphetamine. Last methamphetamine use was on 08/11/2021. She was seen here on 08/13/2021 for the same given Ativan felt better and went home. Timing/Duration: 1-2 Days Severity: Moderate Associated Systoms: Headaches Allergies and Home Medications Allergies Coded Allergies: amoxicillin trihydrate (Verified Allergy, Unknown, 10/28/18) RASH, BUT IS ABLE TO TAKE PCN INJECTION baclofen (Unverified Allergy, Unknown, RASH, 10/28/18) paroxetine HCl (Verified Allergy, Unknown, 10/28/18) potassium clavulanate (Verified Allergy, Unknown, 10/28/18) RASH, BUT IS ABLE TO TAKE PCN INJECTION Uncoded Allergies: BACTRIM DS (Allergy, Unknown, 10/28/18) Patient Home Medication List Home Medication List Reviewed: Yes Cefdinir (Cefdinir) 300 Mg Capsule, 300 MG PO BID Prescribed by: MINDY NORRIS on 09/26/20 0340 Doxycycline Hyclate (Doxycycline Hyclate) 100 Mg Tablet, 100 MG PO BID Prescribed by: RENEE SALAS on 02/09/21 0431 Doxycycline Hyclate (Doxycycline Hyclate) 100 Mg Tablet, 100 MG PO BID Prescribed by: RENEE SALAS on 06/19/21 0805 Guaifenesin/Dextromethorphan (Mucinex Dm ER 1,200-60 mg Tab) 1 Each Tbmp.12hr, 1 EACH PO BID Prescribed by: MINDY NORRIS on 09/26/20 0340 Hydroxyzine Pamoate (Vistaril) 50 Mg Capsule, 50 MG PO Q6H PRN for ANXIETY Prescribed by: RIGO DAS on 08/15/21 1257 Ondansetron (Ondansetron Odt) 8 Mg Tab.rapdis, 8 MG PO Q6H PRN for NA USEA/VOMITING Prescribed by: RIGO DAS on 08/15/21 1257 Review of Systems Review of Systems Constitutional: see HPI, chills; No fever EENTM: see HPI Respiratory: no symptoms reported Cardiovascular: no symptoms reported Gastrointestinal: nausea, vomiting Genitourinary: no symptoms reported Musculoskeletal: no symptoms reported Skin: no symptoms reported Psychiatric/Neurological: See HPI, Anxiety; Denies Depressed; Headache Hematologic/Lymphatic: No Symptoms Reported Immunological/Allergic: no symptoms reported Past Dqjemoe-Xktenz-Uowezy Hx Immunizations Up To Date Tetanus Booster (TDap): More than 5yrs PED Vaccines UTD: Yes First/Initial COVID19 Vaccinat: SUMMER 2020 Second COVID19 Vaccination Aamir: SUMMER 2020 Seasonal Allergies Seasonal Allergies: No Past Medical History Surgeries: Yes (R CARPAL TUNNEL;HYST/BSO;TUMMY TUCK/ABDOMINOPLASTY;NERVE STIMULATOR) Breast, 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, Oophorectomy, Orthopedic Respiratory: Yes Asthma Cardiac: Yes (hx of TACHYCARDIA;STAT[place] "[place]"--NO CARDIAC CATH) Coronary Artery Disease, Heart Attack, High Cholesterol, Irregular Heartbeat Neurological: No 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 Disorders: 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 Sexually Transmitted Disease: Yes (TRICHOMONAS) Genitourinary: Yes Kidney Infection, Bladder Infection, UTI-Chronic Gastrointestinal: Yes (HEPATITIS C--S/P TREATMENT; PT STATES SHE HAS GALLSTONES--NO SURGERY) Gastroesophageal Reflux, Chronic Constipation, Hepatitis, Gall Bladder Disease, Irritable Bowel Musculoskeletal: Yes (CHRONIC NECK/BACK PAIN-S/P CERVICAL/LUMBAR SPINE SURG & NEUROSTIMULATOR) Back Injury, Chronic Back Pain Endocrine: No HEENT: No Loss of Vision: Bilateral Cancer: No Psychosocial: Yes (EXTENSIVE PSYCH HX-SELF DC'D MEDS/NO FOLLOW UP;SUBSTANCE ABUSE) Anxiety, Bipolar, Depression Integumentary: No Blood Disorders: Yes (HEP C) Adverse Reaction/Blood Tranf: No Family Medical History Aphasia Arthritis 19 MOTHER Cardiovascular disease 19 MOTHER Diabetes mellitus 19 MOTHER FH: Meniere's disease 19 FATHER FH: atrial fibrillation 19 MOTHER FH: back pain 19 FATHER 19 MOTHER FHx: AAA 19 MOTHER Hypertension 19 FATHER 19 MOTHER Osteoporosis 19 MOTHER Thyroid disease G8 SISTER No Pertinent Family Hx SOCIAL HISTORY: -ETOH--OCCASIONAL USE, HISTORY OF HEAVY USE -DRUGS--SMOKES METH ON REGULAR BASIS AND THC --DENIES IV USE -SMOKES 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 0.0oz. [id number]; 26.00 BMI Method:Stated General Appearance: No Apparent Distress, WD/WN, Anxious (Tearful. Stays on topic during conversation. Hemodynamically stable.) HEENT: PERRL/EOMI, TMs Normal Neck: Full Range of Motion, Normal Inspection Respiratory: No Accessory Muscle Use, No Respiratory Distress Cardiovascular: Regular Rate, Rhythm, Normal Peripheral Pulses Gastrointestinal: Normal Bowel Sounds, Non Tender, Soft Extremity: Normal Capillary Refill, Normal Inspection Neurologic/Psychiatric: Alert, Oriented x3 Skin: Normal Color, Warm/Dry Progress/Results/Core Measures Suspected Sepsis SIRS Temperature: Pulse: Respiratory Rate: Laboratory Tests 08/15/21 10:27: White Blood Count 7.8 Blood Pressure / Mean: Laboratory Tests 08/15/21 10:27: Platelet Count 275 08/15/21 12:20: Creatinine 0.82, Total Bilirubin 0.3 Results/Orders Lab Results Laboratory Tests Test 08/15/21 10:27 08/15/21 11:37 08/15/21 11:41 08/15/21 12:20 Range/Units White Blood Count 7.8 4.3-11.0 10^3/uL Red Blood Count 5.23 H 3.80-5.11 10^6/uL Hemoglobin 15.7 11.5-16.0 g/dL Hematocrit 48 35-52 % Mean Corpuscular Volume 92 80-99 fL Mean Corpuscular Hemoglobin 30 25-34 pg Mean Corpuscular Hemoglobin Concent 33 32-36 g/dL Red Cell Distribution Width 13.2 10.0-14.5 % Platelet Count 275 130-400 10^3/uL Mean Platelet Volume 9.8 9.0-12.2 fL Immature Granulocyte % (Auto) 0 % Neutrophils (%) (Auto) 73 42-75 % Lymphocytes (%) (Auto) 19 12-44 % Monocytes (%) (Auto) 6 0-12 % Eosinophils (%) (Auto) 1 0-10 % Basophils (%) (Auto) 1 0-10 % Neutrophils # (Auto) 5.7 1.8-7.8 10^3/uL Lymphocytes # (Auto) 1.5 1.0-4.0 10^3/uL Monocytes # (Auto) 0.4 0.0-1.0 10^3/uL Eosinophils # (Auto) 0.1 0.0-0.3 10^3/uL Basophils # (Auto) 0.1 0.0-0.1 10^3/uL Immature Granulocyte # (Auto) 0.0 0.0-0.1 10^3/uL Urine Color YELLOW Urine Clarity CLEAR Urine pH 6.0 5-9 Urine Specific [place] 1.025 H 1.016-1.022 Urine Protein NEGATIVE NEGATIVE Urine Glucose (UA) NEGATIVE NEGATIVE Urine Ketones NEGATIVE NEGATIVE Urine Nitrite NEGATIVE NEGATIVE Urine Bilirubin NEGATIVE NEGATIVE Urine Urobilinogen 0.2 < = 1.0 MG/DL Urine Leukocyte Esterase NEGATIVE NEGATIVE Urine RBC (Auto) NEGATIVE NEGATIVE Urine RBC RARE /HPF Urine WBC RARE /HPF Urine Squamous Epithelial Cells 2-5 /HPF Urine Crystals PRESENT H /LPF Urine Amorphous Sediment RARE REY URATES H /LPF Urine Bacteria TRACE /HPF Urine Casts NONE /LPF Urine Mucus NEGATIVE /LPF Urine Culture Indicated NO Urine Opiates Screen NEGATIVE NEGATIVE Urine Oxycodone Screen NEGATIVE NEGATIVE Urine Methadone Screen NEGATIVE NEGATIVE Urine Propoxyphene Screen NEGATIVE NEGATIVE Urine Barbiturates Screen NEGATIVE NEGATIVE Ur Tricyclic Antidepressants Screen NEGATIVE NEGATIVE Urine Phencyclidine Screen NEGATIVE NEGATIVE Urine Amphetamines Screen POSITIVE H NEGATIVE Urine Methamphetamines Screen POSITIVE H NEGATIVE Urine Benzodiazepines Screen POSITIVE H NEGATIVE Urine Cocaine Screen NEGATIVE NEGATIVE Urine Cannabinoids Screen NEGATIVE NEGATIVE Influenza Type A (RT-PCR) Not Detected Not Detecte Influenza Type B (RT-PCR) Not Detected Not Detecte SARS-CoV-2 RNA (RT-PCR) Not Detected Not Detecte Sodium Level 140 135-145 MMOL/L Potassium Level 4.4 3.6-5.0 MMOL/L Chloride Level 106 98-107 MMOL/L Carbon Dioxide Level 22 21-32 MMOL/L Anion Gap 12 5-14 MMOL/L Blood Urea Nitrogen 8 7-18 MG/DL Creatinine 0.82 0.60-1.30 MG/DL Estimat Glomerular Filtration Rate 86 BUN/Creatinine Ratio 10 Glucose Level 87 70-105 MG/DL Calcium Level 9.6 8.5-10.1 MG/DL Corrected Calcium 9.8 8.5-10.1 MG/DL Total Bilirubin 0.3 0.1-1.0 MG/DL Aspartate Amino Transf (AST/SGOT) 23 5-34 U/L Alanine Aminotransferase (ALT/SGPT) 20 0-55 U/L Alkaline Phosphatase 82 40-136 U/L Total Protein 6.9 6.4-8.2 GM/DL Albumin 3.8 3.2-4.5 GM/DL My Orders Orders - RIGO DAS APRN Influenza A And B By Pcr (08/15/21 11:14) Covid 19 Inhouse Test (08/15/21 11:14) Cbc With Automated Diff (08/15/21 11:14) Comprehensive Metabolic Panel (08/15/21 11:14) Ua Culture If Indicated (08/15/21 11:14) Ed Iv/Invasive Line Start (08/15/21 11:14) Ns Iv 1000 Ml (Sodium Chloride 0.9%) (08/15/21 11:15) Ondansetron Injection (Zofran Injectio (08/15/21 11:15) Lorazepam Injection (Ativan Injection) (08/15/21 11:15) Ketorolac Injection (Toradol Injection) (08/15/21 11:15) Drug Screen Stat (Urine) (08/15/21 11:26) Medications Given in ED Current Medications Medications Dose Ordered Sig/Michael Route Start Time Stop Time Status Last Admin Dose Admin Ketorolac Tromethamine 15 mg ONCE ONCE IVP 08/15/21 11:15 08/15/21 11:16 DC 08/15/21 11:31 15 MG Lorazepam 1 mg ONCE ONCE IVP 08/15/21 11:15 08/15/21 11:16 DC 08/15/21 11:31 1 MG Ondansetron HCl 8 mg ONCE ONCE IVP 08/15/21 11:15 08/15/21 11:16 DC 08/15/21 11:31 8 MG Vital Signs/I&O 08/15/21 11:13 Temp 36.0 Pulse 97 Resp 20 B/P (MAP) 126/101 (109) Capillary Refill : Departure Impression Primary Impression: Methamphetamine use Disposition: 01 HOME, SELF-CARE Condition: Stable Departure-Patient Inst. Decision time for Depature: 12:34 Referrals: [facility] (PCP/Family) Primary Care Physician Patient Instructions: Drug Abuse and Drug Addiction (DC) Add. Discharge Instructions: Follow-up with [facility] outpatient addiction treatment. All discharge instructions reviewed with patient and/or family. Voiced understanding. Scripts Hydroxyzine Pamoate (Vistaril) 50 Mg Capsule 50 MG PO Q6H PRN for ANXIETY, #14 CAP Prov: RIGO DAS APRN 08/15/21 Ondansetron (Ondansetron Odt) 8 Mg Tab.rapdis 8 MG PO Q6H PRN for NAUSEA/VOMITING, #10 TAB Prov: RIGO DAS APRN 08/15/21 RIGO DAS APRN Aug 15, 2021 11:20
[2021-08-15 11:33] LABS: BASOPHILS # (AUTO) 0.1 10^3/uL (0.0-0.1); BASOPHILS % (AUTO) 1 % (0-10); EOSINOPHILS # (AUTO) 0.1 10^3/uL (0.0-0.3); EOSINOPHILS % (AUTO) 1 % (0-10); HEMATOCRIT 48 % (35-52); HEMOGLOBIN 15.7 g/dL (11.5-16.0); LYMPHOCYTES # (AUTO) 1.5 10^3/uL (1.0-4.0); LYMPHOCYTES % (AUTO) 19 % (12-44); MEAN CORPUSCULAR HEMOGLOBIN 30 pg (25-34); MEAN CORPUSCULAR HGB CONC 33 g/dL (32-36); MEAN CORPUSCULAR VOLUME 92 fL (80-99); MEAN PLATELET VOLUME 9.8 fL (9.0-12.2); MONOCYTES # (AUTO) 0.4 10^3/uL (0.0-1.0); MONOCYTES % (AUTO) 6 % (0-12); NEUTROPHILS # (AUTO) 5.7 10^3/uL (1.8-7.8); NEUTROPHILS % (AUTO) 73 % (42-75); PLATELET COUNT 275 10^3/uL (130-400); WHITE BLOOD COUNT 7.8 10^3/uL (4.3-11.0)
[2021-08-15 11:42] LABS: BILIRUBIN,URINE NEGATIVE (NEGATIVE); CLARITY,URINE CLEAR; COLOR,URINE YELLOW; GLUCOSE, URINE (UA) NEGATIVE (NEGATIVE); KETONES,URINE NEGATIVE (NEGATIVE); LEUKOCYTE ESTERASE ,URINE NEGATIVE (NEGATIVE); NITRITE,URINE NEGATIVE (NEGATIVE); PROTEIN,URINE NEGATIVE (NEGATIVE)
[2021-08-15 11:50] LABS: AMORPHOUS SEDIMENT,UR RARE AMOR URATES /LPF; BACTERIA,URINE TRACE /HPF; RBC,URINE RARE /HPF; WBC,URINE RARE /HPF
[2021-08-15 11:55] LABS: AMPHETAMINE SCREEN, URINE POSITIVE (NEGATIVE); BENZODIAZEPINES SCREEN URINE POSITIVE (NEGATIVE); COCAINE SCREEN URINE NEGATIVE (NEGATIVE); METHAMPHETAMINE SCREEN URINE S POSITIVE (NEGATIVE)
[2021-08-15 11:56] LABS: BARBITURATE SCREEN URINE NEGATIVE (NEGATIVE); CANNABINOID SCREEN, URINE NEGATIVE (NEGATIVE); METHADONE STAT NEGATIVE (NEGATIVE); OPIATE SCREEN URINE NEGATIVE (NEGATIVE); OXYCODONE STAT NEGATIVE (NEGATIVE); PROPOXYPHENE STAT NEGATIVE (NEGATIVE); TRICYCLIC ANTIDEPRESSANTS SCRE NEGATIVE (NEGATIVE)
[2021-08-15 12:34] LABS: ALBUMIN 3.8 GM/DL (3.2-4.5); POTASSIUM 4.4 MMOL/L (3.6-5.0)
[2021-08-15 12:35] LABS: CALCIUM 9.6 MG/DL (8.5-10.1)
[2021-08-15 12:37] LABS: TOTAL PROTEIN 6.9 GM/DL (6.4-8.2)
[2021-08-15 12:39] LABS: BILIRUBIN,TOTAL 0.3 MG/DL (0.1-1.0)
[2021-08-15 12:40] LABS: CREATININE SERUM 0.82 MG/DL (0.60-1.30)
[2021-08-15] MEDS ORDERED: HYDR50CA PO (12:57)
[2021-08-15] MEDS ORDERED: ONDA8TAB13 PO (12:57)
[2021-08-15 13:05] VITALS: BP 123/85
== END 2021-08-15 13:07 | disposition home or self-care (01) ==
LOC: EDUNIT# 11:10 → ER 11:11
DX: F15.90 Other stimulant use, unspecified, uncomplicated (principal); Z20.822 Contact with and (suspected) exposure to COVID-19
CPT/HCPCS: 36415; 80053; 80306; 81000; 85025; 87636

== ENCOUNTER 2021-08-24 15:30 | Emergency (ER) | payer MEDICARE ==
[~2021-08-24] VITALS: Ht 170 cm; Wt 74.8 kg
[~2021-08-24 15:30] MED LIST changes: +HYDR50CA PO
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
[2021-08-24] MEDS ORDERED: LACTATED RINGERS 1,000 ML IV SCH (16:00)
[2021-08-24] MEDS ORDERED: KETOROLAC 30 MG/ML VIAL IVP ONE (16:00)
[2021-08-24 16:03] LABS: BILIRUBIN,URINE NEGATIVE (NEGATIVE); CLARITY,URINE SL CLOUDY; COLOR,URINE ORANGE; GLUCOSE, URINE (UA) TRACE (NEGATIVE); KETONES,URINE TRACE (NEGATIVE); LEUKOCYTE ESTERASE ,URINE 3+ (NEGATIVE); NITRITE,URINE POSITIVE (NEGATIVE); PH,URINE 5.5 (5-9); PROTEIN,URINE 2+ (NEGATIVE)
[2021-08-24 16:05] LABS: BASOPHILS # (AUTO) 0.1 10^3/uL (0.0-0.1); BASOPHILS % (AUTO) 1 % (0-10); EOSINOPHILS # (AUTO) 0.2 10^3/uL (0.0-0.3); EOSINOPHILS % (AUTO) 2 % (0-10); HEMATOCRIT 44 % (35-52); HEMOGLOBIN 14.7 g/dL (11.5-16.0); LYMPHOCYTES # (AUTO) 2.4 X 10^3 (1.0-4.0); LYMPHOCYTES % (AUTO) 34 % (12-44); MEAN CORPUSCULAR HEMOGLOBIN 30 pg (25-34); MEAN CORPUSCULAR HGB CONC 33 g/dL (32-36); MEAN CORPUSCULAR VOLUME 91 fL (80-99); MEAN PLATELET VOLUME 9.2 fL (9.0-12.2); MONOCYTES # (AUTO) 0.5 X 10^3 (0.0-1.0); MONOCYTES % (AUTO) 7 % (0-12); NEUTROPHILS # (AUTO) 3.9 X 10^3 (1.8-7.8); NEUTROPHILS % (AUTO) 55 % (42-75); PLATELET COUNT 231 10^3/uL (130-400); WHITE BLOOD COUNT 7.1 10^3/uL (4.3-11.0)
[2021-08-24 16:12] LABS: POTASSIUM 4.6 MMOL/L (3.6-5.0)
[2021-08-24 16:13] LABS: CALCIUM 9.2 MG/DL (8.5-10.1)
[2021-08-24 16:17] LABS: CREATININE SERUM 0.84 MG/DL (0.60-1.30)
[2021-08-24 16:20] LABS: BACTERIA,URINE FEW /HPF; RBC,URINE 0-2 /HPF; WBC,URINE 25-50 /HPF
[2021-08-24 16:21] LABS: AMPHETAMINE SCREEN, URINE POSITIVE (NEGATIVE); BARBITURATE SCREEN URINE NEGATIVE (NEGATIVE); BENZODIAZEPINES SCREEN URINE NEGATIVE (NEGATIVE); CANNABINOID SCREEN, URINE NEGATIVE (NEGATIVE); COCAINE SCREEN URINE NEGATIVE (NEGATIVE); METHADONE STAT NEGATIVE (NEGATIVE); METHAMPHETAMINE SCREEN URINE S POSITIVE (NEGATIVE); OPIATE SCREEN URINE NEGATIVE (NEGATIVE); OXYCODONE STAT NEGATIVE (NEGATIVE); PROPOXYPHENE STAT NEGATIVE (NEGATIVE); TRICYCLIC ANTIDEPRESSANTS SCRE NEGATIVE (NEGATIVE)
[2021-08-24] MEDS ORDERED: CEFU250T80 PO (16:24)
[2021-08-24] MEDS ORDERED: cefTRIAXone 1 GM PRE-MIX 50 ML IV ONE (16:30)
[2021-08-24 16:58] VITALS: BP 116/87
== END 2021-08-24 16:48 | disposition home or self-care (01) ==
LOC: EDUNIT# 15:30 → ER 15:31
DX: N39.0 Urinary tract infection, site not specified (principal)
CPT/HCPCS: 36415; 80048; 80306; 81000; 85025; 87088; 96374; 96375

== ENCOUNTER 2022-01-09 17:09 | Emergency (ER) | payer MEDICARE ==
[~2022-01-09] VITALS: Ht 170.1 cm; Wt 72.5 kg
[~2022-01-09 17:09] MED LIST changes: +CEFU250T80 PO
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
[2022-01-09] MEDS ORDERED: ACETAMINOPHEN 500 MG TAB (TYLENOL) PO ONE (17:30)
[2022-01-09 17:36] LABS: BASOPHILS # (AUTO) 0.1 10^3/uL (0.0-0.1); BASOPHILS % (AUTO) 1 % (0-10); EOSINOPHILS # (AUTO) 0.1 10^3/uL (0.0-0.3); EOSINOPHILS % (AUTO) 1 % (0-10); HEMATOCRIT 46 % (35-52); HEMOGLOBIN 15.5 g/dL (11.5-16.0); LYMPHOCYTES # (AUTO) 2.1 10^3/uL (1.0-4.0); LYMPHOCYTES % (AUTO) 26 % (12-44); MEAN CORPUSCULAR HEMOGLOBIN 31 pg (25-34); MEAN CORPUSCULAR HGB CONC 34 g/dL (32-36); MEAN CORPUSCULAR VOLUME 91 fL (80-99); MEAN PLATELET VOLUME 9.3 fL (9.0-12.2); MONOCYTES # (AUTO) 0.5 10^3/uL (0.0-1.0); MONOCYTES % (AUTO) 6 % (0-12); NEUTROPHILS # (AUTO) 5.4 10^3/uL (1.8-7.8); NEUTROPHILS % (AUTO) 66 % (42-75); PLATELET COUNT 242 10^3/uL (130-400); WHITE BLOOD COUNT 8.2 10^3/uL (4.3-11.0)
[2022-01-09] MEDS ORDERED: NS 100 ML (IVPB) BAG IV ONE (17:45)
[2022-01-09] MEDS ORDERED: IOHEXOL 350 MG/ML 100 ML (OMNIPAQUE 350) VIAL IV ONE (17:45)
[2022-01-09 17:46] LABS: POTASSIUM 3.8 MMOL/L (3.6-5.0)
[2022-01-09 17:47] LABS: CALCIUM 9.8 MG/DL (8.5-10.1)
[2022-01-09 17:52] LABS: CREATININE SERUM 1.08 MG/DL (0.60-1.30)
--- NOTE | 2022-01-09 18:05 | Diagnostic Imaging Report ---
INDICATION: Trauma with injury to the neck. Difficulty swallowing. COMPARISON: CT cervical spine dated 02/14/2018. TECHNIQUE: Routine postcontrast CTA of the neck was performed. Contrast was injected intravenously and timed for optimal opacification of the arterial structures. Multiplanar and 3-D reformats were also created and reviewed. Auto Exposure Controls were utilized during the CT exam to meet ALARA standards for radiation dose reduction. FINDINGS: Included portions of the aortic arch are unremarkable. Origins of the major arch vessels are widely patent. Bilateral common carotid arteries are normal in course and caliber. There is minimal noncalcified plaque involving the left carotid bulb and origin of the left ICA. By NASCET criteria, there is no focal significant stenosis. The internal carotid siphons are not included in the [id number], bilaterally, but visualized portions of the bilateral internal carotid arteries show no acute abnormalities. There is no evidence of thrombosis, dissection, nor focal significant stenosis. Within the posterior circulation, the vertebral arteries appear to be codominant. The vertebral arteries are patent from their origins to their confluence with the basilar artery. There is no evidence of dissection or thrombosis. Osseous structures show no acute abnormalities. Patient is status post anterior fusion of C5 through C7. Hardware is intact and appears well seated. No unexpected radiopaque foreign bodies are seen. Intervertebral disc spaces are also present and appear appropriately positioned. Pre- and para-vertebral soft tissue structures are unremarkable. Included portions of the intracranial structures demonstrate no additional acute abnormalities. Included portions of the lung apices are clear as well. IMPRESSION: 1. Unremarkable CTA of the neck. No acute vascular abnormality is seen. Dictated by: Dictated on workstation # [id number]
[2022-01-09 18:42] VITALS: BP 101/69
== END 2022-01-09 18:42 | disposition home or self-care (01) ==
LOC: EDUNIT# 17:09 → ER 17:11
DX: S19.9XXA Unspecified injury of neck, initial encounter (principal); F17.210 Nicotine dependence, cigarettes, uncomplicated; Z98.890 Other specified postprocedural states; Y04.8XXA Assault by other bodily force, initial encounter
CPT/HCPCS: 36415; 70498; 80048; 85025

== ENCOUNTER 2022-05-16 10:56 | Emergency (ER) | payer MEDICARE ==
[~2022-05-16] VITALS: Ht 170 cm; Wt 75.0 kg
[2022-05-16] MEDS ORDERED: KETOROLAC 30 MG/ML VIAL IM ONE (12:00)
[2022-05-16] MEDS ORDERED: HYDROmorphone 2 MG/ML VIAL (DILAUDID) IM ONE (12:00)
[2022-05-16 12:09] LABS: BILIRUBIN,URINE NEGATIVE (NEGATIVE); CLARITY,URINE CLEAR; COLOR,URINE YELLOW; GLUCOSE, URINE (UA) NEGATIVE (NEGATIVE); KETONES,URINE NEGATIVE (NEGATIVE); LEUKOCYTE ESTERASE ,URINE NEGATIVE (NEGATIVE); NITRITE,URINE NEGATIVE (NEGATIVE); PH,URINE 7.5 (5-9); PROTEIN,URINE NEGATIVE (NEGATIVE)
--- NOTE | 2022-05-16 12:09 | ED Back Pain ---
General Chief Complaint: Back Problems Stated Complaint: POST OP ABD AND BACK PAIN Nursing Triage Note: PT AMB TO RM FT3 W WALKER CRYING LOUDLY STATES HAD BACK SURG ON MAY 09, PT HAS LARGE INC ON MID BACK AND R FLANK AREA. PT STATES IS OUT OF PAIN MEDS, SURGERY WAS DONE AT [facility] IN [facility]. PT STATES HAS SHOOTING PAIN INTO VAGINA AND RECTUM THAT HAS HAD FOR SEVERAL MONTHS. PT STATES HAS CALL INTO DR REID FOR MORE PAIN MEDS. STATES COUGL NOT FIND RIDE TO [facility] TODAY Source of Information: Patient Exam Limitations: No Limitations History of Present Illness Date Seen by Provider: May 16, 2022 Time Seen by Provider: 11:45 Initial Comments This is a 51 yo female who presented to the ER via POV for c/o severe low back pain. Has history of chronic low back pain that shoots pain into her vagina and rectum. On May 09 she states she had an uncomplicated lumbar spinal surgery with replacement of her spinal stimulator with Dr. Reid at [facility]. Was discharged home with Oxycodone 10mg tabs every 6 hours as needed for pain, with max of 40mg per day. States she has been taking 2 tablets by mouth every 4- 6 hours. Last dose was around 2000 last night. This morning she is in "severe pain", crying, moaning "God help me, somebody help me". No fever, chills, cough, shortness of breath, nausea, vomiting, dysuria, or hematuria. Denies saddle anesthesia, no incontinence of bowel or bladder function. Allergies and Home Medications Allergies Coded Allergies: amoxicillin trihydrate (Verified Allergy, Unknown, 10/28/18) RASH, BUT IS ABLE TO TAKE PCN INJECTION baclofen (Unverified Allergy, Unknown, RASH, 10/28/18) paroxetine HCl (Verified Allergy, Unknown, 10/28/18) potassium clavulanate (Verified Allergy, Unknown, 10/28/18) RASH, BUT IS ABLE TO TAKE PCN INJECTION Uncoded Allergies: BACTRIM DS (Allergy, Unknown, 10/28/18) Patient Home Medication List Home Medication List Reviewed: Yes Cefdinir (Cefdinir) 300 Mg Capsule, 300 MG PO BID Prescribed by: MINDY NORRIS on 09/26/20 0340 Cefuroxime Axetil (Cefuroxime) 250 Mg Tablet, 250 MG PO BID Prescribed by: RIGO DAS on 08/24/21 1624 Doxycycline Hyclate (Doxycycline Hyclate) 100 Mg Tablet, 100 MG PO BID Prescribed by: RENEE SALAS on 02/09/21 0431 Doxycycline Hyclate (Doxycycline Hyclate) 100 Mg Tablet, 100 MG PO BID Prescribed by: RENEE SALAS on 06/19/21 0805 Guaifenesin/Dextromethorphan (Mucinex Dm ER 1,200-60 mg Tab) 1 Each Tbmp.12hr, 1 EACH PO BID Prescribed by: MINDY NORRIS on 09/26/20 0340 Hydroxyzine Pamoate (Vistaril) 50 Mg Capsule, 50 MG PO Q6H PRN for ANXIETY Prescribed by: IRGO DAS on 08/15/21 1257 Ondansetron (Ondansetron Odt) 8 Mg Tab.rapdis, 8 MG PO Q6H PRN for NAUSEA/VOMITING Prescribed by: RIGO DAS on 08/15/21 1257 Review of Systems Constitutional: see HPI Past Xvqazqu-Zvzwnp-Uhyhgn Hx Immunizations Up To Date Tetanus Booster (TDap): More than 5yrs PED Vaccines UTD: Yes First/Initial COVID19 Vaccinat: SUMMER 2020 Second COVID19 Vaccination Aamir: SUMMER 2020 Third COVID19 Vaccination Date: SUMMER 2020 Seasonal Allergies Seasonal Allergies: No Past Medical History Surgeries: Yes (R CARPAL TUNNEL;HYST/BSO;TUMMY TUCK/ABDOMINOPLASTY;NERVE STIMULATOR) Breast, 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, Oophorectomy, Orthopedic Respiratory: Yes Asthma Cardiac: Yes (hx of TACHYCARDIA;STATES "[place]"--NO CARDIAC CATH) Coronary Artery Disease, Heart Attack, High Cholesterol, Irregular Heartbeat Neurological: No 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 Disorders: 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 Sexually Transmitted Disease: Yes (TRICHOMONAS) Genitourinary: Yes Kidney Infection, Bladder Infection, UTI-Chronic Gastrointestinal: Yes (HEPATITIS C--S/P TREATMENT; PT STATES SHE HAS GALLSTONES--NO SURGERY) Gastroesophageal Reflux, Chronic Constipation, Hepatitis, Gall Bladder Disease, Irritable Bowel Musculoskeletal: Yes (CHRONIC NECK/BACK PAIN-S/P CERVICAL/LUMBAR SPINE SURG & NEUROSTIMULATOR) Back Injury, Chronic Back Pain Endocrine: No HEENT: No Loss of Vision: Bilateral Cancer: No Psychosocial: Yes (EXTENSIVE PSYCH HX-SELF DC'D MEDS/NO FOLLOW UP;SUBSTANCE ABUSE) Anxiety, Bipolar, Depression Integumentary: No Blood Disorders: Yes (HEP C) Adverse Reaction/Blood Tranf: No Family Medical History Aphasia Arthritis 19 MOTHER Cardiovascular disease 19 MOTHER Diabetes mellitus 19 MOTHER FH: Meniere's disease 19 FATHER FH: atrial fibrillation 19 MOTHER FH: back pain 19 FATHER 19 MOTHER FHx: AAA 19 MOTHER Hypertension 19 FATHER 19 MOTHER Osteoporosis 19 MOTHER Thyroid disease G8 SISTER No Pertinent Family Hx SOCIAL HISTORY: -ETOH--OCCASIONAL USE, HISTORY OF HEAVY USE -DRUGS--SMOKES METH ON REGULAR BASIS AND THC --DENIES IV USE -SMOKES 1 PPD 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 0.0oz. 72.130711md; 25.00 BMI Method:Stated General Appearance: No Apparent Distress, Anxious HEENT: PERRL/EOMI, Normal ENT Inspection, Moist Mucous Membranes Neck: Full Range of Motion, Normal Inspection Cardiovascular: Regular Rate, Rhythm, No Murmur, Normal Peripheral Pulses Respiratory: Lungs Clear, Normal Breath Sounds, No Accessory Muscle Use, No Respiratory Distress Peripheral Pulses: 2+ Dorsalis Pedis (R), 2+ Left Dors-Pedis (L) Gastrointestinal: Normal Bowel Sounds, Non Tender, Soft Back: Normal Inspection, Vertebral Tenderness (lumbar), Other (incision sites are located midline lumbar region and just right of lumbar spine, lesa intact, no discharge, swelling, erythema to site or surrounding tissue. ) Extremity: Normal Capillary Refill, Normal Inspection, No Calf Tenderness Neurologic/Psychiatric: Alert, Oriented x3, No Motor/Sensory Deficits, Normal Mood/Affect Skin: Normal Color, Warm/Dry Progress/Results/Core Measures Results/Orders Lab Results Laboratory Tests Test 05/16/22 11:57 Range/Units Urine Color YELLOW Urine Clarity CLEAR Urine pH 7.5 5-9 Urine Specific [place] 1.010 L 1.016-1.022 Urine Protein NEGATIVE NEGATIVE Urine Glucose (UA) NEGATIVE NEGATIVE Urine Ketones NEGATIVE NEGATIVE Urine Nitrite NEGATIVE NEGATIVE Urine Bilirubin NEGATIVE NEGATIVE Urine Urobilinogen 0.2 < = 1.0 MG/DL Urine Leukocyte Esterase NEGATIVE NEGATIVE Urine RBC (Auto) NEGATIVE NEGATIVE Urine RBC NONE /HPF Urine WBC NONE /HPF Urine Squamous Epithelial Cells 0-2 /HPF Urine Crystals NONE /LPF Urine Bacteria NEGATIVE /HPF Urine Casts NONE /LPF Urine Mucus NEGATIVE /LPF Urine Culture Indicated NO Urine Opiates Screen NEGATIVE NEGATIVE Urine Oxycodone Screen POSITIVE H NEGATIVE Urine Methadone Screen NEGATIVE NEGATIVE Urine Propoxyphene Screen NEGATIVE NEGATIVE Urine Barbiturates Screen NEGATIVE NEGATIVE Ur Tricyclic Antidepressants Screen NEGATIVE NEGATIVE Urine Phencyclidine Screen NEGATIVE NEGATIVE Urine Amphetamines Screen POSITIVE H NEGATIVE Urine Methamphetamines Screen POSITIVE H NEGATIVE Urine Benzodiazepines Screen POSITIVE H NEGATIVE Urine Cocaine Screen NEGATIVE NEGATIVE Urine Cannabinoids Screen POSITIVE H NEGATIVE My Orders Orders - SHEBA BARCLAY CLERK MANAGER Ua Culture If Indicated (05/16/22 11:58) Hydromorphone Injection (Dilaudid Inject (05/16/22 12:00) Ketorolac Injection (Toradol Injection) (05/16/22 12:00) Drug Screen Stat (Urine) (05/16/22 11:59) Medications Given in ED Current Medications Medications Dose Ordered Sig/Michael Route Start Time Stop Time Status Last Admin Dose Admin Hydromorphone HCl 0.5 mg ONCE ONCE IM 05/16/22 12:00 05/16/22 12:01 DC 05/16/22 12:09 0.5 MG Ketorolac Tromethamine 30 mg ONCE ONCE IM 05/16/22 12:00 05/16/22 12:01 DC 05/16/22 12:09 30 MG Vital Signs/I&O 05/16/22 11:00 Temp 36.6 Pulse 99 Resp 18 B/P (MAP) 97/68 (78) Pulse Ox 92 Blood Pressure Mean: 78 Progress Progress Note : Progress Note Patient examined, crying very loudly and moaning "God help me". Review of medication shows she has been inappropriately taking her prescribed narcotics and has ran out and likely causing severity of her pain today. Maya RN called Dr. Reid nurse and patient has follow up on 05/24/22, no additional pain medications will be prescribed. OK given for one time dose Toradol today. Will go ahead and give Dilaudid 0.5mg IM now as well. Educated patient that she has been inappropriately taking her prescribed narcotics. She immediately stopped crying and stated "I was? I didn't know I was". Educated that she is limited on the number of controlled substances she is allowed for given injury/procedure and importance of taking as prescribed so she does not have this same issue. Verbalized understanding. Was able to urinate without issue in ED. Sample obtained for UA and drug screen added. Positive for Benzodiazepines, Oxycodone, Methamphetamines, Amphetamines, and THC. UA negative for UTI. Discharge POC reviewed and she is agreeable with plan. Departure Impression Primary Impression: Lumbar spine pain Disposition: HOME, SELF-CARE Condition: Improved Departure-Patient Inst. Decision time for Depature: 12:31 Referrals: [facility] [place] Primary Care Physician Patient Instructions: Opioids for Short-Term Treatment of Pain, Low Back Pain in Adults Add. Discharge Instructions: Plan: 1. Follow up with Dr. Reid as previously scheduled. 2. Your urine did not show evidence of urinary tract infection. 3. May take Tylenol 1000mg every 8 hours and your Cyclobenzaprine as directed for pain. 4. Follow up with your primary care provider if your symptoms persist. 5. You will not be prescribed additional narcotics through the emergency department. 6. Stop using methamphetamine. All discharge instructions reviewed with patient and/or family. Voiced understanding. SHEBA BARCLAY CLERK MANAGER May 16, 2022 12:09
[2022-05-16 12:20] LABS: BACTERIA,URINE NEGATIVE /HPF; SQUAMOUS EPITHELIAL CELL,UR 0-2 /HPF
[2022-05-16 12:24] LABS: AMPHETAMINE SCREEN, URINE POSITIVE (NEGATIVE); BARBITURATE SCREEN URINE NEGATIVE (NEGATIVE); BENZODIAZEPINES SCREEN URINE POSITIVE (NEGATIVE); CANNABINOID SCREEN, URINE POSITIVE (NEGATIVE); COCAINE SCREEN URINE NEGATIVE (NEGATIVE); METHADONE STAT NEGATIVE (NEGATIVE); OPIATE SCREEN URINE NEGATIVE (NEGATIVE); OXYCODONE STAT POSITIVE (NEGATIVE); PROPOXYPHENE STAT NEGATIVE (NEGATIVE); TRICYCLIC ANTIDEPRESSANTS SCRE NEGATIVE (NEGATIVE)
[2022-05-16 12:43] VITALS: BP 97/68
== END 2022-05-16 12:42 | disposition home or self-care (01) ==
LOC: EDUNIT# 10:56 → ER 10:58
DX: G89.18 Other acute postprocedural pain (principal); M54.50 Low back pain, unspecified; F17.210 Nicotine dependence, cigarettes, uncomplicated
CPT/HCPCS: 80306; 81000; 99282

== ENCOUNTER 2022-09-06 18:11 | Emergency (ER) | payer MEDICARE, OTHER ==
[~2022-09-06] VITALS: Ht 170 cm; Wt 74.8 kg
--- NOTE | 2022-09-06 18:25 | ED General ---
General Stated Complaint: FAST HEART RATE Source of Information: Patient Exam Limitations: No Limitations History of Present Illness Date Seen by Provider: Sep 06, 2022 Time Seen by Provider: 18:25 Initial Comments Patient is a 51-year-old female who presents to the emergency room with a chief complaint of generalized malaise, fatigue, slightly productive cough, a little nausea. Symptoms have been ongoing 3 days. She went to [facility] urgent care and was sent to the emergency room secondary to tachycardia. The patient states they told her heart rate was in the 160s. Patient states that she has some chest discomfort with deep breaths. She is not short of breath. She has significant smoking history and medical record review reveals history of methamphetamine abuse. No recent travel. Last surgery was some back surgery in May 2022. No calf pain or leg swelling. No history of DVT. Patient takes no medications for any medical problems. Patient reports that she is currently on doxycycline for upper respiratory infection. She was tested for COVID today and reports that she was negative. Heart rate noted to be 111. Blood pressure is good. Oxygen is 96% on room air. Timing/Duration: 2-3 Days Severity: Moderate Associated Systoms: Chest Pain (with deep breath), Cough, Diaphoresis ("I feel hot"), Malaise, Weakness Allergies and Home Medications Allergies Coded Allergies: amoxicillin trihydrate (Verified Allergy, Unknown, 10/28/18) RASH, BUT IS ABLE TO TAKE PCN INJECTION baclofen (Unverified Allergy, Unknown, RASH, 10/28/18) paroxetine HCl (Verified Allergy, Unknown, 10/28/18) potassium clavulanate (Verified Allergy, Unknown, 10/28/18) RASH, BUT IS ABLE TO TAKE PCN INJECTION Uncoded Allergies: BACTRIM DS (Allergy, Unknown, 10/28/18) Patient Home Medication List Home Medication List Reviewed: Yes Cefdinir (Cefdinir) 300 Mg Capsule, 300 MG PO BID Prescribed by: MINDY NORRIS on 09/26/20 0340 Cefuroxime Axetil (Cefuroxime) 250 Mg Tablet, 250 MG PO BID Prescribed by: RIGO DAS on 08/24/21 1624 Doxycycline Hyclate (Doxycycline Hyclate) 100 Mg Tablet, 100 MG PO BID Prescribed by: RENEE SALAS on 02/09/21 0431 Doxycycline Hyclate (Doxycycline Hyclate) 100 Mg Tablet, 100 MG PO BID Prescribed by: RENEE SALAS on 06/19/21 0805 Guaifenesin/Dextromethorphan (Mucinex Dm ER 1,200-60 mg Tab) 1 Each Tbmp.12hr, 1 EACH PO BID Prescribed by: MINDY NORRIS on 09/26/20 0340 Hydroxyzine Pamoate (Vistaril) 50 Mg Capsule, 50 MG PO Q6H PRN for ANXIETY Prescribed by: RIGO DAS on 08/15/21 1257 Ondansetron (Ondansetron Odt) 8 Mg Tab.rapdis, 8 MG PO Q6H PRN for NAUSEA/VOMITING Prescribed by: RIGO DAS on 08/15/21 1257 Review of Systems Review of Systems Constitutional: see HPI EENTM: no symptoms reported Respiratory: cough, phlegm Cardiovascular: chest pain Gastrointestinal: loss of appetite Genitourinary: no symptoms reported Musculoskeletal: back pain (chronic) Skin: no symptoms reported All Other Systems Reviewed Negative Unless Noted: Yes Past Jfitzac-Xqaqtu-Ccwuof Hx Immunizations Up To Date Tetanus Booster (TDap): More than 5yrs PED Vaccines UTD: Yes First/Initial COVID19 Vaccinat: SUMMER 2020 Second COVID19 Vaccination Aamir: SUMMER 2020 Third COVID19 Vaccination Date: SUMMER 2020 Seasonal Allergies Seasonal Allergies: No Past Medical History Surgery/Hospitalization HX: NUMEROUS BACK SURGERIES, SPINAL STIMULATOR Surgeries: Yes (R CARPAL TUNNEL;HYST/BSO;TUMMY TUCK/ABDOMINOPLASTY;NERVE STIMULATOR) Breast, 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, Oophorectomy, Orthopedic Respiratory: Yes Asthma Cardiac: Yes (hx of TACHYCARDIA;STATES "[place]"--NO CARDIAC CATH) Coronary Artery Disease, Heart Attack, High Cholesterol, Irregular Heartbeat Neurological: No 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 Sexually Transmitted Disease: Yes (TRICHOMONAS) Genitourinary: Yes Kidney Infection, Bladder Infection, UTI-Chronic Gastrointestinal: Yes (HEPATITIS C--S/P TREATMENT; PT STATES SHE HAS GALLSTONES--NO SURGERY) Gastroesophageal Reflux, Chronic Constipation, Hepatitis, Gall Bladder Disease, Irritable Bowel Musculoskeletal: Yes (CHRONIC NECK/BACK PAIN-S/P CERVICAL/LUMBAR SPINE SURG & NEUROSTIMULATOR) Back Injury, Chronic Back Pain Endocrine: No HEENT: No Loss of Vision: Bilateral Cancer: No Psychosocial: Yes (EXTENSIVE PSYCH HX-SELF DC'D MEDS/NO FOLLOW UP;SUBSTANCE ABUSE) Anxiety, Bipolar, Depression Integumentary: No Blood Disorders: Yes (HEP C) Adverse Reaction/Blood Tranf: No Family Medical History Aphasia Arthritis 19 MOTHER Cardiovascular disease 19 MOTHER Diabetes mellitus 19 MOTHER FH: Meniere's disease 19 FATHER FH: atrial fibrillation 19 MOTHER FH: back pain 19 FATHER 19 MOTHER FHx: AAA 19 MOTHER Hypertension 19 FATHER 19 MOTHER Osteoporosis 19 MOTHER Thyroid disease G8 SISTER No Pertinent Family Hx SOCIAL HISTORY: -ETOH--OCCASIONAL USE, HISTORY OF HEAVY USE -DRUGS--SMOKES METH ON REGULAR BASIS AND THC --DENIES IV USE -SMOKES 1 PPD 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 0.0oz. 72.854453sp; 25.00 BMI Method:Stated General Appearance: No Apparent Distress Eyes: Bilateral Eye Normal Inspection, Bilateral Eye PERRL, Bilateral Eye EOMI HEENT: Other (very dry oral mucosa) Neck: Normal Inspection Respiratory: Chest Non Tender, Lungs Clear, Normal Breath Sounds, No Accessory Muscle Use, No Respiratory Distress Cardiovascular: Regular Rate, Rhythm, Normal Peripheral Pulses Gastrointestinal: Normal Bowel Sounds, Soft Extremity: Normal Capillary Refill, Normal Inspection, Normal Range of Motion, No Calf Tenderness, No Pedal Edema, Other (clubbing to fingers) Neurologic/Psychiatric: Alert, Oriented x3, No Motor/Sensory Deficits, Normal Mood/Affect Skin: Normal Color, Warm/Dry Progress/Results/Core Measures Suspected Sepsis SIRS Temperature: Pulse: Respiratory Rate: Laboratory Tests 09/06/22 18:37: White Blood Count 7.0 Blood Pressure / Mean: Laboratory Tests 09/06/22 18:37: Creatinine 0.83, Platelet Count 217 Results/Orders Lab Results Laboratory Tests Test 09/06/22 18:37 Range/Units White Blood Count 7.0 4.3-11.0 10^3/uL Red Blood Count 5.37 H 3.80-5.11 10^6/uL Hemoglobin 15.5 11.5-16.0 g/dL Hematocrit 46 35-52 % Mean Corpuscular Volume 85 80-99 fL Mean Corpuscular Hemoglobin 29 25-34 pg Mean Corpuscular Hemoglobin Concent 34 32-36 g/dL Red Cell Distribution Width 14.1 10.0-14.5 % Platelet Count 217 130-400 10^3/uL Mean Platelet Volume 9.2 9.0-12.2 fL Immature Granulocyte % (Auto) 0 % Neutrophils (%) (Auto) 83 H 42-75 % Lymphocytes (%) (Auto) 9 L 12-44 % Monocytes (%) (Auto) 5 0-12 % Eosinophils (%) (Auto) 1 0-10 % Basophils (%) (Auto) 0 0-10 % Neutrophils # (Auto) 5.8 1.8-7.8 10^3/uL Lymphocytes # (Auto) 0.6 L 1.0-4.0 10^3/uL Monocytes # (Auto) 0.4 0.0-1.0 10^3/uL Eosinophils # (Auto) 0.1 0.0-0.3 10^3/uL Basophils # (Auto) 0.0 0.0-0.1 10^3/uL Immature Granulocyte # (Auto) 0.0 0.0-0.1 10^3/uL Sodium Level 135 135-145 MMOL/L Potassium Level 3.6 3.6-5.0 MMOL/L Chloride Level 103 98-107 MMOL/L Carbon Dioxide Level 19 L 21-32 MMOL/L Anion Gap 13 5-14 MMOL/L Blood Urea Nitrogen 18 7-18 MG/DL Creatinine 0.83 0.60-1.30 MG/DL Estimat Glomerular Filtration Rate 84 BUN/Creatinine Ratio 22 Glucose Level 108 H 70-105 MG/DL Calcium Level 8.8 8.5-10.1 MG/DL My Orders Orders - STEPHANIE ZAYAS MD Ed Iv/Invasive Line Start (09/06/22 18:35) Basic Metabolic Panel (09/06/22 18:35) Cbc With Automated Diff (09/06/22 18:35) Ns Iv 1000 Ml (Sodium Chloride 0.9%) (09/06/22 18:45) Chest 1 View, Ap/Pa Only (09/06/22 19:12) Vital Signs/I&O 09/06/22 09/06/22 18:20 19:54 Temp 37.6 Pulse 114 91 Resp 26 19 B/P (MAP) 117/84 (95) 115/74 Pulse Ox 96 95 O2 Delivery Room Air Room Air Capillary Refill : Progress Note : Time: 19:30 Progress Note Patient seen and evaluated by me. Evaluation today includes physical exam, CBC, basic metabolic panel. Physical exam pertinent for well-developed well- nourished female, no acute distress. Dry oral mucosa, tachycardia, clear lungs. Abdomen is soft. No lower extremity edema or calf tenderness. No focal neurologic deficits. Differential diagnosis based on history and physical, pneumonia, dehydration, COPD exacerbation, viral illness/bronchitis. Patient is treated with 1 L of normal saline here in the emergency department. Labs are reviewed, normal white count, normal hemoglobin. Basic metabolic panel is unremarkable, CO2 is 19. She is currently on doxycycline prescribed by her primary care clinic. She is not hypoxic. No wheezing, no concern for COPD exacerbation. Her heart rate is improved after fluids down into the low 90s. Recommendations for smoking cessation. She needs to hydrate. Return precautions provided. She verbalized understanding. All questions are sought and answered. Diagnostic Imaging Diagonstic Imaging: Xray Plain Films/CT/US/NM/MRI: chest Comments Chest x-ray independently interpreted by me, no focal infiltrates, effusions. Normal mediastinal structures. NAME: ALIX MARTINEZ [facility] REC#: [id number] PT STATUS: REG ER : 1970 PHYSICIAN: STEPHANIE ZAYAS MD ADMIT DATE: 09/06/22/ER Draft Date of Exam:09/06/22 CHEST 1 VIEW, AP/PA ONLY EXAMINATION: Chest 1 view. HISTORY: Chest pain. COMPARISON: 07/07/2021. FINDINGS: The lungs are clear without edema or pneumonia. No pleural effusion or pneumothorax. Heart size is normal. IMPRESSION: Clear lungs. Dictated on workstation # [id number] Dict: 09/06/[id number] Trans: 09/06/221934 [facility] [id number] Interpreted by: ERIKA SAMANO MD Electronically signed by: Departure Impression Primary Impression: Bronchitis Additional Impression: Dehydration Disposition: 01 HOME, SELF-CARE Condition: Stable Departure-Patient Inst. Decision time for Depature: 19:39 Referrals: [facility] (PCP/Family) Primary Care Physician Patient Instructions: Dehydration, Adult ED Add. Discharge Instructions: Finish out your antibiotic prescription as directed. Increase your water intake over the next several days. Try and quit smoking, this will help with your chest discomfort, cough etc. Please follow-up with [facility] in 1 week. Return to the emergency department for any new, concerning or emergent complaints. STEPHANIE ZAYAS MD Sep 06, 2022 18:25
[2022-09-06 18:44] LABS: BASOPHILS % (AUTO) 0 % (0-10); EOSINOPHILS # (AUTO) 0.1 10^3/uL (0.0-0.3); EOSINOPHILS % (AUTO) 1 % (0-10); HEMATOCRIT 46 % (35-52); HEMOGLOBIN 15.5 g/dL (11.5-16.0); LYMPHOCYTES # (AUTO) 0.6 10^3/uL (1.0-4.0); LYMPHOCYTES % (AUTO) 9 % (12-44); MEAN CORPUSCULAR HEMOGLOBIN 29 pg (25-34); MEAN CORPUSCULAR HGB CONC 34 g/dL (32-36); MEAN CORPUSCULAR VOLUME 85 fL (80-99); MEAN PLATELET VOLUME 9.2 fL (9.0-12.2); MONOCYTES # (AUTO) 0.4 10^3/uL (0.0-1.0); MONOCYTES % (AUTO) 5 % (0-12); NEUTROPHILS # (AUTO) 5.8 10^3/uL (1.8-7.8); NEUTROPHILS % (AUTO) 83 % (42-75); PLATELET COUNT 217 10^3/uL (130-400)
[2022-09-06] MEDS ORDERED: NS IV 1000 ML 1,000 ML IV SCH (18:45)
[2022-09-06 19:06] LABS: CALCIUM 8.8 MG/DL (8.5-10.1); CREATININE SERUM 0.83 MG/DL (0.60-1.30); POTASSIUM 3.6 MMOL/L (3.6-5.0)
--- NOTE | 2022-09-06 19:35 | Diagnostic Imaging Report ---
EXAMINATION: Chest 1 view. HISTORY: Chest pain. COMPARISON: 07/07/2021. FINDINGS: The lungs are clear without edema or pneumonia. No pleural effusion or pneumothorax. Heart size is normal. IMPRESSION: Clear lungs. Dictated by: Dictated on workstation # [id number]
[2022-09-06 19:54] VITALS: BP 115/74
== END 2022-09-06 20:02 | disposition home or self-care (01) ==
LOC: EDUNIT# 18:11 → ER 18:15
DX: J45.909 Unspecified asthma, uncomplicated (principal); E86.0 Dehydration; J06.9 Acute upper respiratory infection, unspecified; F17.210 Nicotine dependence, cigarettes, uncomplicated; Z20.822 Contact with and (suspected) exposure to COVID-19
CPT/HCPCS: 36415; 71045; 80048; 85025

== ENCOUNTER 2023-02-03 19:57 | Emergency (ER) | payer MEDICARE ==
[~2023-02-03] VITALS: Ht 170.2 cm; Wt 70.3 kg
[2023-02-03 20:02] VITALS: BP 114/79
[2023-02-03] MEDS ORDERED: HYDROcodone/ACETAMINOPHEN 7.5 MG/325 MG TABLET PO STA (20:08)
--- NOTE | 2023-02-03 20:11 | ED Lower Extremity ---
General Chief Complaint: Lower Extremity Stated Complaint: INJ LEFT ANKLE Source: patient Exam Limitations: no limitations History of Present Illness Date Seen by Provider: Feb 03, 2023 Time Seen by Provider: 20:08 Initial Comments Patient is a 52-year-old female who presents the ED with left lateral ankle pain. Patient states she fell down the stairs of her porch about 1 hour ago. She missed a step and rolled her left ankle. She states her porch is about 2 feet off the ground. She reports pain to her left lateral ankle left lateral foot. She report swelling. Not able to stand and bear weight. Previous injury in the past. She denies taking thing for pain. She applied Jeffrey wrap. She denies of any distal numbness and tingling but difficulty moving her toes. She denies any calf pain, head injury, vomiting, diarrhea, fever, chills, chest pain or shortness of breath. Allergies and Home Medications Allergies Coded Allergies: amoxicillin trihydrate (Verified Allergy, Unknown, 10/28/18) RASH, BUT IS ABLE TO TAKE PCN INJECTION baclofen (Unverified Allergy, Unknown, RASH, 10/28/18) paroxetine HCl (Verified Allergy, Unknown, 10/28/18) potassium clavulanate (Verified Allergy, Unknown, 10/28/18) RASH, BUT IS ABLE TO TAKE PCN INJECTION Uncoded Allergies: BACTRIM DS (Allergy, Unknown, 10/28/18) Patient Home Medication List Home Medication List Reviewed: Yes Cefdinir (Cefdinir) 300 Mg Capsule, 300 MG PO BID Prescribed by: MINDY NORRIS on 09/26/20 0340 Cefuroxime Axetil (Cefuroxime) 250 Mg Tablet, 250 MG PO BID Prescribed by: RIGO DAS on 08/24/21 1624 Doxycycline Hyclate (Doxycycline Hyclate) 100 Mg Tablet, 100 MG PO BID Prescribed by: RENEE SALAS on 02/09/21 0431 Doxycycline Hyclate (Doxycycline Hyclate) 100 Mg Tablet, 100 MG PO BID Prescribed by: RENEE SALAS on 06/19/21 0805 Guaifenesin/Dextromethorphan (Mucinex Dm ER 1,200-60 mg Tab) 1 Each Tbmp.12hr, 1 EACH PO BID Prescribed by: MINDY NORRIS on 09/26/20 0340 Hydroxyzine Pamoate (Vistaril) 50 Mg Capsule, 50 MG PO Q6H PRN for ANXIETY Prescribed by: RIGO DAS on 08/15/21 1257 Naproxen (Naproxen) 500 Mg Tablet, 500 MG PO BID Prescribed by: FRANCIS HANLEY on 02/03/232045 Ondansetron (Ondansetron Odt) 8 Mg Tab.rapdis, 8 MG PO Q6H PRN for NAUSEA/VOMITING Prescribed by: RIGO DAS on 08/15/21 1257 Review of Systems Constitutional: No chills EENTM: No ear pain, No blurred vision, No double vision Respiratory: No cough, No dyspnea on exertion Gastrointestinal: No abdominal pain, No nausea, No vomiting Genitourinary: No decreased output Musculoskeletal: joint pain, joint swelling All Other Systems Reviewed Negative Unless Noted: Yes Past Zknwoaa-Jnvavq-Qijdld Hx Immunizations Up To Date Tetanus Booster (TDap): More than 5yrs PED Vaccines UTD: Yes First/Initial COVID19 Vaccinat: SUMMER 2020 Second COVID19 Vaccination Aamir: SUMMER 2020 Third COVID19 Vaccination Date: SUMMER 2020 Seasonal Allergies Seasonal Allergies: No Past Medical History Surgery/Hospitalization HX: NUMEROUS BACK SURGERIES, SPINAL STIMULATOR Surgeries: Yes (R CARPAL TUNNEL;HYST/BSO;TUMMY TUCK/ABDOMINOPLASTY;NERVE STIMULATOR) Breast, 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, Oophorectomy, Orthopedic Respiratory: Yes Asthma Cardiac: Yes (hx of TACHYCARDIA;STATES "[place]"--NO CARDIAC CATH) Coronary Artery Disease, Heart Attack, High Cholesterol, Irregular Heartbeat Neurological: No 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 Disorders: 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 Sexually Transmitted Disease: Yes (TRICHOMONAS) Genitourinary: Yes Kidney Infection, Bladder Infection, UTI-Chronic Gastrointestinal: Yes (HEPATITIS C--S/P TREATMENT; PT STATES SHE HAS GALL STONES--NO SURGERY) Gastroesophageal Reflux, Chronic Constipation, Hepatitis, Gall Bladder Disease, Irritable Bowel Musculoskeletal: Yes (CHRONIC NECK/BACK PAIN-S/P CERVICAL/LUMBAR SPINE SURG & NEUROSTIMULATOR) Back Injury, Chronic Back Pain Endocrine: No HEENT: No Loss of Vision: Bilateral Cancer: No Psychosocial: Yes (EXTENSIVE PSYCH HX-SELF DC'D MEDS/NO FOLLOW UP;SUBSTANCE ABUSE) Anxiety, Bipolar, Depression Integumentary: No Blood Disorders: Yes (HEP C) Adverse Reaction/Blood Tranf: No Family Medical History Aphasia Arthritis 19 MOTHER Cardiovascular disease 19 MOTHER Diabetes mellitus 19 MOTHER FH: Meniere's disease 19 FATHER FH: atrial fibrillation 19 MOTHER FH: back pain 19 FATHER 19 MOTHER FHx: AAA 19 MOTHER Hypertension 19 FATHER 19 MOTHER Osteoporosis 19 MOTHER Thyroid disease G8 SISTER No Pertinent Family Hx SOCIAL HISTORY: -ETOH--OCCASIONAL USE, HISTORY OF HEAVY USE -DRUGS--SMOKES METH ON REGULAR BASIS AND THC --DENIES IV USE -SMOKES 1 PPD CIGARETTES 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 0.0oz. [id number]; 25.00 BMI Method:Stated General Appearance: WD/WN, no apparent distress HEENT: PERRL/EOMI, normal ENT inspection, TMs normal, pharynx normal Neck: non-tender, full range of motion, supple, normal inspection Cardiovascular: regular rate, rhythm, no edema, no gallop, no JVD Respiratory: chest non-tender, lungs clear, normal breath sounds, no respiratory distress, no accessory muscle use Gastrointestinal: normal bowel sounds, non tender, soft Back: normal inspection, no CVA tenderness Hips: bilateral hip non-tender, bilateral hip normal inspection, bilateral hip normal range of motion Knees: bilateral knee non-tender, bilateral knee normal inspection, bilateral knee normal range of motion Ankles: left ankle pain, left ankle soft tissue tenderness (Left lateral ankle tenderness. No obvious bone deformity. Plantarflexion dorsiflexion intact with pain.), left ankle swelling Feet: left foot pain (Left lateral fourth and fifth metatarsal tenderness. Bruising and swelling noted. 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 nml as tested, no motor/sensory deficits, alert, normal mood/affect, oriented x 3 Skin: other (Swelling to the left lateral ankle left foot.) Progress/Results/Core Measures Results/Orders My Orders Orders - RADHA HUGHES Ankle, Left, 3 Views (02/03/23 20:07) Foot, Left, 3 Views (02/03/23 20:07) Hydrocodone/Apap 7.5/325 Tab (Hydrocodon (02/03/23 20:08) Rx-Hydrocodone/Apap 5-325 Mg (Rx-Vicodin (02/03/23 21:00) Vital Signs/I&O 02/03/23 20:02 Temp 36.2 Pulse 99 Resp 18 B/P (MAP) 114/79 (91) Pulse Ox 95 O2 Delivery Room Air Departure Communication (PCP) Patient with injury to the left lateral ankle left foot. This occurred this evening. Difficulty obtaining weight. Swelling noted to the left lateral ankle and tenderness to left lateral foot and left lateral ankle. Neurovascular intact. Due to location of pain and tenderness on exam x-ray was ordered of the left ankle and left foot. X-ray was negative for acute fracture. She received a dose of pain medication. Improvement of pain. ice was applied. Discussed results with patient. Will discharge with Jeffrey wrap. Crutches was provided. Bear weight as tolerated. Range of motion exercises at home. Rest ice and anti-inflammatories. Orthopedic outpatient follow-up in 7 to 10 days. If continued pain, she may benefit with a boot and I provided instructions to get one. If any worsening symptoms to return back to ED. patient agrees with plan of action Impression Primary Impression: Ankle sprain Disposition: 01 HOME, SELF-CARE Condition: Stable Departure-Patient Inst. Decision time for Depature: 20:45 Referrals: [facility] (PCP/Family) Primary Care Physician JAVIER TABARES MD Patient Instructions: Ankle Sprain (DC) Add. Discharge Instructions: Orthopedic outpatient follow-up. Ice rest pain medication as needed. If any worsening symptoms return back to ED. All discharge instructions reviewed with patient and/or family. Voiced understanding. Scripts Naproxen (Naproxen) 500 Mg Tablet 500 MG PO BID, #20 TAB Prov: RADHA HUGHES 02/03/23 RADHA HUGHES Feb 03, 2023 20:11
--- NOTE | 2023-02-03 20:42 | Diagnostic Imaging Report ---
INDICATION: Lateral ankle pain. COMPARISON: None. FINDINGS: Three views of the left ankle were obtained. There is no acute fracture or dislocation. No focal osseous lesion is seen. The surrounding soft tissue structures are unremarkable. There is no radiopaque foreign body. IMPRESSION: No acute fracture or dislocation in the left ankle. Dictated by: Dictated on workstation # [id number]
--- NOTE | 2023-02-03 20:42 | Diagnostic Imaging Report ---
INDICATION: Lateral ankle pain. COMPARISON: None. FINDINGS: Three views of the left foot demonstrate no acute fracture or dislocation. There is no focal osseous lesion. There is no soft tissue swelling. Joint spaces are well maintained. No radiopaque foreign body is seen. IMPRESSION: No acute fracture or dislocation of the left foot. Dictated by: Dictated on workstation # [id number]
[2023-02-03] MEDS ORDERED: NAPR-915 PO (20:46)
== END 2023-02-03 21:20 | disposition home or self-care (01) ==
LOC: EDUNIT# 19:57 → ER 20:00
DX: S93.402A Sprain of unspecified ligament of left ankle, initial encounter (principal); F17.210 Nicotine dependence, cigarettes, uncomplicated; W10.9XXA Fall (on) (from) unspecified stairs and steps, initial encounter; X50.1XXA Overexertion from prolonged static or awkward postures, initial encounter
CPT/HCPCS: 73610; 73630